=== PATIENT | female | born 1950 | race Caucasian/White ===

== ENCOUNTER 2018-10-21 11:30 | Emergency (ER) | payer MEDICARE, BC, SELFPAY ==
[2018-10-21 11:31] VITALS: BP 126/72; PULSE 67; RESP 17; TEMP 36.4; O2SAT 97; BMI 26.4
--- NOTE | 2018-10-21 11:45 | RAD_ITS ---
STUDY: X-RAY - RIGHT KNEE REASON FOR EXAM: Female, 68 years old. Fall, pain in the posterior knee. TECHNIQUE: 4 view(s) of the knee. COMPARISON: None. FINDINGS: No fracture. Mild tricompartment DJD. No apparent effusion. Periarticular soft tissues appear normal. RAD/Knee 4 or More Views IMPRESSION: No radiographic evidence of acute injury. Mild tricompartmental DJD. No effusion. Electronically Signed: Vasyl Dyer MD at 15:40 EST Tel , Service support ,
--- NOTE | 2018-10-21 11:51 | ED.VISSUMM ---
- ER Visit Summary Date of Service: 10/21/18 Chief Complaint: Right knee injury History of Present Illness: The patient is a 68 F presents to the emergency department right knee injury. The patient was in her normal state of health. She states that there were squirrels on her bird feeder. She went outside to le[place] them away with a broom. She states that she planted with her right leg and felt something pop in the back of her knee. She has been able to bear weight. She did not fall. She denies other injury. She states that when she tries to extend the leg fully, she does get some pain. Physical Examination: Examination is relatively unremarkable. The patient's extension is preserved. There is no gross laxity with anterior posterior drawer testing. She does have some mild pain with palpation in the posterior knee. Her pulses are normal. There is no large effusion. Test Results: [] Emergency Department Course and Treatment: Plain films were obtained of the knee. There is no evidence of fracture or dislocation. Her pulses are normal. I do feel that the patient likely has a meniscus injury. She is given an Kamron wrap. She will given a short course of analgesics for pain control. She is given outpatient orthopedic referral. The patient will be discharged home. Treatment Plan: [] Disposition: Discharge Impression: 1. Right knee sprain This note was generated with [employer] dictation software. It may contain incorrect words, spelling, and punctuation that were not noted in review of the chart prior to signing ED Disposition - Plan for ED Patient: Disposition: Home or Assisted Living Chief Complaint: Lower Extremity Injury Instructions: ED Sprain Knee Prescriptions: Hydrocodone Bitart/Apap 5-325 [[place] 5MG-325MG] 1 tab PO Q6H PRN PRN 3 Days #10 tab PRN Reason: Pain Referrals: Agustin Thomas DO [STAFF PHYSICIAN] -
== END 2018-10-21 13:16 | disposition home or self-care (01) ==
LOC: ED 12:18
PROVIDERS: Emergency Provider Emergency Medicine; Family Provider Family Medicine; PCP Family Medicine
DX: S83.91XA Sprain of unspecified site of right knee, initial encounter (principal); X58.XXXA Exposure to other specified factors, initial encounter; Y93.9 Activity, unspecified; Y92.9 Unspecified place or not applicable
CPT/HCPCS: 73564; 99282

== ENCOUNTER → 2018-11-02 14:02 | Outpatient (CLI) | payer MEDICARE, OTHER, SELFPAY ==
[2018-10-21 11:31] VITALS: BMI 26.4
--- NOTE | 2018-11-02 14:14 | VDLE_ITS ---
Reason For Study: PAIN RIGHT LEFT GSV is normal. CFV is compressible, spontaneous, phasic, CFV is compressible, spontaneous, phasic, competent, and demonstrates normal competent and demonstrates normal augmentation. augmentation. PTV is compressible. Rt distal FV is dilated and NONCOMPRESSIBLE. Remainder of FV is compressible. Rt Pop V is dilated and NONCOMPRESSIBLE. Rt T/P Trunk is dilated and NONCOMPRESSIBLE. Rt PeroV is dilated and NONCOMPRESSIBLE. Rt Gastroc V is dilated and NONCOMPRESSIBLE. Rt Soleus V is dilated and NONCOMPRESSIBLE. Procedure Exam performed in department. David Licona at [facility] was called with results- pt referred to Primary MD for care. Interpretation Summary Acute deep vein thrombosis is noted in the right distal femoral vein. Acute deep vein thrombosis is noted in the right popliteal vein. Acute deep vein thrombosis is noted in the right tibio-peroneal trunk. Acute deep vein thrombosis is noted in the right peroneal vein. Acute deep vein thrombosis is noted in the right gastrocnemius vein. Acute deep vein thrombosis is noted in the right soleus vein. The remainder of the right lower extremity deep venous system is patent and compressible. The right great saphenous vein is patent and compressible. Ordering Physician: David Licona Referring Physician: SYLWIA GARCIA Performed By: Zoë Mercedes RVT
== END ==
PROVIDERS: Family Provider Family Medicine; PCP Family Medicine; Referring Provider Physician Assistant; Visit Provider Physician Assistant
DX: M79.661 Pain in right lower leg (principal); I82.431 Acute embolism and thrombosis of right popliteal vein; I82.441 Acute embolism and thrombosis of right tibial vein; I82.890 Acute embolism and thrombosis of other specified veins; S83.241A Other tear of medial meniscus, current injury, right knee, initial encounter; X58.XXXA Exposure to other specified factors, initial encounter; Y93.9 Activity, unspecified; Y92.9 Unspecified place or not applicable; Y99.9 Unspecified external cause status
CPT/HCPCS: 93971

== ENCOUNTER → 2018-12-14 09:18 | Outpatient (CLI) | payer MEDICARE, OTHER, SELFPAY ==
[2018-12-14 10:21] LABS: Erythrocyte Sedimentation Rate 8 mm/hr (0-30)
[2018-12-14 10:24] LABS: Absolute Lymphocyte Count 2.13 X10^3/ul (0.83-4.51); Absolute Neutrophil Count 2.9 X10^3/uL (2.0-7.7); Basophil# 0.03 X10^3/uL; Basophil% 0.6 % (0-1); Eosinophils% 1.8 % (0-5); Hematocrit 42.4 % (37-47); Hemoglobin 13.6 g/dl (12.0-15.0); Lymphocyte # 2.13 X10^3/ul (4.0); Lymphocyte % 39.1 % (19-41); Mean Corp Hgb Conc 32.1 g/gl (32-36); Mean Corpuscular Hgb 29.9 pg (27.0-32.0); Mean Corpuscular Volume 93.2 fL (81-99); Mean Platelet Vol. 11.4 fl (6.2-12.0); Monocyte# 0.32 X10^3/uL; Monocyte% 5.9 % (0-10); Neutrophil # 2.86 X10^3/uL (2.7-7.7); Neutrophil % 52.4 % (47-70); POSITIVE COUNT NO; POSITIVE DIFFERENTIAL NO; POSITIVE MORPHOLOGY NO; Platelet Count 197 K/mm3 (150-450); RBC Distribution Width CV 13.5 % (11.6-14.6); RBC Distribution Width SD 45.7 fl (35.1-43.9); Red Blood Count 4.55 M/mm3 (4.2-5.4); White Blood Count 5.5 K/mm3 (4.4-11.0)
[2018-12-14 10:32] LABS: Anion Gap 5 (5-15); BUN 19 mg/dL (7-18); BUN/Creat Ratio 26.8 RATIO (10-20); CPK Total, Creatine Kinase 71 U/L (26-192); Chloride 107 mmol/L (98-107); Cholesterol 274 mg/dL (200); Creatinine, Serum 0.71 mg/dL (0.55-1.02); EST Glomerular Filtration Rate 87 mL/min (>60); Est Glom Filt Rate - Afr Amer 105 mL/min (>60); Glucose 100 mg/dL (74-106); High Density Lipoprotein 55 mg/dL; Magnesium 1.9 mg/dL (1.6-2.6); Potassium 3.5 mmol/L (3.5-5.1); Sodium Level 140 mmol/L (136-145); Triglycerides 118 mg/dL; Very Low Density Lipoprotein 24 mg/dL (5-40)
[2018-12-14 10:37] LABS: Vitamin D,25 Hydroxy 31.6 ng/mL (29.95-100.01)
== END ==
PROVIDERS: Family Provider Family Medicine; PCP Family Medicine; Referring Provider Family Medicine; Visit Provider Family Medicine
DX: I10 Essential (primary) hypertension (principal); M79.604 Pain in right leg; E78.00 Pure hypercholesterolemia, unspecified
CPT/HCPCS: 36415; 80048; 80061; 82306; 82550; 83735; 85025; 85652

== ENCOUNTER → 2019-02-07 09:50 | Outpatient (CLI) | payer MEDICARE, OTHER, SELFPAY ==
--- NOTE | 2019-02-07 09:53 | VDLE_ITS ---
Reason For Study: F/U RLE DVT RIGHT LEFT GSV is normal. CFV is compressible, spontaneous, phasic, CFV is compressible, spontaneous, phasic, competent, and demonstrates normal competent and demonstrates normal augmentation. augmentation. FV is compressible, spontaneous, phasic, competent and demonstrates normal augmentation. POP V is compressible, spontaneous, phasic, competent and demonstrates normal augmentation. T/P Trunk is compressible. PTV is compressible. Per V is partially compressible with bright intraluminal echoes consistant with chronic clot. Apparent resolution of thrombus in FV, POP V, T/P trunk and Gastroc v. Procedure Exam performed in department. A preliminary report was called and/or faxed to Dr. Oz Og. Interpretation Summary Chronic venous changes are noted in the right peroneal vein, which is partially compressible and demonstrates bright intraluminal echogenicity. The remainder of the right lower extremity deep venous system is patent and compressible. Valvular competence appears intact within the proximal deep venous system on the right . The right greater saphenous vein appears patent and compressible segmentally. There has been significant improvement since a prior study on 11/02/2018, with resolution of the acute deep vein thrombosis previously identified. Ordering Physician: Bob Og Referring Physician: Bob Og Performed By: Zoë Mercedes RVT
== END ==
PROVIDERS: Family Provider Family Medicine; PCP Family Medicine; Referring Provider Family Medicine; Visit Provider Family Medicine
DX: I82.411 Acute embolism and thrombosis of right femoral vein (principal)
CPT/HCPCS: 93971

== ENCOUNTER → 2019-12-06 09:23 | Outpatient (CLI) | payer MEDICARE, OTHER, SELFPAY ==
[2019-12-06 09:33] LABS: Bacteria 0 SEEN /hpf (None Seen); Mucous, Urine 0 SEEN /hpf (<or=2+); Red Blood Cells-Urine 0 SEEN /hpf (0-5)
[2019-12-06 12:41] LABS: Absolute Lymphocyte Count 2.13 X10^3/uL (0.83-4.51); Absolute Neutrophil Count 2.7 X10^3/uL (2.0-7.7); Basophil# 0.03 X10^3/uL; Basophil% 0.5 % (0-1); Eosinophil# 0.11 X10^3/uL; Hematocrit 42.8 % (37-47); Hemoglobin 13.6 g/dL (12.0-15.0); Lymphocyte # 2.13 X10^3/ul (4.0); Lymphocyte % 38.7 % (19-41); Mean Corp Hgb Conc 31.8 g/dL (32-36); Mean Corpuscular Hgb 29.9 pg (27.0-32.0); Mean Corpuscular Volume 94.1 fL (81-99); Mean Platelet Vol. 11.3 fl (6.2-12.0); Monocyte% 9.1 % (0-10); NRBC Flagged by Analyzer 0 % (0-5); Neutrophil # 2.72 X10^3/uL (2.7-7.7); Neutrophil % 49.5 % (47-70); Platelet Count 204 K/mm3 (150-450); RBC Distribution Width SD 44.7 fl (35.1-43.9); Red Blood Count 4.55 M/mm3 (4.2-5.4); White Blood Count 5.5 K/mm3 (4.4-11.0)
[2019-12-06 12:48] LABS: Color, Urine Yellow (Yellow); Glucose, Dipstick Normal (Normal); Ketone-Dipstick Negative (Negative); Leukocyte Esterase-Dipstick 100 /ul (Negative); Nitrite-Dipstick Negative (Negative); Occult Blood-Urine 25 /ul (Negative); Protein-Dipstick 15 mg/dl (Negative); Urine Bilirubin Dipstick Negative (Negative); Urine Clarity Clear (Clear); Urine Urobilinogen Normal (Normal)
[2019-12-06 13:03] LABS: Squamous Epithelial Cells - UA 0-5 SEEN /hpf (5-10); White Blood Cells 5-10 SEEN /hpf (0-5)
[2019-12-06 13:04] LABS: AST(SGOT) 18 U/L (15-37); Alanine Aminotransfer ALT/SGPT 32 U/L (13-56); Albumin, Serum 3.8 g/dL (3.2-5.0); Alkaline Phosphatase 77 U/L (45-117); Anion Gap 5 (5-15); BUN 21 mg/dL (7-18); BUN/Creat Ratio 28.4 RATIO (10-20); Calcium,Total 9.5 mg/dL (8.5-10.1); Chloride 110 mmol/L (98-107); Cholesterol 268 mg/dL (200); Creatinine, Serum 0.74 mg/dL (0.55-1.02); EST Glomerular Filtration Rate 83 mL/min (>60); Est Glom Filt Rate - Afr Amer 100 mL/min (>60); Globulin 3.8 g/dL (2.2-4.2); Glucose 96 mg/dL (74-106); High Density Lipoprotein 58 mg/dL; Potassium 3.4 mmol/L (3.5-5.1); Protein, Total 7.6 g/dL (6.4-8.2); Sodium Level 144 mmol/L (136-145); Thyroid Stim Hormone (TSH) 9.22 uIU/mL (0.358-3.74); Triglycerides 149 mg/dL; Very Low Density Lipoprotein 30 mg/dL (5-40)
[2019-12-09 14:33] LABS: T4 Free Direct 0.74 ng/dL (0.76-1.46)
== END ==
PROVIDERS: PCP Family Medicine; Referring Provider Family Medicine; Visit Provider Family Medicine
DX: I10 Essential (primary) hypertension (principal); E78.00 Pure hypercholesterolemia, unspecified
CPT/HCPCS: 36415; 80053; 80061; 81001; 84439; 84443; 85025

== ENCOUNTER → 2019-12-11 09:08 | Outpatient (CLI) | payer MEDICARE, OTHER, SELFPAY ==
[2019-12-17 16:48] LABS: Anti-Thyroglobulin AB 1.2 IU/mL (0.0-0.9); Thyroglobulin RIA 35 ng/mL (.); Thyroid Peroxidase AB 52 IU/mL (0-34)
== END ==
PROVIDERS: PCP Family Medicine; Referring Provider Family Medicine; Visit Provider Family Medicine
DX: R79.89 Other specified abnormal findings of blood chemistry (principal)
CPT/HCPCS: 36415; 84432; 86376; 86800

== ENCOUNTER → 2019-12-23 10:23 | Outpatient (CLI) | payer MEDICARE, OTHER, SELFPAY ==
--- NOTE | 2019-12-23 10:27 | US_ITS ---
STUDY: THYROID ULTRASOUND REASON FOR EXAM: Female, 69 years old. NODULE TECHNIQUE: Ultrasound evaluation of the thyroid was performed with real-time and static damon-scale imaging. COMPARISON: None. FINDINGS: RIGHT LOBE: The right lobe of the thyroid gland measures 3.9 x 1.8 x 1.6 cm. There is a heterogeneous echotexture. 13 mm hypoechoic solid nodule anteriorly in the right lobe and follow-up ultrasound is recommended in one year document stability. LEFT LOBE: The left lobe of the thyroid gland measures 3.9 x 2.1 x 2.0 cm. There is a heterogeneous echotexture. There are no demonstrated solid, cystic or complex lesions. ISTHMUS: The isthmus measures 8 mm thick. . The regional lymph nodes are normal. US/Thyroid IMPRESSION: Thyroiditis with a 13 mm dominant solid nodule anteriorly in the right lobe for which follow-up ultrasound is recommended in one year. Electronically Signed: Vasyl Jauregui MD at 8:41 EST Tel , Service support ,
== END ==
PROVIDERS: PCP Family Medicine; Referring Provider Family Medicine; Visit Provider Family Medicine
DX: E04.1 Nontoxic single thyroid nodule (principal)
CPT/HCPCS: 76536

== ENCOUNTER → 2020-01-07 11:40 | Outpatient (CLI) | payer MEDICARE, OTHER, SELFPAY ==
--- NOTE | 2020-01-07 08:35 | ASPS_PTH ---
PATIENT: RENATE NEWTON LOC: SCOUT U#:[id number] AGE/SX: 75/F ROOM: RE01/07/[address]: Dr. Modesto Rey MD : 1950 BED: DIS: SPEC #: [id number] RECD: 01/07/20 11:30 STATUS: RANI LINO #: [id number] STACY: 01/07/20 08:[address]: Modesto Rey DEPT: CYTOLOGY RECD BY: Marcell Vásquez ENTERED: 01/07/20 11:47 SP TYPE: ASPIRATION OTHR DR: Dr. Bob Billings MD Tissues: Thyroid gland, NOS Procedures: Special Stain Group II Cytology Other HEADER OPERATION: Ultrasound-guided fine needle aspiration, right thyroid PRE-OP DIAGNOSIS: Uninodular goiter E04.9 TISSUE SUBMITTED: Fine needle aspiration right thyroid slides x12 DIAGNOSIS CYTOLOGY Right thyroid nodule, fine needle aspiration (smears): Rare atypical follicular cells of undetermined clinical significance. Consistent with chronic thyroiditis. AM:cheng 01/08/20 CYTOLOGY STUDY Slides are reviewed. CYTOLOGY GROSS Received are 12 smears labeled with the patient's name and designated per the requisition as right thyroid. Submitted for staining. / cheng 01/07/20 TC:? CPT: 58242
[2020-01-07 08:41] VITALS: BMI 26.4
== END ==
PROVIDERS: PCP Family Medicine; Referring Provider Surgery; Visit Provider Surgery
DX: E04.1 Nontoxic single thyroid nodule (principal)
CPT/HCPCS: 88161; 88313

== ENCOUNTER → 2020-03-10 11:42 | Outpatient (CLI) | payer MEDICARE, OTHER, SELFPAY ==
[2020-01-14 09:03] VITALS: BMI 26.4
[2020-03-10 15:03] LABS: Absolute Lymphocyte Count 2.48 X10^3/uL (0.83-4.51); Absolute Neutrophil Count 3.8 X10^3/uL (2.0-7.7); Basophil# 0.04 X10^3/uL; Basophil% 0.6 % (0-1); Eosinophil# 0.08 X10^3/uL; Eosinophils% 1.1 % (0-5); Hematocrit 43.2 % (37-47); Hemoglobin 13.9 g/dL (12.0-15.0); Lymphocyte # 2.48 X10^3/ul (4.0); Lymphocyte % 35.6 % (19-41); Mean Corp Hgb Conc 32.2 g/dL (32-36); Mean Corpuscular Hgb 30.5 pg (27.0-32.0); Mean Corpuscular Volume 94.9 fL (81-99); Mean Platelet Vol. 11.6 fl (6.2-12.0); Monocyte# 0.58 X10^3/uL; Monocyte% 8.3 % (0-10); NRBC Flagged by Analyzer 0 % (0-5); Neutrophil # 3.77 X10^3/uL (2.7-7.7); Neutrophil % 54.3 % (47-70); Platelet Count 205 K/mm3 (150-450); RBC Distribution Width CV 12.9 % (11.6-14.6); RBC Distribution Width SD 45.2 fl (35.1-43.9); Red Blood Count 4.55 M/mm3 (4.2-5.4)
[2020-03-10 15:12] LABS: ALB/GLOB Ratio 1.1 RATIO (0.9-2.4); AST(SGOT) 16 U/L (15-37); Alanine Aminotransfer ALT/SGPT 26 U/L (13-56); Alkaline Phosphatase 76 U/L (45-117); Anion Gap 7 (5-15); BUN 17 mg/dL (7-18); BUN/Creat Ratio 23.1 RATIO (10-20); Calcium,Total 9.8 mg/dL (8.5-10.1); Chloride 105 mmol/L (98-107); Cholesterol 290 mg/dL (200); Creatinine, Serum 0.74 mg/dL (0.55-1.02); EST Glomerular Filtration Rate 83 mL/min (>60); Est Glom Filt Rate - Afr Amer 100 mL/min (>60); Globulin 3.8 g/dL (2.2-4.2); Glucose 102 mg/dL (74-106); High Density Lipoprotein 56 mg/dL; Potassium 3.5 mmol/L (3.5-5.1); Protein, Total 7.8 g/dL (6.4-8.2); Sodium Level 140 mmol/L (136-145); T4 Free Direct 0.99 ng/dL (0.76-1.46); Thyroid Stim Hormone (TSH) 3.36 uIU/mL (0.358-3.74); Triglycerides 174 mg/dL; Very Low Density Lipoprotein 35 mg/dL (5-40)
== END ==
PROVIDERS: PCP Family Medicine; Referring Provider Family Medicine; Visit Provider Family Medicine
DX: I10 Essential (primary) hypertension (principal); E78.00 Pure hypercholesterolemia, unspecified; E06.3 Autoimmune thyroiditis
CPT/HCPCS: 36415; 80053; 80061; 84439; 84443; 85025

== ENCOUNTER 2020-04-05 10:08 | Emergency (ER) | payer MEDICARE, OTHER, SELFPAY ==
[2020-01-14 09:03] VITALS: BMI 26.4
[2020-04-05 10:10] VITALS: BP 137/77; PULSE 95; RESP 16; TEMP 35.9; BMI 27.3
--- NOTE | 2020-04-05 10:46 | ED.VIS.GEN ---
History of Present Illness Chief Complaint: Lower Extremity Injury Informant: Patient Onset: Weeks Current Severity: Mild Maximum Severity: Mild Narrative: Left knee pain for some time. The patient's had left knee pain ongoing for some time, and exacerbated recently and she was seen by her orthopedic physicians who did x-rays examined her told her she had some issues with cartilage recommended physical therapy said that at some point time she may require injections she would not require knee replacement they recommended she follow-up with her family physician for ongoing management, she has been unable to see her family physicians, she came to the emergency department as she has nothing to take for pain She has had no fever no cough no chest pain no exposures she does recall walking some she has no hip pain no tib-fib ankle or foot pain asked where she hurts she points directly to the knee Past Medical History - Allergies and Home Meds Allergies/Adverse Reactions: Allergies No Known Allergies Allergy (Verified 01/14/20 09:03) Primary Care Physician: Bob Billings MD [Primary Care Provider] - Past Medical History: - - Includes left knee arthritic condition Smoking Status: Never smoker Review of Systems General: Denies: Chills, Fever, Sweats Eyes: Denies: Visual changes - bilaterally, Diplopia ENT: Denies: Rhinorrhea, Sore throat Cardiovascular: Denies: Chest pain, Palpitations Respiratory: Denies: Dyspnea, Cough, Dyspnea on exertion Gastrointestinal: Denies: Abdominal pain, Nausea, Vomiting, Diarrhea, Melena, Hematochezia Genitourinary: Denies: Dysuria, Hematuria, Frequency Musculoskeletal: Reports: Extremity Pain. Denies: Back pain Skin: Denies: Rash, Wounds Neurological: Denies: Headache, Weakness, Numbness Physical Exam Vital Signs/Narrative: Vital Signs Temp Pulse Resp BP 04/05/20 10:10 96.6 F L 95 16 137/77 H General: Well nourished, Well developed, No Acute Distress Head: Normocephalic, Atraumatic Eyes: Perrl, EOMI ENT: Moist mucous membranes, No rhinorrhea Neck: Supple, Nontender Cardiovascular: Regular rate, Regular rhythm, No murmurs Respiratory: No distress, CTA bilaterally, Chest nontender Abdomen: Soft, Nontender, Nondistended, Normal bowel sounds Back: Nontender, Normal Inspection Extremities: No edema, - - The patient has vague nonspecific discomfort to the knee she is able to flex and extend, patella is in good position the hip is nontender tib-fib ankle and foot are unremarkable there is no signs of warmth or infection inflammation or acute traumatic issues Skin: Normal color, No rash Neurological: Alert, Oriented x3, Cranial nerves II-XII grossly intact, Normal Strength, Normal Sensation Psychological: Normal affect, Normal Mood Diagnostic/Tx/Re-eval - Medical Decision Making Patient's had this condition ongoing she was just seen by her orthopedic physicians had x-rays done her issue was she was not given anything for pain management as apparently was expected that her primary care physicians would continue pain management but she is unable to see them, at this time she is treated with Toradol Naprosyn crutches and she will follow-up with her outpatient providers for further management of all the above Home stable Final impression acute recurrent left knee pain history of arthritic condition affecting left knee ED Disposition - Plan for ED Patient: Diagnosis: Left knee pain Instructions: ED Knee Pain UKO Prescriptions: Naproxen [Naprosyn] 500 mg PO BID PRN #20 tab Prescription Printed Referrals: Bob Billings MD [Primary Care Provider] -
[2020-04-05] MEDS: Ketorolac 60 MG/2 ML Vial IM (11:17)
[2020-04-05 11:44] VITALS: RESP 15
== END 2020-04-05 11:44 | disposition home or self-care (01) ==
LOC: ED 11:05
PROVIDERS: Emergency Provider Emergency Medicine; PCP Family Medicine
DX: M25.562 Pain in left knee (principal); Z79.82 Long term (current) use of aspirin; Z79.899 Other long term (current) drug therapy
CPT/HCPCS: 96372; 99282

== ENCOUNTER → 2020-06-10 08:16 | Outpatient (CLI) | payer MEDICARE, OTHER, SELFPAY ==
[2020-06-10 10:59] LABS: AST(SGOT) 21 U/L (15-37); Alanine Aminotransfer ALT/SGPT 33 U/L (13-56); Albumin, Serum 3.6 g/dL (3.2-5.0); Alkaline Phosphatase 65 U/L (45-117); Anion Gap 2 (5-15); BUN 16 mg/dL (7-18); BUN/Creat Ratio 25.9 RATIO (10-20); Calcium,Total 9.3 mg/dL (8.5-10.1); Chloride 108 mmol/L (98-107); Cholesterol 172 mg/dL (200); Creatinine, Serum 0.62 mg/dL (0.55-1.02); EST Glomerular Filtration Rate 102 mL/min (>60); Est Glom Filt Rate - Afr Amer 123 mL/min (>60); Globulin 3.7 g/dL (2.2-4.2); Glucose 100 mg/dL (74-106); High Density Lipoprotein 53 mg/dL; Potassium 3.6 mmol/L (3.5-5.1); Protein, Total 7.3 g/dL (6.4-8.2); Sodium Level 142 mmol/L (136-145); Triglycerides 118 mg/dL; Very Low Density Lipoprotein 24 mg/dL (5-40)
== END ==
PROVIDERS: PCP Family Medicine; Referring Provider Family Medicine; Visit Provider Family Medicine
DX: E78.00 Pure hypercholesterolemia, unspecified (principal)
CPT/HCPCS: 36415; 80053; 80061

== ENCOUNTER → 2020-08-13 | Outpatient (CLI) | payer MEDICARE, OTHER, SELFPAY | END | disposition home or self-care (01) | PROVIDERS: PCP Family Medicine; Referring Provider Family Medicine; Visit Provider Family Medicine | DX: U07.1 COVID-19 (principal) | CPT/HCPCS: 87635; U0003 ==

== ENCOUNTER 2020-08-19 09:47 | Inpatient (IN) | payer MEDICARE, OTHER, SELFPAY ==
[2020-08-19] VITALS (14 sets, daily range): BP systolic 92–141; BP diastolic 63–79; PULSE 63–85; RESP 18–30; TEMP 36.3–38.2; O2SAT 85–95; BMI 25.9; BMI 26.0
--- NOTE | 2020-08-19 10:00 | ED.DCSUM_ITS ---
History of Present Illness Chief Complaint: Shortness of Breath Informant: Patient Onset: Days Context: Sudden Onset Timing: Continuous Quality: Dyspnea, dyspnea exertion, myalgias, fever Location: Generalized predominantly respiratory Current Severity: Mild Maximum Severity: Severe Worsened by: Activity Relieved by: None thank Associated Symptoms: Upper respiratory symptoms Narrative: Patient is a 70-year-old woman who presents because of increased shortness of breath. Illness started on Monday. She had a Covid test on which was positive. She states her nephew who visit her was symptomatic prior to her becoming symptomatic. She denies history of VTE. She denies rash. Eye discoloration of her digits. She is on no immunosuppressive meds. She denies history of lung disease. States she does not feel well. Prior similar symptoms: Yes Recent Illness/Hospitalization: No - Past Medical History (1) COVID-19 virus detected Status: Acute (2) Santiago's thyroiditis Status: Acute (3) History of bowel resection Status: Acute (4) Hyperlipidemia Status: Acute (5) HTN (hypertension) Status: Chronic Past Medical History - Allergies and Home Meds Allergies/Adverse Reactions: Allergies No Known Allergies Allergy (Verified 08/19/20 09:53) Primary Care Physician: Bob Billings MD [Primary Care Provider] - Prior records reviewed: Yes Surgical History: noncontributory Lives: Alone Smoking Status: Never smoker Alcohol: None Drugs: None Review of Systems General: Reports: Chills, Fever, Malaise, Subjective, Sweats. Denies: Weight loss Eyes: Denies: Visual changes - bilaterally, Blurred Vision - bilaterally ENT: Reports: Bilateral ear pain, Rhinorrhea, Sore throat Cardiovascular: Reports: Palpitations, Heart racing. Denies: Chest pain Respiratory: Reports: Dyspnea, Cough, Dyspnea on exertion. Denies: Sputum, Orthopnea, Paroxysmal nocturnal dyspnea Gastrointestinal: Denies: Abdominal pain, Nausea, Vomiting, Diarrhea, Melena, Hematochezia Genitourinary: Denies: Dysuria, Hematuria, Frequency Musculoskeletal: Reports: Myalgias, Arthralgias. Denies: Neck pain, Back pain Skin: Denies: Rash, Wounds Neurological: Reports: Headache, Weakness. Denies: Parasthesia, Numbness Endocrine: Denies: Polyuria, Polydipsia Hematologic: Denies: Easy bruising, Easy bleeding Physical Exam Vital Signs/Narrative: Vital Signs Temp Pulse Resp BP Pulse Ox 08/19/20 09:51 100.7 F H 80 19 H 141/79 H 92 08/19/20 09:47 100.7 F H 85 19 H 141/79 H 85 Inital Vital Signs reviewed: Yes General: Well nourished, Well developed, Acute Distress - Patient appears ill but not toxic., - Head: Normocephalic, Atraumatic Eyes: Perrl, EOMI. Negative for: Pale conjunctiva, Scleral icterus ENT: Moist mucous membranes, No rhinorrhea Neck: Supple, Nontender, No lymphadenopathy, No JVD Cardiovascular: Regular rate, Regular rhythm, No murmurs, Normal S1, Normal S2 Respiratory: No distress, Chest nontender, Rales - Rales right lower lobe greater than left. There is egophony on the left. Abdomen: Soft, Nontender, Nondistended, Normal bowel sounds, No masses Back: Nontender, Normal Inspection. Negative for: CVA tenderness Extremities: Nontender, No edema. Negative for: Tenderness Skin: Normal color, No rash, No Trauma. Negative for: Cyanosis, Diaphoresis, Jaundice Neurological: Alert, Oriented x3, Cranial nerves II-XII grossly intact, Normal Strength, Normal Sensation Psychological: Normal affect, Normal Mood Diagnostic/Tx/Re-eval Chest X-Ray - ED: 1 View, Read by ED Physician, Heart, Bony Structures, Right Infiltrate, Left Infiltrate, - - Multilobar bilateral interstitial infiltrates consistent with coronavirus pneumonia x-ray was interpreted by me at 1027. Impressions Chest X-Ray 08/19/20 10:20 IMPRESSION: Bilateral patchy infiltrates worse in the right lung in keeping with bilateral patchy pneumonias. Electronically Signed: Eliecer Cespedes, at 10:40 EDT , Service support , 08/19/20 10:20 Chest 1 View (Portable) [RAD] Stat Laboratory Results 08/19/20 08/19/20 08/19/20 10:01 10:01 10:01 WBC 4.9 RBC 4.76 Hgb 14.3 Hct 43.6 MCV 91.6 MCH 30.0 MCHC 32.8 RDW Std Deviation 42.5 RDW Coeff of Dar 12.5 Plt Count 113 L MPV 10.7 Immature Gran % (Auto) 0.400 Neut % (Auto) 75.4 H Lymph % (Auto) 18.4 L Buchanan % (Auto) 5.8 Eos % (Auto) 0.0 Baso % (Auto) 0.0 Absolute Neuts (auto) 3.7 Absolute Lymphs (auto) 0.89 Nucleated RBC % 0 Sodium 136 Potassium 3.1 L Chloride 100 Carbon Dioxide 29.0 Anion Gap 7 BUN 21 H Creatinine 0.86 Estim Creat Clear Calc 61.40 Est GFR (MDRD) Af Amer 84 Est GFR (MDRD) Non-Af 70 BUN/Creatinine Ratio 24.5 H Glucose 126 H Lactic Acid 1.6 Calcium 9.4 Total Bilirubin 0.70 AST 102 H ALT 85 H Alkaline Phosphatase 72 Total Protein 7.9 Albumin 3.3 Globulin 4.6 H Albumin/Globulin Ratio 0.7 L - Medical Decision Making Covid isolation. She was treated with 10 mg of Decadron since she is hypoxic. Clinically she has bilateral lower lobe pneumonia suspect due to Covid. Chest x-ray was obtained as well as appropriate blood work. She was placed on oxygen since her pulse ox was 85% on room air. She was informed she will require admission to the hospital. Patient's lactate is normal. There is no evidence of endorgan injury. Patient does have bilateral patchy infiltrates and meets criteria for sepsis but not severe sepsis or septic shock. Since Covid test is positive we will treat for Covid pneumonia. Antibiotics were not started. ED Disposition - Plan for ED Patient: Disposition: Acute Care Hospital [facility] Diagnosis: Pneumonia due to severe acute respiratory syndrome coronavirus, Acute respiratory failure with hypoxia Referrals: Bob Billings MD [Primary Care Provider] -
[2020-08-19] MEDS: Acetaminophen 325 MG Tablet 650 MG PO (10:09)
[2020-08-19] MEDS: dexAMETHasone 10 MG/ML Vial IV (10:09)
--- NOTE | 2020-08-19 10:20 | RAD_ITS ---
STUDY: X-RAY CHEST REASON FOR EXAM: Female, 70 years old. POSITIVE COVID, WEAKNESS, SOB TECHNIQUE: Single AP portable view of the chest. COMPARISON: Comparison is made with prior examination of 07/21/2014. FINDINGS: EKG electrodes are seen. There now is evidence of a patchy infiltrates in both lungs. This is in keeping with patchy bilateral pneumonias. There is no demonstrated pleural abnormality. There is borderline cardiomegaly. Normal mediastinum and omari. Normal visualized pulmonary arteries. There is atherosclerotic tortuosity of the aortic arch and descending thoracic aorta. There are diffuse degenerative changes of the visualized thoracic spine. Normal visualized ribs, clavicles, and shoulders. There is no demonstrated abnormality of the visualized soft tissue structures of the upper abdomen. RAD/Chest 1 View (Portable) IMPRESSION: Bilateral patchy infiltrates worse in the right lung in keeping with bilateral patchy pneumonias. Electronically Signed: Eliecer Cespedes, at 10:40 EDT , Service support ,
[2020-08-19 10:27] LABS: Absolute Lymphocyte Count 0.89 X10^3/uL (0.83-4.51); Absolute Neutrophil Count 3.7 X10^3/uL (2.0-7.7); Hematocrit 43.6 % (37-47); Hemoglobin 14.3 g/dL (12.0-15.0); Lymphocyte # 0.89 X10^3/ul (4.0); Lymphocyte % 18.4 % (19-41); Mean Corp Hgb Conc 32.8 g/dL (32-36); Mean Corpuscular Volume 91.6 fL (81-99); Mean Platelet Vol. 10.7 fl (6.2-12.0); Monocyte# 0.28 X10^3/uL; Monocyte% 5.8 % (0-10); NRBC Flagged by Analyzer 0 % (0-5); Neutrophil # 3.66 X10^3/uL (2.7-7.7); Neutrophil % 75.4 % (47-70); Platelet Count 113 K/mm3 (150-450); RBC Distribution Width CV 12.5 % (11.6-14.6); RBC Distribution Width SD 42.5 fl (35.1-43.9); Red Blood Count 4.76 M/mm3 (4.2-5.4); White Blood Count 4.9 K/mm3 (4.4-11.0)
[2020-08-19 10:42] LABS: ALB/GLOB Ratio 0.7 RATIO (0.9-2.4); AST(SGOT) 102 U/L (15-37); Alanine Aminotransfer ALT/SGPT 85 U/L (13-56); Albumin, Serum 3.3 g/dL (3.2-5.0); Alkaline Phosphatase 72 U/L (45-117); Anion Gap 7 (5-15); BUN 21 mg/dL (7-18); BUN/Creat Ratio 24.5 RATIO (10-20); Calcium,Total 9.4 mg/dL (8.5-10.1); Chloride 100 mmol/L (98-107); Creatinine, Serum 0.86 mg/dL (0.55-1.02); EST Glomerular Filtration Rate 70 mL/min (>60); Est Glom Filt Rate - Afr Amer 84 mL/min (>60); Globulin 4.6 g/dL (2.2-4.2); Glucose 126 mg/dL (74-106); Potassium 3.1 mmol/L (3.5-5.1); Protein, Total 7.9 g/dL (6.4-8.2); Sodium Level 136 mmol/L (136-145)
[2020-08-19 10:47] LABS: Lactic Acid 1.6 mmol/L (0.4-1.9)
--- NOTE | 2020-08-19 12:35 | HP.PCM_ITS ---
Problem List (1) COVID-19 virus detected Status: Acute (2) Pneumonia due to severe acute respiratory syndrome coronavirus Status: Acute (3) Acute respiratory failure with hypoxia Status: Inactive (4) History of colonoscopy Status: Chronic (5) History of bowel resection Status: Chronic (6) Hyperlipidemia Status: Chronic (7) Santiago's thyroiditis Status: Chronic (8) HTN (hypertension) Status: Chronic History of Present Illness Date of Admission: 08/19/20 Chief Complaint: shortness of breath The patient is a 70 year old F presents with shortness of breath. Approximately 2 ago, patient was around her nephew looking at furniture and then he subsequently came down with COVID-19. She, a week ago, started having symptoms of just fatigue and malaise. Patient was checked for COVID-19 over the weekend and just got the results this week and was positive. Patient presented to the emergency room she was 85% on room air and placed on oxygen. She received 10 mg of IV dexamethasone. [] Past Medical History Past Medical History (Chronic Problems): Chronic Problems (Last Reviewed 01/14/20 @ 09:[address] Modesto Rey MD) History of colonoscopy (Chronic ~2014) History of bowel resection (Chronic ~1970) Hyperlipidemia (Chronic) Santiago's thyroiditis (Chronic) HTN (hypertension) (Chronic) Medical History: Medical History (Last Reviewed 08/19/20 @ 12:[address] Benigno Melgar DO) Hyperlipidemia (Acute) E78.5 Santiago's thyroiditis (Acute) E06.3 HTN (hypertension) (Chronic) I10 Allergies No Known Allergies Allergy (Verified 08/19/20 09:53) Home Medications: Ambulatory Orders Medication Instructions Recorded Lisinopril/Hydrochlorothiazide 1 ea PO QHS 10/21/18 [Lisinopril-Hctz 20-25 mg Tab] aspirin 81 mg tablet,delayed 81 mg PO DAILY 01/01/20 release levothyroxine 50 mcg tablet 50 mcg PO DAILY 01/01/20 Rosuvastatin Calcium [Crestor] 10 mg PO DAILY 04/05/20 Benzonatate [Tessalon Perle] 100 mg PO Q4H PRN PRN 08/19/20 Surgical History: Surgical History (Last Reviewed 08/19/20 @ 12:[address] Benigno Melgar DO) History of colonoscopy (Acute) Onset Date: ~2014 Z98.890 History of bowel resection (Acute) Onset Date: ~1970 Z90.49 Surgical History: noncontributory Lives: Alone Smoking Status: Never smoker Tobacco Use: Non-smoker Alcohol: None Drugs: None - *Family History Maternal Family History: Family History (Last Reviewed 08/19/20 @ 12:[address] Benigno Melgar DO) Father Heart disease Hypertension Mother Seizures Hypertension Sister Thyroid disorder Review of Systems Constitutional: Reports: Chills, Fever. Denies: Anorexia Eyes: Denies: Blurred vision, Double vision HEENT: Denies: Head Aches, Sinus Congestion, Sinus Drainage Cardiovascular: Reports: Chest Pain. Denies: Edema Respiratory: Reports: Cough, Shortness of Breath. Denies: Sputum production Gastrointestinal: Denies: Abdominal Pain, Nausea, Vomiting Genitourinary: Denies: Dysuria Musculoskeletal: Denies: Joint Pain, Joint Tenderness Skin: Denies: Rash, Wounds Hematologic/ Lymphatic: Denies: Easy Bruising, Easy Bleeding, Hx of blood clot Comment: All review of systems were negative except as mentioned above in the history of present illness and the other review of systems. VTE Information - Inpt Only VTE Present on Admission: No VTE Mechan Device Prophylaxis: None VTE Pharm Prophylaxis ordered?: Yes Patient Problems: Active and Suspected Problems (Last Reviewed 01/14/20 @ 09:[address] Modesto Rey MD) COVID-19 virus detected (Acute) Pneumonia due to severe acute respiratory syndrome coronavirus (Acute) - Physical Exam Vitals/I&O's: Vital Signs Temp Pulse Resp BP Pulse Ox 37.4 C H 75 22 H 92/64 94 08/19/20 12:00 08/19/20 12:00 08/19/20 12:00 08/19/20 12:00 08/19/20 12:00 Oxygen Flow Rate (L/min) 2 Oxygen Delivery Method Nasal Cannula Weight: 77.5 kg Body Mass Index (BMI) 25.9 General: Alert, Cooperative, No apparent distress HEENT: Atraumatic, Normocephalic Oral: Moist Mucosa, No Gingival or Mucosal Lesions/ Ulcerations Neck: No Nodes, Thyroid Normal Size and Texture Lungs: Normal air movement, - - faint crackles bilaterally Cardiovascular: Regular rate, Regular Rhythm, Normal S1, Normal S2 Abdomen: Bowel Sounds Present, Soft, Non Tender, Non-Distended, No Hepato- splenomegaly Extremities: No edema, No Calf Tenderness Skin: No rashes, No breakdown Psych/Mental Status: Appropriate, Flat Affect Laboratory Results 08/19/20 10:01: WBC 4.9, RBC 4.76, Hgb 14.3, Hct 43.6, MCV 91.6, MCH 30.0, MCHC 32.8, RDW Std Deviation 42.5, RDW Coeff of Dar 12.5, Plt Count 113 L, MPV 10.7, Immature Gran % (Auto) 0.400, Neut % (Auto) 75.4 H, Lymph % (Auto) 18.4 L, [place] % (Auto) 5.8, Eos % (Auto) 0.0, Baso % (Auto) 0.0, Absolute Neuts (auto) 3.7, Absolute Lymphs (auto) 0.89, Nucleated RBC % 0 08/19/20 10:01: Sodium 136, Potassium 3.1 L, Chloride 100, Carbon Dioxide 29.0, Anion Gap 7, BUN 21 H, Creatinine 0.86, Estim Creat Clear Calc 61.40, Est GFR (MDRD) Af Amer 84, Est GFR (MDRD) Non-Af 70, BUN/Creatinine Ratio 24.5 H, Glucose 126 H, Calcium 9.4, Total Bilirubin 0.70, AST 102 H, ALT 85 H, Alkaline Phosphatase 72, Total Protein 7.9, Albumin 3.3, Globulin 4.6 H, Albumin/Globulin Ratio 0.7 L 08/19/20 10:01: Lactic Acid 1.6 X-ray reviewed and shows diffuse infiltrate. Assessment/Plan All Active Problems (Last Reviewed 01/14/20 @ 09:[address] Modesto Rey MD) COVID-19 virus detected (Acute) Pneumonia due to severe acute respiratory syndrome coronavirus (Acute) 1. Acute COVID-19 pneumonia: * Patient started on dexamethasone in emergency room with 10 mg. We will continue with 6mg starting tomorrow. * Consult infectious disease for evaluation for remdesivir and convalescent plasma. 2. Acute hypoxic respiratory insufficiency * Secondary to above * Wean oxygen as tolerated * Consider amatory pulse ox prior to discharge. 3. VTE prophylaxis with low molecular weight heparin. Inpatient E&M: 29317 Init Hosp L2
--- NOTE | 2020-08-19 16:24 | NURSING ---
SON TO BRING GLASSES FOR PATIENT WHILE HERE.
--- NOTE | 2020-08-19 16:37 | CON.PCM_ITS ---
Problem List (1) COVID-19 virus detected Status: Acute Reason for Consult: covid Consulted by: Dr. Melgar History of Present Illness: The patient is a 70 year old F, lives alone, recently had nephew come to help move some furniture and he got sick a few days later. A week ago, she started to have progressivecough, dyspnea, fatigue, not feeling well. No fever, no change in taste or smell, no aches. Came to ED, sat was 85%, given dex, covid (+). Full ROS performed and neg except as noted above. - Medical History Past Medical History (Chronic Problems): Chronic Problems (Last Reviewed 08/19/20 @ 12:[address] Benigno Melgar, DO) History of colonoscopy (Chronic ~2014) History of bowel resection (Chronic ~1970) Hyperlipidemia (Chronic) Santiago's thyroiditis (Chronic) HTN (hypertension) (Chronic) Allergies/Adverse Reactions: Allergies No Known Allergies Allergy (Verified 08/19/20 09:53) Home Medications: Ambulatory Orders Medication Instructions Recorded Lisinopril/Hydrochlorothiazide 1 tab PO DAILY 10/21/18 [Lisinopril-Hctz 20-25 mg Tab] aspirin 81 mg tablet,delayed 81 mg PO DAILY 01/01/20 release levothyroxine 50 mcg tablet 50 mcg PO DAILY 01/01/20 Rosuvastatin Calcium [Crestor] 10 mg PO QHS 04/05/20 Benzonatate [Tessalon Perle] 100 mg PO Q8H PRN PRN 08/19/20 Calcium Carbonate/Vitamin D3 1 tab PO DAILY 08/19/20 [Calcium 500-Vit D3 200 Tablet] - Social History Tobacco Use: non-smoker Vital Signs Temp Pulse Resp BP Pulse Ox 98.9 F 63 21 H 105/74 94 08/19/20 15:00 08/19/20 15:00 08/19/20 15:00 08/19/20 15:00 08/19/20 15:00 Oxygen Flow Rate (L/min) 2 Oxygen Delivery Method Nasal Cannula Weight: 77.5 kg Body Mass Index (BMI) 25.9 Laboratory Tests Past 24 Hrs 08/19/20 08/19/20 08/19/20 10:01 10:01 10: WBC 4.9 RBC 4.76 Hgb 14.3 Hct 43.6 MCV 91.6 MCH 30.0 MCHC 32.8 RDW Std Deviation 42.5 RDW Coeff of Dar 12.5 Plt Count 113 L MPV 10.7 Immature Gran % (Auto) 0.400 Neut % (Auto) 75.4 H Lymph % (Auto) 18.4 L [place] % (Auto) 5.8 Eos % (Auto) 0.0 Baso % (Auto) 0.0 Absolute Neuts (auto) 3.7 Absolute Lymphs (auto) 0.89 Nucleated RBC % 0 Sodium 136 Potassium 3.1 L Chloride 100 Carbon Dioxide 29.0 Anion Gap 7 BUN 21 H Creatinine 0.86 Estim Creat Clear Calc 61.40 Est GFR (MDRD) Af Amer 84 Est GFR (MDRD) Non-Af 70 BUN/Creatinine Ratio 24.5 H Glucose 126 H Lactic Acid 1.6 Calcium 9.4 Total Bilirubin 0.70 AST 102 H ALT 85 H Alkaline Phosphatase 72 Total Protein 7.9 Albumin 3.3 Globulin 4.6 H Albumin/Globulin Ratio 0.7 L - Other Studies Radiology: [] reviewed Other Studies: [] Route of nutrition/ use of supplements: [] Nutritional Intake: [] IV Site: [] Salcedo Catheter: [] - Physical Exam General: Alert, Oriented x3, Cooperative, No apparent distress HEENT: Atraumatic, PERRLA, EOMI Neck: Supple, No Nodes Lungs: Diminished Cardiovascular: Regular rate, Regular Rhythm Abdomen: Soft, Non Tender, Non-Distended Extremities: No edema Skin: No rashes IV Site: Peripheral, without redness Musculoskeletal: No Tenderness to Palpation of Joints or Extremities Neurological: Cranial nerves II-XII grossly intact - Assessment/Plan Antibiotics: [] Assessment/Plan: [] Active and Suspected Problems (Last Reviewed 08/19/20 @ 12:[address] Benigno Melgar, DO) COVID-19 virus detected (Acute) Pneumonia due to severe acute respiratory syndrome coronavirus (Acute) Acute respiratory failure with hypoxia (Acute) covid with hypoxia - day 7 of symptoms. Started on dex, will start remdesivir. D-dimer pending. LFT with mild transaminitis, will monitor while on remdesivir. Will follow, thank you
[2020-08-19 17:46] LABS: Fibrinogen 631 mg/dl (203-444); Prothrombin Time (Protime)PT. 12.8 SECONDS (11.7-14.9)
[2020-08-19 17:51] LABS: Magnesium 2.3 mg/dL (1.6-2.6)
[2020-08-19 18:00] LABS: LDH 366 U/L (84-246)
--- NOTE | 2020-08-19 18:00 | CT_ITS ---
STUDY: CTA CHEST REASON FOR EXAM: Female, 70 years old. 12 positive. Shortness of breath. History of hypertension and hyperlipidemia and Santiago''s thyroiditis. RADIATION DOSAGE (If Supplied By Facility): CTDIvol = ( 10.59 ) mGy, DLP = ( 317.30 ) mGycm TECHNIQUE: The examination was performed with the intravenous administration of IV 100mL [id number]. Post-processing of the angiographic images was performed, with multiplanar reformation and 3D reconstruction. Individualized dose optimization techniques were used for this CT. COMPARISON: Chest, 08/19/2020. FINDINGS: Normal enhancement of the main pulmonary artery and right and left pulmonary arteries. Normal enhancement of the bilateral peripheral pulmonary arteries. There is no demonstrated pulmonary embolism. There is diffuse atherosclerotic changes of the thoracic aorta without aneurysm. There is no demonstrated aortic dissection. The heart is borderline enlarged. Normal pericardium. There are calcifications of the coronary arteries. Normal mediastinum. Normal hilar regions. Normal visualized trachea and bronchi. The lungs are well expanded. There is patchy ground glass infiltrates most marked in the upper lobes. There is areas of mild consolidation posteriorly at the lung bases which may be partially atelectatic. Normal pleura. Normal chest wall structures. There are degenerative changes of thoracic spine. Normal visualized upper abdomen. CT/CTA Chest W/WO Contrast IMPRESSION: 1. No evidence of pulmonary embolus. 2. Atherosclerotic thoracic aorta without aneurysm or dissection. 3. Borderline cardiomegaly with coronary artery calcifications. 4. There are diffuse primarily upper lobe groundglass infiltrates with mild consolidation versus atelectasis at the lung bases. Electronically Signed: Jimbo Castanon DO at 19:04 EDT Tel [phone], Service support ,
[2020-08-19] MEDS: Benzonatate 100 MG Capsule PO (20:36)
[2020-08-19] MEDS: Enoxaparin 30 MG/0.3 ML Syringe SC (23:17)
[2020-08-20] VITALS (20 sets, daily range): BP systolic 112–149; BP diastolic 61–88; PULSE 63–82; RESP 20–26; TEMP 36.2–37.4; O2SAT 88–95
[2020-08-20] MEDS: guaiFENesin 10 ML UDC (200MG/10ML) PO (04:41)
[2020-08-20 06:09] LABS: Hematocrit 40.6 % (37-47); Hemoglobin 13.2 g/dL (12.0-15.0); Mean Corp Hgb Conc 32.5 g/dL (32-36); Mean Corpuscular Hgb 30.1 pg (27.0-32.0); Mean Corpuscular Volume 92.7 fL (81-99); Mean Platelet Vol. 11.5 fl (6.2-12.0); Platelet Count 116 K/mm3 (150-450); RBC Distribution Width CV 12.5 % (11.6-14.6); RBC Distribution Width SD 42.9 fl (35.1-43.9); Red Blood Count 4.38 M/mm3 (4.2-5.4); White Blood Count 6.8 K/mm3 (4.4-11.0)
[2020-08-20 06:47] LABS: ALB/GLOB Ratio 0.8 RATIO (0.9-2.4); AST(SGOT) 106 U/L (15-37); Alanine Aminotransfer ALT/SGPT 95 U/L (13-56); Albumin, Serum 2.9 g/dL (3.2-5.0); Alkaline Phosphatase 63 U/L (45-117); Anion Gap 8 (5-15); BUN 23 mg/dL (7-18); BUN/Creat Ratio 34.6 RATIO (10-20); Calcium,Total 8.7 mg/dL (8.5-10.1); Chloride 103 mmol/L (98-107); Creatinine, Serum 0.66 mg/dL (0.55-1.02); EST Glomerular Filtration Rate 93 mL/min (>60); Est Glom Filt Rate - Afr Amer 113 mL/min (>60); Estimated Creatinine Clearance 52.81 ml/min; Globulin 3.7 g/dL (2.2-4.2); Glucose 115 mg/dL (74-106); Potassium 3.6 mmol/L (3.5-5.1); Protein, Total 6.6 g/dL (6.4-8.2); Sodium Level 139 mmol/L (136-145)
[2020-08-20] MEDS: Aspirin E.C. 81 MG Tablet PO (08:58)
[2020-08-20] MEDS: Enoxaparin 30 MG/0.3 ML Syringe SC ×2 (08:58→21:17)
[2020-08-20] MEDS: Levothyroxine 50 MCG Tablet PO (08:58)
[2020-08-20] MEDS: Atorvastatin Calcium 20 MG Tablet PO (08:58)
[2020-08-20] MEDS: dexAMETHasone 10 MG/ML Vial 6 MG IV (08:58)
[2020-08-20] MEDS: 0.9% Saline Lock 10 ML Syringe IV ×3 (08:59→21:19)
--- NOTE | 2020-08-20 09:54 | NURSING ---
Attempted to call patient's son, Shay with update. There was no answer. Will try again later.
[2020-08-20 11:14] LABS: BNP,B-Type NATRIURETIC PEPTIDE 54.7 pg/mL (0-100)
--- NOTE | 2020-08-20 11:26 | PN.ID_ITS ---
Patient Problems: Active and Suspected Problems (Last Reviewed 08/19/20 @ 12:[address] Benigno Melgar, DO) COVID-19 virus detected (Acute) Pneumonia due to severe acute respiratory syndrome coronavirus (Acute) Acute respiratory failure with hypoxia (Acute) Subjective: Feeling slightly better, no fever, still cough and dyspnea. No n/v/d. - Physical Exam Vitals/I&O's: Vital Signs Temp Pulse Resp BP Pulse Ox 99.4 F H 82 20 H 133/70 H 88 08/20/20 11:00 08/20/20 11:00 08/20/20 11:00 08/20/20 11:00 08/20/20 11:00 Oxygen Flow Rate (L/min) 13 Oxygen Delivery Method Nasal Cannula Weight: 77.5 kg Body Mass Index (BMI) 25.9 Intake and Output for Last 24 Hours 08/18/20 08/19/20 08/20/20 23:59 23:59 23:59 Intake Total 250 / 250 1000.75 / 1000.75 Balance 250 / 250 1000.75 / 1000.75 General: Alert, Cooperative, No apparent distress Lungs: Diminished Cardiovascular: Regular rate, Regular Rhythm Abdomen: Soft, Non Tender, Non-Distended Skin: No rashes Laboratory Results 08/19/20 10:01: PT 12.8, INR 1.0, Fibrinogen 631 H, D-Dimer Quant (PE/DVT) 0.80 H* 08/19/20 10:01: Lactate Dehydrogenase 366 H 08/19/20 10:01: Magnesium 2.3 08/20/20 05:02: WBC 6.8, RBC 4.38, Hgb 13.2, Hct 40.6, MCV 92.7, MCH 30.1, MCHC 32.5, RDW Std Deviation 42.9, RDW Coeff of Dar 12.5, Plt Count 116 L, MPV 11.5 08/20/20 05:02: Sodium 139, Potassium 3.6, Chloride 103, Carbon Dioxide 28.0, Anion Gap 8, BUN 23 H, Creatinine 0.66, Estim Creat Clear Calc 52.81, Est GFR (MDRD) Af Amer 113, Est GFR (MDRD) Non-Af 93, BUN/Creatinine Ratio 34.6 H, Glucose 115 H, Calcium 8.7, Total Bilirubin 0.50, AST 106 H, ALT 95 H, Alkaline Phosphatase 63, Total Protein 6.6, Albumin 2.9 L, Globulin 3.7, Albumin/Globulin Ratio 0.8 L 08/20/20 05:02: Troponin I < 0.015 08/20/20 05:02: B-Natriuretic Peptide 54.7 Current Medications Acetaminophen (Acetaminophen 325 Mg Tablet) 650 mg PO Q6H PRN PRN PRN Reason: Pain Score 1-10/Temp > 100.7 F Aspirin (Aspirin E.C. 81 Mg Tablet) 81 mg PO DAILY [facility] Last Admin: 08/20/20 08:58 Dose: 81 mg Documented by: Atorvastatin Calcium (Atorvastatin Calcium 20 Mg Tablet) 20 mg PO DAILY [facility] Last Admin: 08/20/20 08:58 Dose: 20 mg Documented by: Benzonatate (Benzonatate 100 Mg Capsule) 100 mg PO Q4H PRN PRN PRN Reason: COUGH Last Admin: 08/19/20 20:36 Dose: 100 mg Documented by: Dexamethasone Sodium Phosphate (Dexamethasone 10 Mg/Ml Vial) 6 mg IV DAILY [facility] Last Admin: 08/20/20 08:58 Dose: 6 mg Documented by: Enoxaparin Sodium (Enoxaparin 30 Mg/0.3 Ml Syringe) 30 mg SC BID [facility] Last Admin: 08/20/20 08:58 Dose: 30 mg Documented by: Guaifenesin (Guaifenesin 10 Ml Udc (200mg/10ml)) 10 ml PO Q4H PRN PRN PRN Reason: COUGH Last Admin: 08/20/20 04:41 Dose: 10 ml Documented by: Remdesivir 100 mg/ Sodium (Chloride) 250 mls @ 125 mls/hr IV DAILY [facility]; Protocol Stop: 08/23/20 11:59 Last Admin: 08/20/20 10:52 Dose: 125 mls/hr Documented by: Sodium Chloride () 250 mls @ 15 mls/hr IV .[id number] PRN PRN Reason: Saline Flush Last Infusion: 08/20/20 10:56 Dose: 0 mls/hr Documented by: Ibuprofen (Ibuprofen 400 Mg Tablet) 400 mg PO Q4H PRN PRN PRN Reason: Pain Score 1-10/Temp > 100.7 F Levothyroxine Sodium (Levothyroxine 50 Mcg Tablet) 50 mcg PO DAILY [facility] Last Admin: 08/20/20 08:58 Dose: 50 mcg Documented by: Sodium Chloride (0.9% Saline Lock 10 Ml Syringe) 10 - 40 ml IV UD PRN PRN Reason: SALINE FLUSH Last Admin: 08/20/20 10:53 Dose: 10 ml Documented by: Medical Necessity - Tobacco Use Smoking Status: Never smoker Tobacco Use: Non-smoker Route of nutrition/ use of supplements: [] Nutritional Intake: [] IV Site: [] Salcedo Catheter: [] - Assessment/Plan Antibiotics: [] Assessment/Plan: [] Active and Suspected Problems (Last Reviewed 08/19/20 @ 12:[address] Benigno Melgar, DO) COVID-19 virus detected (Acute) Pneumonia due to severe acute respiratory syndrome coronavirus (Acute) Acute respiratory failure with hypoxia (Acute) covid with hypoxia - presented on day 7 of symptoms. Cont dex and remdesivir. On 10L. May need pulm eval. Reviewed EUA and risks/benefits of convalescent plasma, we agree to start. Checking trop and BNP. Will follow
--- NOTE | 2020-08-20 12:27 | CASEMGMT ---
RN CM Assessment Note Introduced role of CM to patient via phone to room. Demographics, PCP verified. The patient states she is independent, no care needs at home. She does not wear home oxygen prior to admission. Discussed possible home O2 needs and procedure re: testing prior to dc, portable tank and set up at home if needed. List of providers reviewed and patient does not have a preference. Plan is to return home on dc. -Pt has masks, supplies -Family (son) can bring food, medications, etc if needed. Presentation: shortness of breath Diagnosis: Covid-19 PCP: Dr. Billings Insurance: [facility] [place] Preferred Pharmacy: [facility] Prescription Benefit: yes LNOK: son Tranportation: son can provide transportation on discharge DME: none. If Home oxygen is needed, will use [facility] Patient DC Goals: Home DC Plan: anticipate home on dc. Recommend oxygen testing at rest and with ambulation prior to discharge CM available for discharge planning coordination. Contact CM for any concerns/needs that may arise. Cameron WRENN RN ACM
--- NOTE | 2020-08-20 15:40 | PCM.PN.HOSP ---
Patient Problems: Active and Suspected Problems (Last Reviewed 08/19/20 @ 12:[address] Benigno Melgar, DO) COVID-19 virus detected (Acute) Pneumonia due to severe acute respiratory syndrome coronavirus (Acute) Acute respiratory failure with hypoxia (Acute) Reason for Visit: COVID Subjective: Breathing well, but still on high flow oxygen. Vitals/I&O's: Vital Signs Temp Pulse Resp BP Pulse Ox 37.0 C 78 20 H 125/65 H 91 08/20/20 14:56 08/20/20 14:56 08/20/20 14:56 08/20/20 14:56 08/20/20 14:56 Oxygen Flow Rate (L/min) 12 Oxygen Delivery Method Nasal Cannula Weight: 77.5 kg Body Mass Index (BMI) 25.9 Intake and Output for Last 24 Hours 08/18/20 08/19/20 08/20/20 23:59 23:59 23:59 Intake Total 250 / 250 1570.75 / 1570.75 Balance 250 / 250 1570.75 / 1570.75 General: Alert, No apparent distress HEENT: Atraumatic, Normocephalic Oral: Moist Mucosa, No Gingival or Mucosal Lesions/ Ulcerations Neck: No Nodes, Thyroid Normal Size and Texture Lungs: Clear to auscultation, Normal air movement, No rhonchi, No wheeze Cardiovascular: Normal S1, Normal S2, - - crackles Abdomen: Bowel Sounds Present, Soft, Non Tender, Non-Distended Extremities: No edema, No Calf Tenderness Psych/Mental Status: Normal Affect, Appropriate Laboratory Results 08/19/20 10:01: PT 12.8, INR 1.0, Fibrinogen 631 H, D-Dimer Quant (PE/DVT) 0.80 H* 08/19/20 10:01: Lactate Dehydrogenase 366 H 08/19/20 10:01: Magnesium 2.3 08/20/20 05:02: WBC 6.8, RBC 4.38, Hgb 13.2, Hct 40.6, MCV 92.7, MCH 30.1, MCHC 32.5, RDW Std Deviation 42.9, RDW Coeff of Dar 12.5, Plt Count 116 L, MPV 11.5 08/20/20 05:02: Sodium 139, Potassium 3.6, Chloride 103, Carbon Dioxide 28.0, Anion Gap 8, BUN 23 H, Creatinine 0.66, Estim Creat Clear Calc 52.81, Est GFR (MDRD) Af Amer 113, Est GFR (MDRD) Non-Af 93, BUN/Creatinine Ratio 34.6 H, Glucose 115 H, Calcium 8.7, Total Bilirubin 0.50, AST 106 H, ALT 95 H, Alkaline Phosphatase 63, Total Protein 6.6, Albumin 2.9 L, Globulin 3.7, Albumin/Globulin Ratio 0.8 L 08/20/20 05:02: Troponin I < 0.015 08/20/20 05:02: B-Natriuretic Peptide 54.7 08/20/20 11:00: Blood Type A POSITIVE Current Medications Acetaminophen (Acetaminophen 325 Mg Tablet) 650 mg PO Q6H PRN PRN PRN Reason: Pain Score 1-10/Temp > 100.7 F Aspirin (Aspirin E.C. 81 Mg Tablet) 81 mg PO DAILY [facility] Last Admin: 08/20/20 08:58 Dose: 81 mg Documented by: Atorvastatin Calcium (Atorvastatin Calcium 20 Mg Tablet) 20 mg PO DAILY [facility] Last Admin: 08/20/20 08:58 Dose: 20 mg Documented by: Benzonatate (Benzonatate 100 Mg Capsule) 100 mg PO Q4H PRN PRN PRN Reason: COUGH Last Admin: 08/19/20 20:36 Dose: 100 mg Documented by: Dexamethasone Sodium Phosphate (Dexamethasone 10 Mg/Ml Vial) 6 mg IV DAILY [facility] Last Admin: 08/20/20 08:58 Dose: 6 mg Documented by: Enoxaparin Sodium (Enoxaparin 30 Mg/0.3 Ml Syringe) 30 mg SC BID [facility] Last Admin: 08/20/20 08:58 Dose: 30 mg Documented by: Guaifenesin (Guaifenesin 10 Ml Udc (200mg/10ml)) 10 ml PO Q4H PRN PRN PRN Reason: COUGH Last Admin: 08/20/20 04:41 Dose: 10 ml Documented by: Remdesivir 100 mg/ Sodium (Chloride) 250 mls @ 125 mls/hr IV DAILY [facility]; Protocol Stop: 08/23/20 11:59 Last Infusion: 08/20/20 12:52 Dose: Infused Documented by: Sodium Chloride () 250 mls @ 15 mls/hr IV .[id number] PRN PRN Reason: Saline Flush Last Infusion: 08/20/20 12:52 Dose: 15 mls/hr Documented by: Ibuprofen (Ibuprofen 400 Mg Tablet) 400 mg PO Q4H PRN PRN PRN Reason: Pain Score 1-10/Temp > 100.7 F Levothyroxine Sodium (Levothyroxine 50 Mcg Tablet) 50 mcg PO DAILY [facility] Last Admin: 08/20/20 08:58 Dose: 50 mcg Documented by: Sodium Chloride (0.9% Saline Lock 10 Ml Syringe) 10 - 40 ml IV UD PRN PRN Reason: SALINE FLUSH Last Admin: 08/20/20 10:53 Dose: 10 ml Documented by: STROKE Vital Signs/Narrative: Vital Signs Temp Pulse Resp BP Pulse Ox 08/20/20 14:56 37.0 C 78 20 H 125/65 H 91 08/20/20 13:40 36.8 C 80 22 H 124/62 H 90 08/20/20 11:56 90 Medical Necessity - Tobacco Use Smoking Status: Never smoker Tobacco Use: Non-smoker Assessment/Plan All Active Problems (Last Reviewed 08/19/20 @ 12:[address] Benigno Melgar, DO) COVID-19 virus detected (Acute) Pneumonia due to severe acute respiratory syndrome coronavirus (Acute) Acute respiratory failure with hypoxia (Acute) 1. Acute COVID-19 pneumonia: Patient started on dexamethasone in emergency room with 10 mg. We will continue with 6mg starting tomorrow. Consult infectious disease for evaluation for remdesivir and convalescent plasma. 2. Acute hypoxic respiratory insufficiency Secondary to above Wean oxygen as tolerated Consider amatory pulse ox prior to discharge. 3. VTE prophylaxis with low molecular weight heparin. Inpatient E&M: 72247 Subs Hosp L2
[2020-08-21] VITALS (15 sets, daily range): BP systolic 113–152; BP diastolic 60–81; PULSE 54–82; RESP 18–29; TEMP 36.5–37.4; O2SAT 85–96
[2020-08-21 06:03] LABS: Hematocrit 40.1 % (37-47); Hemoglobin 12.9 g/dL (12.0-15.0); Mean Corp Hgb Conc 32.2 g/dL (32-36); Mean Corpuscular Hgb 29.3 pg (27.0-32.0); Mean Corpuscular Volume 91.1 fL (81-99); Mean Platelet Vol. 11.3 fl (6.2-12.0); Platelet Count 143 K/mm3 (150-450); RBC Distribution Width CV 12.5 % (11.6-14.6); RBC Distribution Width SD 42.5 fl (35.1-43.9); White Blood Count 6.7 K/mm3 (4.4-11.0)
[2020-08-21 06:34] LABS: ALB/GLOB Ratio 0.8 RATIO (0.9-2.4); AST(SGOT) 144 U/L (15-37); Alanine Aminotransfer ALT/SGPT 153 U/L (13-56); Albumin, Serum 2.9 g/dL (3.2-5.0); Alkaline Phosphatase 68 U/L (45-117); Anion Gap 8 (5-15); BUN 14 mg/dL (7-18); Calcium,Total 8.6 mg/dL (8.5-10.1); Chloride 103 mmol/L (98-107); EST Glomerular Filtration Rate 130 mL/min (>60); Est Glom Filt Rate - Afr Amer 157 mL/min (>60); Estimated Creatinine Clearance 52.81 ml/min; Globulin 3.7 g/dL (2.2-4.2); Glucose 117 mg/dL (74-106); Potassium 3.3 mmol/L (3.5-5.1); Protein, Total 6.6 g/dL (6.4-8.2); Sodium Level 138 mmol/L (136-145)
[2020-08-21] MEDS: 0.9% Saline Lock 10 ML Syringe IV ×2 (08:49→11:39)
[2020-08-21] MEDS: Atorvastatin Calcium 20 MG Tablet PO (08:49)
[2020-08-21] MEDS: Aspirin E.C. 81 MG Tablet PO (08:49)
[2020-08-21] MEDS: Enoxaparin 30 MG/0.3 ML Syringe SC ×2 (08:49→20:05)
[2020-08-21] MEDS: dexAMETHasone 10 MG/ML Vial 6 MG IV (08:49)
[2020-08-21] MEDS: Levothyroxine 50 MCG Tablet PO (08:49)
--- NOTE | 2020-08-21 10:10 | CPS ---
Water bag changed on [employer]vo at this time.
--- NOTE | 2020-08-21 10:13 | CPS ---
Waterbag changed at this time on the [employer].
--- NOTE | 2020-08-21 15:33 | PN_ITS ---
Patient Problems: Active and Suspected Problems (Last Reviewed 08/19/20 @ 12:[address] Benigno Melgar, DO) COVID-19 virus detected (Acute) Pneumonia due to severe acute respiratory syndrome coronavirus (Acute) Acute respiratory failure with hypoxia (Acute) Reason for Visit: COVID Subjective: Feeling better. Though now on [employer]vo Vitals/I&O's: Vital Signs Temp Pulse Resp BP Pulse Ox 36.5 C L 72 20 H 129/76 H 91 08/21/20 11:42 08/21/20 13:45 08/21/20 11:42 08/21/20 11:42 08/21/20 13:45 Oxygen Flow Rate (L/min) 50 Oxygen Delivery Method Airvo Weight: 77.5 kg Body Mass Index (BMI) 25.9 Intake and Output for Last 24 Hours 08/19/20 08/20/20 08/21/20 23:59 23:59 23:59 Intake Total 250 / 250 2222.75 / 2222.75 650 / 650 Balance 250 / 250 2222.75 / 2222.75 650 / 650 General: Alert, No apparent distress HEENT: Atraumatic, PERRLA, EOMI, Normocephalic Oral: Moist Mucosa, No Gingival or Mucosal Lesions/ Ulcerations Neck: No Nodes, Thyroid Normal Size and Texture Lungs: Clear to auscultation, Normal air movement, No rhonchi, No wheeze Cardiovascular: Regular rate, Regular Rhythm, Normal S1, Normal S2 Abdomen: Bowel Sounds Present, Soft, Non Tender, Non-Distended Psych/Mental Status: Normal Affect, Appropriate Microbiology Past 72 Hours 08/19/20 10:10 Blood Culture (Wb) - Left Hand Blood Culture - Preliminary No growth in 48 hours. 08/19/20 10:01 Blood Culture (Wb) - Anticubital Left Blood Culture - Preliminary No growth in 48 hours. Laboratory Results 08/21/20 04:54: WBC 6.7, RBC 4.40, Hgb 12.9, Hct 40.1, MCV 91.1, MCH 29.3, MCHC 32.2, RDW Std Deviation 42.5, RDW Coeff of Dar 12.5, Plt Count 143 L, MPV 11.3 08/21/20 04:54: Sodium 138, Potassium 3.3 L, Chloride 103, Carbon Dioxide 27.0, Anion Gap 8, BUN 14, Creatinine 0.50 L, Estim Creat Clear Calc 52.81, Est GFR (MDRD) Af Amer 157, Est GFR (MDRD) Non-Af 130, BUN/Creatinine Ratio 28.0 H, Glucose 117 H, Calcium 8.6, Total Bilirubin 0.60, AST 144 H, ALT 153 H, Alkaline Phosphatase 68, Total Protein 6.6, Albumin 2.9 L, Globulin 3.7, Albumin/Globulin Ratio 0.8 L Current Medications Acetaminophen (Acetaminophen 325 Mg Tablet) 650 mg PO Q6H PRN PRN PRN Reason: Pain Score 1-10/Temp > 100.7 F Aspirin (Aspirin E.C. 81 Mg Tablet) 81 mg PO DAILY [facility] Last Admin: 08/21/20 08:49 Dose: 81 mg Documented by: Atorvastatin Calcium (Atorvastatin Calcium 20 Mg Tablet) 20 mg PO DAILY [facility] Last Admin: 08/21/20 08:49 Dose: 20 mg Documented by: Benzonatate (Benzonatate 100 Mg Capsule) 100 mg PO Q4H PRN PRN PRN Reason: COUGH Last Admin: 08/19/20 20:36 Dose: 100 mg Documented by: Dexamethasone Sodium Phosphate (Dexamethasone 10 Mg/Ml Vial) 6 mg IV DAILY [facility] Last Admin: 08/21/20 08:49 Dose: 6 mg Documented by: Enoxaparin Sodium (Enoxaparin 30 Mg/0.3 Ml Syringe) 30 mg SC BID [facility] Last Admin: 08/21/20 08:49 Dose: 30 mg Documented by: Guaifenesin (Guaifenesin 10 Ml Udc (200mg/10ml)) 10 ml PO Q4H PRN PRN PRN Reason: COUGH Last Admin: 08/20/20 04:41 Dose: 10 ml Documented by: Remdesivir 100 mg/ Sodium (Chloride) 250 mls @ 125 mls/hr IV DAILY [facility]; Protocol Stop: 08/23/20 11:59 Last Infusion: 08/21/20 13:38 Dose: Infused Documented by: Sodium Chloride () 250 mls @ 15 mls/hr IV .[id number] PRN PRN Reason: Saline Flush Last Infusion: 08/21/20 14:05 Dose: Infused Documented by: Ibuprofen (Ibuprofen 400 Mg Tablet) 400 mg PO Q4H PRN PRN PRN Reason: Pain Score 1-10/Temp > 100.7 F Levothyroxine Sodium (Levothyroxine 50 Mcg Tablet) 50 mcg PO DAILY [facility] Last Admin: 08/21/20 08:49 Dose: 50 mcg Documented by: Sodium Chloride (0.9% Saline Lock 10 Ml Syringe) 10 - 40 ml IV UD PRN PRN Reason: SALINE FLUSH Last Admin: 08/21/20 11:39 Dose: 10 ml Documented by: STROKE Vital Signs/Narrative: Vital Signs Temp Pulse Resp BP Pulse Ox 08/21/20 13:45 72 91 08/21/20 11:57 77 96 08/21/20 11:42 36.5 C L 76 20 H 129/76 H 93 Medical Necessity - Tobacco Use Smoking Status: Never smoker Tobacco Use: Non-smoker Assessment/Plan All Active Problems (Last Reviewed 08/19/20 @ 12:[address] Benigno Melgar, DO) COVID-19 virus detected (Acute) Pneumonia due to severe acute respiratory syndrome coronavirus (Acute) Acute respiratory failure with hypoxia (Acute) 1. Acute COVID-19 pneumonia: * Patient started on dexamethasone in emergency room with 10 mg. We will continue with 6mg starting tomorrow. * Consult infectious disease for evaluation for remdesivir and convalescent plasma. 2. Acute hypoxic respiratory insufficiency * Secondary to above * Wean oxygen as tolerated * Consider ambulatory pulse ox prior to discharge. 3. VTE prophylaxis with low molecular weight heparin. Inpatient E&M: 76184 Subs Hosp L2
--- NOTE | 2020-08-21 15:35 | PCM.PN.ID ---
Patient Problems: Active and Suspected Problems (Last Reviewed 08/19/20 @ 12:[address] Benigno Melgar, DO) COVID-19 virus detected (Acute) Pneumonia due to severe acute respiratory syndrome coronavirus (Acute) Acute respiratory failure with hypoxia (Acute) Subjective: Feeling better today, still high O2 reqs. No fever. - Physical Exam Vitals/I&O's: Vital Signs Temp Pulse Resp BP Pulse Ox 97.7 F L 72 20 H 129/76 H 91 08/21/20 11:42 08/21/20 13:45 08/21/20 11:42 08/21/20 11:42 08/21/20 13:45 Oxygen Flow Rate (L/min) 50 Oxygen Delivery Method Airvo Weight: 77.5 kg Body Mass Index (BMI) 25.9 Intake and Output for Last 24 Hours 08/19/20 08/20/20 08/21/20 23:59 23:59 23:59 Intake Total 250 / 250 2222.75 / 2222.75 650 / 650 Balance 250 / 250 2222.75 / 2222.75 650 / 650 General: Alert, Cooperative, No apparent distress Lungs: Diminished Cardiovascular: Regular rate, Regular Rhythm Abdomen: Soft, Non Tender, Non-Distended Skin: No rashes Microbiology Past 72 Hours 08/19/20 10:10 Blood Culture (Wb) - Left Hand Blood Culture - Preliminary No growth in 48 hours. 08/19/20 10:01 Blood Culture (Wb) - Anticubital Left Blood Culture - Preliminary No growth in 48 hours. Laboratory Results 08/21/20 04:54: WBC 6.7, RBC 4.40, Hgb 12.9, Hct 40.1, MCV 91.1, MCH 29.3, MCHC 32.2, RDW Std Deviation 42.5, RDW Coeff of Dar 12.5, Plt Count 143 L, MPV 11.3 08/21/20 04:54: Sodium 138, Potassium 3.3 L, Chloride 103, Carbon Dioxide 27.0, Anion Gap 8, BUN 14, Creatinine 0.50 L, Estim Creat Clear Calc 52.81, Est GFR (MDRD) Af Amer 157, Est GFR (MDRD) Non-Af 130, BUN/Creatinine Ratio 28.0 H, Glucose 117 H, Calcium 8.6, Total Bilirubin 0.60, AST 144 H, ALT 153 H, Alkaline Phosphatase 68, Total Protein 6.6, Albumin 2.9 L, Globulin 3.7, Albumin/Globulin Ratio 0.8 L Current Medications Acetaminophen (Acetaminophen 325 Mg Tablet) 650 mg PO Q6H PRN PRN PRN Reason: Pain Score 1-10/Temp > 100.7 F Aspirin (Aspirin E.C. 81 Mg Tablet) 81 mg PO DAILY [facility] Last Admin: 08/21/20 08:49 Dose: 81 mg Documented by: Atorvastatin Calcium (Atorvastatin Calcium 20 Mg Tablet) 20 mg PO DAILY [facility] Last Admin: 08/21/20 08:49 Dose: 20 mg Documented by: Benzonatate (Benzonatate 100 Mg Capsule) 100 mg PO Q4H PRN PRN PRN Reason: COUGH Last Admin: 08/19/20 20:36 Dose: 100 mg Documented by: Dexamethasone Sodium Phosphate (Dexamethasone 10 Mg/Ml Vial) 6 mg IV DAILY [facility] Last Admin: 08/21/20 08:49 Dose: 6 mg Documented by: Enoxaparin Sodium (Enoxaparin 30 Mg/0.3 Ml Syringe) 30 mg SC BID [facility] Last Admin: 08/21/20 08:49 Dose: 30 mg Documented by: Guaifenesin (Guaifenesin 10 Ml Udc (200mg/10ml)) 10 ml PO Q4H PRN PRN PRN Reason: COUGH Last Admin: 08/20/20 04:41 Dose: 10 ml Documented by: Remdesivir 100 mg/ Sodium (Chloride) 250 mls @ 125 mls/hr IV DAILY [facility]; Protocol Stop: 08/23/20 11:59 Last Infusion: 08/21/20 13:38 Dose: Infused Documented by: Sodium Chloride () 250 mls @ 15 mls/hr IV .[id number] PRN PRN Reason: Saline Flush Last Infusion: 08/21/20 14:05 Dose: Infused Documented by: Ibuprofen (Ibuprofen 400 Mg Tablet) 400 mg PO Q4H PRN PRN PRN Reason: Pain Score 1-10/Temp > 100.7 F Levothyroxine Sodium (Levothyroxine 50 Mcg Tablet) 50 mcg PO DAILY [facility] Last Admin: 08/21/20 08:49 Dose: 50 mcg Documented by: Sodium Chloride (0.9% Saline Lock 10 Ml Syringe) 10 - 40 ml IV UD PRN PRN Reason: SALINE FLUSH Last Admin: 08/21/20 11:39 Dose: 10 ml Documented by: Medical Necessity - Tobacco Use Smoking Status: Never smoker Tobacco Use: Non-smoker Route of nutrition/ use of supplements: [] Nutritional Intake: [] IV Site: [] Salcedo Catheter: [] - Assessment/Plan Antibiotics: [] Assessment/Plan: [] Active and Suspected Problems (Last Reviewed 08/19/20 @ 12:[address] Benigno Melgar, DO) COVID-19 virus detected (Acute) Pneumonia due to severe acute respiratory syndrome coronavirus (Acute) Acute respiratory failure with hypoxia (Acute) covid with hypoxia - presented on day 7 of symptoms. Cont dex and remdesivir, getting plasma today 08/21. O2 worse today, on 80% airvo. Consider pulm eval. Will follow
[2020-08-21] MEDS: guaiFENesin 10 ML UDC (200MG/10ML) PO (20:01)
[2020-08-21] MEDS: Acetaminophen 325 MG Tablet 650 MG PO (20:03)
--- NOTE | 2020-08-21 20:13 | NURSING ---
pt had a slight bloody nose, water added to the airvo, instructed on using the IS often.
[2020-08-22] VITALS (24 sets, daily range): BP systolic 112–193; BP diastolic 63–107; PULSE 58–99; RESP 12–36; TEMP 36.2–37.1; O2SAT 74–98
[2020-08-22] MEDS: guaiFENesin 10 ML UDC (200MG/10ML) PO ×2 (01:08→05:56)
--- NOTE | 2020-08-22 06:11 | CPS ---
Patient placed on max AirVo settings 60L 93-95% with NRB overtop. Unable to maintain 88% on previous AirVo settings. Will monitor patient.
[2020-08-22 07:33] LABS: Hematocrit 39.7 % (37-47); Hemoglobin 12.9 g/dL (12.0-15.0); Mean Corp Hgb Conc 32.5 g/dL (32-36); Mean Corpuscular Hgb 29.6 pg (27.0-32.0); Mean Corpuscular Volume 91.1 fL (81-99); Mean Platelet Vol. 10.8 fl (6.2-12.0); Platelet Count 163 K/mm3 (150-450); RBC Distribution Width CV 12.6 % (11.6-14.6); RBC Distribution Width SD 42.2 fl (35.1-43.9); Red Blood Count 4.36 M/mm3 (4.2-5.4)
[2020-08-22 07:50] LABS: ALB/GLOB Ratio 0.7 RATIO (0.9-2.4); AST(SGOT) 137 U/L (15-37); Alanine Aminotransfer ALT/SGPT 161 U/L (13-56); Albumin, Serum 2.7 g/dL (3.2-5.0); Alkaline Phosphatase 74 U/L (45-117); Anion Gap 5 (5-15); BUN 19 mg/dL (7-18); BUN/Creat Ratio 32.1 RATIO (10-20); Calcium,Total 9.1 mg/dL (8.5-10.1); Chloride 107 mmol/L (98-107); Creatinine, Serum 0.59 mg/dL (0.55-1.02); EST Glomerular Filtration Rate 107 mL/min (>60); Est Glom Filt Rate - Afr Amer 129 mL/min (>60); Estimated Creatinine Clearance 52.81 ml/min; Globulin 4.1 g/dL (2.2-4.2); Glucose 112 mg/dL (74-106); Potassium 3.1 mmol/L (3.5-5.1); Protein, Total 6.8 g/dL (6.4-8.2); Sodium Level 138 mmol/L (136-145)
[2020-08-22] MEDS: dexAMETHasone 10 MG/ML Vial 6 MG IV (08:47)
[2020-08-22] MEDS: Atorvastatin Calcium 20 MG Tablet PO (08:48)
[2020-08-22] MEDS: Enoxaparin 30 MG/0.3 ML Syringe SC ×2 (08:48→21:22)
[2020-08-22] MEDS: Aspirin E.C. 81 MG Tablet PO (08:48)
[2020-08-22] MEDS: 0.9% Saline Lock 10 ML Syringe IV ×2 (08:49→11:00)
[2020-08-22] MEDS: Levothyroxine 50 MCG Tablet PO (08:49)
--- NOTE | 2020-08-22 13:49 | PN_ITS ---
Patient Problems: Active and Suspected Problems (Last Reviewed 08/19/20 @ 12:[address] Benigno Melgar, DO) COVID-19 virus detected (Acute) Pneumonia due to severe acute respiratory syndrome coronavirus (Acute) Acute respiratory failure with hypoxia (Acute) Reason for Visit: COVID Subjective: Increased oxygen. Was on Airvo and Venti mask and sats were in the mid 80s. Vitals/I&O's: Vital Signs Temp Pulse Resp BP Pulse Ox 36.6 C 86 27 H 178/104 H 96 08/22/20 12:59 08/22/20 12:59 08/22/20 12:59 08/22/20 12:59 08/22/20 12:59 Oxygen Flow Rate (L/min) 60 Oxygen Delivery Method Bi-pap Weight: 77.5 kg Body Mass Index (BMI) 25.9 Intake and Output for Last 24 Hours 08/20/20 08/21/20 08/22/20 23:59 23:59 23:59 Intake Total 2222.75 / 2222.75 1100 / 1300 440 / 440 Output Total 300 / 300 Balance 2222.75 / 2222.75 1100 / 1000 140 / 140 General: Alert, No apparent distress, - - listless. HEENT: Atraumatic, Normocephalic Oral: Moist Mucosa, No Gingival or Mucosal Lesions/ Ulcerations Neck: No Nodes, Thyroid Normal Size and Texture Lungs: Normal air movement, - - coarse breath sounds Cardiovascular: Regular rate, No murmurs Abdomen: Bowel Sounds Present, Soft, Non Tender, Non-Distended Extremities: No edema, Capillary Refill Less than 3 Seconds Skin: No rashes, No breakdown Psych/Mental Status: Normal Affect, Appropriate Microbiology Past 72 Hours 08/19/20 10:10 Blood Culture (Wb) - Left Hand Blood Culture - Preliminary No growth in 48 hours. 08/19/20 10:01 Blood Culture (Wb) - Anticubital Left Blood Culture - Preliminary No growth in 48 hours. Laboratory Results 08/22/20 06:43: WBC 7.0, RBC 4.36, Hgb 12.9, Hct 39.7, MCV 91.1, MCH 29.6, MCHC 32.5, RDW Std Deviation 42.2, RDW Coeff of Dar 12.6, Plt Count 163, MPV 10.8 08/22/20 06:43: Sodium 138, Potassium 3.1 L, Chloride 107, Carbon Dioxide 26.0, Anion Gap 5, BUN 19 H, Creatinine 0.59, Estim Creat Clear Calc 52.81, Est GFR (MDRD) Af Amer 129, Est GFR (MDRD) Non-Af 107, BUN/Creatinine Ratio 32.1 H, Glucose 112 H, Calcium 9.1, Total Bilirubin 0.60, AST 137 H, ALT 161 H, Alkaline Phosphatase 74, Total Protein 6.8, Albumin 2.7 L, Globulin 4.1, Albumin/Globulin Ratio 0.7 L Current Medications Acetaminophen (Acetaminophen 325 Mg Tablet) 650 mg PO Q6H PRN PRN PRN Reason: Pain Score 1-10/Temp > 100.7 F Last Admin: 08/21/20 20:03 Dose: 650 mg Documented by: Aspirin (Aspirin E.C. 81 Mg Tablet) 81 mg PO DAILY [facility] Last Admin: 08/22/20 08:48 Dose: 81 mg Documented by: Atorvastatin Calcium (Atorvastatin Calcium 20 Mg Tablet) 20 mg PO DAILY [facility] Last Admin: 08/22/20 08:48 Dose: 20 mg Documented by: Benzonatate (Benzonatate 100 Mg Capsule) 100 mg PO Q4H PRN PRN PRN Reason: COUGH Last Admin: 08/19/20 20:36 Dose: 100 mg Documented by: Dexamethasone Sodium Phosphate (Dexamethasone 10 Mg/Ml Vial) 6 mg IV DAILY [facility] Last Admin: 08/22/20 08:47 Dose: 6 mg Documented by: Enoxaparin Sodium (Enoxaparin 30 Mg/0.3 Ml Syringe) 30 mg SC BID [facility] Last Admin: 08/22/20 08:48 Dose: 30 mg Documented by: Guaifenesin (Guaifenesin 10 Ml Udc (200mg/10ml)) 10 ml PO Q4H PRN PRN PRN Reason: COUGH Last Admin: 08/22/20 05:56 Dose: 10 ml Documented by: Remdesivir 100 mg/ Sodium (Chloride) 250 mls @ 125 mls/hr IV DAILY [facility]; Protocol Stop: 08/23/20 11:59 Last Admin: 08/22/20 10:59 Dose: 125 mls/hr Documented by: Sodium Chloride () 250 mls @ 15 mls/hr IV .[id number] PRN PRN Reason: Saline Flush Last Infusion: 08/21/20 14:05 Dose: Infused Documented by: Potassium Chloride () 10 meq in 100 mls @ 100 mls/hr IV BOLUS Q1H [facility] Stop: 08/22/20 17:59 Ibuprofen (Ibuprofen 400 Mg Tablet) 400 mg PO Q4H PRN PRN PRN Reason: Pain Score 1-10/Temp > 100.7 F Levothyroxine Sodium (Levothyroxine 50 Mcg Tablet) 50 mcg PO DAILY [facility] Last Admin: 08/22/20 08:49 Dose: 50 mcg Documented by: Potassium Chloride (Potassium Chloride 20 Meq Tablet) 40 meq PO X1 ONE Stop: 08/22/20 14:01 Sodium Chloride (0.9% Saline Lock 10 Ml Syringe) 10 - 40 ml IV UD PRN PRN Reason: SALINE FLUSH Last Admin: 08/22/20 11:00 Dose: 10 ml Documented by: STROKE Vital Signs/Narrative: Vital Signs Temp Pulse Resp BP Pulse Ox 08/22/20 12:59 36.6 C 86 27 H 178/104 H 96 08/22/20 11:00 36.6 C 78 27 H 157/97 H 95 08/22/20 10:51 73 36 H 98 Medical Necessity - Tobacco Use Smoking Status: Never smoker Tobacco Use: Non-smoker Assessment/Plan All Active Problems (Last Reviewed 08/19/20 @ 12:[address] Benigno Melgar, DO) COVID-19 virus detected (Acute) Pneumonia due to severe acute respiratory syndrome coronavirus (Acute) Acute respiratory failure with hypoxia (Acute) 1. Acute COVID-19 pneumonia: * dexamethasone 6mg for 10 days * Remdesivir * received convalescent plasma on 08/21 2. Acute hypoxic respiratory failure * Secondary to above * changed to BiPAP and now sats are in the mid 90s * pulm consult. * physiotherapy as able. 3. Hypokalemia * replace 4. VTE prophylaxis with low molecular weight heparin 30 BID Inpatient E&M: 50408 Subs Hosp L2
[2020-08-22] MEDS: Potassium Chloride 10mEq/100mL 10 MEQ/100 ML IV.SOLN. 100 MEQ IV BOLUS ×4 (14:51→19:15)
--- NOTE | 2020-08-22 15:05 | CON.PCM_ITS ---
Problem List (1) COVID-19 virus detected Status: Acute (2) Pneumonia due to severe acute respiratory syndrome coronavirus Status: Acute (3) Acute respiratory failure with hypoxia Status: Inactive (4) History of bowel resection Status: Chronic (5) Hyperlipidemia Status: Chronic (6) Santiago's thyroiditis Status: Chronic (7) HTN (hypertension) Status: Chronic Reason for Consult Date of Consultation: 08/22/20 Reason for Consultation: Hypoxic respiratory failure History of Present Illness: The patient is a 70 year old F, with past medical history listed below, who presented [facility] on 08/19/2020 secondary to progressive shortness of breath with myalgias and fever. Patient states that the illness started approximately 10 days ago and patient was tested for Covid and found to be positive. Patient reported that her nephew was symptomatic prior to her presentation. Patient denied any history of previous blood clots or lower extremity edema. Patient denies any history of lung disease at baseline. On presentation to the ER, patient was noted to be hypertensive at 141/79 and hypoxic. Patient was febrile at 100.7 ?F. Chest x-ray was performed showing bilateral interstitial infiltrates. Laboratory work-up showed no leukocytosis with a white blood cell count of 4.9, hypokalemia at 3.1, but normal renal function. Liver function tests were within normal limits. Patient was placed on Decadron and supplemental oxygen and admitted to the cohort floor. After being seen by infectious disease, patient was started on dexamethasone and remdesivir. Patient did receive convalescent serum on 08/20/2020. However, patient became progressively hypoxic despite high flow nasal cannula oxygen. Patient had to be placed on BiPAP earlier today, so a pulmonary consult was obtained. The patient and nursing reported a significant improvement in respiratory status following initiation of BiPAP. Patient states that she is never required supplemental oxygen, inhalers or BiPAP previously. Patient denies any previous obstructive sleep apnea. 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 Patient does not own any birds and denies any exposures related to hobbies. Review of systems otherwise negative from a constitutional, HEENT, respiratory, cardiovascular, GI, genitourinary, musculoskeletal, skin, neurologic, psychiatric and hematologic system unless stated above. Past Medical History Past Medical History (Chronic Problems): Chronic Problems (Last Reviewed 08/19/20 @ 12:[address] Benigno Melgar DO) History of colonoscopy (Chronic ~2014) History of bowel resection (Chronic ~1970) Hyperlipidemia (Chronic) Santiago's thyroiditis (Chronic) HTN (hypertension) (Chronic) Medical History: Medical History (Last Reviewed 08/19/20 @ 12:[address] Benigno Melgar DO) Hyperlipidemia (Chronic) E78.5 Santiago's thyroiditis (Chronic) E06.3 HTN (hypertension) (Chronic) I10 Allergies No Known Allergies Allergy (Verified 08/19/20 09:53) Home Medications: Ambulatory Orders Medication Instructions Recorded Lisinopril/Hydrochlorothiazide 1 tab PO DAILY 10/21/18 [Lisinopril-Hctz 20-25 mg Tab] aspirin 81 mg tablet,delayed 81 mg PO DAILY 01/01/20 release levothyroxine 50 mcg tablet 50 mcg PO DAILY 01/01/20 Rosuvastatin Calcium [Crestor] 10 mg PO QHS 04/05/20 Benzonatate [Tessalon Perle] 100 mg PO Q8H PRN PRN 08/19/20 Calcium Carbonate/Vitamin D3 1 tab PO DAILY 08/19/20 [Calcium 500-Vit D3 200 Tablet] Surgical History: Surgical History (Last Reviewed 08/19/20 @ 12:[address] Benigno Melgar DO) History of colonoscopy (Chronic) Onset Date: ~2014 Z98.890 History of bowel resection (Chronic) Onset Date: ~1970 Z90.49 Surgical History: noncontributory Lives: Alone Smoking Status: Never smoker Tobacco Use: Non-smoker Alcohol: None Drugs: None - *Family History Maternal Family History: Family History (Last Reviewed 08/19/20 @ 12:[address] Benigno Melgar DO) Father Heart disease Hypertension Mother Seizures Hypertension Sister Thyroid disorder Review of Systems Comment: See HPI Patient Problems: Active and Suspected Problems (Last Reviewed 08/19/20 @ 12:[address] Benigno Melgar DO) COVID-19 virus detected (Acute) Pneumonia due to severe acute respiratory syndrome coronavirus (Acute) Acute respiratory failure with hypoxia (Acute) Objective: All imaging was personally reviewed. CTA completed earlier in the hospitalization showed no PE, but diffuse groundglass opacities with a cephalad predominance. Patient did have some coronary artery calcifications. Patient has not had any echocardiogram or pulmonary function test completed at [facility]. - Physical Exam Vitals/I&O's: Vital Signs Temp Pulse Resp BP Pulse Ox 37.1 C 84 27 H 162/86 H 84 08/22/20 14:43 08/22/20 14:43 08/22/20 14:43 08/22/20 14:43 08/22/20 14:57 Oxygen Flow Rate (L/min) 60 Oxygen Delivery Method Room Air Weight: 77.5 kg Body Mass Index (BMI) 25.9 Intake and Output for Last 24 Hours 08/20/20 08/21/20 08/22/20 23:59 23:59 23:59 Intake Total 2222.75 / 2222.75 1100 / 1300 690 / 690 Output Total 300 / 300 Balance 2222.75 / 2222.75 1100 / 1000 390 / 390 General: Alert, Oriented x3, Cooperative, No apparent distress - While on BiPAP therapy, - - Moderate conversational dyspnea HEENT: Atraumatic, PERRLA, EOMI, Normocephalic, - - No scleral icterus or injection noted Oral: Moist Mucosa, No Gingival or Mucosal Lesions/ Ulcerations Neck: Supple, No JVD, No Nodes, Trachea Midline Lungs: No wheeze, Diminished, Rales - Right greater than left, - - Symmetric expansion Cardiovascular: Normal S1, Normal S2, No murmurs, No rub noted, No Gallop, Tachycardic Abdomen: Bowel Sounds Present, Soft, Non Tender, Non-Distended Extremities: No clubbing, No cyanosis, No edema, Capillary Refill Less than 3 Seconds Skin: No rashes, No breakdown Musculoskeletal: No Tenderness to Palpation of Joints or Extremities Lymphatic: No Cervical, Supraclavicular, or Inguinal Adenopathy Neurological: Cranial nerves II-XII grossly intact, Neuro grossly intact, Motor Exam 5/5 strength throughout Psych/Mental Status: Alert and oriented to time, place, person, mood and affect Microbiology Past 72 Hours 08/19/20 10:10 Blood Culture (Wb) - Left Hand Blood Culture - Preliminary No growth in 48 hours. 08/19/20 10:01 Blood Culture (Wb) - Anticubital Left Blood Culture - Preliminary No growth in 48 hours. Laboratory Results 08/22/20 06:43: WBC 7.0, RBC 4.36, Hgb 12.9, Hct 39.7, MCV 91.1, MCH 29.6, MCHC 32.5, RDW Std Deviation 42.2, RDW Coeff of Dar 12.6, Plt Count 163, MPV 10.8 08/22/20 06:43: Sodium 138, Potassium 3.1 L, Chloride 107, Carbon Dioxide 26.0, Anion Gap 5, BUN 19 H, Creatinine 0.59, Estim Creat Clear Calc 52.81, Est GFR (MDRD) Af Amer 129, Est GFR (MDRD) Non-Af 107, BUN/Creatinine Ratio 32.1 H, Glucose 112 H, Calcium 9.1, Total Bilirubin 0.60, AST 137 H, ALT 161 H, Alkaline Phosphatase 74, Total Protein 6.8, Albumin 2.7 L, Globulin 4.1, Albumin/Globulin Ratio 0.7 L Current Medications Acetaminophen (Acetaminophen 325 Mg Tablet) 650 mg PO Q6H PRN PRN PRN Reason: Pain Score 1-10/Temp > 100.7 F Last Admin: 08/21/20 20:03 Dose: 650 mg Documented by: Aspirin (Aspirin E.C. 81 Mg Tablet) 81 mg PO DAILY [facility] Last Admin: 08/22/20 08:48 Dose: 81 mg Documented by: Atorvastatin Calcium (Atorvastatin Calcium 20 Mg Tablet) 20 mg PO DAILY [facility] Last Admin: 08/22/20 08:48 Dose: 20 mg Documented by: Benzonatate (Benzonatate 100 Mg Capsule) 100 mg PO Q4H PRN PRN PRN Reason: COUGH Last Admin: 08/19/20 20:36 Dose: 100 mg Documented by: Dexamethasone Sodium Phosphate (Dexamethasone 10 Mg/Ml Vial) 6 mg IV DAILY [facility] Last Admin: 08/22/20 08:47 Dose: 6 mg Documented by: Enoxaparin Sodium (Enoxaparin 30 Mg/0.3 Ml Syringe) 30 mg SC BID [facility] Last Admin: 08/22/20 08:48 Dose: 30 mg Documented by: Guaifenesin (Guaifenesin 10 Ml Udc (200mg/10ml)) 10 ml PO Q4H PRN PRN PRN Reason: COUGH Last Admin: 08/22/20 05:56 Dose: 10 ml Documented by: Remdesivir 100 mg/ Sodium (Chloride) 250 mls @ 125 mls/hr IV DAILY [facility]; Protocol Stop: 08/23/20 11:59 Last Infusion: 08/22/20 13:00 Dose: Infused Documented by: Sodium Chloride () 250 mls @ 15 mls/hr IV .[id number] PRN PRN Reason: Saline Flush Last Admin: 08/22/20 14:51 Dose: 15 mls/hr Documented by: Potassium Chloride () 10 meq in 100 mls @ 100 mls/hr IV BOLUS Q1H JESS[facility] Stop: 08/22/20 17:59 Last Admin: 08/22/20 14:51 Dose: 100 mls/hr Documented by: Ibuprofen (Ibuprofen 400 Mg Tablet) 400 mg PO Q4H PRN PRN PRN Reason: Pain Score 1-10/Temp > 100.7 F Levothyroxine Sodium (Levothyroxine 50 Mcg Tablet) 50 mcg PO DAILY [facility] Last Admin: 08/22/20 08:49 Dose: 50 mcg Documented by: Sodium Chloride (0.9% Saline Lock 10 Ml Syringe) 10 - 40 ml IV UD PRN PRN Reason: SALINE FLUSH Last Admin: 08/22/20 11:00 Dose: 10 ml Documented by: Assessment/Plan All Active Problems (Last Reviewed 08/19/20 @ 12:[address] Benigno Melgar, DO) COVID-19 virus detected (Acute) Pneumonia due to severe acute respiratory syndrome coronavirus (Acute) Acute respiratory failure with hypoxia (Acute) RECOMMENDATIONS: 1. Okay to transition to Airvo while awake 2. BiPAP with sleep 3. Initiate aggressive pulmonary recruitment with incentive spirometer 4. Reinitiate baseline hypertensive medications 5. Wean oxygen as tolerated IMPRESSIONS: 1. Acute hypoxic respiratory failure secondary to COVID-19 Given rapid response to BiPAP therapy, decline in oxygenation likely has an element of atelectasis. Okay to reinitiate Airvo during the day, but patient would benefit from BiPAP at night. Aggressive incentive spirometer. Continue with dexamethasone. Patient currently is on DVT prophylaxis with Lovenox, but does not have significant tachycardia to suggest an acute pulmonary emboli. CTA on presentation was not remarkable for an occlusive lesion. Patient may benefit from outpatient pulmonary function for quantification clarification of lung function. Okay to continue with Remdesivir and dexamethasone from my perspective. Patient does not have findings to suggest volume overload at this time. We will hold off on any diuretics. 2. Advanced age/hypertension/hypothyroidism/hyperlipidemia Complicates care, management, recovery and prognosis. Reinitiate baseline hypertensive medications. Blood pressure may be exacerbated by steroid therapy. Continue to monitor. Inpatient E&M: 12787 Init Hosp L3
--- NOTE | 2020-08-22 15:52 | NURSING ---
Spoke with RAHEEM Hernandez from Hospice. Updated her on patient condition
[2020-08-22] MEDS: hydroCHLOROthiazide 25 MG Tablet PO (21:51)
[2020-08-22] MEDS: Lisinopril 20 MG Tablet PO (21:52)
[2020-08-23] VITALS (46 sets, daily range): BP systolic 51–186; BP diastolic 36–127; PULSE 57–142; RESP 12–44; TEMP 36.1–36.8; O2SAT 89–99; BMI 26.6
--- NOTE | 2020-08-23 01:05 | RAD_ITS ---
STUDY: X-RAY CHEST REASON FOR EXAM: Female, 70 years old. SHORTNESS OF BREATH TECHNIQUE: Single AP portable view of the chest. COMPARISON: Chest x-ray and CTA chest 08/19/2020 FINDINGS: There are bilateral pulmonary infiltrates. Taking into account slightly better lung expansion on current exam, there is no definite interval change. There is no demonstrated pleural abnormality. There is borderline cardiomegaly. Normal mediastinum and omari... Normal visualized aortic arch and descending thoracic aorta. There are no visualized acute osseous abnormalities. There is no demonstrated abnormality of the visualized soft tissue structures of the upper abdomen. RAD/Chest 1 View (Portable) IMPRESSION: Bilateral pulmonary infiltrates, with no significant change from previous study. Borderline heart size. Electronically Signed: Juan Avalos MD at 1:43 EDT , Service support ,
[2020-08-23] MEDS: 0.9% Saline Lock 10 ML Syringe IV ×4 (01:10→21:29)
[2020-08-23] MEDS: LORazepam 2 MG/ML Syringe 1 MG IV ×3 (01:23→04:11)
--- NOTE | 2020-08-23 01:56 | EKG12_ITS ---
Test Reason : AFIB Blood Pressure : / mmHG Vent. Rate : 125 BPM Atrial Rate : 125 BPM P-R Int : 132 ms QRS Dur : 078 ms QT Int : 352 ms P-R-T Axes : 065 -33 064 degrees QTc Int : 508 ms Sinus tachycardia with frequent Premature ventricular complexes and Fusion complexes Left axis deviation Inferior infarct , age undetermined , cannot be excluded Abnormal ECG Confirmed by VIJAYA BUI, SHARON ([id number]), slot editor MARCELL MAYNARD ([id number]) on 08/31/2020 2:39:52 PM Referred By: DR PERSAUD Confirmed By:SHARON LILLY MD
--- NOTE | 2020-08-23 01:59 | PCM.PN.BLA ---
Progress Note Notified by patient's nurse that patient is very anxious and restless while on bipap. Atican 1mg IV x1 ordered. Patient was then examined at the bedside with nurse and respiratory therapy. Respiratory increases EPAP and IPAP. CXR and EKG ordered. STROKE Vital Signs/Narrative: Vital Signs Temp Pulse Resp BP Pulse Ox 08/23/20 01:07 EST 104 H 30 H 186/127 H 93 08/23/20 00:00 98.2 F 74 20 H 101/75 94 08/22/20 23:00 72 22 H 112/63 92 08/22/20 22:00 81 26 H 162/90 H 90
--- NOTE | 2020-08-23 02:37 | CPS ---
pt was calmer and respirations were slower but nursing had to go in and reposition pulse ox probe and tape it on her, she kept pulling it off.
--- NOTE | 2020-08-23 04:37 | NURSING ---
Verbal report given to FLAT LOCK OPERATOR at this time
--- NOTE | 2020-08-23 04:43 | NURSING ---
Addendum entered by Hunter Varela 08/23/20 05:25: updated ICU that this RN was not able to contact son. They stated they will update son. Original Note: Attempted to call pt mikhail Day to update him. Pt did not answer and mailbox was full. Will attempt to update son when possible.
--- NOTE | 2020-08-23 05:18 | CPS ---
AVAPS settings for abg were 425 TV 29MAX 20 MIN 11 EPAP 65% 0446
[2020-08-23] MEDS: Morphine 2 MG/ML Syringe 1 MG IV (05:24)
[2020-08-23 05:25] LABS: Hematocrit 44.6 % (37-47); Hemoglobin 14.6 g/dL (12.0-15.0); Mean Corp Hgb Conc 32.7 g/dL (32-36); Mean Corpuscular Volume 91.8 fL (81-99); Mean Platelet Vol. 10.3 fl (6.2-12.0); Platelet Count 274 K/mm3 (150-450); RBC Distribution Width CV 12.5 % (11.6-14.6); RBC Distribution Width SD 42.5 fl (35.1-43.9); Red Blood Count 4.86 M/mm3 (4.2-5.4); White Blood Count 20.5 K/mm3 (4.4-11.0)
[2020-08-23] MEDS: 0.9% Normal Saline 1,000 ML 999 ML IV (05:52)
[2020-08-23 05:53] LABS: ALB/GLOB Ratio 0.6 RATIO (0.9-2.4); AST(SGOT) 68 U/L (15-37); Alanine Aminotransfer ALT/SGPT 132 U/L (13-56); Albumin, Serum 3.1 g/dL (3.2-5.0); Alkaline Phosphatase 86 U/L (45-117); Anion Gap 10 (5-15); BUN 14 mg/dL (7-18); BUN/Creat Ratio 23.6 RATIO (10-20); Calcium,Total 9.5 mg/dL (8.5-10.1); Chloride 99 mmol/L (98-107); Creatinine, Serum 0.59 mg/dL (0.55-1.02); EST Glomerular Filtration Rate 107 mL/min (>60); Est Glom Filt Rate - Afr Amer 129 mL/min (>60); Estimated Creatinine Clearance 52.81 ml/min; Globulin 4.9 g/dL (2.2-4.2); Glucose 135 mg/dL (74-106); Magnesium 2.1 mg/dL (1.6-2.6); Potassium 3.8 mmol/L (3.5-5.1); Sodium Level 137 mmol/L (136-145)
[2020-08-23 05:54] LABS: Phosphorus 3.5 mg/dL (2.5-4.9)
[2020-08-23 06:17] LABS: Allen Test POS; Blood Gas Specimen Type ART; SITE L RADIAL
[2020-08-23 06:18] LABS: FI02 65; O2 Delivery Device Bi Pap; Vt 425
[2020-08-23 06:19] LABS: Base Excess 4 mmol/L (-2 to +2); Bicarbonate 29.7 mmol/L (22-26); PO2 92 mmHG (75-100); RR 12; Time Given 430; pH 7.33 (7.35-7.45)
[2020-08-23 06:20] LABS: SO2 96 % (95-99)
[2020-08-23 06:24] LABS: Total Carbon Dioxide 31 mmol/L
--- NOTE | 2020-08-23 08:20 | PCM.PN.INT ---
Subjective: Patient transported to the intensive care unit overnight secondary to worsening respiratory status. Patient reportedly became agitated and was pulling at her BiPAP mask. Patient was given Ativan with worsening and developed SVT to 142 bpm. The patient was then given morphine and developed hypotension requiring a fluid bolus. Since my evaluation, patient was started on Precedex therapy with improvement in BiPAP synchrony and oxygenation. Blood pressure has improved following a fluid bolus. Patient is lethargic and is not following commands. General: Confused, Disoriented, Lethargic, - - Fair BiPAP for synchrony on Precedex HEENT: Atraumatic, PERRLA, EOMI, Normocephalic, - - No scleral icterus or injection noted Oral: Moist Mucosa, No Gingival or Mucosal Lesions/ Ulcerations Neck: Supple, No JVD, No Nodes, Trachea Midline Lungs: No wheeze, No rales, Diminished, Rhonchi - Bilateral, - - Symmetric expansion. No dullness to percussion Cardiovascular: Normal S1, Normal S2, No murmurs, No rub noted, No Gallop, Tachycardic Abdomen: Bowel Sounds Present, Soft, Non Tender, Non-Distended Extremities: No clubbing, No cyanosis, No edema, Capillary Refill Less than 3 Seconds Skin: No rashes, No breakdown Musculoskeletal: No Tenderness to Palpation of Joints or Extremities Lymphatic: No Cervical, Supraclavicular, or Inguinal Adenopathy Neurological: Cranial nerves II-XII grossly intact, Neuro grossly intact - Spontaneous movement of all extremities. Sensation appears to be intact. Not very directable at this time Psych/Mental Status: Impulsive, Restless Vital Signs Temp Pulse Resp BP Pulse Ox 36.3 C L 128 H 33 H 127/74 H 97 08/23/20 08:00 08/23/20 08:00 08/23/20 08:00 08/23/20 08:00 08/23/20 08:00 Oxygen Flow Rate (L/min) 60 Oxygen Delivery Method Bi-pap Weight: 79.4 kg Body Mass Index (BMI) 25.9 Intake and Output for Last 24 Hours 08/21/20 08/22/20 08/23/20 23:59 23:59 22:59 Intake Total 1100 / 1300 1410.75 / 1410.75 1000 / 1000 Output Total 800 / 800 0 / 0 Balance 1100 / 1000 610.75 / 610.75 1000 / 1000 Labs (Last 48 Hours) 08/22/20 08/22/20 08/23/20 06:43 06:43 04:30 WBC 7.0 RBC 4.36 Hgb 12.9 Hct 39.7 MCV 91.1 MCH 29.6 MCHC 32.5 RDW Std Deviation 42.2 RDW Coeff of Dar 12.6 Plt Count 163 MPV 10.8 Specimen Type ART Sample Site L RADIAL pH 7.33 L Bicarbonate Actual 29.7 H Total CO2 31 Base Excess 4 H O2 Saturation 96 O2 % 65 ABG pCO2 57.0 H ABG pO2 92 Nikolay Test POS VBG pH VBG pO2 VBG HCO3 VBG Total CO2 VBG O2 Sat (Calc) VBG Base Excess POC Mix VBG pCO2 Pt Tmp Respiration Rate 12 O2 Delivery Device Bi Pap Tidal Volume 425 Blood Gas Notified Time 430 Sodium 138 Potassium 3.1 L Chloride 107 Carbon Dioxide 26.0 Anion Gap 5 BUN 19 H Creatinine 0.59 Estim Creat Clear Calc 52.81 Est GFR (MDRD) Af Amer 129 Est GFR (MDRD) Non-Af 107 BUN/Creatinine Ratio 32.1 H Glucose 112 H Calcium 9.1 Phosphorus Magnesium Total Bilirubin 0.60 AST 137 H ALT 161 H Alkaline Phosphatase 74 Total Protein 6.8 Albumin 2.7 L Globulin 4.1 Albumin/Globulin Ratio 0.7 L 08/23/20 08/23/20 08/23/20 05:10 05:10 05:10 WBC 20.5 H RBC 4.86 Hgb 14.6 Hct 44.6 MCV 91.8 MCH 30.0 MCHC 32.7 RDW Std Deviation 42.5 RDW Coeff of Dar 12.5 Plt Count 274 MPV 10.3 Specimen Type Sample Site pH Bicarbonate Actual Total CO2 Base Excess O2 Saturation O2 % ABG pCO2 ABG pO2 Nikolay Test VBG pH VBG pO2 VBG HCO3 VBG Total CO2 VBG O2 Sat (Calc) VBG Base Excess POC Mix VBG pCO2 Pt Tmp Respiration Rate O2 Delivery Device Tidal Volume Blood Gas Notified Time Sodium 137 Potassium 3.8 Chloride 99 Carbon Dioxide 28.0 Anion Gap 10 BUN 14 Creatinine 0.59 Estim Creat Clear Calc 52.81 Est GFR (MDRD) Af Amer 129 Est GFR (MDRD) Non-Af 107 BUN/Creatinine Ratio 23.6 H Glucose 135 H Calcium 9.5 Phosphorus 3.5 Magnesium 2.1 Total Bilirubin 0.60 AST 68 H ALT 132 H Alkaline Phosphatase 86 Total Protein 8.0 Albumin 3.1 L Globulin 4.9 H Albumin/Globulin Ratio 0.6 L 08/23/20 05:39 WBC RBC Hgb Hct MCV MCH MCHC RDW Std Deviation RDW Coeff of Dar Plt Count MPV Specimen Type KARLI Sample Site L Radial pH Bicarbonate Actual Total CO2 Base Excess O2 Saturation O2 % ABG pCO2 ABG pO2 Nikolay Test VBG pH 7.33 VBG pO2 92 H VBG HCO3 30 H VBG Total CO2 31 VBG O2 Sat (Calc) 96 H VBG Base Excess 4 H POC Mix VBG pCO2 Pt Tmp 57.0 H Respiration Rate O2 Delivery Device BiPAP Tidal Volume Blood Gas Notified Time Sodium Potassium Chloride Carbon Dioxide Anion Gap BUN Creatinine Estim Creat Clear Calc Est GFR (MDRD) Af Amer Est GFR (MDRD) Non-Af BUN/Creatinine Ratio Glucose Calcium Phosphorus Magnesium Total Bilirubin AST ALT Alkaline Phosphatase Total Protein Albumin Globulin Albumin/Globulin Ratio Microbiology 08/19/20 10:10 Blood Culture (Wb) - Left Hand Blood Culture - Preliminary No growth in 48 hours. 08/19/20 10:01 Blood Culture (Wb) - Anticubital Left Blood Culture - Preliminary No growth in 48 hours. Clinical Impression(s) from Imaging Studies Chest X-Ray 08/23/20 01:05 EST IMPRESSION: Bilateral pulmonary infiltrates, with no significant change from previous study. Borderline heart size. Electronically Signed: Juan Avalos MD at 1:43 EDT , Service support , Medical Necessity - Tobacco Use Smoking Status: Never smoker Tobacco Use: Non-smoker Assessment/Plan All Active Problems (Last Reviewed 08/19/20 @ 12:[address] Benigno Melgar, DO) COVID-19 virus detected (Acute) Pneumonia due to severe acute respiratory syndrome coronavirus (Acute) Acute respiratory failure with hypoxia (Acute) RECOMMENDATIONS: 1. Continue BiPAP for now 2. Initiate Precedex therapy 3. Continue with remdesivir, Decadron. Continue Lovenox for now, but may need to be increased 4. Hold blood pressure medications given hypotension 5. Wean oxygen as tolerated 6. Possible intubation later today pending response to Precedex IMPRESSIONS: 1. Acute hypoxic respiratory failure secondary to COVID-19 Patient with significant decompensation overnight. Some concern for an element of delirium adding to inability to allow BiPAP to work. Patient will be placed on Precedex therapy. Patient should be continued on COVID-19 protocol. May need to increase Lovenox therapy, but will hold on complete therapeutic dosing until it is clear the patient does not require intubation. Did verify with the patient yesterday and the son today on phone that she is to be intubated if necessary. Patient does not have any baseline obstructive lung disease that she is reporting initially, so it is unclear how much bronchodilators will help at this point. 2. Advanced age/hypertension/hypothyroidism/hyperlipidemia Complicates care, management, recovery and prognosis. Blood pressure may be exacerbated by steroid therapy. Continue to monitor. Hypotension likely secondary to medications. Continue to hold baseline antihypertensives. Will treat as needed if necessary. TIME: 40 minutes critical care time spent addressing patient's acute hypoxic respiratory failure, hypotension, delirium, review of all data and collaboration with care team (7 AM to 8:30 AM) [phone]: [phone] Critical care first hour
[2020-08-23] MEDS: dexAMETHasone 10 MG/ML Vial 6 MG IV (09:25)
[2020-08-23] MEDS: Enoxaparin 30 MG/0.3 ML Syringe SC ×2 (09:26→21:30)
--- NOTE | 2020-08-23 10:30 | NT.THERAPY_ITS ---
Nutrition Therapy Report - History Nutrition Services has been consulted to:: Manage enteral nutrition Current diet / nutrition support order:: regular - Anthropometric Measurements Height:: 5 ft 8 in Weight:: 79.4 kg Body Mass Index (BMI):: 26.6 - Relevant Labs Relevant Labs:: WBC 20.5 K/mm3 (4.4-11.0) H 08/23/20 05:10 Plt Count 143 K/mm3 (150-450) L 08/21/20 04:54 Neut % (Auto) 75.4 % (47-70) H 08/19/20 10:01 Lymph % (Auto) 18.4 % (19-41) L 08/19/20 10:01 Fibrinogen 631 mg/dl (203-444) H 08/19/20 10:01 D-Dimer Quant (PE/DVT) 0.80 FEU/ug/m (0.27-0.49) H* 08/19/20 10:01 Potassium 3.1 mmol/L (3.5-5.1) L 08/22/20 06:43 BUN 19 mg/dL (7-18) H 08/22/20 06:43 Creatinine 0.50 mg/dL (0.55-1.02) L 08/21/20 04:54 BUN/Creatinine Ratio 23.6 RATIO (10-20) H 08/23/20 05:10 Glucose 135 mg/dL (74-106) H 08/23/20 05:10 AST 68 U/L (15-37) H 08/23/20 05:10 ALT 132 U/L (13-56) H 08/23/20 05:10 Lactate Dehydrogenase 366 U/L (84-246) H 08/19/20 10:01 Albumin 3.1 g/dL (3.2-5.0) L 08/23/20 05:10 Globulin 4.9 g/dL (2.2-4.2) H 08/23/20 05:10 Albumin/Globulin Ratio 0.6 RATIO (0.9-2.4) L 08/23/20 05:10 - Assessment Food / Nutrition-Related History:: Pt transfered to ICU. Discussed in rounds. Currently on bipap w/ high likelihood that pt will be intubated w/in next 24 hours. Wt increase of 1.9kg since admission. Suspect r/t fluid vs excessive/adequate PO intake. - Nutrition Diagnosis Problem / Etiology / Signs & Symptoms (PES):: Pt w/ inadequate oral intake r/t resp. failure as evidenced by estimated PO intake meeting less than 50% of pt's estmated PO needs for ~3 days. Evidence of Malnutrition Exists:: No - Nutrition Intervention Nutrition Prescription:: Re-estimated nutritional needs: [id number] calores, 95- 110 g protein/day. - Food / Nutrient Delivery Interventions Summary of nutrition intervention:: Will change diet to NPO given respiratory status. Will provide recommendations for enteral nutrition support if intubated. Nutrition support ordered as / adjusted to:: NPO; If pt is intubated, recommend enteral nutrition support via gastric tube- Vital AF 1.2 at goal rate of 60mL/hour w/ 100mL H2O flush every 4 hours to provide 1728 calories, 108 g protein, and 1767mL total fluid/day. Tube feeds to be administered via gravity bag. Total formula per 24 hours: 1440mL. Recommend 120mL for first 4 hours (approx 10 drips/minute, 3 drips per 15 seconds); 180mL for next 4 hours (approx 15 drips/minute, 4 drips per 15 seconds); Goal rate is 240mL per 4 hours (approx 20 drips/minute, 5 drops per 15 seconds). - MNT Monitoring Further MNT monitoring and evaluation required?: Yes MNT Follow-up in:: 1-2 days
--- NOTE | 2020-08-23 12:37 | PN_ITS ---
Patient Problems: Active and Suspected Problems (Last Reviewed 08/19/20 @ 12:[address] Benigno Melgar, DO) COVID-19 virus detected (Acute) Pneumonia due to severe acute respiratory syndrome coronavirus (Acute) Acute respiratory failure with hypoxia (Acute) Reason for Visit: COVID-19 Subjective: Agitated, tachycardic, tachypneic. Improved with dexmedetomidine gtt, then dropped his BP. Per RN was somnolent prior to dexmedetomidine. Vitals/I&O's: Vital Signs Temp Pulse Resp BP Pulse Ox 36.3 C L 70 26 H 83/66 L 95 08/23/20 12:00 08/23/20 12:00 08/23/20 12:00 08/23/20 12:00 08/23/20 12:00 Oxygen Flow Rate (L/min) 60 Oxygen Delivery Method Bi-pap Weight: 79.4 kg Body Mass Index (BMI) 26.6 Intake and Output for Last 24 Hours 08/21/20 08/22/20 08/23/20 23:59 23:59 22:59 Intake Total 1100 / 1300 1410.75 / 1410.75 1517.43 / 1517.43 Output Total 800 / 800 0 / 0 Balance 1100 / 1000 610.75 / 610.75 1517.43 / 1517.43 General: Alert, No apparent distress, - - somnolent. on BiPAP. HEENT: Atraumatic, Normocephalic Oral: Moist Mucosa, No Gingival or Mucosal Lesions/ Ulcerations Neck: No Nodes, Thyroid Normal Size and Texture Lungs: Normal air movement, - - coarse breath sounds Cardiovascular: Regular rate, Regular Rhythm, Normal S1, Normal S2 Abdomen: Bowel Sounds Present, Soft, Non Tender, Non-Distended Extremities: No edema, No Calf Tenderness Psych/Mental Status: Normal Affect, Appropriate Microbiology Past 72 Hours 08/19/20 10:10 Blood Culture (Wb) - Left Hand Blood Culture - Preliminary No growth in 48 hours. 08/19/20 10:01 Blood Culture (Wb) - Anticubital Left Blood Culture - Preliminary No growth in 48 hours. Laboratory Results 08/23/20 04:30: Specimen Type ART, Sample Site L RADIAL, pH 7.33 L, Bicarbonate Actual 29.7 H, Total CO2 31, Base Excess 4 H, O2 Saturation 96, O2 % 65, ABG pCO2 57.0 H, ABG pO2 92, Nikolay Test POS, Respiration Rate 12, O2 Delivery Device Bi Pap, Tidal Volume 425, Blood Gas Notified Time 430 08/23/20 05:10: WBC 20.5 H, RBC 4.86, Hgb 14.6, Hct 44.6, MCV 91.8, MCH 30.0, MCHC 32.7, RDW Std Deviation 42.5, RDW Coeff of Dar 12.5, Plt Count 274, MPV 10.3 08/23/20 05:10: Sodium 137, Potassium 3.8, Chloride 99, Carbon Dioxide 28.0, Anion Gap 10, BUN 14, Creatinine 0.59, Estim Creat Clear Calc 52.81, Est GFR (MDRD) Af Amer 129, Est GFR (MDRD) Non-Af 107, BUN/Creatinine Ratio 23.6 H, Glucose 135 H, Calcium 9.5, Magnesium 2.1, Total Bilirubin 0.60, AST 68 H, ALT 132 H, Alkaline Phosphatase 86, Total Protein 8.0, Albumin 3.1 L, Globulin 4.9 H , Albumin/Globulin Ratio 0.6 L 08/23/20 05:10: Phosphorus 3.5 08/23/20 05:39: Specimen Type KARLI, Sample Site L Radial, VBG pH 7.33, VBG pO2 92 H, VBG HCO3 30 H, VBG Total CO2 31, VBG O2 Sat (Calc) 96 H, VBG Base Excess 4 H, POC Mix VBG pCO2 Pt Tmp 57.0 H, O2 Delivery Device BiPAP Current Medications Acetaminophen (Acetaminophen 325 Mg Tablet) 650 mg PO Q6H PRN PRN PRN Reason: Pain Score 1-10/Temp > 100.7 F Last Admin: 08/21/20 20:03 Dose: 650 mg Documented by: Aspirin (Aspirin E.C. 81 Mg Tablet) 81 mg PO DAILY COUNTS INCLUDE 234 BEDS AT THE [facility] Last Admin: 08/23/20 08:40 Dose: Not Given Documented by: Atorvastatin Calcium (Atorvastatin Calcium 20 Mg Tablet) 20 mg PO DAILY COUNTS INCLUDE 234 BEDS AT THE [facility] Last Admin: 08/23/20 08:40 Dose: Not Given Documented by: Benzonatate (Benzonatate 100 Mg Capsule) 100 mg PO Q4H PRN PRN PRN Reason: COUGH Last Admin: 08/19/20 20:36 Dose: 100 mg Documented by: Dexamethasone Sodium Phosphate (Dexamethasone 10 Mg/Ml Vial) 6 mg IV DAILY COUNTS INCLUDE 234 BEDS AT THE [facility] Last Admin: 08/23/20 09:25 Dose: 6 mg Documented by: Enoxaparin Sodium (Enoxaparin 30 Mg/0.3 Ml Syringe) 30 mg SC BID COUNTS INCLUDE 234 BEDS AT THE [facility] Last Admin: 08/23/20 09:26 Dose: 30 mg Documented by: Fentanyl Citrate (Fentanyl 100 Mcg/2 Ml Ampul) 25 mcg IV Q2H PRN PRN PRN Reason: Pain Score 4-10 Guaifenesin (Guaifenesin 10 Ml Udc (200mg/10ml)) 10 ml PO Q4H PRN PRN PRN Reason: COUGH Last Admin: 08/22/20 05:56 Dose: 10 ml Documented by: Hydrochlorothiazide (Hydrochlorothiazide 25 Mg Tablet) 25 mg PO DAILY COUNTS INCLUDE 234 BEDS AT THE [facility] Last Admin: 08/23/20 08:40 Dose: Not Given Documented by: Sodium Chloride () 250 mls @ 15 mls/hr IV .[id number] PRN PRN Reason: Saline Flush Last Infusion: 08/22/20 21:34 Dose: 0 mls/hr Documented by: Dexmedetomidine HCl 400 mcg/ (Sodium Chloride) 100 mls @ 9.925 mls/hr CONT INF .Q10H5M COUNTS INCLUDE 234 BEDS AT THE [facility]; Protocol Last Titration: 08/23/20 11:00 Dose: 0 mcg/kg/hr, 0 mls/hr Documented by: Ibuprofen (Ibuprofen 400 Mg Tablet) 400 mg PO Q4H PRN PRN PRN Reason: Pain Score 1-10/Temp > 100.7 F Levothyroxine Sodium (Levothyroxine 50 Mcg Tablet) 50 mcg PO DAILY COUNTS INCLUDE 234 BEDS AT THE [facility] Last Admin: 08/23/20 08:40 Dose: Not Given Documented by: Lisinopril (Lisinopril 20 Mg Tablet) 20 mg PO DAILY COUNTS INCLUDE 234 BEDS AT THE [facility] Last Admin: 08/23/20 08:40 Dose: Not Given Documented by: Sodium Chloride (0.9% Saline Lock 10 Ml Syringe) 10 - 40 ml IV UD PRN PRN Reason: SALINE FLUSH Last Admin: 08/23/20 01:23 EST Dose: 10 ml Documented by: STROKE Vital Signs/Narrative: Vital Signs Temp Pulse Resp BP BP Pulse Ox 08/23/20 12:00 36.3 C L 70 26 H 83/66 L 95 08/23/20 11:00 73 36 H 103/71 95 08/23/20 10:59 74 43 H 96 08/23/20 10:00 92 36 H 100/62 99 08/23/20 09:00 101 H 41 H 83/59 L 94 Medical Necessity - Tobacco Use Smoking Status: Never smoker Tobacco Use: Non-smoker Assessment/Plan All Active Problems (Last Reviewed 08/19/20 @ 12:[address] Benigno Melgar, DO) COVID-19 virus detected (Acute) Pneumonia due to severe acute respiratory syndrome coronavirus (Acute) Acute respiratory failure with hypoxia (Acute) 1. Acute COVID-19 pneumonia: * dexamethasone 6mg for 10 days * Remdesivir * received convalescent plasma on 08/21 2. Acute hypoxic respiratory failure * Worse * Secondary to above * changed to BiPAP and now sats are in the mid 90s * pulm consult. * physiotherapy as able. 3. Hypokalemia * replace 4. VTE prophylaxis with low molecular weight heparin 30 BID Inpatient E&M: 50486 Subs Hosp L2
[2020-08-24] VITALS (33 sets, daily range): BP systolic 84–123; BP diastolic 7–83; PULSE 48–82; RESP 12–37; TEMP 36–36.8; O2SAT 90–96
[2020-08-24 04:35] LABS: Hematocrit 38.9 % (37-47); Hemoglobin 12.8 g/dL (12.0-15.0); Mean Corp Hgb Conc 32.9 g/dL (32-36); Mean Corpuscular Hgb 29.8 pg (27.0-32.0); Mean Corpuscular Volume 90.5 fL (81-99); Mean Platelet Vol. 10.4 fl (6.2-12.0); Platelet Count 186 K/mm3 (150-450); RBC Distribution Width CV 12.7 % (11.6-14.6); RBC Distribution Width SD 41.7 fl (35.1-43.9); White Blood Count 10.4 K/mm3 (4.4-11.0)
[2020-08-24 05:37] LABS: ALB/GLOB Ratio 0.6 RATIO (0.9-2.4); AST(SGOT) 36 U/L (15-37); Alanine Aminotransfer ALT/SGPT 78 U/L (13-56); Albumin, Serum 2.5 g/dL (3.2-5.0); Alkaline Phosphatase 75 U/L (45-117); Anion Gap 8 (5-15); BUN 33 mg/dL (7-18); Calcium,Total 9.3 mg/dL (8.5-10.1); Chloride 107 mmol/L (98-107); Creatinine, Serum 0.67 mg/dL (0.55-1.02); EST Glomerular Filtration Rate 92 mL/min (>60); Est Glom Filt Rate - Afr Amer 111 mL/min (>60); Estimated Creatinine Clearance 52.81 ml/min; Glucose 111 mg/dL (74-106); Potassium 3.4 mmol/L (3.5-5.1); Protein, Total 6.5 g/dL (6.4-8.2); Sodium Level 141 mmol/L (136-145)
--- NOTE | 2020-08-24 05:51 | PN_ITS ---
Subjective: The patient was seen and examined at the bedside this morning. Events from the last 24 hours have been reviewed. The patient is currently afebrile, hemodynamically stable and maintaining appropriate oxygen saturations on BiPAP with an FiO2 requirement of 50%. Potassium is low this morning at 3.4. The patient is currently documented to be overall net +4.5 L for the hospital admission. The patient remains on Precedex to encourage BiPAP compliance. The patient has already received convalescent plasma and completed a treatment course of remdesivir. She remains on Decadron daily. The patient readily desaturates when removed from BiPAP. Objective: The patient's most recent lab work, culture data and imaging studies have all been personally reviewed. Coronavirus PCR was positive on August 13. Blood cultures have shown no growth to date. General: Alert, Cooperative, - - Ill and fatigued in appearance. Currently tolerating BiPAP. HEENT: Atraumatic, Normocephalic Oral: No Gingival or Mucosal Lesions/ Ulcerations Neck: Supple, No Nodes, Trachea Midline Lungs: No wheeze, No rales, Diminished, Rhonchi, Tachypneic Cardiovascular: Regular rate, Regular Rhythm Abdomen: Bowel Sounds Present, Soft, Non Tender Extremities: No clubbing, No cyanosis, No edema Skin: No breakdown Musculoskeletal: No Tenderness to Palpation of Joints or Extremities Lymphatic: No Cervical, Supraclavicular, or Inguinal Adenopathy Neurological: Neuro grossly intact Psych/Mental Status: Normal Affect Vital Signs Temp Pulse Resp BP Pulse Ox 96.8 F L 69 36 H 85/56 L 90 08/24/20 00:00 08/24/20 03:00 08/24/20 03:00 08/24/20 02:00 08/24/20 03:00 Oxygen Flow Rate (L/min) 60 Oxygen Delivery Method Bi-pap Weight: 169 lb 15.622 oz Body Mass Index (BMI) 26.6 Intake and Output for Last 24 Hours 08/23/20 08/23/20 08/24/20 00:59 23:59 23:59 Intake Total 22.73 / 22.73 Output Total 0 / 0 Balance 22.73 / 22.73 Labs (Last 48 Hours) 08/22/20 08/22/20 08/23/20 06:43 06:43 04:30 WBC 7.0 RBC 4.36 Hgb 12.9 Hct 39.7 MCV 91.1 MCH 29.6 MCHC 32.5 RDW Std Deviation 42.2 RDW Coeff of Dar 12.6 Plt Count 163 MPV 10.8 Specimen Type ART Sample Site L RADIAL pH 7.33 L Bicarbonate Actual 29.7 H Total CO2 31 Base Excess 4 H O2 Saturation 96 O2 % 65 ABG pCO2 57.0 H ABG pO2 92 Nikolay Test POS VBG pH VBG pH (Temp Correct) VBG pCO2 (Temp Corrct VBG pO2 VBG HCO3 VBG Total CO2 VBG O2 Sat (Calc) VBG Base Excess POC Mix VBG pCO2 Pt Tmp Respiration Rate 12 O2 Delivery Device Bi Pap Liter Flow Minute Volume Inspiratory Time Expiratory Time Tidal Volume 425 POC PEEP POC Pressure Suppt Pressure Control EPAP IPAP Blood Gas Comments Blood Gas Notified Whom Blood Gas Notified Time 430 Sodium 138 Potassium 3.1 L Chloride 107 Carbon Dioxide 26.0 Anion Gap 5 BUN 19 H Creatinine 0.59 Estim Creat Clear Calc 52.81 Est GFR (MDRD) Af Amer 129 Est GFR (MDRD) Non-Af 107 BUN/Creatinine Ratio 32.1 H Glucose 112 H Calcium 9.1 Phosphorus Magnesium Total Bilirubin 0.60 AST 137 H ALT 161 H Alkaline Phosphatase 74 Total Protein 6.8 Albumin 2.7 L Globulin 4.1 Albumin/Globulin Ratio 0.7 L 08/23/20 08/23/20 08/23/20 05:10 05:10 05:10 WBC 20.5 H RBC 4.86 Hgb 14.6 Hct 44.6 MCV 91.8 MCH 30.0 MCHC 32.7 RDW Std Deviation 42.5 RDW Coeff of Dar 12.5 Plt Count 274 MPV 10.3 Specimen Type Sample Site pH Bicarbonate Actual Total CO2 Base Excess O2 Saturation O2 % ABG pCO2 ABG pO2 Nikolay Test VBG pH VBG pH (Temp Correct) VBG pCO2 (Temp Corrct VBG pO2 VBG HCO3 VBG Total CO2 VBG O2 Sat (Calc) VBG Base Excess POC Mix VBG pCO2 Pt Tmp Respiration Rate O2 Delivery Device Liter Flow Minute Volume Inspiratory Time Expiratory Time Tidal Volume POC PEEP POC Pressure Suppt Pressure Control EPAP IPAP Blood Gas Comments Blood Gas Notified Whom Blood Gas Notified Time Sodium 137 Potassium 3.8 Chloride 99 Carbon Dioxide 28.0 Anion Gap 10 BUN 14 Creatinine 0.59 Estim Creat Clear Calc 52.81 Est GFR (MDRD) Af Amer 129 Est GFR (MDRD) Non-Af 107 BUN/Creatinine Ratio 23.6 H Glucose 135 H Calcium 9.5 Phosphorus 3.5 Magnesium 2.1 Total Bilirubin 0.60 AST 68 H ALT 132 H Alkaline Phosphatase 86 Total Protein 8.0 Albumin 3.1 L Globulin 4.9 H Albumin/Globulin Ratio 0.6 L 08/23/20 08/24/20 08/24/20 05:39 04:25 04:25 WBC 10.4 RBC 4.30 Hgb 12.8 Hct 38.9 MCV 90.5 MCH 29.8 MCHC 32.9 RDW Std Deviation 41.7 RDW Coeff of Dar 12.7 Plt Count 186 MPV 10.4 Specimen Type Cancelled Sample Site Cancelled pH Bicarbonate Actual Total CO2 Base Excess O2 Saturation O2 % Cancelled ABG pCO2 ABG pO2 Nikolay Test VBG pH Cancelled VBG pH (Temp Correct) Cancelled VBG pCO2 (Temp Corrct Cancelled VBG pO2 Cancelled VBG HCO3 Cancelled VBG Total CO2 Cancelled VBG O2 Sat (Calc) Cancelled VBG Base Excess Cancelled POC Mix VBG pCO2 Pt Tmp Cancelled Respiration Rate Cancelled O2 Delivery Device Cancelled Liter Flow Cancelled Minute Volume Cancelled Inspiratory Time Cancelled Expiratory Time Cancelled Tidal Volume Cancelled POC PEEP Cancelled POC Pressure Suppt Cancelled Pressure Control Cancelled EPAP Cancelled IPAP Cancelled Blood Gas Comments Cancelled Blood Gas Notified Whom Cancelled Blood Gas Notified Time Cancelled Sodium 141 Potassium 3.4 L Chloride 107 Carbon Dioxide 26.0 Anion Gap 8 BUN 33 H Creatinine 0.67 Estim Creat Clear Calc 52.81 Est GFR (MDRD) Af Amer 111 Est GFR (MDRD) Non-Af 92 BUN/Creatinine Ratio 49.0 H Glucose 111 H Calcium 9.3 Phosphorus Magnesium Total Bilirubin 0.60 AST 36 ALT 78 H Alkaline Phosphatase 75 Total Protein 6.5 Albumin 2.5 L Globulin 4.0 Albumin/Globulin Ratio 0.6 L Clinical Impression(s) from Imaging Studies Chest X-Ray 08/19/20 10:20 IMPRESSION: Bilateral patchy infiltrates worse in the right lung in keeping with bilateral patchy pneumonias. Electronically Signed: Eliecer Cespedes, at 10:40 EDT , Service support , Chest CTA 08/19/20 18:00 IMPRESSION: 1. No evidence of pulmonary embolus. 2. Atherosclerotic thoracic aorta without aneurysm or dissection. 3. Borderline cardiomegaly with coronary artery calcifications. 4. There are diffuse primarily upper lobe groundglass infiltrates with mild consolidation versus atelectasis at the lung bases. Electronically Signed: Jimbo Castanon DO at 19:04 EDT Tel [phone], Service support , Chest X-Ray 08/23/20 01:05 EST IMPRESSION: Bilateral pulmonary infiltrates, with no significant change from previous study. Borderline heart size. Electronically Signed: Juan Avalos MD at 1:43 EDT , Service support , Medical Necessity - Tobacco Use Smoking Status: Never smoker Tobacco Use: Non-smoker Assessment/Plan All Active Problems (Last Reviewed 08/19/20 @ 12:[address] Benigno Melgar, DO) COVID-19 virus detected (Acute) Pneumonia due to severe acute respiratory syndrome coronavirus (Acute) Acute respiratory failure with hypoxia (Acute) RECOMMENDATIONS: 1. Stop lisinopril and hydrochlorothiazide given tenuous hemodynamics. 2. Continue BiPAP therapy and wean to Airvo heated high flow as tolerated. 3. Wean FiO2 to maintain oxygen saturations at or above 90%. 4. Continue Decadron daily. 5. Potassium repletion. IMPRESSIONS: 1. Acute hypoxemic respiratory failure secondary to COVID-19 pneumonia Plan to continue current supportive measures including noninvasive positive pressure ventilatory support. Continue to wean FiO2 to maintain oxygen saturations at or above 90%. The patient will be continued on Precedex therapy for now. The patient has already received convalescent plasma and will remain on remdesivir and Decadron x 10 days. If hemodynamics improve, gentle diuresis will be entertained. 2. Hypokalemia Electrolyte repletion as ordered. Recheck levels in the morning. 3. Advanced age/hypertension/hypothyroidism/hyperlipidemia Complicates care, management, recovery and prognosis. Home antihypertensive medications will be placed on hold due to tenuous hemodynamics. TIME: 35 minutes of critical care time, independent of procedures, was spent addressing the patient's acute hypoxemic respiratory failure secondary to COVID- 19 pneumonia, hypokalemia, review of all data and collaboration with the care team. ([id number]) [id number] Critical care first hour
--- NOTE | 2020-08-24 07:32 | PN_ITS ---
Patient Problems: Active and Suspected Problems (Last Reviewed 08/19/20 @ 12:[address] Benigno Melgar, DO) COVID-19 virus detected (Acute) Pneumonia due to severe acute respiratory syndrome coronavirus (Acute) Acute respiratory failure with hypoxia (Acute) Reason for Visit: Acute hypoxic respiratory failure Subjective: Patient is a 70-year-old female admitted with progressive shortness of breath diagnosed with COVID-19 with superimposed pneumonia Objective: GENERAL: on BiPAP HEENT: Atraumatic; EYES; Anicteric, Normal Conjunctiva NECK; supple, normal thyroid, RESPIRATORY: Diminished to auscultation CARDIOVASCULAR: Regular S1 S2, GI: soft, normoactive bowel sounds, : No Renal angle tenderness; EXTREMITIES: No edema, no clubbing, MUSCULOSKELETAL: no muscle waisting NEURO: Awake; no lateralizing signs. SKIN: No Rash PSYCH; Flat affect Vitals/I&O's: Vital Signs Temp Pulse Resp BP Pulse Ox 97.0 F L 64 31 H 95/61 94 08/24/20 04:00 08/24/20 07:31 08/24/20 07:31 08/24/20 07:00 08/24/20 07:31 Oxygen Flow Rate (L/min) 60 Oxygen Delivery Method Bi-pap Weight: 77.1 kg Body Mass Index (BMI) 26.6 Intake and Output for Last 24 Hours 08/23/20 08/23/20 08/24/20 00:59 23:59 23:59 Intake Total 32.40 / 32.40 Output Total 175 / 175 Balance -142.60 / -142.60 Microbiology Past 72 Hours 08/19/20 10:10 Blood Culture (Wb) - Left Hand Blood Culture - Preliminary No growth in 48 hours. 08/19/20 10:01 Blood Culture (Wb) - Anticubital Left Blood Culture - Preliminary No growth in 48 hours. Laboratory Results 08/23/20 05:39: Specimen Type Cancelled, Sample Site Cancelled, O2 % Cancelled, VBG pH Cancelled, VBG pH (Temp Correct) Cancelled, VBG pCO2 (Temp Corrct Ca ncelled, VBG pO2 Cancelled, VBG HCO3 Cancelled, VBG Total CO2 Cancelled, VBG O2 Sat (Calc) Cancelled, VBG Base Excess Cancelled, POC Mix VBG pCO2 Pt Tmp Cancelled, Respiration Rate Cancelled, O2 Delivery Device Cancelled, Liter Flow Cancelled, Minute Volume Cancelled, Inspiratory Time Cancelled, Expiratory Time Cancelled, Tidal Volume Cancelled, POC PEEP Cancelled, POC Pressure Suppt Cancelled, Pressure Control Cancelled, EPAP Cancelled, IPAP Cancelled, Blood Gas Comments Cancelled, Blood Gas Notified Whom Cancelled, Blood Gas Notified Time Cancelled 08/24/20 04:25: WBC 10.4, RBC 4.30, Hgb 12.8, Hct 38.9, MCV 90.5, MCH 29.8, MCHC 32.9, RDW Std Deviation 41.7, RDW Coeff of Dra 12.7, Plt Count 186, MPV 10.4 08/24/20 04:25: Sodium 141, Potassium 3.4 L, Chloride 107, Carbon Dioxide 26.0, Anion Gap 8, BUN 33 H, Creatinine 0.67, Estim Creat Clear Calc 52.81, Est GFR (MDRD) Af Amer 111, Est GFR (MDRD) Non-Af 92, BUN/Creatinine Ratio 49.0 H, Glucose 111 H, Calcium 9.3, Total Bilirubin 0.60, AST 36, ALT 78 H, Alkaline Phosphatase 75, Total Protein 6.5, Albumin 2.5 L, Globulin 4.0, Albumin/Globulin Ratio 0.6 L Current Medications Acetaminophen (Acetaminophen 325 Mg Tablet) 650 mg PO Q6H PRN PRN PRN Reason: Pain Score 1-10/Temp > 100.7 F Last Admin: 08/21/20 20:03 Dose: 650 mg Documented by: Aspirin (Aspirin E.C. 81 Mg Tablet) 81 mg PO DAILY [facility] Last Admin: 08/23/20 08:40 Dose: Not Given Documented by: Atorvastatin Calcium (Atorvastatin Calcium 20 Mg Tablet) 20 mg PO DAILY [facility] Last Admin: 08/23/20 08:40 Dose: Not Given Documented by: Benzonatate (Benzonatate 100 Mg Capsule) 100 mg PO Q4H PRN PRN PRN Reason: COUGH Last Admin: 08/19/20 20:36 Dose: 100 mg Documented by: Dexamethasone Sodium Phosphate (Dexamethasone 10 Mg/Ml Vial) 6 mg IV DAILY [facility] Last Admin: 08/23/20 09:25 Dose: 6 mg Documented by: Enoxaparin Sodium (Enoxaparin 30 Mg/0.3 Ml Syringe) 30 mg SC BID [facility] Last Admin: 08/23/20 21:30 Dose: 30 mg Documented by: Fentanyl Citrate (Fentanyl 100 Mcg/2 Ml Ampul) 25 mcg IV Q2H PRN PRN PRN Reason: Pain Score 4-10 Guaifenesin (Guaifenesin 10 Ml Udc (200mg/10ml)) 10 ml PO Q4H PRN PRN PRN Reason: COUGH Last Admin: 08/22/20 05:56 Dose: 10 ml Documented by: Sodium Chloride () 250 mls @ 15 mls/hr IV .[id number] PRN PRN Reason: Saline Flush Last Infusion: 08/22/20 21:34 Dose: 0 mls/hr Documented by: Dexmedetomidine HCl 400 mcg/ (Sodium Chloride) 100 mls @ 9.925 mls/hr CONT INF .Q10H5M [facility]; Protocol Last Titration: 08/24/20 07:06 Dose: 0.2 mcg/kg/hr, 4 mls/hr Documented by: Potassium Chloride 40 meq/ (Sodium Chloride) 520 mls @ 130 mls/hr IV .Q4H [facility] Stop: 08/24/20 11:29 Ibuprofen (Ibuprofen 400 Mg Tablet) 400 mg PO Q4H PRN PRN PRN Reason: Pain Score 1-10/Temp > 100.7 F Levothyroxine Sodium (Levothyroxine 50 Mcg Tablet) 50 mcg PO DAILY [facility] Last Admin: 08/23/20 08:40 Dose: Not Given Documented by: Sodium Chloride (0.9% Saline Lock 10 Ml Syringe) 10 - 40 ml IV UD PRN PRN Reason: SALINE FLUSH Last Admin: 08/23/20 21:29 Dose: 40 ml Documented by: STROKE Vital Signs/Narrative: Vital Signs Temp Pulse Resp BP Pulse Ox 08/24/20 07:31 64 31 H 94 08/24/20 07:00 74 34 H 95/61 94 08/24/20 06:00 61 32 H 88/58 L 96 08/24/20 05:00 73 36 H 98/60 91 08/24/20 04:00 97.0 F L 77 34 H 90/56 L 93 Medical Necessity - Tobacco Use Smoking Status: Never smoker Tobacco Use: Non-smoker Assessment/Plan All Active Problems (Last Reviewed 10/28/20 @ 12:[address] Benigno Melgar, DO) COVID-19 virus detected (Acute) Pneumonia due to severe acute respiratory syndrome coronavirus (Acute) Acute respiratory failure with hypoxia (Acute) Patient is a 70-year-old female admitted with progressive shortness of breath diagnosed with COVID-19 with superimposed pneumonia 1. Acute hypoxic respiratory failure ?Secondary to COVID-19 pneumonia; managed convalescent plasma as well as remdesivir. Currently on Decadron and on noninvasive ventilation BiPAP patient apparently desaturated with any attempts to wean patient off BiPAP 2. Hypokalemia ?Corrected per protocol 3. Hypertension - Blood pressure controlled, home medications continued with dose adjustment as needed 4. Dyslipidemia -Patient is on statin therapy, continued at home dose 5. Hypothyroidism - Patient is on levothyroxine home dose continued 6. DVT prophylaxis - On enoxaparin Advance planning; did discuss with the patient and family regarding advanced directives as well as CODE STATUS. Did explain the various scenarios involved ( FULL CODE, DNR CCA, DNR CCA with no intubation, and DNR CC and what each meant) patient elected to remain full code with CPR and intubation if warranted. Order was placed. Time spent on discussion 18 minutes. Inpatient E&M: 01052 Subs Hosp L3 Procedures: 17367 Advncd Care Plan 30 Min
[2020-08-24] MEDS: Enoxaparin 30 MG/0.3 ML Syringe SC ×2 (08:07→21:54)
[2020-08-24] MEDS: Levothyroxine 50 MCG Tablet PO (08:08)
[2020-08-24] MEDS: Aspirin E.C. 81 MG Tablet PO (08:08)
[2020-08-24] MEDS: dexAMETHasone 10 MG/ML Vial 6 MG IV (08:09)
[2020-08-24] MEDS: Atorvastatin Calcium 20 MG Tablet PO (08:09)
--- NOTE | 2020-08-24 10:13 | CASEMGMT ---
RN CM Note: participated in ICU interdisciplinary rounds. Pt remains on Bipap 50%, failed mobility for today due to oxygen requirements. DC planning on hold. The patient was independent prior to admisison and hoped to return home. Anticipate will need home oxygen through [facility]. DC PLAN: TBD. Cameron RAO RN ACM
[2020-08-24] MEDS: Senna/Docusate Sodium 1 Tablet 2 TABLET PO ×2 (11:31→21:53)
--- NOTE | 2020-08-24 19:12 | PCM.PN.ID ---
Patient Problems: Active and Suspected Problems (Last Reviewed 08/19/20 @ 12:[address] Benigno Melgar, DO) COVID-19 virus detected (Acute) Pneumonia due to severe acute respiratory syndrome coronavirus (Acute) Acute respiratory failure with hypoxia (Acute) Subjective: Feeling a little better, no fever - Physical Exam Vitals/I&O's: Vital Signs Temp Pulse Resp BP Pulse Ox 98.2 F 54 L 33 H 98/62 92 08/24/20 16:00 08/24/20 18:50 08/24/20 18:50 08/24/20 18:00 08/24/20 18:50 Oxygen Flow Rate (L/min) 60 Oxygen Delivery Method Bi-pap Weight: 77.1 kg Body Mass Index (BMI) 26.6 Intake and Output for Last 24 Hours 08/23/20 08/23/20 08/24/20 00:59 23:59 23:59 Intake Total 48.00 / 48.00 Output Total 175 / 175 Balance -127.00 / -127.00 General: Alert, Cooperative, No apparent distress Lungs: Diminished Cardiovascular: Regular rate, Regular Rhythm Abdomen: Soft, Non Tender, Non-Distended Skin: No rashes Microbiology Past 72 Hours 08/19/20 10:10 Blood Culture (Wb) - Left Hand Blood Culture - Final No growth in 5 days. 08/19/20 10:01 Blood Culture (Wb) - Anticubital Left Blood Culture - Final No growth in 5 days. Laboratory Results 08/24/20 04:25: WBC 10.4, RBC 4.30, Hgb 12.8, Hct 38.9, MCV 90.5, MCH 29.8, MCHC 32.9, RDW Std Deviation 41.7, RDW Coeff of Dar 12.7, Plt Count 186, MPV 10.4 08/24/20 04:25: Sodium 141, Potassium 3.4 L, Chloride 107, Carbon Dioxide 26.0, Anion Gap 8, BUN 33 H, Creatinine 0.67, Estim Creat Clear Calc 52.81, Est GFR (MDRD) Af Amer 111, Est GFR (MDRD) Non-Af 92, BUN/Creatinine Ratio 49.0 H, Glucose 111 H, Calcium 9.3, Total Bilirubin 0.60, AST 36, ALT 78 H, Alkaline Phosphatase 75, Total Protein 6.5, Albumin 2.5 L, Globulin 4.0, Albumin/Globulin Ratio 0.6 L Current Medications Acetaminophen (Acetaminophen 325 Mg Tablet) 650 mg PO Q6H PRN PRN PRN Reason: Pain Score 1-10/Temp > 100.7 F Last Admin: 08/21/20 20:03 Dose: 650 mg Documented by: Aspirin (Aspirin E.C. 81 Mg Tablet) 81 mg PO DAILY [facility] Last Admin: 08/24/20 08:08 Dose: 81 mg Documented by: Atorvastatin Calcium (Atorvastatin Calcium 20 Mg Tablet) 20 mg PO DAILY [facility] Last Admin: 08/24/20 08:09 Dose: 20 mg Documented by: Benzonatate (Benzonatate 100 Mg Capsule) 100 mg PO Q4H PRN PRN PRN Reason: COUGH Last Admin: 08/19/20 20:36 Dose: 100 mg Documented by: Dexamethasone Sodium Phosphate (Dexamethasone 10 Mg/Ml Vial) 6 mg IV DAILY [facility] Stop: 08/28/20 10:01 Last Admin: 08/24/20 08:09 Dose: 6 mg Documented by: Enoxaparin Sodium (Enoxaparin 30 Mg/0.3 Ml Syringe) 30 mg SC BID [facility] Last Admin: 08/24/20 08:07 Dose: 30 mg Documented by: Fentanyl Citrate (Fentanyl 100 Mcg/2 Ml Ampul) 25 mcg IV Q2H PRN PRN PRN Reason: Pain Score 4-10 Guaifenesin (Guaifenesin 10 Ml Udc (200mg/10ml)) 10 ml PO Q4H PRN PRN PRN Reason: COUGH Last Admin: 08/22/20 05:56 Dose: 10 ml Documented by: Sodium Chloride () 250 mls @ 15 mls/hr IV .[id number] PRN PRN Reason: Saline Flush Last Infusion: 08/22/20 21:34 Dose: 0 mls/hr Documented by: Dexmedetomidine HCl 400 mcg/ (Sodium Chloride) 100 mls @ 9.925 mls/hr CONT INF .Q10H5M [facility]; Protocol Last Titration: 08/24/20 11:00 Dose: 0.2 mcg/kg/hr, 4 mls/hr Documented by: Ibuprofen (Ibuprofen 400 Mg Tablet) 400 mg PO Q4H PRN PRN PRN Reason: Pain Score 1-10/Temp > 100.7 F Levothyroxine Sodium (Levothyroxine 50 Mcg Tablet) 50 mcg PO DAILY [facility] Last Admin: 08/24/20 08:08 Dose: 50 mcg Documented by: Senna/Docusate Sodium (Senna/Docusate Sodium 1 Tablet) 2 tablet PO BID [facility] Last Admin: 08/24/20 11:31 Dose: 2 tablet Documented by: Sodium Chloride (0.9% Saline Lock 10 Ml Syringe) 10 - 40 ml IV UD PRN PRN Reason: SALINE FLUSH Last Admin: 08/23/20 21:29 Dose: 40 ml Documented by: Medical Necessity - Tobacco Use Smoking Status: Never smoker Tobacco Use: Non-smoker Route of nutrition/ use of supplements: [] Nutritional Intake: [] IV Site: [] Salcedo Catheter: [] - Assessment/Plan Antibiotics: [] Assessment/Plan: [] Active and Suspected Problems (Last Reviewed 08/19/20 @ 12:[address] Benigno Melgar, DO) COVID-19 virus detected (Acute) Pneumonia due to severe acute respiratory syndrome coronavirus (Acute) Acute respiratory failure with hypoxia (Acute) covid with hypoxia - presented on day 7 of symptoms. Cont dex and already completed remdesivir, received plasma 08/21. Now in ICU, on bipap, O2 much improved at 45% this afternoon. Sx much improved. Will follow
--- NOTE | 2020-08-24 19:50 | NURSING ---
AVAPS mask removed in order to perform mouth care and apply moisturizer to lips. Pt able to swish water, clean teeth w/sponge;pt tolerates only short interval off of oxygen supply before dropping saturation. Pt able to lift buttocks off of mattress to use bedpan, voids w/out difficulty; rosa care provided.
[2020-08-24] MEDS: Acetaminophen 325 MG Tablet 650 MG PO (21:53)
--- NOTE | 2020-08-24 22:06 | NURSING ---
Pt given a break from AVAPS mask for mouthcare, denied need for bedpan at this time. Pt also given HS meds w/out difficulty. Hygiene performed, pt allowed to wash own face and states feels heavenly. Call light within reach.
[2020-08-25] VITALS (33 sets, daily range): BP systolic 89–154; BP diastolic 57–98; PULSE 50–95; RESP 12–38; TEMP 36.6–36.8; O2SAT 89–98
[2020-08-25] MEDS: TITRATION PARAMETER CHANGE 1 EACH IV (01:00)
[2020-08-25 03:34] LABS: Hematocrit 40.9 % (37-47); Hemoglobin 13.2 g/dL (12.0-15.0); Mean Corp Hgb Conc 32.3 g/dL (32-36); Mean Corpuscular Hgb 29.8 pg (27.0-32.0); Mean Corpuscular Volume 92.3 fL (81-99); Mean Platelet Vol. 10.4 fl (6.2-12.0); Platelet Count 181 K/mm3 (150-450); RBC Distribution Width CV 12.9 % (11.6-14.6); Red Blood Count 4.43 M/mm3 (4.2-5.4)
[2020-08-25 03:46] LABS: Anion Gap 5 (5-15); BUN 35 mg/dL (7-18); BUN/Creat Ratio 60.4 RATIO (10-20); Calcium,Total 9.1 mg/dL (8.5-10.1); Chloride 110 mmol/L (98-107); Creatinine, Serum 0.58 mg/dL (0.55-1.02); EST Glomerular Filtration Rate 109 mL/min (>60); Est Glom Filt Rate - Afr Amer 132 mL/min (>60); Estimated Creatinine Clearance 52.81 ml/min; Glucose 114 mg/dL (74-106); Magnesium 2.1 mg/dL (1.6-2.6); Potassium 3.8 mmol/L (3.5-5.1); Sodium Level 143 mmol/L (136-145)
[2020-08-25] MEDS: 0.9% Saline Lock 10 ML Syringe IV (05:07)
--- NOTE | 2020-08-25 05:15 | NURSING ---
Pt assisted to bedpan, able to have sm liquid BM; pt questions if she's still getting the medicine to help her fight the virus? Pt informed that the anti-inflammatory steroid is still being given daily thru her IV, but the anti-viral medicine is completed. Pt questioned if she's feeling anxious or losing her breath and she denies. RR noted to be in mid 40s now and p.ox hanging at 85-86%. FiO2 increased to 45% on AVAPS and Precedex increased as well. Pt asked for music to be on thru the TV but she was informed that everyday at 0500 the channel does a farm report and then returns to music afterward.
--- NOTE | 2020-08-25 06:00 | PN_ITS ---
Subjective: The patient was seen and examined at the bedside this morning. Events from the last 24 hours have been reviewed. The patient is currently afebrile, hemodynamically stable and maintaining appropriate oxygen saturations on BiPAP with an FiO2 requirement of 45%. The patient has already received convalescent plasma and completed a treatment course of remdesivir. She remains on Decadron daily. The patient is currently documented to be overall net +3.8 L for the hospital admission. Objective: The patient's most recent lab work, culture data and imaging studies have all been personally reviewed. Coronavirus PCR was positive on August 13. Blood cultures have shown no growth to date. General: Alert, Cooperative, No apparent distress, - - Remains on BiPAP. HEENT: Atraumatic, PERRLA, Normocephalic Oral: Moist Mucosa Neck: Supple, No Nodes, Trachea Midline Lungs: Diminished, Tachypneic Cardiovascular: Regular rate, Regular Rhythm, No murmurs Abdomen: Bowel Sounds Present, Soft, Non Tender Extremities: No clubbing, No cyanosis, No edema Skin: No breakdown Musculoskeletal: No Tenderness to Palpation of Joints or Extremities Lymphatic: No Cervical, Supraclavicular, or Inguinal Adenopathy Neurological: Cranial nerves II-XII grossly intact, Neuro grossly intact Psych/Mental Status: Normal Affect, Appropriate Vital Signs Temp Pulse Resp BP Pulse Ox 97.8 F 85 38 H 141/96 H 90 08/25/20 04:00 08/25/20 05:00 08/25/20 05:00 08/25/20 04:59 08/25/20 05:00 Oxygen Flow Rate (L/min) 60 Oxygen Delivery Method Bi-pap Weight: 169 lb 8.568 oz Body Mass Index (BMI) 26.6 Intake and Output for Last 24 Hours 08/23/20 08/24/20 08/25/20 23:59 23:59 23:59 Intake Total 669.40 / 670.00 64.60 / 64.60 Output Total 1275 / 1275 150 / 150 Balance -605.60 / -605.00 -85.40 / -85.40 Labs (Last 48 Hours) 08/23/20 08/23/20 08/24/20 04:30 05:39 04:25 WBC 10.4 RBC 4.30 Hgb 12.8 Hct 38.9 MCV 90.5 MCH 29.8 MCHC 32.9 RDW Std Deviation 41.7 RDW Coeff of Dar 12.7 Plt Count 186 MPV 10.4 Specimen Type ART Cancelled Sample Site L RADIAL Cancelled pH 7.33 L Bicarbonate Actual 29.7 H Total CO2 31 Base Excess 4 H O2 Saturation 96 O2 % 65 Cancelled ABG pCO2 57.0 H ABG pO2 92 Nikolay Test POS VBG pH Cancelled VBG pH (Temp Correct) Cancelled VBG pCO2 (Temp Corrct Cancelled VBG pO2 Cancelled VBG HCO3 Cancelled VBG Total CO2 Cancelled VBG O2 Sat (Calc) Cancelled VBG Base Excess Cancelled POC Mix VBG pCO2 Pt Tmp Cancelled Respiration Rate 12 Cancelled O2 Delivery Device Bi Pap Cancelled Liter Flow Cancelled Minute Volume Cancelled Inspiratory Time Cancelled Expiratory Time Cancelled Tidal Volume 425 Cancelled POC PEEP Cancelled POC Pressure Suppt Cancelled Pressure Control Cancelled EPAP Cancelled IPAP Cancelled Blood Gas Comments Cancelled Blood Gas Notified Whom Cancelled Blood Gas Notified Time 430 Cancelled Sodium Potassium Chloride Carbon Dioxide Anion Gap BUN Creatinine Estim Creat Clear Calc Est GFR (MDRD) Af Amer Est GFR (MDRD) Non-Af BUN/Creatinine Ratio Glucose Calcium Magnesium Total Bilirubin AST ALT Alkaline Phosphatase Total Protein Albumin Globulin Albumin/Globulin Ratio 08/24/20 08/25/20 08/25/20 04:25 03:27 03:27 WBC 11.0 RBC 4.43 Hgb 13.2 Hct 40.9 MCV 92.3 MCH 29.8 MCHC 32.3 RDW Std Deviation 44.0 H RDW Coeff of Dar 12.9 Plt Count 181 MPV 10.4 Specimen Type Sample Site pH Bicarbonate Actual Total CO2 Base Excess O2 Saturation O2 % ABG pCO2 ABG pO2 Nikolay Test VBG pH VBG pH (Temp Correct) VBG pCO2 (Temp Corrct VBG pO2 VBG HCO3 VBG Total CO2 VBG O2 Sat (Calc) VBG Base Excess POC Mix VBG pCO2 Pt Tmp Respiration Rate O2 Delivery Device Liter Flow Minute Volume Inspiratory Time Expiratory Time Tidal Volume POC PEEP POC Pressure Suppt Pressure Control EPAP IPAP Blood Gas Comments Blood Gas Notified Whom Blood Gas Notified Time Sodium 141 143 Potassium 3.4 L 3.8 Chloride 107 110 H Carbon Dioxide 26.0 28.0 Anion Gap 8 5 BUN 33 H 35 H Creatinine 0.67 0.58 Estim Creat Clear Calc 52.81 52.81 Est GFR (MDRD) Af Amer 111 132 Est GFR (MDRD) Non-Af 92 109 BUN/Creatinine Ratio 49.0 H 60.4 H Glucose 111 H 114 H Calcium 9.3 9.1 Magnesium 2.1 Total Bilirubin 0.60 AST 36 ALT 78 H Alkaline Phosphatase 75 Total Protein 6.5 Albumin 2.5 L Globulin 4.0 Albumin/Globulin Ratio 0.6 L Microbiology 08/19/20 10:10 Blood Culture (Wb) - Left Hand Blood Culture - Final No growth in 5 days. 08/19/20 10:01 Blood Culture (Wb) - Anticubital Left Blood Culture - Final No growth in 5 days. Clinical Impression(s) from Imaging Studies Chest X-Ray 08/19/20 10:20 IMPRESSION: Bilateral patchy infiltrates worse in the right lung in keeping with bilateral patchy pneumonias. Electronically Signed: Eliecer Cespedes at 10:40 EDT , Service support , Chest CTA 08/19/20 18:00 IMPRESSION: 1. No evidence of pulmonary embolus. 2. Atherosclerotic thoracic aorta without aneurysm or dissection. 3. Borderline cardiomegaly with coronary artery calcifications. 4. There are diffuse primarily upper lobe groundglass infiltrates with mild consolidation versus atelectasis at the lung bases. Electronically Signed: Jimbo Castanon DO at 19:04 EDT Tel [phone], Service support , Chest X-Ray 08/23/20 01:05 EST IMPRESSION: Bilateral pulmonary infiltrates, with no significant change from previous study. Borderline heart size. Electronically Signed: Juan Avalos MD at 1:43 EDT , Service support , Medical Necessity - Tobacco Use Smoking Status: Never smoker Tobacco Use: Non-smoker Assessment/Plan All Active Problems (Last Reviewed 08/19/20 @ 12:[address] Benigno Jopperi, DO) COVID-19 virus detected (Acute) Pneumonia due to severe acute respiratory syndrome coronavirus (Acute) Acute respiratory failure with hypoxia (Acute) RECOMMENDATIONS: 1. Attempt gentle diuresis today with IV Lasix as tolerated by hemodynamics and renal function. 2. Continue BiPAP therapy and wean to Airvo heated high flow as tolerated. 3. Wean FiO2 to maintain oxygen saturations at or above 90%. 4. Continue Decadron daily. IMPRESSIONS: 1. Acute hypoxemic respiratory failure secondary to COVID-19 pneumonia Plan to continue current supportive measures including noninvasive positive pressure ventilatory support. Continue to wean FiO2 to maintain oxygen saturations at or above 90%. The patient will be continued on Precedex therapy for now. The patient has already received convalescent plasma and will remain on remdesivir and Decadron x 10 days. We will attempt gentle diuresis today with IV Lasix. 2. Advanced age/hypertension/hypothyroidism/hyperlipidemia Complicates care, management, recovery and prognosis. Continue to hold home antihypertensives for now. TIME: 34 minutes of critical care time, independent of procedures, was spent addressing the patient's acute hypoxemic respiratory failure secondary to COVID- 19 pneumonia, hypokalemia, review of all data and collaboration with the care team. ([id number]) [id number] Critical care first hour
--- NOTE | 2020-08-25 07:13 | PN_ITS ---
Patient Problems: Active and Suspected Problems (Last Reviewed 08/19/20 @ 12:[address] Benigno Melgar, DO) COVID-19 virus detected (Acute) Pneumonia due to severe acute respiratory syndrome coronavirus (Acute) Acute respiratory failure with hypoxia (Acute) Reason for Visit: Acute COVID-19 pneumonia Subjective: Patient seen still remains in ICU on BiPAP with plans to wean patient off to high flow oxygen. Objective: GENERAL: on BiPAP HEENT: Atraumatic; EYES; Anicteric, Normal Conjunctiva NECK; supple, normal thyroid, RESPIRATORY: Diminished to auscultation CARDIOVASCULAR: Regular S1 S2, GI: soft, normoactive bowel sounds, : No Renal angle tenderness; EXTREMITIES: No edema, no clubbing, MUSCULOSKELETAL: no muscle waisting NEURO: Awake; no lateralizing signs. SKIN: No Rash PSYCH; Flat affect Vitals/I&O's: Vital Signs Temp Pulse Resp BP Pulse Ox 97.8 F 83 30 H 116/77 94 08/25/20 04:00 08/25/20 07:00 08/25/20 07:00 08/25/20 07:00 08/25/20 07:00 Oxygen Flow Rate (L/min) 60 Oxygen Delivery Method Bi-pap Weight: 76.9 kg Body Mass Index (BMI) 26.6 Intake and Output for Last 24 Hours 08/23/20 08/24/20 08/25/20 23:59 23:59 23:59 Intake Total 669.40 / 670.00 70.30 / 70.30 Output Total 1275 / 1275 150 / 150 Balance -605.60 / -605.00 -79.70 / -79.70 Microbiology Past 72 Hours 08/19/20 10:10 Blood Culture (Wb) - Left Hand Blood Culture - Final No growth in 5 days. 08/19/20 10:01 Blood Culture (Wb) - Anticubital Left Blood Culture - Final No growth in 5 days. Laboratory Results 08/25/20 03:27: WBC 11.0, RBC 4.43, Hgb 13.2, Hct 40.9, MCV 92.3, MCH 29.8, MCHC 32.3, RDW Std Deviation 44.0 H, RDW Coeff of Dar 12.9, Plt Count 181, MPV 10.4 08/25/20 03:27: Sodium 143, Potassium 3.8, Chloride 110 H, Carbon Dioxide 28.0, Anion Gap 5, BUN 35 H, Creatinine 0.58, Estim Creat Clear Calc 52.81, Est GFR (MDRD) Af Amer 132, Est GFR (MDRD) Non-Af 109, BUN/Creatinine Ratio 60.4 H, Glucose 114 H, Calcium 9.1, Magnesium 2.1 Current Medications Acetaminophen (Acetaminophen 325 Mg Tablet) 650 mg PO Q6H PRN PRN PRN Reason: Pain Score 1-10/Temp > 100.7 F Last Admin: 08/24/20 21:53 Dose: 650 mg Documented by: Aspirin (Aspirin E.C. 81 Mg Tablet) 81 mg PO DAILY [facility] Last Admin: 08/24/20 08:08 Dose: 81 mg Documented by: Atorvastatin Calcium (Atorvastatin Calcium 20 Mg Tablet) 20 mg PO DAILY [facility] Last Admin: 08/24/20 08:09 Dose: 20 mg Documented by: Benzonatate (Benzonatate 100 Mg Capsule) 100 mg PO Q4H PRN PRN PRN Reason: COUGH Last Admin: 08/19/20 20:36 Dose: 100 mg Documented by: Dexamethasone Sodium Phosphate (Dexamethasone 10 Mg/Ml Vial) 6 mg IV DAILY [facility] Stop: 08/28/20 10:01 Last Admin: 08/24/20 08:09 Dose: 6 mg Documented by: Enoxaparin Sodium (Enoxaparin 30 Mg/0.3 Ml Syringe) 30 mg SC BID [facility] Last Admin: 08/24/20 21:54 Dose: 30 mg Documented by: Fentanyl Citrate (Fentanyl 100 Mcg/2 Ml Ampul) 25 mcg IV Q2H PRN PRN PRN Reason: Pain Score 4-10 Guaifenesin (Guaifenesin 10 Ml Udc (200mg/10ml)) 10 ml PO Q4H PRN PRN PRN Reason: COUGH Last Admin: 08/22/20 05:56 Dose: 10 ml Documented by: Sodium Chloride () 250 mls @ 15 mls/hr IV .[id number] PRN PRN Reason: Saline Flush Last Infusion: 08/22/20 21:34 Dose: 0 mls/hr Documented by: Dexmedetomidine HCl 400 mcg/ (Sodium Chloride) 100 mls @ 9.613 mls/hr CONT INF .[id number] [facility]; Protocol Last Titration: 08/25/20 07:00 Dose: 0.2 mcg/kg/hr, 3.8 mls/hr Documented by: Ibuprofen (Ibuprofen 400 Mg Tablet) 400 mg PO Q4H PRN PRN PRN Reason: Pain Score 1-10/Temp > 100.7 F Levothyroxine Sodium (Levothyroxine 50 Mcg Tablet) 50 mcg PO DAILY [facility] Last Admin: 08/24/20 08:08 Dose: 50 mcg Documented by: Senna/Docusate Sodium (Senna/Docusate Sodium 1 Tablet) 2 tablet PO BID [facility] Last Admin: 08/24/20 21:53 Dose: 2 tablet Documented by: Sodium Chloride (0.9% Saline Lock 10 Ml Syringe) 10 - 40 ml IV UD PRN PRN Reason: SALINE FLUSH Last Admin: 08/25/20 05:07 Dose: 20 ml Documented by: STROKE Vital Signs/Narrative: Vital Signs Temp Pulse Resp BP Pulse Ox 08/25/20 07:00 83 30 H 116/77 94 08/25/20 06:00 73 31 H 125/76 H 93 08/25/20 05:00 85 38 H 90 08/25/20 04:59 95 30 H 141/96 H 90 08/25/20 04:00 97.8 F 70 27 H 149/85 H 93 08/25/20 03:43 71 Medical Necessity - Tobacco Use Smoking Status: Never smoker Tobacco Use: Non-smoker Assessment/Plan All Active Problems (Last Reviewed 08/19/20 @ 12:[address] Benigno Melgar, DO) COVID-19 virus detected (Acute) Pneumonia due to severe acute respiratory syndrome coronavirus (Acute) Acute respiratory failure with hypoxia (Acute) Patient is a 70-year-old female admitted with progressive shortness of breath diagnosed with COVID-19 with superimposed pneumonia 1. Acute hypoxic respiratory failure ?Secondary to COVID-19 pneumonia; managed convalescent plasma as well as remdesivir. Currently on Decadron and on noninvasive ventilation BiPAP patient apparently desaturated with any attempts to wean patient off BiPAP -08/25/2020; Patient seen still remains in ICU on BiPAP with plans to wean patient off to high flow oxygen. Case discussed with Dr. Fagan dryerman/woman and plan is for patient to be monitored in the ICU for an additional day. Also did encourage the use of incentive spirometry. 2. Hypokalemia ?Corrected per protocol 3. Hypertension - Blood pressure controlled, home medications continued with dose adjustment as needed 4. Dyslipidemia -Patient is on statin therapy, continued at home dose 5. Hypothyroidism - Patient is on levothyroxine home dose continued 6. DVT prophylaxis - On enoxaparin Inpatient E&M: [id number] [place] [id number]
[2020-08-25] MEDS: Aspirin E.C. 81 MG Tablet PO (08:18)
[2020-08-25] MEDS: Atorvastatin Calcium 20 MG Tablet PO (08:18)
[2020-08-25] MEDS: Levothyroxine 50 MCG Tablet PO (08:19)
[2020-08-25] MEDS: dexAMETHasone 10 MG/ML Vial 6 MG IV (08:19)
[2020-08-25] MEDS: Enoxaparin 30 MG/0.3 ML Syringe SC ×2 (08:19→22:01)
[2020-08-25] MEDS: Furosemide 40 MG/4 ML Vial IV (08:19)
[2020-08-26] VITALS (30 sets, daily range): BP systolic 109–154; BP diastolic 64–97; PULSE 53–89; RESP 16–28; TEMP 36.5–36.8; O2SAT 84–99
--- NOTE | 2020-08-26 00:45 | CPS ---
changed water bottle for humidity
[2020-08-26] MEDS: 0.9% Saline Lock 10 ML Syringe IV (04:33)
[2020-08-26 04:45] LABS: Hematocrit 39.9 % (37-47); Mean Corp Hgb Conc 32.6 g/dL (32-36); Mean Corpuscular Hgb 30.3 pg (27.0-32.0); Mean Platelet Vol. 10.9 fl (6.2-12.0); Platelet Count 158 K/mm3 (150-450); RBC Distribution Width CV 13.2 % (11.6-14.6); RBC Distribution Width SD 45.4 fl (35.1-43.9); Red Blood Count 4.29 M/mm3 (4.2-5.4); White Blood Count 11.8 K/mm3 (4.4-11.0)
[2020-08-26 04:59] LABS: Anion Gap 8 (5-15); BUN 40 mg/dL (7-18); BUN/Creat Ratio 71.4 RATIO (10-20); Chloride 110 mmol/L (98-107); Creatinine, Serum 0.56 mg/dL (0.55-1.02); EST Glomerular Filtration Rate 114 mL/min (>60); Est Glom Filt Rate - Afr Amer 138 mL/min (>60); Estimated Creatinine Clearance 52.81 ml/min; Glucose 101 mg/dL (74-106); Potassium 3.5 mmol/L (3.5-5.1); Sodium Level 144 mmol/L (136-145)
--- NOTE | 2020-08-26 06:10 | PN_ITS ---
Subjective: The patient was seen and examined at the bedside this morning. Events from the last 24 hours have been reviewed. The patient is currently afebrile, hemodynamically stable and maintaining appropriate oxygen saturations on Airvo heated high flow with an FiO2 requirement of 81%. The patient is currently documented to be overall net +3.1 L for the hospital admission. The patient has already received convalescent plasma and completed a treatment course of remdesivir. She remains on Decadron daily. The patient did receive a one-time dose of IV Lasix yesterday. Creatinine remains stable. Objective: The patient's most recent lab work, culture data and imaging studies have all been personally reviewed. Coronavirus PCR was positive on August 13. Blood cultures have shown no growth to date. General: Alert, Cooperative, No apparent distress, - - Appears comfortable on Airvo HEENT: Atraumatic, Normocephalic Oral: No Gingival or Mucosal Lesions/ Ulcerations Neck: Supple, No Nodes, Trachea Midline Lungs: Diminished Cardiovascular: Regular rate, Regular Rhythm Abdomen: Bowel Sounds Present, Soft, Non Tender Extremities: No clubbing, No cyanosis, No edema Skin: No breakdown Musculoskeletal: No Tenderness to Palpation of Joints or Extremities Lymphatic: No Cervical, Supraclavicular, or Inguinal Adenopathy Neurological: Neuro grossly intact Psych/Mental Status: Normal Affect, Appropriate Vital Signs Temp Pulse Resp BP Pulse Ox 97.7 F L 68 23 H 133/84 H 95 08/26/20 04:00 08/26/20 06:00 08/26/20 06:00 08/26/20 06:00 08/26/20 06:00 Oxygen Flow Rate (L/min) 50 Oxygen Delivery Method Airvo Weight: 167 lb 1.766 oz Body Mass Index (BMI) 26.6 Intake and Output for Last 24 Hours 08/24/20 08/25/20 08/26/20 23:59 23:59 23:59 Intake Total 669.40 / 670.00 661.10 / 664.90 269.97 / 269.97 Output Total 1275 / 1275 1625 / 1625 Balance -605.60 / -605.00 -963.90 / -960.10 269.97 / 269.97 Labs (Last 48 Hours) 08/25/20 08/25/20 08/26/20 03:27 03:27 04:30 WBC 11.0 11.8 H RBC 4.43 4.29 Hgb 13.2 13.0 Hct 40.9 39.9 MCV 92.3 93.0 MCH 29.8 30.3 MCHC 32.3 32.6 RDW Std Deviation 44.0 H 45.4 H RDW Coeff of Dar 12.9 13.2 Plt Count 181 158 MPV 10.4 10.9 Sodium 143 Potassium 3.8 Chloride 110 H Carbon Dioxide 28.0 Anion Gap 5 BUN 35 H Creatinine 0.58 Estim Creat Clear Calc 52.81 Est GFR (MDRD) Af Amer 132 Est GFR (MDRD) Non-Af 109 BUN/Creatinine Ratio 60.4 H Glucose 114 H Calcium 9.1 Magnesium 2.1 08/26/20 04:30 WBC RBC Hgb Hct MCV MCH MCHC RDW Std Deviation RDW Coeff of Dar Plt Count MPV Sodium 144 Potassium 3.5 Chloride 110 H Carbon Dioxide 26.0 Anion Gap 8 BUN 40 H Creatinine 0.56 Estim Creat Clear Calc 52.81 Est GFR (MDRD) Af Amer 138 Est GFR (MDRD) Non-Af 114 BUN/Creatinine Ratio 71.4 H Glucose 101 Calcium 9.0 Magnesium Microbiology 08/19/20 10:10 Blood Culture (Wb) - Left Hand Blood Culture - Final No growth in 5 days. 08/19/20 10:01 Blood Culture (Wb) - Anticubital Left Blood Culture - Final No growth in 5 days. Clinical Impression(s) from Imaging Studies Chest X-Ray 08/19/20 10:20 IMPRESSION: Bilateral patchy infiltrates worse in the right lung in keeping with bilateral patchy pneumonias. Electronically Signed: Eliecer Cespedes, at 10:40 EDT , Service support , Chest CTA 08/19/20 18:00 IMPRESSION: 1. No evidence of pulmonary embolus. 2. Atherosclerotic thoracic aorta without aneurysm or dissection. 3. Borderline cardiomegaly with coronary artery calcifications. 4. There are diffuse primarily upper lobe groundglass infiltrates with mild consolidation versus atelectasis at the lung bases. Electronically Signed: Jimbo Castanon DO at 19:04 EDT Tel [phone], Service support , Chest X-Ray 08/23/20 01:05 EST IMPRESSION: Bilateral pulmonary infiltrates, with no significant change from previous study. Borderline heart size. Electronically Signed: Juan Avalos MD at 1:43 EDT , Service support , Medical Necessity - Tobacco Use Smoking Status: Never smoker Tobacco Use: Non-smoker Assessment/Plan All Active Problems (Last Reviewed 08/19/20 @ 12:[address] Benigno Melgar, DO) COVID-19 virus detected (Acute) Pneumonia due to severe acute respiratory syndrome coronavirus (Acute) Acute respiratory failure with hypoxia (Acute) RECOMMENDATIONS: 1. Discontinue Precedex today. 2. Continue Airvo heated high flow and wean FiO2 to maintain oxygen saturations at or above 90%. 3. Continue Decadron daily. 4. Continue intermittent dosing of IV Lasix as needed. 5. Encourage incentive spirometer use and mobilize patient as tolerated. IMPRESSIONS: 1. Acute hypoxemic respiratory failure secondary to COVID-19 pneumonia Plan to continue current supportive measures including heated high flow supplemental oxygen with plans to wean FiO2 to maintain saturations at or above 90%. Given that the patient is no longer requiring BiPAP therapy, Precedex will be discontinued. The patient has already received convalescent plasma and completed a course of remdesivir. The patient will remain on Decadron to complete 10 days of treatment. IV Lasix will once again be administered today. 2. Advanced age/hypertension/hypothyroidism/hyperlipidemia Complicates care, management, recovery and prognosis. Continue to hold home antihypertensives for now. This note was generated with [employer] software. It may contain incorrect words, spelling, and punctuation that were not noted in checking the note before signing. Inpatient E&M: [id number] Subs Hosp L3
--- NOTE | 2020-08-26 07:10 | PN_ITS ---
Patient Problems: Active and Suspected Problems (Last Reviewed 08/19/20 @ 12:[address] Benigno Melgar, DO) COVID-19 virus detected (Acute) Pneumonia due to severe acute respiratory syndrome coronavirus (Acute) Acute respiratory failure with hypoxia (Acute) Reason for Visit: COVID-19 pneumonia. Subjective: Patient seen appears to be experiencing some clinical improvement. He is currently being weaned off BiPAP and placed on Airvo. Plan is for patient to be transferred from the ICU to the [facility] unit Objective: GENERAL: on Airvo HEENT: Atraumatic; EYES; Anicteric, Normal Conjunctiva NECK; supple, normal thyroid, RESPIRATORY: Diminished to auscultation CARDIOVASCULAR: Regular S1 S2, GI: soft, normoactive bowel sounds, : No Renal angle tenderness; EXTREMITIES: No edema, no clubbing, MUSCULOSKELETAL: no muscle waisting NEURO: Awake; no lateralizing signs. SKIN: No Rash PSYCH; Flat affect Vitals/I&O's: Vital Signs Temp Pulse Resp BP Pulse Ox 97.7 F L 68 23 H 133/84 H 95 08/26/20 04:00 08/26/20 06:00 08/26/20 06:00 08/26/20 06:00 08/26/20 06:00 Oxygen Flow Rate (L/min) 50 Oxygen Delivery Method Airvo Weight: 75.8 kg Body Mass Index (BMI) 26.6 Intake and Output for Last 24 Hours 08/24/20 08/25/20 08/26/20 23:59 23:59 23:59 Intake Total 669.40 / 670.00 661.10 / 664.90 269.97 / 269.97 Output Total 1275 / 1275 1625 / 1625 Balance -605.60 / -605.00 -963.90 / -960.10 269.97 / 269.97 Microbiology Past 72 Hours 08/19/20 10:10 Blood Culture (Wb) - Left Hand Blood Culture - Final No growth in 5 days. 08/19/20 10:01 Blood Culture (Wb) - Anticubital Left Blood Culture - Final No growth in 5 days. Laboratory Results 08/26/20 04:30: WBC 11.8 H, RBC 4.29, Hgb 13.0, Hct 39.9, MCV 93.0, MCH 30.3, MCHC 32.6, RDW Std Deviation 45.4 H, RDW Coeff of Dar 13.2, Plt Count 158, MPV 10.9 08/26/20 04:30: Sodium 144, Potassium 3.5, Chloride 110 H, Carbon Dioxide 26.0, Anion Gap 8, BUN 40 H, Creatinine 0.56, Estim Creat Clear Calc 52.81, Est GFR (MDRD) Af Amer 138, Est GFR (MDRD) Non-Af 114, BUN/Creatinine Ratio 71.4 H, Glucose 101, Calcium 9.0 Current Medications Acetaminophen (Acetaminophen 325 Mg Tablet) 650 mg PO Q6H PRN PRN PRN Reason: Pain Score 1-10/Temp > 100.7 F Last Admin: 08/24/20 21:53 Dose: 650 mg Documented by: Aspirin (Aspirin E.C. 81 Mg Tablet) 81 mg PO DAILY [facility] Last Admin: 08/25/20 08:18 Dose: 81 mg Documented by: Atorvastatin Calcium (Atorvastatin Calcium 20 Mg Tablet) 20 mg PO DAILY [facility] Last Admin: 08/25/20 08:18 Dose: 20 mg Documented by: Benzonatate (Benzonatate 100 Mg Capsule) 100 mg PO Q4H PRN PRN PRN Reason: COUGH Last Admin: 08/19/20 20:36 Dose: 100 mg Documented by: Dexamethasone Sodium Phosphate (Dexamethasone 10 Mg/Ml Vial) 6 mg IV DAILY [facility] Stop: 08/28/20 10:01 Last Admin: 08/25/20 08:19 Dose: 6 mg Documented by: Enoxaparin Sodium (Enoxaparin 30 Mg/0.3 Ml Syringe) 30 mg SC BID [facility] Last Admin: 08/25/20 22:01 Dose: 30 mg Documented by: Fentanyl Citrate (Fentanyl 100 Mcg/2 Ml Ampul) 25 mcg IV Q2H PRN PRN PRN Reason: Pain Score 4-10 Guaifenesin (Guaifenesin 10 Ml Udc (200mg/10ml)) 10 ml PO Q4H PRN PRN PRN Reason: COUGH Last Admin: 08/22/20 05:56 Dose: 10 ml Documented by: Sodium Chloride () 250 mls @ 15 mls/hr IV .[id number] PRN PRN Reason: Saline Flush Last Infusion: 08/22/20 21:34 Dose: 0 mls/hr Documented by: Dexmedetomidine HCl 400 mcg/ (Sodium Chloride) 100 mls @ 9.613 mls/hr CONT INF .[id number] [facility]; Protocol Last Titration: 08/26/20 06:00 Dose: 0.1 mcg/kg/hr, 1.9 mls/hr Documented by: Ibuprofen (Ibuprofen 400 Mg Tablet) 400 mg PO Q4H PRN PRN PRN Reason: Pain Score 1-10/Temp > 100.7 F Levothyroxine Sodium (Levothyroxine 50 Mcg Tablet) 50 mcg PO DAILY [facility] Last Admin: 08/25/20 08:19 Dose: 50 mcg Documented by: Nutritional Formula (Lactose Free) (Ensure Clear 120 Ml Liquid) 240 ml PO TIDCM [facility] Last Admin: 08/25/20 20:05 Dose: Not Given Documented by: Senna/Docusate Sodium (Senna/Docusate Sodium 1 Tablet) 2 tablet PO BID [facility] Last Admin: 08/25/20 22:02 Dose: Not Given Documented by: Sodium Chloride (0.9% Saline Lock 10 Ml Syringe) 10 - 40 ml IV UD PRN PRN Reason: SALINE FLUSH Last Admin: 08/26/20 04:33 Dose: 30 ml Documented by: STROKE Vital Signs/Narrative: Vital Signs Temp Pulse Resp BP Pulse Ox 08/26/20 06:00 68 23 H 133/84 H 95 08/26/20 05:00 63 22 H 133/71 H 93 08/26/20 04:00 97.7 F L 69 17 116/68 93 08/26/20 03:33 65 Medical Necessity - Tobacco Use Smoking Status: Never smoker Tobacco Use: Non-smoker Assessment/Plan All Active Problems (Last Reviewed 08/19/20 @ 12:[address] Benigno Melgar, DO) COVID-19 virus detected (Acute) Pneumonia due to severe acute respiratory syndrome coronavirus (Acute) Acute respiratory failure with hypoxia (Acute) Patient is a 70-year-old female admitted with progressive shortness of breath diagnosed with COVID-19 with superimposed pneumonia 1. Acute hypoxic respiratory failure ?Secondary to COVID-19 pneumonia; managed convalescent plasma as well as remdesivir. Currently on Decadron and on noninvasive ventilation BiPAP patient apparently desaturated with any attempts to wean patient off BiPAP -08/25/2020; Patient seen still remains in ICU on BiPAP with plans to wean patient off to high flow oxygen. Case discussed with Dr. Fagan siding mechanic and plan is for patient to be monitored in the ICU for an additional day. Also did encourage the use of incentive spirometry. 08/26/2020; patient seen appears to be experiencing some clinical improvement. He is currently being weaned off BiPAP and placed on Airvo. Plan is for patient to be transferred from the ICU to the [facility] unit 2. Hypokalemia ?Corrected per protocol 3. Hypertension - Blood pressure controlled, home medications continued with dose adjustment as needed 4. Dyslipidemia -Patient is on statin therapy, continued at home dose 5. Hypothyroidism - Patient is on levothyroxine home dose continued 6. DVT prophylaxis - On enoxaparin Inpatient E&M: [id number] [facility] Hosp L2
[2020-08-26] MEDS: Ensure Clear 120 ML Liquid 240 ML PO (09:12)
[2020-08-26] MEDS: Enoxaparin 30 MG/0.3 ML Syringe SC ×2 (09:13→19:59)
[2020-08-26] MEDS: dexAMETHasone 10 MG/ML Vial 6 MG IV (09:16)
[2020-08-26] MEDS: Atorvastatin Calcium 20 MG Tablet PO (09:18)
[2020-08-26] MEDS: Levothyroxine 50 MCG Tablet PO (09:18)
[2020-08-26] MEDS: Aspirin E.C. 81 MG Tablet PO (09:18)
--- NOTE | 2020-08-26 13:00 | CHAPLAIN ---
Type of Pastoral Visit ___ Initial Visit ___ Follow-up Visit ___ On-call Visit ___ General Patient Visit ___ Spiritual Assessment ___ Family Conference ___ Bereavement ___ Rapid Response ___ Code Blue _x__ Other (describe below) Pastoral Care Referral From _x__ Patient ___ Family ___ Nurse ___ Physician ___ Job Interviewer ___ Film Librarian ___ Other (describe below) Sacrament/Intervention ___ Active listening ___ Anointing ___ Church ___ Bereavement ___ Communion ___ Nighat exploration ___ ___ Life review ___ Prayer ___ Reconciliation ___ Sacrament of Sick ___ Supportive presence ___ Wedding ___ Other (describe below) Pastoral Comments attempts made yesterday and today to make contact with patient by phone; no answer by phone and thus unable to talk with patient
[2020-08-26] MEDS: Furosemide 40 MG/4 ML Vial IV (16:47)
--- NOTE | 2020-08-26 16:51 | PCM.PN.ID ---
Patient Problems: Active and Suspected Problems (Last Reviewed 08/19/20 @ 12:[address] Benigno Melgar, DO) COVID-19 virus detected (Acute) Pneumonia due to severe acute respiratory syndrome coronavirus (Acute) Acute respiratory failure with hypoxia (Acute) Subjective: Feeling better, still dyspnea, no fever, no n/v/d - Physical Exam Vitals/I&O's: Vital Signs Temp Pulse Resp BP Pulse Ox 98.3 F 66 20 H 122/73 H 97 08/26/20 12:00 08/26/20 16:10 08/26/20 16:10 08/26/20 12:00 08/26/20 16:10 Oxygen Flow Rate (L/min) 50 Oxygen Delivery Method Airvo Weight: 75.8 kg Body Mass Index (BMI) 26.6 Intake and Output for Last 24 Hours 08/24/20 08/25/20 08/26/20 23:59 23:59 23:59 Intake Total 669.40 / 670.00 661.10 / 664.90 563.30 / 563.30 Output Total 1275 / 1275 1625 / 1625 Balance -605.60 / -605.00 -963.90 / -960.10 563.30 / 563.30 General: Alert, Cooperative, No apparent distress Lungs: Diminished Cardiovascular: Regular rate, Regular Rhythm Abdomen: Soft, Non Tender, Non-Distended Skin: No rashes Microbiology Past 72 Hours 08/19/20 10:10 Blood Culture (Wb) - Left Hand Blood Culture - Final No growth in 5 days. 08/19/20 10:01 Blood Culture (Wb) - Anticubital Left Blood Culture - Final No growth in 5 days. Laboratory Results 08/26/20 04:30: WBC 11.8 H, RBC 4.29, Hgb 13.0, Hct 39.9, MCV 93.0, MCH 30.3, MCHC 32.6, RDW Std Deviation 45.4 H, RDW Coeff of Dar 13.2, Plt Count 158, MPV 10.9 08/26/20 04:30: Sodium 144, Potassium 3.5, Chloride 110 H, Carbon Dioxide 26.0, Anion Gap 8, BUN 40 H, Creatinine 0.56, Estim Creat Clear Calc 52.81, Est GFR (MDRD) Af Amer 138, Est GFR (MDRD) Non-Af 114, BUN/Creatinine Ratio 71.4 H, Glucose 101, Calcium 9.0 Current Medications Acetaminophen (Acetaminophen 325 Mg Tablet) 650 mg PO Q6H PRN PRN PRN Reason: Pain Score 1-10/Temp > 100.7 F Last Admin: 08/24/20 21:53 Dose: 650 mg Documented by: Aspirin (Aspirin E.C. 81 Mg Tablet) 81 mg PO DAILY [facility] Last Admin: 08/26/20 09:18 Dose: 81 mg Documented by: Atorvastatin Calcium (Atorvastatin Calcium 20 Mg Tablet) 20 mg PO DAILY [facility] Last Admin: 08/26/20 09:18 Dose: 20 mg Documented by: Benzonatate (Benzonatate 100 Mg Capsule) 100 mg PO Q4H PRN PRN PRN Reason: COUGH Last Admin: 08/19/20 20:36 Dose: 100 mg Documented by: Dexamethasone Sodium Phosphate (Dexamethasone 10 Mg/Ml Vial) 6 mg IV DAILY [facility] Stop: 08/28/20 10:01 Last Admin: 08/26/20 09:16 Dose: 6 mg Documented by: Enoxaparin Sodium (Enoxaparin 30 Mg/0.3 Ml Syringe) 30 mg SC BID [facility] Last Admin: 08/26/20 09:13 Dose: 30 mg Documented by: Guaifenesin (Guaifenesin 10 Ml Udc (200mg/10ml)) 10 ml PO Q4H PRN PRN PRN Reason: COUGH Last Admin: 08/22/20 05:56 Dose: 10 ml Documented by: Sodium Chloride () 250 mls @ 15 mls/hr IV .[id number] PRN PRN Reason: Saline Flush Last Infusion: 08/22/20 21:34 Dose: 0 mls/hr Documented by: Ibuprofen (Ibuprofen 400 Mg Tablet) 400 mg PO Q4H PRN PRN PRN Reason: Pain Score 1-10/Temp > 100.7 F Levothyroxine Sodium (Levothyroxine 50 Mcg Tablet) 50 mcg PO DAILY [facility] Last Admin: 08/26/20 09:18 Dose: 50 mcg Documented by: Senna/Docusate Sodium (Senna/Docusate Sodium 1 Tablet) 2 tablet PO BID [facility] Last Admin: 08/26/20 09:19 Dose: Not Given Documented by: Sodium Chloride (0.9% Saline Lock 10 Ml Syringe) 10 - 40 ml IV UD PRN PRN Reason: SALINE FLUSH Last Admin: 08/26/20 04:33 Dose: 30 ml Documented by: Medical Necessity - Tobacco Use Smoking Status: Never smoker Tobacco Use: Non-smoker Route of nutrition/ use of supplements: [] Nutritional Intake: [] IV Site: [] Salcedo Catheter: [] - Assessment/Plan Antibiotics: [] Assessment/Plan: [] Active and Suspected Problems (Last Reviewed 08/19/20 @ 12:[address] Benigno Melgar, DO) COVID-19 virus detected (Acute) Pneumonia due to severe acute respiratory syndrome coronavirus (Acute) Acute respiratory failure with hypoxia (Acute) covid with hypoxia - presented on day 7 of symptoms. Cont dex and already completed remdesivir, received plasma 08/21. Now in ICU, on 80% airvo this afternoon. Sx much improved. Will follow
[2020-08-27] VITALS (18 sets, daily range): BP systolic 118–152; BP diastolic 71–99; PULSE 69–95; RESP 19–32; TEMP 36.1–36.8; O2SAT 88–94
--- NOTE | 2020-08-27 02:34 | NURSING ---
Pt had a 12 beat run of vtach. Pt awake denies any complaints at this time. blood drawn
[2020-08-27 02:56] LABS: Hemoglobin 13.1 g/dL (12.0-15.0); Mean Corpuscular Volume 93.8 fL (81-99); Mean Platelet Vol. 11.3 fl (6.2-12.0); Platelet Count 171 K/mm3 (150-450); RBC Distribution Width CV 13.2 % (11.6-14.6); RBC Distribution Width SD 45.3 fl (35.1-43.9); Red Blood Count 4.37 M/mm3 (4.2-5.4); White Blood Count 10.6 K/mm3 (4.4-11.0)
[2020-08-27 03:37] LABS: Anion Gap 6 (5-15); BUN 29 mg/dL (7-18); BUN/Creat Ratio 52.9 RATIO (10-20); Calcium,Total 9.1 mg/dL (8.5-10.1); Chloride 107 mmol/L (98-107); Creatinine, Serum 0.55 mg/dL (0.55-1.02); EST Glomerular Filtration Rate 117 mL/min (>60); Est Glom Filt Rate - Afr Amer 141 mL/min (>60); Estimated Creatinine Clearance 52.81 ml/min; Glucose 101 mg/dL (74-106); Potassium 3.2 mmol/L (3.5-5.1); Sodium Level 142 mmol/L (136-145)
--- NOTE | 2020-08-27 06:03 | PN_ITS ---
Patient Problems: Active and Suspected Problems (Last Reviewed 08/19/20 @ 12:[address] Benigno Melgar, DO) COVID-19 virus detected (Acute) Pneumonia due to severe acute respiratory syndrome coronavirus (Acute) Acute respiratory failure with hypoxia (Acute) Subjective: The patient was seen and examined at the bedside this morning. Events from the last 24 hours have been reviewed. The patient is currently afebrile, hemodynamically stable and maintaining appropriate oxygen saturations on Airvo heated high flow oxygen with an FiO2 requirement of 63%. Potassium is low this morning at 3.2. Creatinine is stable. The patient is currently documented to be overall net +1.8 L for the hospital admission. The patient has already rec eived convalescent plasma and completed a treatment course of remdesivir. She remains on Decadron daily. No overnight issues were identified by the nursing staff. The patient continues to receive intermittent Lasix dosing as well. Objective: The patient's most recent lab work, culture data and imaging studies have all been personally reviewed. Coronavirus PCR was positive on August 13. Blood cultures have shown no growth to date. - Physical Exam Vitals/I&O's: Vital Signs Temp Pulse Resp BP Pulse Ox 97.9 F 73 19 H 137/81 H 92 08/27/20 03:00 08/27/20 03:07 08/27/20 03:00 08/27/20 03:00 08/27/20 03:00 Oxygen Flow Rate (L/min) 50 Oxygen Delivery Method Airvo Weight: 164 lb 3.91 oz Body Mass Index (BMI) 26.6 Intake and Output for Last 24 Hours 08/25/20 08/26/20 08/27/20 23:59 23:59 23:59 Intake Total 661.10 / 664.90 883.30 / 883.30 120 / 120 Output Total 1625 / 1625 1200 / 1200 900 / 900 Balance -963.90 / -960.10 -316.70 / -316.70 -780 / -780 General: Alert, Cooperative, No apparent distress HEENT: Atraumatic, PERRLA, Normocephalic Oral: Moist Mucosa, No Gingival or Mucosal Lesions/ Ulcerations Neck: Supple, No Nodes, Trachea Midline Lungs: No rhonchi, No wheeze, No rales, Diminished, - - No conversational dyspnea. Speaking in complete sentences. Cardiovascular: Regular rate, Regular Rhythm Abdomen: Bowel Sounds Present, Soft, Non Tender Extremities: No clubbing, No cyanosis, No edema Skin: No breakdown Musculoskeletal: No Tenderness to Palpation of Joints or Extremities, No Muscle Wasting Lymphatic: No Cervical, Supraclavicular, or Inguinal Adenopathy Neurological: Cranial nerves II-XII grossly intact, Neuro grossly intact Psych/Mental Status: Normal Affect, Appropriate Labs (Last 48 Hours) 08/26/20 08/26/20 08/27/20 04:30 04:30 02:40 WBC 11.8 H 10.6 RBC 4.29 4.37 Hgb 13.0 13.1 Hct 39.9 41.0 MCV 93.0 93.8 MCH 30.3 30.0 MCHC 32.6 32.0 RDW Std Deviation 45.4 H 45.3 H RDW Coeff of Dar 13.2 13.2 Plt Count 158 171 MPV 10.9 11.3 Sodium 144 Potassium 3.5 Chloride 110 H Carbon Dioxide 26.0 Anion Gap 8 BUN 40 H Creatinine 0.56 Estim Creat Clear Calc 52.81 Est GFR (MDRD) Af Amer 138 Est GFR (MDRD) Non-Af 114 BUN/Creatinine Ratio 71.4 H Glucose 101 Calcium 9.0 08/27/20 02:40 WBC RBC Hgb Hct MCV MCH MCHC RDW Std Deviation RDW Coeff of Dar Plt Count MPV Sodium 142 Potassium 3.2 L Chloride 107 Carbon Dioxide 29.0 Anion Gap 6 BUN 29 H Creatinine 0.55 Estim Creat Clear Calc 52.81 Est GFR (MDRD) Af Amer 141 Est GFR (MDRD) Non-Af 117 BUN/Creatinine Ratio 52.9 H Glucose 101 Calcium 9.1 Clinical Impression(s) from Imaging Studies Chest X-Ray 08/19/20 10:20 IMPRESSION: Bilateral patchy infiltrates worse in the right lung in keeping with bilateral patchy pneumonias. Electronically Signed: Eliecer Cespedes, at 10:40 EDT , Service support , Chest CTA 08/19/20 18:00 IMPRESSION: 1. No evidence of pulmonary embolus. 2. Atherosclerotic thoracic aorta without aneurysm or dissection. 3. Borderline cardiomegaly with coronary artery calcifications. 4. There are diffuse primarily upper lobe groundglass infiltrates with mild consolidation versus atelectasis at the lung bases. Electronically Signed: Jimbo Castanon DO at 19:04 EDT Tel [phone], Service support , Chest X-Ray 08/23/20 01:05 EST IMPRESSION: Bilateral pulmonary infiltrates, with no significant change from previous study. Borderline heart size. Electronically Signed: Juan Avalos MD at 1:43 EDT , Service support , Current Medications Acetaminophen (Acetaminophen 325 Mg Tablet) 650 mg PO Q6H PRN PRN PRN Reason: Pain Score 1-10/Temp > 100.7 F Last Admin: 08/24/20 21:53 Dose: 650 mg Documented by: Aspirin (Aspirin E.C. 81 Mg Tablet) 81 mg PO DAILY [facility] Last Admin: 08/26/20 09:18 Dose: 81 mg Documented by: Atorvastatin Calcium (Atorvastatin Calcium 20 Mg Tablet) 20 mg PO DAILY [facility] Last Admin: 08/26/20 09:18 Dose: 20 mg Documented by: Benzonatate (Benzonatate 100 Mg Capsule) 100 mg PO Q4H PRN PRN PRN Reason: COUGH Last Admin: 08/19/20 20:36 Dose: 100 mg Documented by: Dexamethasone Sodium Phosphate (Dexamethasone 10 Mg/Ml Vial) 6 mg IV DAILY [facility] Stop: 08/28/20 10:01 Last Admin: 08/26/20 09:16 Dose: 6 mg Documented by: Enoxaparin Sodium (Enoxaparin 30 Mg/0.3 Ml Syringe) 30 mg SC BID [facility] Last Admin: 08/26/20 19:59 Dose: 30 mg Documented by: Guaifenesin (Guaifenesin 10 Ml Udc (200mg/10ml)) 10 ml PO Q4H PRN PRN PRN Reason: COUGH Last Admin: 08/22/20 05:56 Dose: 10 ml Documented by: Sodium Chloride () 250 mls @ 15 mls/hr IV .[id number] PRN PRN Reason: Saline Flush Last Infusion: 08/22/20 21:34 Dose: 0 mls/hr Documented by: Ibuprofen (Ibuprofen 400 Mg Tablet) 400 mg PO Q4H PRN PRN PRN Reason: Pain Score 1-10/Temp > 100.7 F Levothyroxine Sodium (Levothyroxine 50 Mcg Tablet) 50 mcg PO DAILY [facility] Last Admin: 08/26/20 09:18 Dose: 50 mcg Documented by: Senna/Docusate Sodium (Senna/Docusate Sodium 1 Tablet) 2 tablet PO BID [facility] Last Admin: 08/26/20 20:01 Dose: Not Given Documented by: Sodium Chloride (0.9% Saline Lock 10 Ml Syringe) 10 - 40 ml IV UD PRN PRN Reason: SALINE FLUSH Last Admin: 08/26/20 04:33 Dose: 30 ml Documented by: Medical Necessity - Tobacco Use Smoking Status: Never smoker Tobacco Use: Non-smoker Assessment/Plan All Active Problems (Last Reviewed 08/19/20 @ 12:[address] Benigno Melgar, DO) COVID-19 virus detected (Acute) Pneumonia due to severe acute respiratory syndrome coronavirus (Acute) Acute respiratory failure with hypoxia (Acute) RECOMMENDATIONS: 1. Continue Airvo heated high flow and wean FiO2 to maintain oxygen saturations at or above 90%. 2. Continue Decadron daily. 3. Continue intermittent dosing of IV Lasix as tolerated by hemodynamics and renal function. 4. Encourage incentive spirometer use and mobilize patient as tolerated. 5. Potassium repletion as ordered. IMPRESSIONS: 1. Acute hypoxemic respiratory failure secondary to COVID-19 pneumonia Plan to continue current supportive measures including heated high flow supplemental oxygen with plans to wean FiO2 to maintain saturations at or above 90%. Given that the patient is no longer requiring BiPAP therapy, Precedex will be discontinued. The patient has already received convalescent plasma and completed a course of remdesivir. The patient will remain on Decadron to complete 10 days of treatment. IV Lasix will once again be administered today. 2. Hypokalemia Electrolyte repletion as ordered. Recheck levels in the morning. 3. Advanced age/hypertension/hypothyroidism/hyperlipidemia Complicates care, management, recovery and prognosis. Continue to hold home antihypertensives for now. This note was generated with [employer] software. It may contain incorrect words, spelling, and punctuation that were not noted in checking the note before signing. Inpatient E&M: 56170 Subs Hosp L3
--- NOTE | 2020-08-27 07:09 | PCM.PN.HOSP ---
Patient Problems: Active and Suspected Problems (Last Reviewed 08/19/20 @ 12:[address] Benigno Melgar, DO) COVID-19 virus detected (Acute) Pneumonia due to severe acute respiratory syndrome coronavirus (Acute) Acute respiratory failure with hypoxia (Acute) Reason for Visit: Acute COVID-19 pneumonia. Subjective: Patient seen. Still remains on high flow oxygen via Airvo plan is to increase activity as tolerated Objective: GENERAL: on Airvo HEENT: Atraumatic; EYES; Anicteric, Normal Conjunctiva NECK; supple, normal thyroid, RESPIRATORY: Diminished to auscultation CARDIOVASCULAR: Regular S1 S2, GI: soft, normoactive bowel sounds, : No Renal angle tenderness; EXTREMITIES: No edema, no clubbing, MUSCULOSKELETAL: no muscle waisting NEURO: Awake; no lateralizing signs. SKIN: No Rash PSYCH; Flat affect Vitals/I&O's: Vital Signs Temp Pulse Resp BP Pulse Ox 97.9 F 73 19 H 137/81 H 92 08/27/20 03:00 08/27/20 03:07 08/27/20 03:00 08/27/20 03:00 08/27/20 03:00 Oxygen Flow Rate (L/min) 50 Oxygen Delivery Method Airvo Weight: 74.5 kg Body Mass Index (BMI) 26.6 Intake and Output for Last 24 Hours 08/25/20 08/26/20 08/27/20 23:59 23:59 23:59 Intake Total 661.10 / 664.90 883.30 / 883.30 120 / 120 Output Total 1625 / 1625 1200 / 1200 900 / 900 Balance -963.90 / -960.10 -316.70 / -316.70 -780 / -780 Microbiology Past 72 Hours 08/19/20 10:10 Blood Culture (Wb) - Left Hand Blood Culture - Final No growth in 5 days. 08/19/20 10:01 Blood Culture (Wb) - Anticubital Left Blood Culture - Final No growth in 5 days. Laboratory Results 08/27/20 02:40: WBC 10.6, RBC 4.37, Hgb 13.1, Hct 41.0, MCV 93.8, MCH 30.0, MCHC 32.0, RDW Std Deviation 45.3 H, RDW Coeff of Dar 13.2, Plt Count 171, MPV 11.3 08/27/20 02:40: Sodium 142, Potassium 3.2 L, Chloride 107, Carbon Dioxide 29.0, Anion Gap 6, BUN 29 H, Creatinine 0.55, Estim Creat Clear Calc 52.81, Est GFR (MDRD) Af Amer 141, Est GFR (MDRD) Non-Af 117, BUN/Creatinine Ratio 52.9 H, Glucose 101, Calcium 9.1 Current Medications Acetaminophen (Acetaminophen 325 Mg Tablet) 650 mg PO Q6H PRN PRN PRN Reason: Pain Score 1-10/Temp > 100.7 F Last Admin: 08/24/20 21:53 Dose: 650 mg Documented by: Aspirin (Aspirin E.C. 81 Mg Tablet) 81 mg PO DAILY [facility] Last Admin: 08/26/20 09:18 Dose: 81 mg Documented by: Atorvastatin Calcium (Atorvastatin Calcium 20 Mg Tablet) 20 mg PO DAILY [facility] Last Admin: 08/26/20 09:18 Dose: 20 mg Documented by: Benzonatate (Benzonatate 100 Mg Capsule) 100 mg PO Q4H PRN PRN PRN Reason: COUGH Last Admin: 08/19/20 20:36 Dose: 100 mg Documented by: Dexamethasone Sodium Phosphate (Dexamethasone 10 Mg/Ml Vial) 6 mg IV DAILY [facility] Stop: 08/28/20 10:01 Last Admin: 08/26/20 09:16 Dose: 6 mg Documented by: Enoxaparin Sodium (Enoxaparin 30 Mg/0.3 Ml Syringe) 30 mg SC BID [facility] Last Admin: 08/26/20 19:59 Dose: 30 mg Documented by: Guaifenesin (Guaifenesin 10 Ml Udc (200mg/10ml)) 10 ml PO Q4H PRN PRN PRN Reason: COUGH Last Admin: 08/22/20 05:56 Dose: 10 ml Documented by: Sodium Chloride () 250 mls @ 15 mls/hr IV .[id number] PRN PRN Reason: Saline Flush Last Infusion: 08/22/20 21:34 Dose: 0 mls/hr Documented by: Potassium Chloride () 10 meq in 100 mls @ 100 mls/hr IV BOLUS Q1H [facility] Stop: 08/27/20 11:29 Ibuprofen (Ibuprofen 400 Mg Tablet) 400 mg PO Q4H PRN PRN PRN Reason: Pain Score 1-10/Temp > 100.7 F Levothyroxine Sodium (Levothyroxine 50 Mcg Tablet) 50 mcg PO DAILY [facility] Last Admin: 08/26/20 09:18 Dose: 50 mcg Documented by: Potassium Chloride (Potassium Chloride 20 Meq Tablet) [facility] Senna/Docusate Sodium (Senna/Docusate Sodium 1 Tablet) 2 tablet PO BID [facility] Last Admin: 08/26/20 20:01 Dose: Not Given Documented by: Sodium Chloride (0.9% Saline Lock 10 Ml Syringe) 10 - 40 ml IV UD PRN PRN Reason: SALINE FLUSH Last Admin: 08/26/20 04:33 Dose: 30 ml Documented by: Medical Necessity - Tobacco Use Smoking Status: Never smoker Tobacco Use: Non-smoker Assessment/Plan All Active Problems (Last Reviewed 08/19/20 @ 12:[address] Benigno Melgar, DO) COVID-19 virus detected (Acute) Pneumonia due to severe acute respiratory syndrome coronavirus (Acute) Acute respiratory failure with hypoxia (Acute) Patient is a 70-year-old female admitted with progressive shortness of breath diagnosed with COVID-19 with superimposed pneumonia 1. Acute hypoxic respiratory failure ?Secondary to COVID-19 pneumonia; managed convalescent plasma as well as remdesivir. Currently on Decadron and on noninvasive ventilation BiPAP patient apparently desaturated with any attempts to wean patient off BiPAP -08/25/2020; Patient seen still remains in ICU on BiPAP with plans to wean patient off to high flow oxygen. Case discussed with Dr. Fagan canoe builder and plan is for patient to be monitored in the ICU for an additional day. Also did encourage the use of incentive spirometry. 08/26/2020; patient seen appears to be experiencing some clinical improvement. currently being weaned off BiPAP and placed on Airvo. Plan is for patient to be transferred from the ICU to the [facility] [place] unit -2520. Patient seen remains in the ICU. Still requiring high flow oxygen. Remains on Airvo. With plans to increase activity as tolerated 2. Hypokalemia ?Corrected per protocol 3. Hypertension - Blood pressure controlled, home medications continued with dose adjustment as needed 4. Dyslipidemia -Patient is on statin therapy, continued at home dose 5. Hypothyroidism - Patient is on levothyroxine home dose continued 6. DVT prophylaxis - On enoxaparin 7. Physical deconditioning - Requested for PT OT eval and geriatric social worker to assist with discharge planning Inpatient E&M: [id number] Subs Hosp L2
[2020-08-27] MEDS: Enoxaparin 30 MG/0.3 ML Syringe SC ×2 (10:47→22:25)
[2020-08-27] MEDS: Levothyroxine 50 MCG Tablet PO (10:47)
[2020-08-27] MEDS: Aspirin E.C. 81 MG Tablet PO (10:47)
[2020-08-27] MEDS: Atorvastatin Calcium 20 MG Tablet PO (10:47)
[2020-08-27] MEDS: Furosemide 40 MG/4 ML Vial IV (10:48)
[2020-08-27] MEDS: Potassium Chloride 10mEq/100mL 10 MEQ/100 ML IV.SOLN. 100 MEQ IV BOLUS ×4 (10:57→14:40)
--- NOTE | 2020-08-27 11:42 | PCM.PN.ID ---
Patient Problems: Active and Suspected Problems (Last Reviewed 08/19/20 @ 12:[address] Benigno Melgar, DO) COVID-19 virus detected (Acute) Pneumonia due to severe acute respiratory syndrome coronavirus (Acute) Acute respiratory failure with hypoxia (Acute) Subjective: Feeling better, O2 improved, no fever - Physical Exam Vitals/I&O's: Vital Signs Temp Pulse Resp BP Pulse Ox 97.4 F L 90 21 H 136/81 H 93 08/27/20 11:01 08/27/20 11:15 08/27/20 11:01 08/27/20 11:01 08/27/20 11:01 Oxygen Flow Rate (L/min) 50 Oxygen Delivery Method Airvo Weight: 74.5 kg Body Mass Index (BMI) 26.6 Intake and Output for Last 24 Hours 08/25/20 08/26/20 08/27/20 23:59 23:59 23:59 Intake Total 661.10 / 664.90 883.30 / 883.30 120 / 120 Output Total 1625 / 1625 1200 / 1200 900 / 900 Balance -963.90 / -960.10 -316.70 / -316.70 -780 / -780 General: Alert, Cooperative, No apparent distress Lungs: Diminished Cardiovascular: Regular rate, Regular Rhythm Abdomen: Soft, Non Tender, Non-Distended Skin: No rashes Microbiology Past 72 Hours 08/19/20 10:10 Blood Culture (Wb) - Left Hand Blood Culture - Final No growth in 5 days. 08/19/20 10:01 Blood Culture (Wb) - Anticubital Left Blood Culture - Final No growth in 5 days. Laboratory Results 08/27/20 02:40: WBC 10.6, RBC 4.37, Hgb 13.1, Hct 41.0, MCV 93.8, MCH 30.0, MCHC 32.0, RDW Std Deviation 45.3 H, RDW Coeff of Dar 13.2, Plt Count 171, MPV 11.3 08/27/20 02:40: Sodium 142, Potassium 3.2 L, Chloride 107, Carbon Dioxide 29.0, Anion Gap 6, BUN 29 H, Creatinine 0.55, Estim Creat Clear Calc 52.81, Est GFR (MDRD) Af Amer 141, Est GFR (MDRD) Non-Af 117, BUN/Creatinine Ratio 52.9 H, Glucose 101, Calcium 9.1 Current Medications Acetaminophen (Acetaminophen 325 Mg Tablet) 650 mg PO Q6H PRN PRN PRN Reason: Pain Score 1-10/Temp > 100.7 F Last Admin: 08/24/20 21:53 Dose: 650 mg Documented by: Aspirin (Aspirin E.C. 81 Mg Tablet) 81 mg PO DAILY [facility] Last Admin: 08/27/20 10:47 Dose: 81 mg Documented by: Atorvastatin Calcium (Atorvastatin Calcium 20 Mg Tablet) 20 mg PO DAILY [facility] Last Admin: 08/27/20 10:47 Dose: 20 mg Documented by: Benzonatate (Benzonatate 100 Mg Capsule) 100 mg PO Q4H PRN PRN PRN Reason: COUGH Last Admin: 08/19/20 20:36 Dose: 100 mg Documented by: Dexamethasone Sodium Phosphate (Dexamethasone 10 Mg/Ml Vial) 6 mg IV DAILY [facility] Stop: 08/28/20 10:01 Last Admin: 08/26/20 09:16 Dose: 6 mg Documented by: Enoxaparin Sodium (Enoxaparin 30 Mg/0.3 Ml Syringe) 30 mg SC BID [facility] Last Admin: 08/27/20 10:47 Dose: 30 mg Documented by: Guaifenesin (Guaifenesin 10 Ml Udc (200mg/10ml)) 10 ml PO Q4H PRN PRN PRN Reason: COUGH Last Admin: 08/22/20 05:56 Dose: 10 ml Documented by: Sodium Chloride () 250 mls @ 15 mls/hr IV .[id number] PRN PRN Reason: Saline Flush Last Infusion: 08/22/20 21:34 Dose: 0 mls/hr Documented by: Ibuprofen (Ibuprofen 400 Mg Tablet) 400 mg PO Q4H PRN PRN PRN Reason: Pain Score 1-10/Temp > 100.7 F Levothyroxine Sodium (Levothyroxine 50 Mcg Tablet) 50 mcg PO DAILY [facility] Last Admin: 08/27/20 10:47 Dose: 50 mcg Documented by: Potassium Chloride (Potassium Chloride 20 Meq Tablet) 20 meq PO BIDCM [facility] Last Admin: 08/27/20 10:47 Dose: 20 meq Documented by: Senna/Docusate Sodium (Senna/Docusate Sodium 1 Tablet) 2 tablet PO BID [facility] Last Admin: 08/27/20 10:48 Dose: Not Given Documented by: Sodium Chloride (0.9% Saline Lock 10 Ml Syringe) 10 - 40 ml IV UD PRN PRN Reason: SALINE FLUSH Last Admin: 08/26/20 04:33 Dose: 30 ml Documented by: Medical Necessity - Tobacco Use Smoking Status: Never smoker Tobacco Use: Non-smoker Route of nutrition/ use of supplements: [] Nutritional Intake: [] IV Site: [] Salcedo Catheter: [] - Assessment/Plan Antibiotics: [] Assessment/Plan: [] Active and Suspected Problems (Last Reviewed 08/19/20 @ 12:[address] Benigno Melgar, DO) COVID-19 virus detected (Acute) Pneumonia due to severe acute respiratory syndrome coronavirus (Acute) Acute respiratory failure with hypoxia (Acute) covid with hypoxia - presented on day 7 of symptoms. Cont dex and already completed remdesivir, received plasma 08/21. Now in ICU, on 63% airvo this AM, much improved from yesterday. Sx much improved. Will follow
[2020-08-27] MEDS: dexAMETHasone 10 MG/ML Vial 6 MG IV (11:57)
--- NOTE | 2020-08-27 14:27 | CHAPLAIN ---
Type of Pastoral Visit ___ Initial Visit ___ Follow-up Visit ___ On-call Visit ___ General Patient Visit ___ Spiritual Assessment ___ Family Conference ___ Bereavement ___ Rapid Response ___ Code Blue _x__ Other (describe below) Pastoral Care Referral From _x__ Patient ___ Family ___ Nurse ___ Physician ___ Tire Builder Heavy Service ___ Infrastructure Manager ___ Other (describe below) Sacrament/Intervention ___ Active listening ___ Anointing ___ Confucianist ___ Bereavement ___ Communion ___ Nighat exploration ___ ___ Life review ___ Prayer ___ Reconciliation ___ Sacrament of Sick ___ Supportive presence ___ Wedding _x__ Other (describe below) Pastoral Comments attempt again made to make contact with patient by phone; no answer; prayer given in absentia
--- NOTE | 2020-08-27 17:50 | NURSING ---
report given to Emily MACIEL on MS2 - pt states she will notify family of tx to room 211
[2020-08-27] MEDS: 0.9% Saline Lock 10 ML Syringe IV (22:26)
[2020-08-28] VITALS (11 sets, daily range): BP systolic 123–161; BP diastolic 62–88; PULSE 62–92; RESP 18–26; TEMP 36.6–36.9; O2SAT 91–95
[2020-08-28] MEDS: 0.9% Saline Lock 10 ML Syringe IV ×3 (04:55→16:52)
--- NOTE | 2020-08-28 07:36 | PCM.PN.HOSP ---
Patient Problems: Active and Suspected Problems (Last Reviewed 08/19/20 @ 12:[address] Benigno Melgar, DO) COVID-19 virus detected (Acute) Pneumonia due to severe acute respiratory syndrome coronavirus (Acute) Acute respiratory failure with hypoxia (Acute) Reason for Visit: Acute COVID-19 pneumonia Subjective: Patient was transferred from the ICU to message to the Covid cohort unit. Diagnostic data this morning is significant for potassium of 3.1 correction initiated. Patient overall clinical condition continues to improve Objective: GENERAL: on Airvo HEENT: Atraumatic; EYES; Anicteric, Normal Conjunctiva NECK; supple, normal thyroid, RESPIRATORY: Diminished to auscultation CARDIOVASCULAR: Regular S1 S2, GI: soft, normoactive bowel sounds, : No Renal angle tenderness; EXTREMITIES: No edema, no clubbing, MUSCULOSKELETAL: no muscle waisting NEURO: Awake; no lateralizing signs. SKIN: No Rash PSYCH; Flat affect Vitals/I&O's: Vital Signs Temp Pulse Resp BP Pulse Ox 98.1 F 70 20 H 161/88 H 92 08/28/20 04:38 08/28/20 04:38 08/28/20 04:38 08/28/20 04:38 08/28/20 04:38 Oxygen Flow Rate (L/min) 45 Oxygen Delivery Method Airvo Weight: 74.4 kg Body Mass Index (BMI) 26.6 Intake and Output for Last 24 Hours 08/26/20 08/27/20 08/28/20 23:59 23:59 23:59 Intake Total 883.30 / 883.30 1300 / 1400 450 / 450 Output Total 1200 / 1200 1600 / 1600 Balance -316.70 / -316.70 -300 / -200 450 / 450 Current Medications Acetaminophen (Acetaminophen 325 Mg Tablet) 650 mg PO Q6H PRN PRN PRN Reason: Pain Score 1-10/Temp > 100.7 F Last Admin: 08/24/20 21:53 Dose: 650 mg Documented by: Aspirin (Aspirin E.C. 81 Mg Tablet) 81 mg PO DAILY [facility] Last Admin: 08/27/20 10:47 Dose: 81 mg Documented by: Atorvastatin Calcium (Atorvastatin Calcium 20 Mg Tablet) 20 mg PO DAILY [facility] Last Admin: 08/27/20 10:47 Dose: 20 mg Documented by: Benzonatate (Benzonatate 100 Mg Capsule) 100 mg PO Q4H PRN PRN PRN Reason: COUGH Last Admin: 08/19/20 20:36 Dose: 100 mg Documented by: Dexamethasone Sodium Phosphate (Dexamethasone 10 Mg/Ml Vial) 6 mg IV DAILY [facility] Stop: 08/28/20 10:01 Last Admin: 08/27/20 11:57 Dose: 6 mg Documented by: Enoxaparin Sodium (Enoxaparin 30 Mg/0.3 Ml Syringe) 30 mg SC BID [facility] Last Admin: 08/27/20 22:25 Dose: 30 mg Documented by: Guaifenesin (Guaifenesin 10 Ml Udc (200mg/10ml)) 10 ml PO Q4H PRN PRN PRN Reason: COUGH Last Admin: 08/22/20 05:56 Dose: 10 ml Documented by: Sodium Chloride () 250 mls @ 15 mls/hr IV .[id number] PRN PRN Reason: Saline Flush Last Infusion: 08/22/20 21:34 Dose: 0 mls/hr Documented by: Ibuprofen (Ibuprofen 400 Mg Tablet) 400 mg PO Q4H PRN PRN PRN Reason: Pain Score 1-10/Temp > 100.7 F Levothyroxine Sodium (Levothyroxine 50 Mcg Tablet) 50 mcg PO DAILY [facility] Last Admin: 08/27/20 10:47 Dose: 50 mcg Documented by: Potassium Chloride (Potassium Chloride 20 Meq Tablet) [facility] Senna/Docusate Sodium (Senna/Docusate Sodium 1 Tablet) 2 tablet PO BID [facility] Last Admin: 08/27/20 22:25 Dose: Not Given Documented by: Sodium Chloride (0.9% Saline Lock 10 Ml Syringe) 10 - 40 ml IV UD PRN PRN Reason: SALINE FLUSH Last Admin: 08/28/20 04:55 Dose: 10 ml Documented by: STROKE Vital Signs/Narrative: Vital Signs Temp Pulse Resp BP Pulse Ox 08/28/20 04:38 98.1 F 70 20 H 161/88 H 92 08/28/20 04:36 20 H 08/28/20 04:23 70 26 H 91 Medical Necessity - Tobacco Use Smoking Status: Never smoker Tobacco Use: Non-smoker Assessment/Plan All Active Problems (Last Reviewed 08/19/20 @ 12:[address] Benigno Jopperi, DO) COVID-19 virus detected (Acute) Pneumonia due to severe acute respiratory syndrome coronavirus (Acute) Acute respiratory failure with hypoxia (Acute) Patient is a 70-year-old female admitted with progressive shortness of breath diagnosed with COVID-19 with superimposed pneumonia 1. Acute hypoxic respiratory failure ?Secondary to COVID-19 pneumonia; managed convalescent plasma as well as remdesivir. Currently on Decadron and on noninvasive ventilation BiPAP patient apparently desaturated with any attempts to wean patient off BiPAP -08/25/2020; Patient seen still remains in ICU on BiPAP with plans to wean patient off to high flow oxygen. Case discussed with Dr. Fagan counselor at law and plan is for patient to be monitored in the ICU for an additional day. Also did encourage the use of incentive spirometry. 08/26/2020; patient seen appears to be experiencing some clinical improvement. currently being weaned off BiPAP and placed on Airvo. Plan is for patient to be transferred from the ICU to the [facility] Covid unit - 08/27/2020. Patient seen remains in the ICU. Still requiring high flow oxygen. Remains on Airvo. With plans to increase activity as tolerated -08/28/2020 Patient was transferred from the ICU to message to the Covid cohort unit. Diagnostic data this morning is significant for potassium of 3.1 correction initiated 2. Hypokalemia ?Corrected per protocol 3. Hypertension - Blood pressure controlled, home medications continued with dose adjustment as needed 4. Dyslipidemia -Patient is on statin therapy, continued at home dose 5. Hypothyroidism - Patient is on levothyroxine home dose continued 6. DVT prophylaxis - On enoxaparin 7. Physical deconditioning - Requested for PT OT eval and social media marketing analyst to assist with discharge planning Inpatient E&M: [id number] Subs Hosp L2
--- NOTE | 2020-08-28 08:42 | PN_ITS ---
Patient Problems: Active and Suspected Problems (Last Reviewed 08/19/20 @ 12:[address] Benigno Melgar, DO) COVID-19 virus detected (Acute) Pneumonia due to severe acute respiratory syndrome coronavirus (Acute) Acute respiratory failure with hypoxia (Acute) Subjective: The patient was seen and examined at the bedside this morning. Events from the last 24 hours have been reviewed. The patient is currently afebrile, hemodynamically stable and maintaining appropriate oxygen saturations on Airvo he did high flow with an FiO2 requirement of 71% and flow rate of 45 L/min. Objective: The patient's most recent lab work, culture data and imaging studies have all been personally reviewed. Coronavirus PCR was positive on August 13. Blood cultures have shown no growth to date. - Physical Exam Vitals/I&O's: Vital Signs Temp Pulse Resp BP Pulse Ox 98.1 F 70 20 H 161/88 H 92 08/28/20 04:38 08/28/20 04:38 08/28/20 04:38 08/28/20 04:38 08/28/20 04:38 Oxygen Flow Rate (L/min) 45 Oxygen Delivery Method Airvo Weight: 164 lb 0.383 oz Body Mass Index (BMI) 26.6 Intake and Output for Last 24 Hours 08/26/20 08/27/20 08/28/20 23:59 23:59 23:59 Intake Total 883.30 / 883.30 1300 / 1400 450 / 450 Output Total 1200 / 1200 1600 / 1600 Balance -316.70 / -316.70 -300 / -200 450 / 450 General: Alert, Cooperative, No apparent distress HEENT: Atraumatic, PERRLA, Normocephalic Oral: Moist Mucosa, No Gingival or Mucosal Lesions/ Ulcerations Neck: Supple, No Nodes, Trachea Midline Lungs: No rhonchi, No wheeze, No rales, Diminished Cardiovascular: Regular rate, Regular Rhythm Abdomen: Bowel Sounds Present, Soft, Non Tender Extremities: No clubbing, No cyanosis, No edema Skin: No breakdown Musculoskeletal: No Tenderness to Palpation of Joints or Extremities Lymphatic: No Cervical, Supraclavicular, or Inguinal Adenopathy Neurological: Cranial nerves II-XII grossly intact, Neuro grossly intact Psych/Mental Status: Normal Affect, Appropriate Labs (Last 48 Hours) 08/27/20 08/27/20 02:40 02:40 WBC 10.6 RBC 4.37 Hgb 13.1 Hct 41.0 MCV 93.8 MCH 30.0 MCHC 32.0 RDW Std Deviation 45.3 H RDW Coeff of Dar 13.2 Plt Count 171 MPV 11.3 Sodium 142 Potassium 3.2 L Chloride 107 Carbon Dioxide 29.0 Anion Gap 6 BUN 29 H Creatinine 0.55 Estim Creat Clear Calc 52.81 Est GFR (MDRD) Af Amer 141 Est GFR (MDRD) Non-Af 117 BUN/Creatinine Ratio 52.9 H Glucose 101 Calcium 9.1 Clinical Impression(s) from Imaging Studies Chest X-Ray 08/19/20 10:20 IMPRESSION: Bilateral patchy infiltrates worse in the right lung in keeping with bilateral patchy pneumonias. Electronically Signed: Eliecer Cespedes at 10:40 EDT , Service support , Chest CTA 08/19/20 18:00 IMPRESSION: 1. No evidence of pulmonary embolus. 2. Atherosclerotic thoracic aorta without aneurysm or dissection. 3. Borderline cardiomegaly with coronary artery calcifications. 4. There are diffuse primarily upper lobe groundglass infiltrates with mild consolidation versus atelectasis at the lung bases. Electronically Signed: Jimbo Castanon DO at 19:04 EDT Tel [phone], Service support , Chest X-Ray 08/23/20 01:05 EST IMPRESSION: Bilateral pulmonary infiltrates, with no significant change from previous study. Borderline heart size. Electronically Signed: Juan Avalos MD at 1:43 EDT , Service support , Current Medications Acetaminophen (Acetaminophen 325 Mg Tablet) 650 mg PO Q6H PRN PRN PRN Reason: Pain Score 1-10/Temp > 100.7 F Last Admin: 08/24/20 21:53 Dose: 650 mg Documented by: Aspirin (Aspirin E.C. 81 Mg Tablet) 81 mg PO DAILY [facility] Last Admin: 08/27/20 10:47 Dose: 81 mg Documented by: Atorvastatin Calcium (Atorvastatin Calcium 20 Mg Tablet) 20 mg PO DAILY [facility] Last Admin: 08/27/20 10:47 Dose: 20 mg Documented by: Benzonatate (Benzonatate 100 Mg Capsule) 100 mg PO Q4H PRN PRN PRN Reason: COUGH Last Admin: 08/19/20 20:36 Dose: 100 mg Documented by: Dexamethasone Sodium Phosphate (Dexamethasone 10 Mg/Ml Vial) 6 mg IV DAILY [facility] Stop: 08/28/20 10:01 Last Admin: 08/27/20 11:57 Dose: 6 mg Documented by: Enoxaparin Sodium (Enoxaparin 30 Mg/0.3 Ml Syringe) 30 mg SC BID [facility] Last Admin: 08/27/20 22:25 Dose: 30 mg Documented by: Guaifenesin (Guaifenesin 10 Ml Udc (200mg/10ml)) 10 ml PO Q4H PRN PRN PRN Reason: COUGH Last Admin: 08/22/20 05:56 Dose: 10 ml Documented by: Sodium Chloride () 250 mls @ 15 mls/hr IV .[id number] PRN PRN Reason: Saline Flush Last Infusion: 08/22/20 21:34 Dose: 0 mls/hr Documented by: Ibuprofen (Ibuprofen 400 Mg Tablet) 400 mg PO Q4H PRN PRN PRN Reason: Pain Score 1-10/Temp > 100.7 F Levothyroxine Sodium (Levothyroxine 50 Mcg Tablet) 50 mcg PO DAILY [facility] Last Admin: 08/27/20 10:47 Dose: 50 mcg Documented by: Potassium Chloride (Potassium Chloride 20 Meq Tablet) [facility] Senna/Docusate Sodium (Senna/Docusate Sodium 1 Tablet) 2 tablet PO BID [facility] Last Admin: 08/27/20 22:25 Dose: Not Given Documented by: Sodium Chloride (0.9% Saline Lock 10 Ml Syringe) 10 - 40 ml IV UD PRN PRN Reason: SALINE FLUSH Last Admin: 08/28/20 04:55 Dose: 10 ml Documented by: Medical Necessity - Tobacco Use Smoking Status: Never smoker Tobacco Use: Non-smoker Assessment/Plan All Active Problems (Last Reviewed 08/19/20 @ 12:[address] Benigno Melgar DO) COVID-19 virus detected (Acute) Pneumonia due to severe acute respiratory syndrome coronavirus (Acute) Acute respiratory failure with hypoxia (Acute) RECOMMENDATIONS: 1. Continue Airvo heated high flow and wean FiO2 to maintain oxygen saturations at or above 90%. 2. Continue Decadron daily. 3. Continue intermittent dosing of IV Lasix as tolerated by hemodynamics and renal function. 4. Encourage incentive spirometer use and mobilize patient as tolerated. IMPRESSIONS: 1. Acute hypoxemic respiratory failure secondary to COVID-19 pneumonia Plan to continue current supportive measures including heated high flow supplemental oxygen with plans to wean FiO2 to maintain saturations at or above 90%. The patient has already received convalescent plasma and completed a course of remdesivir. The patient will remain on Decadron to complete 10 days of treatment. Continue attempts at gentle diuresis as tolerated by hemodynamics and renal function. 2. Advanced age/hypertension/hypothyroidism/hyperlipidemia Complicates care, management, recovery and prognosis. Continue to hold home antihypertensives for now. This note was generated with [employer] dictation software. It may contain incorrect words, spelling, and punctuation that were not noted in checking the note before signing. Inpatient E&M: [id number] Subs Hosp L2
[2020-08-28] MEDS: dexAMETHasone 10 MG/ML Vial 6 MG IV (09:01)
[2020-08-28] MEDS: Enoxaparin 30 MG/0.3 ML Syringe SC ×2 (09:01→21:05)
[2020-08-28] MEDS: Levothyroxine 50 MCG Tablet PO (09:02)
[2020-08-28] MEDS: Atorvastatin Calcium 20 MG Tablet PO (09:02)
[2020-08-28] MEDS: Aspirin E.C. 81 MG Tablet PO (09:02)
[2020-08-28 10:31] LABS: Anion Gap 5 (5-15); BUN 27 mg/dL (7-18); BUN/Creat Ratio 38.4 RATIO (10-20); Calcium,Total 9.5 mg/dL (8.5-10.1); Chloride 110 mmol/L (98-107); EST Glomerular Filtration Rate 87 mL/min (>60); Est Glom Filt Rate - Afr Amer 106 mL/min (>60); Estimated Creatinine Clearance 52.81 ml/min; Glucose 159 mg/dL (74-106); Potassium 3.7 mmol/L (3.5-5.1); Sodium Level 140 mmol/L (136-145)
--- NOTE | 2020-08-28 15:54 | PN.ID_ITS ---
Patient Problems: Active and Suspected Problems (Last Reviewed 08/19/20 @ 12:[address] Benigno Melgar, DO) COVID-19 virus detected (Acute) Pneumonia due to severe acute respiratory syndrome coronavirus (Acute) Acute respiratory failure with hypoxia (Acute) Subjective: Feeling better, out of icu, O2 improved. - Physical Exam Vitals/I&O's: Vital Signs Temp Pulse Resp BP Pulse Ox 97.8 F 92 20 H 135/72 H 95 08/28/20 15:26 08/28/20 15:26 08/28/20 15:26 08/28/20 15:26 08/28/20 15:26 Oxygen Flow Rate (L/min) 45 Oxygen Delivery Method Airvo Weight: 74.4 kg Body Mass Index (BMI) 26.6 Intake and Output for Last 24 Hours 08/26/20 08/27/20 08/28/20 23:59 23:59 23:59 Intake Total 883.30 / 883.30 1300 / 1400 810 / 810 Output Total 1200 / 1200 1600 / 1600 Balance -316.70 / -316.70 -300 / -200 810 / 810 General: Alert, Cooperative, No apparent distress Lungs: Clear to auscultation, Diminished Cardiovascular: Regular rate, Regular Rhythm Abdomen: Soft, Non Tender, Non-Distended Skin: No rashes Laboratory Results 08/28/20 09:30: Sodium 140, Potassium 3.7, Chloride 110 H, Carbon Dioxide 25.0, Anion Gap 5, BUN 27 H, Creatinine 0.70, Estim Creat Clear Calc 52.81, Est GFR (MDRD) Af Amer 106, Est GFR (MDRD) Non-Af 87, BUN/Creatinine Ratio 38.4 H, Glucose 159 H, Calcium 9.5 Current Medications Acetaminophen (Acetaminophen 325 Mg Tablet) 650 mg PO Q6H PRN PRN PRN Reason: Pain Score 1-10/Temp > 100.7 F Last Admin: 08/24/20 21:53 Dose: 650 mg Documented by: Aspirin (Aspirin E.C. 81 Mg Tablet) 81 mg PO DAILY [facility] Last Admin: 08/28/20 09:02 Dose: 81 mg Documented by: Atorvastatin Calcium (Atorvastatin Calcium 20 Mg Tablet) 20 mg PO DAILY [facility] Last Admin: 08/28/20 09:02 Dose: 20 mg Documented by: Benzonatate (Benzonatate 100 Mg Capsule) 100 mg PO Q4H PRN PRN PRN Reason: COUGH Last Admin: 08/19/20 20:36 Dose: 100 mg Documented by: Enoxaparin Sodium (Enoxaparin 30 Mg/0.3 Ml Syringe) 30 mg SC BID [facility] Last Admin: 08/28/20 09:01 Dose: 30 mg Documented by: Guaifenesin (Guaifenesin 10 Ml Udc (200mg/10ml)) 10 ml PO Q4H PRN PRN PRN Reason: COUGH Last Admin: 08/22/20 05:56 Dose: 10 ml Documented by: Sodium Chloride () 250 mls @ 15 mls/hr IV .[id number] PRN PRN Reason: Saline Flush Last Infusion: 08/22/20 21:34 Dose: 0 mls/hr Documented by: Ibuprofen (Ibuprofen 400 Mg Tablet) 400 mg PO Q4H PRN PRN PRN Reason: Pain Score 1-10/Temp > 100.7 F Levothyroxine Sodium (Levothyroxine 50 Mcg Tablet) 50 mcg PO DAILY [facility] Last Admin: 08/28/20 09:02 Dose: 50 mcg Documented by: Potassium Chloride (Potassium Chloride 20 Meq Tablet) 40 meq PO BIDCM [facility] Last Admin: 08/28/20 09:01 Dose: 40 meq Documented by: Senna/Docusate Sodium (Senna/Docusate Sodium 1 Tablet) 2 tablet PO BID [facility] Last Admin: 08/28/20 10:00 Dose: Not Given Documented by: Sodium Chloride (0.9% Saline Lock 10 Ml Syringe) 10 - 40 ml IV UD PRN PRN Reason: SALINE FLUSH Last Admin: 08/28/20 09:02 Dose: 10 ml Documented by: Medical Necessity - Tobacco Use Smoking Status: Never smoker Tobacco Use: Non-smoker Route of nutrition/ use of supplements: [] Nutritional Intake: [] IV Site: [] Salcedo Catheter: [] - Assessment/Plan Antibiotics: [] Assessment/Plan: [] Active and Suspected Problems (Last Reviewed 08/19/20 @ 12:[address] Benigno Melgar, DO) COVID-19 virus detected (Acute) Pneumonia due to severe acute respiratory syndrome coronavirus (Acute) Acute respiratory failure with hypoxia (Acute) covid with hypoxia - presented on day 7 of symptoms. Cont dex and already completed remdesivir, received plasma 08/21. Now out of ICU. Still high O2 reqs. Sx much improved. Will follow
[2020-08-29] VITALS (11 sets, daily range): BP systolic 112–154; BP diastolic 58–98; PULSE 61–89; RESP 19–24; TEMP 36.5–36.8; O2SAT 90–97
--- NOTE | 2020-08-29 07:05 | CPS ---
Patient observed on airvo
--- NOTE | 2020-08-29 07:29 | PCM.PN.HOSP ---
Patient Problems: Active and Suspected Problems (Last Reviewed 08/19/20 @ 12:[address] Benigno Melgar, DO) COVID-19 virus detected (Acute) Pneumonia due to severe acute respiratory syndrome coronavirus (Acute) Acute respiratory failure with hypoxia (Acute) Reason for Visit: Acute hypoxic respiratory failure COVID-19 pneumonia Subjective: Patient seen still requiring high flow oxygen. Clinical condition remains guarded Objective: GENERAL: on Airvo HEENT: Atraumatic; EYES; Anicteric, Normal Conjunctiva NECK; supple, normal thyroid, RESPIRATORY: Diminished to auscultation CARDIOVASCULAR: Regular S1 S2, GI: soft, normoactive bowel sounds, : No Renal angle tenderness; EXTREMITIES: No edema, no clubbing, MUSCULOSKELETAL: no muscle waisting NEURO: Awake; no lateralizing signs. SKIN: No Rash PSYCH; Flat affect Vitals/I&O's: Vital Signs Temp Pulse Resp BP Pulse Ox 97.7 F L 77 20 H 154/88 H 96 08/29/20 02:45 08/29/20 05:20 08/29/20 05:20 08/29/20 02:45 08/29/20 05:20 Oxygen Flow Rate (L/min) 45 Oxygen Delivery Method Airvo Weight: 72.4 kg Body Mass Index (BMI) 26.6 Intake and Output for Last 24 Hours 08/27/20 08/28/20 08/29/20 23:59 23:59 23:59 Intake Total 1300 / 1400 1290 / 1290 Output Total 1600 / 1600 Balance -300 / -200 1290 / 1290 Laboratory Results 08/28/20 09:30: Sodium 140, Potassium 3.7, Chloride 110 H, Carbon Dioxide 25.0, Anion Gap 5, BUN 27 H, Creatinine 0.70, Estim Creat Clear Calc 52.81, Est GFR (MDRD) Af Amer 106, Est GFR (MDRD) Non-Af 87, BUN/Creatinine Ratio 38.4 H, Glucose 159 H, Calcium 9.5 Current Medications Acetaminophen (Acetaminophen 325 Mg Tablet) 650 mg PO Q6H PRN PRN PRN Reason: Pain Score 1-10/Temp > 100.7 F Last Admin: 08/24/20 21:53 Dose: 650 mg Documented by: Aspirin (Aspirin E.C. 81 Mg Tablet) 81 mg PO DAILY [facility] Last Admin: 08/28/20 09:02 Dose: 81 mg Documented by: Atorvastatin Calcium (Atorvastatin Calcium 20 Mg Tablet) 20 mg PO DAILY [facility] Last Admin: 08/28/20 09:02 Dose: 20 mg Documented by: Benzonatate (Benzonatate 100 Mg Capsule) 100 mg PO Q4H PRN PRN PRN Reason: COUGH Last Admin: 08/19/20 20:36 Dose: 100 mg Documented by: Enoxaparin Sodium (Enoxaparin 30 Mg/0.3 Ml Syringe) 30 mg SC BID [facility] Last Admin: 08/28/20 21:05 Dose: 30 mg Documented by: Guaifenesin (Guaifenesin 10 Ml Udc (200mg/10ml)) 10 ml PO Q4H PRN PRN PRN Reason: COUGH Last Admin: 08/22/20 05:56 Dose: 10 ml Documented by: Sodium Chloride () 250 mls @ 15 mls/hr IV .[id number] PRN PRN Reason: Saline Flush Last Infusion: 08/28/20 17:51 Dose: Infused Documented by: Ibuprofen (Ibuprofen 400 Mg Tablet) 400 mg PO Q4H PRN PRN PRN Reason: Pain Score 1-10/Temp > 100.7 F Levothyroxine Sodium (Levothyroxine 50 Mcg Tablet) 50 mcg PO DAILY [facility] Last Admin: 08/28/20 09:02 Dose: 50 mcg Documented by: Potassium Chloride (Potassium Chloride 20 Meq Tablet) 40 meq PO BIDCM [facility] Last Admin: 08/28/20 16:55 Dose: 40 meq Documented by: Senna/Docusate Sodium (Senna/Docusate Sodium 1 Tablet) 2 tablet PO BID [facility] Last Admin: 08/28/20 21:04 Dose: Not Given Documented by: Sodium Chloride (0.9% Saline Lock 10 Ml Syringe) 10 - 40 ml IV UD PRN PRN Reason: SALINE FLUSH Last Admin: 08/28/20 16:52 Dose: 30 ml Documented by: STROKE Vital Signs/Narrative: Vital Signs Pulse Resp Pulse Ox 08/29/20 05:20 77 20 H 96 Medical Necessity - Tobacco Use Smoking Status: Never smoker Tobacco Use: Non-smoker Assessment/Plan All Active Problems (Last Reviewed 08/19/20 @ 12:[address] Benigno Melgar, DO) COVID-19 virus detected (Acute) Pneumonia due to severe acute respiratory syndrome coronavirus (Acute) Acute respiratory failure with hypoxia (Acute) Patient is a 70-year-old female admitted with progressive shortness of breath diagnosed with COVID-19 with superimposed pneumonia 1. Acute hypoxic respiratory failure ?Secondary to COVID-19 pneumonia; managed convalescent plasma as well as remdesivir. Currently on Decadron and on noninvasive ventilation BiPAP patient apparently desaturated with any attempts to wean patient off BiPAP -08/25/2020; Patient seen still remains in ICU on BiPAP with plans to wean patient off to high flow oxygen. Case discussed with Dr. Fagan bakery worker conveyor line and plan is for patient to be monitored in the ICU for an additional day. Also did encourage the use of incentive spirometry. 08/26/2020; patient seen appears to be experiencing some clinical improvement. currently being weaned off BiPAP and placed on Airvo. Plan is for patient to be transferred from the ICU to the [facility] Covid unit -08/27/2020. Patient seen remains in the ICU. Still requiring high flow oxygen. Remains on Airvo. With plans to increase activity as tolerated -08/28/2020 Patient was transferred [place] the ICU [place] [facility] to [place] Covid cohort unit. Diagnostic data this morning is significant for potassium of 3.1 correction initiated -08/29/2020; Patient seen still requiring high flow oxygen. Clinical condition remains guarded 2. Hypokalemia ?Corrected per protocol 3. Hypertension - Blood pressure controlled, home medications continued with dose adjustment as needed 4. Dyslipidemia -Patient is on statin therapy, continued at home dose 5. Hypothyroidism - Patient is on levothyroxine home dose continued 6. DVT prophylaxis - On enoxaparin 7. Physical deconditioning - Requested for PT OT eval and director of social services to assist with discharge planning Inpatient E&M: [id number] Subs Hosp L2
[2020-08-29] MEDS: Enoxaparin 30 MG/0.3 ML Syringe SC ×2 (09:32→20:00)
[2020-08-29] MEDS: Senna/Docusate Sodium 1 Tablet 2 TABLET PO (09:33)
[2020-08-29] MEDS: Atorvastatin Calcium 20 MG Tablet PO (09:33)
[2020-08-29] MEDS: Aspirin E.C. 81 MG Tablet PO (09:34)
[2020-08-29] MEDS: Levothyroxine 50 MCG Tablet PO (11:29)
--- NOTE | 2020-08-29 15:51 | NURSING ---
Pt states she was able to do well with therapy today. Spo2 96% on the monitor. this nurse called CPS to see if they can transition pt off of the Airvo and put on High [place].
[2020-08-30] VITALS (7 sets, daily range): BP systolic 132–147; BP diastolic 73–81; PULSE 68–86; RESP 18–20; TEMP 36.7–37.1; O2SAT 93–96
--- NOTE | 2020-08-30 06:56 | PCM.PN.PUL ---
Patient Problems: Active and Suspected Problems (Last Reviewed 08/19/20 @ 12:[address] Benigno Melgar, DO) COVID-19 virus detected (Acute) Pneumonia due to severe acute respiratory syndrome coronavirus (Acute) Acute respiratory failure with hypoxia (Acute) Subjective: The patient was seen and examined at the bedside this morning. Events from the last 24 hours have been reviewed. The patient is currently afebrile, hemodynamically stable and maintaining appropriate oxygen saturations on 8 L/min via nasal cannula. The patient continues to improve from an oxygenation standpoint. Objective: The patient's most recent lab work, culture data and imaging studies have all been personally reviewed. Coronavirus PCR was positive on August 13. Blood cultures have shown no growth to date. - Physical Exam Vitals/I&O's: Vital Signs Temp Pulse Resp BP Pulse Ox 98.0 F 68 18 141/77 H 94 08/30/20 02:05 08/30/20 02:05 08/30/20 02:05 08/30/20 02:05 08/30/20 02:05 Oxygen Flow Rate (L/min) 8 Oxygen Delivery Method Room Air Weight: 159 lb 9.835 oz Body Mass Index (BMI) 26.6 Intake and Output for Last 24 Hours 08/28/20 08/29/20 08/30/20 23:59 23:59 23:59 Intake Total 1290 / 1290 360 / 360 Output Total 575 / 575 Balance 1290 / 1290 -215 / -215 General: Alert, Cooperative, No apparent distress HEENT: Atraumatic, PERRLA, Normocephalic Oral: Moist Mucosa, No Gingival or Mucosal Lesions/ Ulcerations Neck: Supple, No Nodes, Trachea Midline Lungs: No rhonchi, No wheeze, No rales, Diminished Cardiovascular: Regular rate, Regular Rhythm, Normal S1, Normal S2, No murmurs Abdomen: Bowel Sounds Present, Soft, Non Tender Extremities: No clubbing, No cyanosis, No edema Skin: - - No significant change from previous. Musculoskeletal: No Tenderness to Palpation of Joints or Extremities, No Muscle Wasting Lymphatic: No Cervical, Supraclavicular, or Inguinal Adenopathy Neurological: Cranial nerves II-XII grossly intact, Neuro grossly intact Psych/Mental Status: Alert and oriented to time, place, person, mood and affect Labs (Last 48 Hours) 08/28/20 08/30/20 08/30/20 09:30 06:33 06:33 WBC Pending RBC Pending Hgb Pending Hct Pending MCV Pending MCH Pending MCHC Pending RDW Std Deviation Pending RDW Coeff of Dar Pending Plt Count Pending Sodium 140 Pending Potassium 3.7 Pending Chloride 110 H Pending Carbon Dioxide 25.0 Pending Anion Gap 5 Pending BUN 27 H Pending Creatinine 0.70 Pending Estim Creat Clear Calc 52.81 Est GFR (MDRD) Af Amer 106 Pending Est GFR (MDRD) Non-Af 87 Pending BUN/Creatinine Ratio 38.4 H Pending Glucose 159 H Pending Calcium 9.5 Pending Magnesium Pending Clinical Impression(s) from Imaging Studies Chest X-Ray 08/19/20 10:20 IMPRESSION: Bilateral patchy infiltrates worse in the right lung in keeping with bilateral patchy pneumonias. Electronically Signed: Eliecer Cespedes at 10:40 EDT , Service support , Chest CTA 08/19/20 18:00 IMPRESSION: 1. No evidence of pulmonary embolus. 2. Atherosclerotic thoracic aorta without aneurysm or dissection. 3. Borderline cardiomegaly with coronary artery calcifications. 4. There are diffuse primarily upper lobe groundglass infiltrates with mild consolidation versus atelectasis at the lung bases. Electronically Signed: Jimbo Castanon DO at 19:04 EDT Tel [phone], Service support , Chest X-Ray 08/23/20 01:05 EST IMPRESSION: Bilateral pulmonary infiltrates, with no significant change from previous study. Borderline heart size. Electronically Signed: Juan Avalos MD at 1:43 EDT , Service support , Current Medications Acetaminophen (Acetaminophen 325 Mg Tablet) 650 mg PO Q6H PRN PRN PRN Reason: Pain Score 1-10/Temp > 100.7 F Last Admin: 08/24/20 21:53 Dose: 650 mg Documented by: Aspirin (Aspirin E.C. 81 Mg Tablet) 81 mg PO DAILY [facility] Last Admin: 08/29/20 09:34 Dose: 81 mg Documented by: Atorvastatin Calcium (Atorvastatin Calcium 20 Mg Tablet) 20 mg PO DAILY [facility] Last Admin: 08/29/20 09:33 Dose: 20 mg Documented by: Benzonatate (Benzonatate 100 Mg Capsule) 100 mg PO Q4H PRN PRN PRN Reason: COUGH Last Admin: 08/19/20 20:36 Dose: 100 mg Documented by: Enoxaparin Sodium (Enoxaparin 30 Mg/0.3 Ml Syringe) 30 mg SC BID [facility] Last Admin: 08/29/20 20:00 Dose: 30 mg Documented by: Guaifenesin (Guaifenesin 10 Ml Udc (200mg/10ml)) 10 ml PO Q4H PRN PRN PRN Reason: COUGH Last Admin: 08/22/20 05:56 Dose: 10 ml Documented by: Sodium Chloride () 250 mls @ 15 mls/hr IV .[id number] PRN PRN Reason: Saline Flush Last Infusion: 08/28/20 17:51 Dose: Infused Documented by: Ibuprofen (Ibuprofen 400 Mg Tablet) 400 mg PO Q4H PRN PRN PRN Reason: Pain Score 1-10/Temp > 100.7 F Levothyroxine Sodium (Levothyroxine 50 Mcg Tablet) 50 mcg PO DAILY [facility] Last Admin: 08/29/20 11:29 Dose: 50 mcg Documented by: Potassium Chloride (Potassium Chloride 20 Meq Tablet) 40 meq PO BIDCM [facility] Last Admin: 08/29/20 17:48 Dose: 40 meq Documented by: Senna/Docusate Sodium (Senna/Docusate Sodium 1 Tablet) 2 tablet PO BID [facility] Last Admin: 08/29/20 20:00 Dose: Not Given Documented by: Sodium Chloride (0.9% Saline Lock 10 Ml Syringe) 10 - 40 ml IV UD PRN PRN Reason: SALINE FLUSH Last Admin: 08/28/20 16:52 Dose: 30 ml Documented by: Medical Necessity - Tobacco Use Smoking Status: Never smoker Tobacco Use: Non-smoker Assessment/Plan All Active Problems (Last Reviewed 08/19/20 @ 12:[address] Benigno Melgar DO) COVID-19 virus detected (Acute) Pneumonia due to severe acute respiratory syndrome coronavirus (Acute) Acute respiratory failure with hypoxia (Acute) RECOMMENDATIONS: 1. Continue to wean supplemental oxygen to maintain saturations at or above 90%. 2. Continue intermittent dosing of IV Lasix as tolerated by hemodynamics and renal function. 3. Encourage incentive spirometer use and mobilize patient as tolerated. IMPRESSIONS: 1. Acute hypoxemic respiratory failure secondary to COVID-19 pneumonia Plan to continue current supportive measures including heated high flow supplemental oxygen with plans to wean FiO2 to maintain saturations at or above 90%. The patient has already received convalescent plasma and completed a course of remdesivir and decadron. Continue attempts at gentle diuresis as tolerated by hemodynamics and renal function. 2. Advanced age/hypertension/hypothyroidism/hyperlipidemia Complicates care, management, recovery and prognosis. Continue home medications as indicated. This note was generated with [employer] dictation software. It may contain incorrect words, spelling, and punctuation that were not noted in checking the note before signing. Inpatient E&M: [id number] Subs Hosp L2
[2020-08-30 06:59] LABS: Hematocrit 40.5 % (37-47); Hemoglobin 12.8 g/dL (12.0-15.0); Mean Corp Hgb Conc 31.6 g/dL (32-36); Mean Corpuscular Hgb 29.6 pg (27.0-32.0); Mean Corpuscular Volume 93.5 fL (81-99); Mean Platelet Vol. 11.4 fl (6.2-12.0); Platelet Count 168 K/mm3 (150-450); RBC Distribution Width CV 13.1 % (11.6-14.6); RBC Distribution Width SD 44.8 fl (35.1-43.9); Red Blood Count 4.33 M/mm3 (4.2-5.4); White Blood Count 11.4 K/mm3 (4.4-11.0)
[2020-08-30 07:24] LABS: Anion Gap 5 (5-15); BUN 18 mg/dL (7-18); BUN/Creat Ratio 39.8 RATIO (10-20); Chloride 109 mmol/L (98-107); Creatinine, Serum 0.45 mg/dL (0.55-1.02); EST Glomerular Filtration Rate 146 mL/min (>60); Est Glom Filt Rate - Afr Amer 176 mL/min (>60); Estimated Creatinine Clearance 52.81 ml/min; Glucose 90 mg/dL (74-106); Magnesium 2.2 mg/dL (1.6-2.6); Potassium 4.1 mmol/L (3.5-5.1); Sodium Level 139 mmol/L (136-145)
--- NOTE | 2020-08-30 07:30 | PN_ITS ---
Patient Problems: Active and Suspected Problems (Last Reviewed 08/19/20 @ 12:[address] Benigno Melgar, DO) COVID-19 virus detected (Acute) Pneumonia due to severe acute respiratory syndrome coronavirus (Acute) Acute respiratory failure with hypoxia (Acute) Reason for Visit: Acute COVID-19 infection Subjective: Patient seen continues to improve clinically. Has been weaned down to nasal cannula Objective: GENERAL: Cooperative HEENT: Atraumatic; EYES; Anicteric, Normal Conjunctiva NECK; supple, normal thyroid, RESPIRATORY: Diminished to auscultation CARDIOVASCULAR: Regular S1 S2, GI: soft, normoactive bowel sounds, : No Renal angle tenderness; EXTREMITIES: No edema, no clubbing, MUSCULOSKELETAL: no muscle waisting NEURO: Awake; no lateralizing signs. SKIN: No Rash PSYCH; Flat affect Vitals/I&O's: Vital Signs Temp Pulse Resp BP Pulse Ox 98.0 F 68 18 141/77 H 94 08/30/20 02:05 08/30/20 02:05 08/30/20 02:05 08/30/20 02:05 08/30/20 02:05 Oxygen Flow Rate (L/min) 8 Oxygen Delivery Method Room Air Weight: 71.9 kg Body Mass Index (BMI) 26.6 Intake and Output for Last 24 Hours 08/28/20 08/29/20 08/30/20 23:59 23:59 23:59 Intake Total 1290 / 1290 360 / 360 Output Total 575 / 575 Balance 1290 / 1290 -215 / -215 Laboratory Results 08/30/20 06:33: WBC 11.4 H, RBC 4.33, Hgb 12.8, Hct 40.5, MCV 93.5, MCH 29.6, MCHC 31.6 L, RDW Std Deviation 44.8 H, RDW Coeff of Dar 13.1, Plt Count 168, MPV 11.4 08/30/20 06:33: Sodium 139, Potassium 4.1, Chloride 109 H, Carbon Dioxide 25.0, Anion Gap 5, BUN 18, Creatinine 0.45 L, Estim Creat Clear Calc 52.81, Est GFR (MDRD) Af Amer 176, Est GFR (MDRD) Non-Af 146, BUN/Creatinine Ratio 39.8 H, Glucose 90, Calcium 9.0, Magnesium 2.2 Current Medications Acetaminophen (Acetaminophen 325 Mg Tablet) 650 mg PO Q6H PRN PRN PRN Reason: Pain Score 1-10/Temp > 100.7 F Last Admin: 08/24/20 21:53 Dose: 650 mg Documented by: Aspirin (Aspirin E.C. 81 Mg Tablet) 81 mg PO DAILY [facility] Last Admin: 08/29/20 09:34 Dose: 81 mg Documented by: Atorvastatin Calcium (Atorvastatin Calcium 20 Mg Tablet) 20 mg PO DAILY [facility] Last Admin: 08/29/20 09:33 Dose: 20 mg Documented by: Benzonatate (Benzonatate 100 Mg Capsule) 100 mg PO Q4H PRN PRN PRN Reason: COUGH Last Admin: 08/19/20 20:36 Dose: 100 mg Documented by: Enoxaparin Sodium (Enoxaparin 30 Mg/0.3 Ml Syringe) 30 mg SC BID [facility] Last Admin: 08/29/20 20:00 Dose: 30 mg Documented by: Guaifenesin (Guaifenesin 10 Ml Udc (200mg/10ml)) 10 ml PO Q4H PRN PRN PRN Reason: COUGH Last Admin: 08/22/20 05:56 Dose: 10 ml Documented by: Sodium Chloride () 250 mls @ 15 mls/hr IV .[id number] PRN PRN Reason: Saline Flush Last Infusion: 08/28/20 17:51 Dose: Infused Documented by: Ibuprofen (Ibuprofen 400 Mg Tablet) 400 mg PO Q4H PRN PRN PRN Reason: Pain Score 1-10/Temp > 100.7 F Levothyroxine Sodium (Levothyroxine 50 Mcg Tablet) 50 mcg PO DAILY [facility] Last Admin: 08/29/20 11:29 Dose: 50 mcg Documented by: Potassium Chloride (Potassium Chloride 20 Meq Tablet) 40 meq PO BIDCM [facility] Last Admin: 08/29/20 17:48 Dose: 40 meq Documented by: Senna/Docusate Sodium (Senna/Docusate Sodium 1 Tablet) 2 tablet PO BID [facility] Last Admin: 08/29/20 20:00 Dose: Not Given Documented by: Sodium Chloride (0.9% Saline Lock 10 Ml Syringe) 10 - 40 ml IV UD PRN PRN Reason: SALINE FLUSH Last Admin: 08/28/20 16:52 Dose: 30 ml Documented by: Medical Necessity - Tobacco Use Smoking Status: Never smoker Tobacco Use: Non-smoker Assessment/Plan All Active Problems (Last Reviewed 08/19/20 @ 12:[address] Benigno Melgar, DO) COVID-19 virus detected (Acute) Pneumonia due to severe acute respiratory syndrome coronavirus (Acute) Acute respiratory failure with hypoxia (Acute) Patient is a 70-year-old female admitted with progressive shortness of breath diagnosed with COVID-19 with superimposed pneumonia 1. Acute hypoxic respiratory failure ?Secondary to COVID-19 pneumonia; managed convalescent plasma as well as remdesivir. Currently on Decadron and on noninvasive ventilation BiPAP patient apparently desaturated with any attempts to wean patient off BiPAP -08/25/2020; Patient seen still remains in ICU on BiPAP with plans to wean patient off to high flow oxygen. Case discussed with Dr. Fagan fourdrinier wire weaver and plan is for patient to be monitored in the ICU for an additional day. Also did encourage the use of incentive spirometry. 08/26/2020; patient seen appears to be experiencing some clinical improvement. currently being weaned off BiPAP and placed on Airvo. Plan is for patient to be transferred from the ICU to the [facility] Covid unit -08/27/2020. Patient seen remains in the ICU. Still requiring high flow oxygen. Remains on Airvo. With plans to increase activity as tolerated -08/28/2020 Patient was transferred from the ICU to message to the Covid cohort unit. Diagnostic data this morning is significant for potassium of 3.1 correction initiated -08/29/2020; Patient seen still requiring high flow oxygen. Clinical condition remains guarded -09/09/2020; Patient seen continues to improve clinically. Has been weaned down to nasal cannula. Currently on 8 L of oxygen via nasal cannula 2. Hypokalemia ?Corrected per protocol 3. Hypertension - Blood pressure controlled, home medications continued with dose adjustment as needed 4. Dyslipidemia -Patient is on statin therapy, continued at home dose 5. Hypothyroidism - Patient is on levothyroxine home dose continued 6. DVT prophylaxis - On enoxaparin 7. Physical deconditioning - Requested for PT OT eval and manager social responsibility to assist with discharge planning Inpatient E&M: [id number] [facility] Hosp L2
[2020-08-30] MEDS: Furosemide 40 MG/4 ML Vial IV (07:58)
[2020-08-30] MEDS: Enoxaparin 30 MG/0.3 ML Syringe SC ×2 (08:03→20:42)
[2020-08-30] MEDS: Levothyroxine 50 MCG Tablet PO (08:06)
[2020-08-30] MEDS: Aspirin E.C. 81 MG Tablet PO (08:07)
[2020-08-30] MEDS: Atorvastatin Calcium 20 MG Tablet PO (08:07)
[2020-08-31 02:44] VITALS: BP 132/75; PULSE 80; RESP 18; TEMP 36.7; O2SAT 95
[2020-08-31 06:44] LABS: Hematocrit 41.7 % (37-47); Hemoglobin 13.2 g/dL (12.0-15.0); Mean Corp Hgb Conc 31.7 g/dL (32-36); Mean Corpuscular Hgb 29.8 pg (27.0-32.0); Mean Corpuscular Volume 94.1 fL (81-99); Mean Platelet Vol. 11.3 fl (6.2-12.0); Platelet Count 178 K/mm3 (150-450); RBC Distribution Width SD 44.7 fl (35.1-43.9); Red Blood Count 4.43 M/mm3 (4.2-5.4); White Blood Count 11.7 K/mm3 (4.4-11.0)
[2020-08-31 07:10] LABS: Anion Gap 3 (5-15); BUN 14 mg/dL (7-18); BUN/Creat Ratio 28.5 RATIO (10-20); Calcium,Total 9.4 mg/dL (8.5-10.1); Chloride 108 mmol/L (98-107); Creatinine, Serum 0.49 mg/dL (0.55-1.02); EST Glomerular Filtration Rate 132 mL/min (>60); Est Glom Filt Rate - Afr Amer 160 mL/min (>60); Estimated Creatinine Clearance 52.81 ml/min; Glucose 102 mg/dL (74-106); Potassium 4.2 mmol/L (3.5-5.1); Sodium Level 138 mmol/L (136-145)
--- NOTE | 2020-08-31 07:17 | PCM.PN.HOSP ---
Patient Problems: Active and Suspected Problems (Last Reviewed 08/19/20 @ 12:[address] Benigno Melgar, DO) COVID-19 virus detected (Acute) Pneumonia due to severe acute respiratory syndrome coronavirus (Acute) Acute respiratory failure with hypoxia (Acute) Reason for Visit: Follow-up on hypoxia/acute COVID-19 pneumonia Subjective: Patient was seen and examined. No acute events overnight. She is eager to be discharged. Patient however required 8 to 9 L of oxygen on ambulation. Denies any fever or chills. Objective: Physical exam: Vitals/I&O's: Vital Signs Temp Pulse Resp BP Pulse Ox 98.0 F 80 18 132/75 H 95 08/31/20 02:44 08/31/20 02:44 08/31/20 02:44 08/31/20 02:44 08/31/20 02:44 Oxygen Flow Rate (L/min) 4 Oxygen Delivery Method Nasal Cannula Weight: 71.8 kg Body Mass Index (BMI) 26.6 Intake and Output for Last 24 Hours 08/29/20 08/30/20 08/31/20 23:59 23:59 23:59 Intake Total 360 / 360 640 / 640 Output Total 575 / 575 700 / 700 Balance -215 / -215 -60 / -60 General: Alert, Oriented x3, Cooperative, - - On 4 to 5 L of oxygen HEENT: Atraumatic, PERRLA, EOMI, Normocephalic Neck: Supple Lungs: Diminished Cardiovascular: Regular rate, Regular Rhythm, Normal S1, Normal S2, No murmurs Abdomen: Bowel Sounds Present, Soft, Non Tender, Non-Distended, No Hepato-splenomegaly Extremities: No edema Skin: No rashes, No breakdown Musculoskeletal: No Tenderness to Palpation of Joints or Extremities Lymphatic: No Cervical, Supraclavicular, or Inguinal Adenopathy Neurological: Cranial nerves II-XII grossly intact, Neuro grossly intact Psych/Mental Status: Normal Affect, Appropriate Laboratory Results 08/30/20 06:33: Sodium 139, Potassium 4.1, Chloride 109 H, Carbon Dioxide 25.0, Anion Gap 5, BUN 18, Creatinine 0.45 L, Estim Creat Clear Calc 52.81, Est GFR (MDRD) Af Amer 176, Est GFR (MDRD) Non-Af 146, BUN/Creatinine Ratio 39.8 H, Glucose 90, Calcium 9.0, Magnesium 2.2 08/31/20 06:18: WBC 11.7 H, RBC 4.43, Hgb 13.2, Hct 41.7, MCV 94.1, MCH 29.8, MCHC 31.7 L, RDW Std Deviation 44.7 H, RDW Coeff of Dar 13.0, Plt Count 178, MPV 11.3 08/31/20 06:18: Sodium 138, Potassium 4.2, Chloride 108 H, Carbon Dioxide 27.0, Anion Gap 3 L, BUN 14, Creatinine 0.49 L, Estim Creat Clear Calc 52.81, Est GFR (MDRD) Af Amer 160, Est GFR (MDRD) Non-Af 132, BUN/Creatinine Ratio 28.5 H, Glucose 102, Calcium 9.4 Current Medications Acetaminophen (Acetaminophen 325 Mg Tablet) 650 mg PO Q6H PRN PRN PRN Reason: Pain Score 1-10/Temp > 100.7 F Last Admin: 08/24/20 21:53 Dose: 650 mg Documented by: Aspirin (Aspirin E.C. 81 Mg Tablet) 81 mg PO DAILY [facility] Last Admin: 08/30/20 08:07 Dose: 81 mg Documented by: Atorvastatin Calcium (Atorvastatin Calcium 20 Mg Tablet) 20 mg PO DAILY [facility] Last Admin: 08/30/20 08:07 Dose: 20 mg Documented by: Benzonatate (Benzonatate 100 Mg Capsule) 100 mg PO Q4H PRN PRN PRN Reason: COUGH Last Admin: 08/19/20 20:36 Dose: 100 mg Documented by: Enoxaparin Sodium (Enoxaparin 30 Mg/0.3 Ml Syringe) 30 mg SC BID [facility] Last Admin: 08/30/20 20:42 Dose: 30 mg Documented by: Guaifenesin (Guaifenesin 10 Ml Udc (200mg/10ml)) 10 ml PO Q4H PRN PRN PRN Reason: COUGH Last Admin: 08/22/20 05:56 Dose: 10 ml Documented by: Sodium Chloride () 250 mls @ 15 mls/hr IV .[id number] PRN PRN Reason: Saline Flush Last Infusion: 08/28/20 17:51 Dose: Infused Documented by: Ibuprofen (Ibuprofen 400 Mg Tablet) 400 mg PO Q4H PRN PRN PRN Reason: Pain Score 1-10/Temp > 100.7 F Levothyroxine Sodium (Levothyroxine 50 Mcg Tablet) 50 mcg PO DAILY [facility] Last Admin: 08/30/20 08:06 Dose: 50 mcg Documented by: Potassium Chloride (Potassium Chloride 20 Meq Tablet) 40 meq PO BIDCM [facility] Last Admin: 08/30/20 18:09 Dose: 40 meq Documented by: Senna/Docusate Sodium (Senna/Docusate Sodium 1 Tablet) 2 tablet PO BID [facility] Last Admin: 08/30/20 20:42 Dose: Not Given Documented by: Sodium Chloride (0.9% Saline Lock 10 Ml Syringe) 10 - 40 ml IV UD PRN PRN Reason: SALINE FLUSH Last Admin: 08/28/20 16:52 Dose: 30 ml Documented by: Medical Necessity - Tobacco Use Smoking Status: Never smoker Tobacco Use: Non-smoker Assessment/Plan All Active Problems (Last Reviewed 08/19/20 @ 12:[address] Benigno Melgar, DO) COVID-19 virus detected (Acute) Pneumonia due to severe acute respiratory syndrome coronavirus (Acute) Acute respiratory failure with hypoxia (Acute) 1. Acute hypoxic respiratory failure secondary to COVID-19 pneumonia Remains on high amounts of oxygen Will give Give a trial of Lasix 40 mg IV x1 Continue with breathing treatments,encourage use of incentive spirometer. Wean off oxygen for SPO2 more than 94% 2. Acute COVID-19 pneumonia with hypoxia Status post convalescent plasma, Decadron and remdesivir Continue to manage symptomatically 3. Hypokalemia, resolved 4. Hypertension, controlled, will resume home hydrochlorothiazide/lisinopril Repeat BMP in a.m. 5. Hyperlipidemia, continue home statin regimen 6. Hypothyroidism, continue on synthroid 7. DVT PPx- Lovenox SC BID Inpatient E&M: [id number] [facility] Hosp L3
[2020-08-31 07:58] VITALS: BP 141/83; PULSE 74; RESP 20; TEMP 37.1; O2SAT 92
[2020-08-31] MEDS: Aspirin E.C. 81 MG Tablet PO (10:42)
[2020-08-31] MEDS: Atorvastatin Calcium 20 MG Tablet PO (10:42)
[2020-08-31] MEDS: Enoxaparin 30 MG/0.3 ML Syringe SC ×2 (10:42→20:03)
[2020-08-31] MEDS: Levothyroxine 50 MCG Tablet PO (10:43)
[2020-08-31 12:06] VITALS: O2SAT 91
[2020-08-31 13:11] VITALS: O2SAT 83; O2SAT 88; O2SAT 93
--- NOTE | 2020-08-31 13:38 | CASEMGMT ---
RAHEEM CM Note: home oxygen testing completed and patient is still requiring 9L oxygen on ambulation. No discharge today. Will continue to follow and assist with oxygen set up through [facility] [place] [facility] when stable. Cameron WRENN RN ACM
--- NOTE | 2020-08-31 13:50 | CHAPLAIN ---
Type of Pastoral Visit ___ Initial Visit ___ Follow-up Visit ___ On-call Visit ___ General Patient Visit ___ Spiritual Assessment ___ Family Conference ___ Bereavement ___ Rapid Response ___ Code Blue _x__ Other (describe below) Pastoral Care Referral From ___ Patient ___ Family ___ Nurse ___ Physician ___ District Branch Manager ___ Certified Respiratory Therapist ___ Other (describe below) Sacrament/Intervention ___ Active listening ___ Anointing ___ Congregational ___ Bereavement ___ Communion ___ Nighat exploration ___ ___ Life review ___ Prayer ___ Reconciliation ___ Sacrament of Sick ___ Supportive presence ___ Wedding ___ Other (describe below) Pastoral Comments phone call attempted to this patient; phone message states patient is not available
--- NOTE | 2020-08-31 15:20 | PCM.PN.PUL ---
Patient Problems: Active and Suspected Problems (Last Reviewed 08/19/20 @ 12:[address] Benigno Melgar, DO) COVID-19 virus detected (Acute) Pneumonia due to severe acute respiratory syndrome coronavirus (Acute) Acute respiratory failure with hypoxia (Acute) Subjective: Patient did okay overnight. Patient reports that she is slightly depressed with still being in the hospital. Patient is requiring high nasal cannula oxygen with ambulation, but saturations at rest continue to improve. Patient has not reported any diarrhea over the last 24 hours. - Physical Exam Vitals/I&O's: Vital Signs Temp Pulse Resp BP Pulse Ox 37.1 C 74 20 H 141/83 H 88 08/31/20 07:58 08/31/20 07:58 08/31/20 07:58 08/31/20 07:58 08/31/20 13:11 Oxygen Flow Rate (L/min) [ 9 AMBULATION with Oxygen] Oxygen Flow Rate (L/min) 4 Oxygen Delivery Method Nasal Cannula Weight: 71.8 kg Body Mass Index (BMI) 26.6 Intake and Output for Last 24 Hours 08/29/20 08/30/20 08/31/20 23:59 23:59 23:59 Intake Total 360 / 360 640 / 640 Output Total 575 / 575 700 / 700 Balance -215 / -215 -60 / -60 General: Alert, Oriented x3, Cooperative, No apparent distress, - - Flat affect. Speaking in full sentences. HEENT: Atraumatic, PERRLA, EOMI, Normocephalic, - - No scleral icterus or injection noted Oral: Moist Mucosa, No Gingival or Mucosal Lesions/ Ulcerations Neck: Supple, No JVD, No Nodes, Trachea Midline Lungs: No rhonchi, No wheeze, No rales, Diminished Cardiovascular: Regular rate, Regular Rhythm, Normal S1, Normal S2, No murmurs, No rub noted, No Gallop Abdomen: Bowel Sounds Present, Soft, Non Tender, Non-Distended Extremities: No clubbing, No cyanosis, No edema Skin: No rashes, No breakdown Musculoskeletal: No Tenderness to Palpation of Joints or Extremities Lymphatic: No Cervical, Supraclavicular, or Inguinal Adenopathy Neurological: Cranial nerves II-XII grossly intact, Neuro grossly intact, Motor Exam 5/5 strength throughout Psych/Mental Status: Flat Affect Laboratory Results 08/31/20 06:18: WBC 11.7 H, RBC 4.43, Hgb 13.2, Hct 41.7, MCV 94.1, MCH 29.8, MCHC 31.7 L, RDW Std Deviation 44.7 H, RDW Coeff of Dar 13.0, Plt Count 178, MPV 11.3 08/31/20 06:18: Sodium 138, Potassium 4.2, Chloride 108 H, Carbon Dioxide 27.0, Anion Gap 3 L, BUN 14, Creatinine 0.49 L, Estim Creat Clear Calc 52.81, Est GFR (MDRD) Af Amer 160, Est GFR (MDRD) Non-Af 132, BUN/Creatinine Ratio 28.5 H, Glucose 102, Calcium 9.4 Current Medications Acetaminophen (Acetaminophen 325 Mg Tablet) 650 mg PO Q6H PRN PRN PRN Reason: Pain Score 1-10/Temp > 100.7 F Last Admin: 08/24/20 21:53 Dose: 650 mg Documented by: Aspirin (Aspirin E.C. 81 Mg Tablet) 81 mg PO DAILY [facility] Last Admin: 08/31/20 10:42 Dose: 81 mg Documented by: Atorvastatin Calcium (Atorvastatin Calcium 20 Mg Tablet) 20 mg PO DAILY [facility] Last Admin: 08/31/20 10:42 Dose: 20 mg Documented by: Benzonatate (Benzonatate 100 Mg Capsule) 100 mg PO Q4H PRN PRN PRN Reason: COUGH Last Admin: 08/19/20 20:36 Dose: 100 mg Documented by: Calcium/Vitamin D (Calcium Carb/Vitamin D 1 Tablet Tablet) 1 tablet PO DAILY [facility] Enoxaparin Sodium (Enoxaparin 30 Mg/0.3 Ml Syringe) 30 mg SC BID [facility] Last Admin: 08/31/20 10:42 Dose: 30 mg Documented by: Furosemide (Furosemide 40 Mg/4 Ml Vial) 40 mg IV X1 ONE Stop: 08/31/20 15:31 Guaifenesin (Guaifenesin 10 Ml Udc (200mg/10ml)) 10 ml PO Q4H PRN PRN PRN Reason: COUGH Last Admin: 08/22/20 05:56 Dose: 10 ml Documented by: Hydrochlorothiazide (Hydrochlorothiazide 25 Mg Tablet) 25 mg PO DAILY [facility] Sodium Chloride () 250 mls @ 15 mls/hr IV .[id number] PRN PRN Reason: Saline Flush Last Infusion: 08/28/20 17:51 Dose: Infused Documented by: Ibuprofen (Ibuprofen 400 Mg Tablet) 400 mg PO Q4H PRN PRN PRN Reason: Pain Score 1-10/Temp > 100.7 F Levothyroxine Sodium (Levothyroxine 50 Mcg Tablet) 50 mcg PO DAILY [facility] Last Admin: 08/31/20 10:43 Dose: 50 mcg Documented by: Lisinopril (Lisinopril 20 Mg Tablet) 20 mg PO DAILY [facility] Potassium Chloride (Potassium Chloride 20 Meq Tablet) 40 meq PO BIDCM [facility] Last Admin: 08/31/20 08:13 Dose: 40 meq Documented by: Senna/Docusate Sodium (Senna/Docusate Sodium 1 Tablet) 2 tablet PO BID [facility] Last Admin: 08/31/20 10:43 Dose: Not Given Documented by: Sodium Chloride (0.9% Saline Lock 10 Ml Syringe) 10 - 40 ml IV UD PRN PRN Reason: SALINE FLUSH Last Admin: 08/28/20 16:52 Dose: 30 ml Documented by: Medical Necessity - Tobacco Use Smoking Status: Never smoker Tobacco Use: Non-smoker Assessment/Plan All Active Problems (Last Reviewed 08/19/20 @ 12:[address] Benigno Melgar, DO) COVID-19 virus detected (Acute) Pneumonia due to severe acute respiratory syndrome coronavirus (Acute) Acute respiratory failure with hypoxia (Acute) RECOMMENDATIONS: 1. Continue to wean supplemental oxygen to maintain saturations at or above 90%. 2. Continue intermittent dosing of IV Lasix as tolerated by hemodynamics and renal function. 3. Encourage incentive spirometer use and mobilize patient as tolerated. 4. Consider addition of antidepressant IMPRESSIONS: 1. Acute hypoxemic respiratory failure secondary to COVID-19 pneumonia Plan to continue current supportive measures including heated high flow supplemental oxygen with plans to wean FiO2 to maintain saturations at or above 90%. The patient has already received convalescent plasma and completed a course of remdesivir and decadron. Continue attempts at gentle diuresis as tolerated by hemodynamics and renal function. Recovery may be slightly impaired secondary to developing depression. Anticipate discharge home once patient can tolerate 6 L or less with ambulation. 2. Advanced age/hypertension/hypothyroidism/hyperlipidemia Complicates care, management, recovery and prognosis. Continue home medications as indicated. Inpatient E&M: 76291 Subs Hosp L2
[2020-08-31 15:41] VITALS: BP 139/79; PULSE 84; RESP 18; TEMP 36.9; O2SAT 92
[2020-08-31] MEDS: Furosemide 40 MG/4 ML Vial IV (15:49)
[2020-08-31] MEDS: 0.9% Saline Lock 10 ML Syringe IV ×2 (15:49→20:03)
[2020-08-31 19:51] VITALS: BP 138/81; PULSE 89; RESP 18; TEMP 36.5; O2SAT 93
[2020-08-31] MEDS: Senna/Docusate Sodium 1 Tablet 2 TABLET PO (20:03)
[2020-09-01] VITALS (11 sets, daily range): BP systolic 82–141; BP diastolic 51–92; PULSE 80–98; RESP 18–20; TEMP 36.4–36.9; O2SAT 4–95
[2020-09-01 06:43] LABS: Hematocrit 41.9 % (37-47); Hemoglobin 13.5 g/dL (12.0-15.0); Mean Corp Hgb Conc 32.2 g/dL (32-36); Mean Corpuscular Hgb 30.3 pg (27.0-32.0); Mean Corpuscular Volume 94.2 fL (81-99); Mean Platelet Vol. 11.7 fl (6.2-12.0); Platelet Count 177 K/mm3 (150-450); RBC Distribution Width SD 44.8 fl (35.1-43.9); Red Blood Count 4.45 M/mm3 (4.2-5.4); White Blood Count 10.6 K/mm3 (4.4-11.0)
[2020-09-01 07:07] LABS: Anion Gap 2 (5-15); BUN 18 mg/dL (7-18); BUN/Creat Ratio 35.7 RATIO (10-20); Calcium,Total 9.5 mg/dL (8.5-10.1); Chloride 107 mmol/L (98-107); EST Glomerular Filtration Rate 128 mL/min (>60); Est Glom Filt Rate - Afr Amer 155 mL/min (>60); Estimated Creatinine Clearance 52.81 ml/min; Glucose 104 mg/dL (74-106); Potassium 4.3 mmol/L (3.5-5.1); Sodium Level 138 mmol/L (136-145)
[2020-09-01] MEDS: Enoxaparin 30 MG/0.3 ML Syringe SC ×2 (09:50→21:02)
[2020-09-01] MEDS: Calcium Carb/Vitamin D 1 TABLET Tablet PO (09:50)
[2020-09-01] MEDS: Aspirin E.C. 81 MG Tablet PO (09:51)
[2020-09-01] MEDS: Lisinopril 20 MG Tablet PO (09:51)
[2020-09-01] MEDS: Levothyroxine 50 MCG Tablet PO (09:52)
[2020-09-01] MEDS: hydroCHLOROthiazide 25 MG Tablet PO (09:57)
[2020-09-01] MEDS: Atorvastatin Calcium 20 MG Tablet PO (09:57)
--- NOTE | 2020-09-01 10:07 | NURSING ---
ambulated in room with o2 at 4.5 L NC, o2 dropped to 86, she sat down on bed, increased o2 to 9 l nc.,came up to 90 in few minutes. Will leave at 9 l Nc for now, since she continued to linger at 90%.
--- NOTE | 2020-09-01 10:40 | CASEMGMT ---
RAHEEM CM Note: Dr. Borjas updated that the patient desaturated quickly with activity and required 9L NC for recovery. Cameron WRENN RN ACM
--- NOTE | 2020-09-01 13:15 | PCM.PN.HOSP ---
Patient Problems: Active and Suspected Problems (Last Reviewed 08/19/20 @ 12:[address] Benigno Melgar, DO) COVID-19 virus detected (Acute) Pneumonia due to severe acute respiratory syndrome coronavirus (Acute) Acute respiratory failure with hypoxia (Acute) Reason for Visit: Follow-up on hypoxia/acute COVID-19 pneumonia Subjective: Patient was seen and examined. She feels tired. Remains on 4.5L, desaturates easily to 9L oxygen. Denies fever or chills. Objective: Physical exam: General: Alert, Oriented x3, Cooperative, No apparent distress, on 4L oxygen HEENT: Atraumatic, PERRLA, EOMI, Normocephalic, - - No scleral icterus or injection noted Oral: Moist Mucosa, No Gingival or Mucosal Lesions/ Ulcerations Neck: Supple, No JVD, No Nodes, Trachea Midline Lungs: No rhonchi, No wheeze, No rales, Diminished Cardiovascular: Regular rate, Regular Rhythm, Normal S1, Normal S2, No murmurs, No rub noted, No Gallop Abdomen: Bowel Sounds Present, Soft, Non Tender, Non-Distended Extremities: No clubbing, No cyanosis, No edema Skin: No rashes, No breakdown Musculoskeletal: No Tenderness to Palpation of Joints or Extremities Lymphatic: No Cervical, Supraclavicular, or Inguinal Adenopathy Neurological: Cranial nerves II-XII grossly intact, Neuro grossly intact, Motor Exam 5/5 strength throughout Psych/Mental Status: Flat Affect Vitals/I&O's: Vital Signs Temp Pulse Resp BP Pulse Ox 98.1 F 80 18 64/42 L 92 09/01/20 07:36 09/01/20 07:38 09/01/20 07:36 09/01/20 11:08 09/01/20 10:53 Oxygen Flow Rate (L/min) [ 91 AMBULATION with Oxygen] Oxygen Flow Rate (L/min) 9 Oxygen Delivery Method Nasal Cannula Weight: 71 kg Body Mass Index (BMI) 26.6 Intake and Output for Last 24 Hours 08/30/20 08/31/20 09/01/20 23:59 23:59 23:59 Intake Total 640 / 640 Output Total 700 / 700 450 / 450 Balance -60 / -60 -450 / -450 Laboratory Results 09/01/20 05:34: WBC 10.6, RBC 4.45, Hgb 13.5, Hct 41.9, MCV 94.2, MCH 30.3, MCHC 32.2, RDW Std Deviation 44.8 H, RDW Coeff of Dar 13.0, Plt Count 177, MPV 11.7 09/01/20 05:34: Sodium 138, Potassium 4.3, Chloride 107, Carbon Dioxide 29.0, Anion Gap 2 L, BUN 18, Creatinine 0.50 L, Estim Creat Clear Calc 52.81, Est GFR (MDRD) Af Amer 155, Est GFR (MDRD) Non-Af 128, BUN/Creatinine Ratio 35.7 H, Glucose 104, Calcium 9.5 Current Medications Acetaminophen (Acetaminophen 325 Mg Tablet) 650 mg PO Q6H PRN PRN PRN Reason: Pain Score 1-10/Temp > 100.7 F Last Admin: 08/24/20 21:53 Dose: 650 mg Documented by: Aspirin (Aspirin E.C. 81 Mg Tablet) 81 mg PO DAILY [facility] Last Admin: 09/01/20 09:51 Dose: 81 mg Documented by: Atorvastatin Calcium (Atorvastatin Calcium 20 Mg Tablet) 20 mg PO DAILY [facility] Last Admin: 09/01/20 09:57 Dose: 20 mg Documented by: Benzonatate (Benzonatate 100 Mg Capsule) 100 mg PO Q4H PRN PRN PRN Reason: COUGH Last Admin: 08/19/20 20:36 Dose: 100 mg Documented by: Calcium/Vitamin D (Calcium Carb/Vitamin D 1 Tablet Tablet) 1 tablet PO DAILY [facility] Last Admin: 09/01/20 09:50 Dose: 1 tablet Documented by: Enoxaparin Sodium (Enoxaparin 30 Mg/0.3 Ml Syringe) 30 mg SC BID [facility] Last Admin: 09/01/20 09:50 Dose: 30 mg Documented by: Guaifenesin (Guaifenesin 10 Ml Udc (200mg/10ml)) 10 ml PO Q4H PRN PRN PRN Reason: COUGH Last Admin: 08/22/20 05:56 Dose: 10 ml Documented by: Hydrochlorothiazide (Hydrochlorothiazide 25 Mg Tablet) 25 mg PO DAILY [facility] Last Admin: 09/01/20 09:57 Dose: 25 mg Documented by: Sodium Chloride () 250 mls @ 15 mls/hr IV .[id number] PRN PRN Reason: Saline Flush Last Infusion: 08/28/20 17:51 Dose: Infused Documented by: Ibuprofen (Ibuprofen 400 Mg Tablet) 400 mg PO Q4H PRN PRN PRN Reason: Pain Score 1-10/Temp > 100.7 F Levothyroxine Sodium (Levothyroxine 50 Mcg Tablet) 50 mcg PO DAILY [facility] Last Admin: 09/01/20 09:52 Dose: 50 mcg Documented by: Lisinopril (Lisinopril 20 Mg Tablet) 20 mg PO DAILY [facility] Last Admin: 09/01/20 09:51 Dose: 20 mg Documented by: Potassium Chloride (Potassium Chloride 20 Meq Tablet) 40 meq PO BID [facility] Last Admin: 09/01/20 09:51 Dose: 40 meq Documented by: Senna/Docusate Sodium (Senna/Docusate Sodium 1 Tablet) 2 tablet PO BID [facility] Last Admin: 09/01/20 09:53 Dose: Not Given Documented by: Sodium Chloride (0.9% Saline Lock 10 Ml Syringe) 10 - 40 ml IV UD PRN PRN Reason: SALINE FLUSH Last Admin: 08/31/20 20:03 Dose: 10 ml Documented by: STROKE Vital Signs/Narrative: Vital Signs BP Pulse Ox Pulse Ox 09/01/20 11:08 64/42 L 09/01/20 11:05 145/122 H 09/01/20 10:53 92 09/01/20 10:02 4 Medical Necessity - Tobacco Use Smoking Status: Never smoker Tobacco Use: Non-smoker Assessment/Plan All Active Problems (Last Reviewed 08/19/20 @ 12:[address] Benigno Melgar, DO) COVID-19 virus detected (Acute) Pneumonia due to severe acute respiratory syndrome coronavirus (Acute) Acute respiratory failure with hypoxia (Acute) 1. Acute hypoxic respiratory failure secondary to COVID-19 pneumonia On 4 L oxygen and desaturates easily to 9 L oxygen on exertion Continue with breathing treatments,encourage use of incentive spirometer. Wean off oxygen for SPO2 more than 94% 2. Acute COVID-19 pneumonia with hypoxia Status post convalescent plasma, Decadron and remdesivir Continue to manage symptomatically 3. Hypokalemia, resolved 4. Hypertension, controlled, will resume home hydrochlorothiazide/lisinopril Repeat BMP in a.m. 5. Hyperlipidemia, continue home statin regimen 6. Hypothyroidism, continue on synthroid 7. DVT PPx- Lovenox SC BID Inpatient E&M: [id number] Subs Hosp L2
--- NOTE | 2020-09-01 15:07 | PN_ITS ---
Patient Problems: Active and Suspected Problems (Last Reviewed 08/19/20 @ 12:[address] Benigno Melgar, DO) COVID-19 virus detected (Acute) Pneumonia due to severe acute respiratory syndrome coronavirus (Acute) Acute respiratory failure with hypoxia (Acute) Subjective: Patient felt well this morning. However, patient had a walking oximetry and desaturated significantly requiring 9 L to maintain saturations. Patient reports the sensation of air hunger following this trial. Otherwise, patient feels subjectively unchanged compared to previous. - Physical Exam Vitals/I&O's: Vital Signs Temp Pulse Resp BP Pulse Ox 36.6 C 98 20 H 82/51 L 90 09/01/20 13:54 09/01/20 13:54 09/01/20 13:54 09/01/20 13:54 09/01/20 13:54 Oxygen Flow Rate (L/min) [ 91 AMBULATION with Oxygen] Oxygen Flow Rate (L/min) 4.5 Oxygen Delivery Method Nasal Cannula Weight: 71 kg Body Mass Index (BMI) 26.6 Intake and Output for Last 24 Hours 08/30/20 08/31/20 09/01/20 23:59 23:59 23:59 Intake Total 640 / 640 Output Total 700 / 700 450 / 450 Balance -60 / -60 -450 / -450 General: Alert, Oriented x3, Cooperative, No apparent distress, - - Mild to moderate conversational dyspnea HEENT: Atraumatic, PERRLA, EOMI, Normocephalic, - - Slight scleral injection without icterus Oral: Moist Mucosa, No Gingival or Mucosal Lesions/ Ulcerations Neck: Supple, No JVD, No Nodes, Trachea Midline Lungs: No rhonchi, No wheeze, Diminished, Wheezes - And exhalation Cardiovascular: Normal S1, Normal S2, No murmurs, No rub noted, No Gallop, Tachycardic Abdomen: Bowel Sounds Present, Soft, Non Tender, Non-Distended Extremities: No clubbing, No cyanosis, No edema Skin: No rashes, No breakdown Musculoskeletal: No Tenderness to Palpation of Joints or Extremities Lymphatic: No Cervical, Supraclavicular, or Inguinal Adenopathy Neurological: Cranial nerves II-XII grossly intact, Neuro grossly intact, Motor Exam 5/5 strength throughout Psych/Mental Status: Anxious, Restless Laboratory Results 09/01/20 05:34: WBC 10.6, RBC 4.45, Hgb 13.5, Hct 41.9, MCV 94.2, MCH 30.3, MCHC 32.2, RDW Std Deviation 44.8 H, RDW Coeff of Dar 13.0, Plt Count 177, MPV 11.7 09/01/20 05:34: Sodium 138, Potassium 4.3, Chloride 107, Carbon Dioxide 29.0, Anion Gap 2 L, BUN 18, Creatinine 0.50 L, Estim Creat Clear Calc 52.81, Est GFR (MDRD) Af Amer 155, Est GFR (MDRD) Non-Af 128, BUN/Creatinine Ratio 35.7 H, Glucose 104, Calcium 9.5 Current Medications Acetaminophen (Acetaminophen 325 Mg Tablet) 650 mg PO Q6H PRN PRN PRN Reason: Pain Score 1-10/Temp > 100.7 F Last Admin: 08/24/20 21:53 Dose: 650 mg Documented by: Aspirin (Aspirin E.C. 81 Mg Tablet) 81 mg PO DAILY [facility] Last Admin: 09/01/20 09:51 Dose: 81 mg Documented by: Atorvastatin Calcium (Atorvastatin Calcium 20 Mg Tablet) 20 mg PO DAILY [facility] Last Admin: 09/01/20 09:57 Dose: 20 mg Documented by: Benzonatate (Benzonatate 100 Mg Capsule) 100 mg PO Q4H PRN PRN PRN Reason: COUGH Last Admin: 08/19/20 20:36 Dose: 100 mg Documented by: Calcium/Vitamin D (Calcium Carb/Vitamin D 1 Tablet Tablet) 1 tablet PO DAILY [facility] Last Admin: 09/01/20 09:50 Dose: 1 tablet Documented by: Enoxaparin Sodium (Enoxaparin 30 Mg/0.3 Ml Syringe) 30 mg SC BID [facility] Last Admin: 09/01/20 09:50 Dose: 30 mg Documented by: Guaifenesin (Guaifenesin 10 Ml Udc (200mg/10ml)) 10 ml PO Q4H PRN PRN PRN Reason: COUGH Last Admin: 08/22/20 05:56 Dose: 10 ml Documented by: Sodium Chloride () 250 mls @ 15 mls/hr IV .[id number] PRN PRN Reason: Saline Flush Last Infusion: 08/28/20 17:51 Dose: Infused Documented by: Ibuprofen (Ibuprofen 400 Mg Tablet) 400 mg PO Q4H PRN PRN PRN Reason: Pain Score 1-10/Temp > 100.7 F Levothyroxine Sodium (Levothyroxine 50 Mcg Tablet) 50 mcg PO DAILY [facility] Last Admin: 09/01/20 09:52 Dose: 50 mcg Documented by: Potassium Chloride (Potassium Chloride 20 Meq Tablet) 40 meq PO BID [facility] Last Admin: 09/01/20 09:51 Dose: 40 meq Documented by: Senna/Docusate Sodium (Senna/Docusate Sodium 1 Tablet) 2 tablet PO BID [facility] Last Admin: 09/01/20 09:53 Dose: Not Given Documented by: Sodium Chloride (0.9% Saline Lock 10 Ml Syringe) 10 - 40 ml IV UD PRN PRN Reason: SALINE FLUSH Last Admin: 08/31/20 20:03 Dose: 10 ml Documented by: Medical Necessity - Tobacco Use Smoking Status: Never smoker Tobacco Use: Non-smoker Assessment/Plan All Active Problems (Last Reviewed 08/19/20 @ 12:[address] Benigno Melgar, DO) COVID-19 virus detected (Acute) Pneumonia due to severe acute respiratory syndrome coronavirus (Acute) Acute respiratory failure with hypoxia (Acute) RECOMMENDATIONS: 1. Continue to wean supplemental oxygen to maintain saturations at or above 90%. 2. Continue intermittent dosing of IV Lasix as tolerated by hemodynamics and renal function. 3. Encourage incentive spirometer use and mobilize patient as tolerated. 4. Consider addition of antidepressant IMPRESSIONS: 1. Acute hypoxemic respiratory failure secondary to COVID-19 pneumonia Plan to continue current supportive measures including heated high flow supplemental oxygen with plans to wean FiO2 to maintain saturations at or above 90%. The patient has already received convalescent plasma and completed a course of remdesivir and decadron. Continue attempts at gentle diuresis as tolerated by hemodynamics and renal function. Recovery may be slightly impaired secondary to developing depression. Anticipate discharge home once patient can tolerate 6 L or less with ambulation. We will give Lasix to see if oxygenation can improve. Patient should have a walking oximetry on a daily basis. Likely not necessary for additional imaging at this time 2. Advanced age/hypertension/hypothyroidism/hyperlipidemia Complicates care, management, recovery and prognosis. Continue home medications as indicated. Inpatient E&M: [id number] [facility] Hosp L2
[2020-09-01] MEDS: Furosemide 40 MG Tablet PO (16:04)
[2020-09-01] MEDS: Senna/Docusate Sodium 1 Tablet 2 TABLET PO (21:01)
[2020-09-02] VITALS (13 sets, daily range): BP systolic 100–124; BP diastolic 56–75; PULSE 71–93; RESP 20–36; TEMP 36.6–36.9; O2SAT 85–97
[2020-09-02 06:10] LABS: Absolute Lymphocyte Count 1.53 X10^3/uL (0.83-4.51); Absolute Neutrophil Count 8.8 X10^3/uL (2.0-7.7); Basophil# 0.03 X10^3/uL; Basophil% 0.3 % (0-1); Eosinophil# 0.14 X10^3/uL; Eosinophils% 1.2 % (0-5); Hematocrit 40.2 % (37-47); Hemoglobin 12.6 g/dL (12.0-15.0); Lymphocyte # 1.53 X10^3/ul (4.0); Lymphocyte % 13.2 % (19-41); Mean Corp Hgb Conc 31.3 g/dL (32-36); Mean Corpuscular Hgb 29.8 pg (27.0-32.0); Mean Platelet Vol. 11.7 fl (6.2-12.0); Monocyte# 0.96 X10^3/uL; Monocyte% 8.3 % (0-10); NRBC Flagged by Analyzer 0 % (0-5); Neutrophil # 8.84 X10^3/uL (2.7-7.7); Neutrophil % 76.6 % (47-70); Platelet Count 177 K/mm3 (150-450); RBC Distribution Width CV 13.2 % (11.6-14.6); RBC Distribution Width SD 46.1 fl (35.1-43.9); Red Blood Count 4.23 M/mm3 (4.2-5.4); White Blood Count 11.6 K/mm3 (4.4-11.0)
[2020-09-02 06:42] LABS: ALB/GLOB Ratio 0.6 RATIO (0.9-2.4); AST(SGOT) 47 U/L (15-37); Alanine Aminotransfer ALT/SGPT 159 U/L (13-56); Albumin, Serum 2.5 g/dL (3.2-5.0); Alkaline Phosphatase 86 U/L (45-117); Anion Gap 6 (5-15); BUN 27 mg/dL (7-18); BUN/Creat Ratio 41.4 RATIO (10-20); Calcium,Total 9.4 mg/dL (8.5-10.1); Chloride 105 mmol/L (98-107); Creatinine, Serum 0.65 mg/dL (0.55-1.02); EST Glomerular Filtration Rate 95 mL/min (>60); Est Glom Filt Rate - Afr Amer 115 mL/min (>60); Estimated Creatinine Clearance 52.81 ml/min; Globulin 4.4 g/dL (2.2-4.2); Glucose 100 mg/dL (74-106); Protein, Total 6.9 g/dL (6.4-8.2); Sodium Level 139 mmol/L (136-145)
--- NOTE | 2020-09-02 07:30 | PCM.PN.HOSP ---
Patient Problems: Active and Suspected Problems (Last Reviewed 08/19/20 @ 12:[address] Benigno Melgar, DO) COVID-19 virus detected (Acute) Pneumonia due to severe acute respiratory syndrome coronavirus (Acute) Acute respiratory failure with hypoxia (Acute) Reason for Visit: Follow-up on hypoxia/acute COVID-19 pneumonia Subjective: Patient was seen and examined. Remains on 4.5L, desaturates easily to 9L oxygen. Denies fever or chills. Discussed possibility of discharge to SNF- discussed also with Social work and case management. Objective: Physical exam: General: Alert, Oriented x3, Cooperative, No apparent distress, on 4L oxygen HEENT: Atraumatic, PERRLA, EOMI, Normocephalic, - - No scleral icterus or injection noted Oral: Moist Mucosa, No Gingival or Mucosal Lesions/ Ulcerations Neck: Supple, No JVD, No Nodes, Trachea Midline Lungs: No rhonchi, No wheeze, No rales, Diminished Cardiovascular: Regular rate, Regular Rhythm, Normal S1, Normal S2, No murmurs, No rub noted, No Gallop Abdomen: Bowel Sounds Present, Soft, Non Tender, Non-Distended Extremities: No clubbing, No cyanosis, No edema Skin: No rashes, No breakdown Musculoskeletal: No Tenderness to Palpation of Joints or Extremities Lymphatic: No Cervical, Supraclavicular, or Inguinal Adenopathy Neurological: Cranial nerves II-XII grossly intact, Neuro grossly intact, Motor Exam 5/5 strength throughout Psych/Mental Status: Flat Affect Vitals/I&O's: Vital Signs Temp Pulse Resp BP Pulse Ox 98 F 71 20 H 108/63 94 09/02/20 03:27 09/02/20 03:27 09/02/20 03:30 09/02/20 03:27 09/02/20 03:30 Oxygen Flow Rate (L/min) [ 91 AMBULATION with Oxygen] Oxygen Flow Rate (L/min) 4 Oxygen Delivery Method Nasal Cannula Weight: 71.5 kg Body Mass Index (BMI) 26.6 Intake and Output for Last 24 Hours 08/31/20 09/01/20 09/02/20 23:59 23:59 23:59 Intake Total 300 / 300 Output Total 450 / 450 700 / 700 Balance -450 / -450 -700 / -500 300 / 300 Laboratory Results 09/02/20 05:06: WBC 11.6 H, RBC 4.23, Hgb 12.6, Hct 40.2, MCV 95.0, MCH 29.8, MCHC 31.3 L, RDW Std Deviation 46.1 H, RDW Coeff of Dar 13.2, Plt Count 177, MPV 11.7, Immature Gran % (Auto) 0.400, Neut % (Auto) 76.6 H, Lymph % (Auto) 13.2 L, Waller % (Auto) 8.3, Eos % (Auto) 1.2, Baso % (Auto) 0.3, Absolute Neuts (auto) 8.8 H, Absolute Lymphs (auto) 1.53, Nucleated RBC % 0 09/02/20 05:06: Sodium 139, Potassium 4.0, Chloride 105, Carbon Dioxide 28.0, Anion Gap 6, BUN 27 H, Creatinine 0.65, Estim Creat Clear Calc 52.81, Est GFR (MDRD) Af Amer 115, Est GFR (MDRD) Non-Af 95, BUN/Creatinine Ratio 41.4 H, Glucose 100, Calcium 9.4, Total Bilirubin 0.50, AST 47 H, ALT 159 H, Alkaline Phosphatase 86, Total Protein 6.9, Albumin 2.5 L, Globulin 4.4 H, Albumin/Globulin Ratio 0.6 L Current Medications Acetaminophen (Acetaminophen 325 Mg Tablet) 650 mg PO Q6H PRN PRN PRN Reason: Pain Score 1-10/Temp > 100.7 F Last Admin: 08/24/20 21:53 Dose: 650 mg Documented by: Aspirin (Aspirin E.C. 81 Mg Tablet) 81 mg PO DAILY [facility] Last Admin: 09/01/20 09:51 Dose: 81 mg Documented by: Atorvastatin Calcium (Atorvastatin Calcium 20 Mg Tablet) 20 mg PO DAILY [facility] Last Admin: 09/01/20 09:57 Dose: 20 mg Documented by: Benzonatate (Benzonatate 100 Mg Capsule) 100 mg PO Q4H PRN PRN PRN Reason: COUGH Last Admin: 08/19/20 20:36 Dose: 100 mg Documented by: Calamine/Phenol (Menthol/Lanolin/Calamine/Znox 113 Gm Tube) 1 applic TOPICAL BID [facility]; Protocol Calcium/Vitamin D (Calcium Carb/Vitamin D 1 Tablet Tablet) 1 tablet PO DAILY [facility] Last Admin: 09/01/20 09:50 Dose: 1 tablet Documented by: Enoxaparin Sodium (Enoxaparin 30 Mg/0.3 Ml Syringe) 30 mg SC BID [facility] Last Admin: 09/01/20 21:02 Dose: 30 mg Documented by: Guaifenesin (Guaifenesin 10 Ml Udc (200mg/10ml)) 10 ml PO Q4H PRN PRN PRN Reason: COUGH Last Admin: 08/22/20 05:56 Dose: 10 ml Documented by: Sodium Chloride () 250 mls @ 15 mls/hr IV .[id number] PRN PRN Reason: Saline Flush Last Infusion: 08/28/20 17:51 Dose: Infused Documented by: Ibuprofen (Ibuprofen 400 Mg Tablet) 400 mg PO Q4H PRN PRN PRN Reason: Pain Score 1-10/Temp > 100.7 F Levothyroxine Sodium (Levothyroxine 50 Mcg Tablet) 50 mcg PO DAILY [facility] Last Admin: 09/01/20 09:52 Dose: 50 mcg Documented by: Potassium Chloride (Potassium Chloride 20 Meq Tablet) 40 meq PO BID [facility] Last Admin: 09/01/20 21:02 Dose: 40 meq Documented by: Senna/Docusate Sodium (Senna/Docusate Sodium 1 Tablet) 2 tablet PO BID [facility] Last Admin: 09/01/20 21:01 Dose: 2 tablet Documented by: Sodium Chloride (0.9% Saline Lock 10 Ml Syringe) 10 - 40 ml IV UD PRN PRN Reason: SALINE FLUSH Last Admin: 08/31/20 20:03 Dose: 10 ml Documented by: Medical Necessity - Tobacco Use Smoking Status: Never smoker Tobacco Use: Non-smoker Assessment/Plan All Active Problems (Last Reviewed 08/19/20 @ 12:[address] Benigno Melgar, DO) COVID-19 virus detected (Acute) Pneumonia due to severe acute respiratory syndrome coronavirus (Acute) Acute respiratory failure with hypoxia (Acute) 1. Acute hypoxic respiratory failure secondary to COVID-19 pneumonia On 4 L oxygen and desaturates easily to 9 - 15L oxygen on exertion Continue with breathing treatments,encourage use of incentive spirometer. Wean off oxygen for SPO2 more than 94% 2. Acute COVID-19 pneumonia with hypoxia Completed convalescent plasma, Decadron and remdesivir Continue to manage symptomatically 3. Hypokalemia, resolved 4. Hypertension, controlled, will resume home hydrochlorothiazide/lisinopril Repeat BMP in a.m. 5. Hyperlipidemia, continue home statin regimen 6. Hypothyroidism, continue on synthroid 7. DVT PPx- Lovenox SC BID Inpatient E&M: 00521 Subs Hosp L2
[2020-09-02] MEDS: Menthol/Lanolin/Calamine/Znox 113 GM Tube 1 APPLIC TOPICAL ×2 (10:29→21:58)
[2020-09-02] MEDS: Senna/Docusate Sodium 1 Tablet 2 TABLET PO (10:30)
[2020-09-02] MEDS: Calcium Carb/Vitamin D 1 TABLET Tablet PO (10:31)
[2020-09-02] MEDS: Aspirin E.C. 81 MG Tablet PO (10:31)
[2020-09-02] MEDS: Atorvastatin Calcium 20 MG Tablet PO (10:31)
[2020-09-02] MEDS: Enoxaparin 30 MG/0.3 ML Syringe SC ×2 (10:32→21:58)
[2020-09-02] MEDS: Levothyroxine 50 MCG Tablet PO (10:32)
--- NOTE | 2020-09-02 11:49 | CASEMGMT ---
Social Work Physician stating that pt may need SNF at time of discharge. AGUSTÍN placed call to pt room and discussed discharge plan with her. Presented discharge options of home with home health and short term SNF placement. Discussed need for 02 and that pt oxygen levels drop at ambulation. SW informed pt of facilities that can accept pts with Covid diagnosis. Pt requesting SW call pt mikhail Tuttle and discuss discharge plans. Call to son Parag and discharge options provided. aPrag is appreciative of information and will discuss discharge options with other family members and let SW know of decision. AGUSTÍN attempted to call pt back with no answer. Plan: Family and pt considering SNF placement CHRISTOPHER Abebe
--- NOTE | 2020-09-02 14:44 | CHAPLAIN ---
Type of Pastoral Visit _x__ Initial Visit ___ Follow-up Visit ___ On-call Visit ___ General Patient Visit ___ Spiritual Assessment ___ Family Conference ___ Bereavement ___ Rapid Response ___ Code Blue ___ Other (describe below) Pastoral Care Referral From _x__ Patient ___ Family ___ Nurse ___ Physician ___ Form Setter Helper ___ [place] ___ Other (describe below) Sacrament/Intervention _x__ Active listening ___ Anointing ___ Caodaism ___ Bereavement ___ Communion ___ Nighat exploration ___ ___ Life review _x__ Prayer ___ Reconciliation ___ Sacrament of Sick ___ Supportive presence ___ Wedding ___ Other (describe below) Pastoral Comments phone call made to room and patient was able to answer and talk this time; pt reports improvement but with possible transfer for rehab; pt says she accepts what has to happen; pt states she has good family support and many prayers from friends, and co-workers; pt welcomed prayer and the phone call
--- NOTE | 2020-09-02 15:42 | PCM.PN.PUL ---
Patient Problems: Active and Suspected Problems (Last Reviewed 08/19/20 @ 12:[address] Benigno Melgar, DO) COVID-19 virus detected (Acute) Pneumonia due to severe acute respiratory syndrome coronavirus (Acute) Acute respiratory failure with hypoxia (Acute) Subjective: Patient did well overnight. No acute issues were reported. Patient was slightly frustrated that she continues to require so much FiO2 to maintain saturations. Patient is not reporting any chest pain, nausea or vomiting. - Physical Exam Vitals/I&O's: Vital Signs Temp Pulse Resp BP Pulse Ox 36.8 C 86 28 H 123/69 H 93 09/02/20 15:15 09/02/20 15:15 09/02/20 15:22 09/02/20 15:15 09/02/20 15:22 Oxygen Flow Rate (L/min) [ 15 AMBULATION with Oxygen] Oxygen Flow Rate (L/min) [ 4 AMBULATING on Room Air] Oxygen Flow Rate (L/min) [At 4 REST on Room Air] Oxygen Flow Rate (L/min) 4 Oxygen Delivery Method Nasal Cannula Weight: 71.5 kg Body Mass Index (BMI) 26.6 Intake and Output for Last 24 Hours 08/31/20 09/01/20 09/02/20 23:59 23:59 23:59 Intake Total 300 / 300 Output Total 450 / 450 700 / 700 Balance -450 / -450 -700 / -500 300 / 300 General: Alert, Oriented x3, Cooperative, - - Some conversational dyspnea after ambulating to the bathroom HEENT: Atraumatic, PERRLA, EOMI, Normocephalic, - - No scleral icterus or injection noted Oral: Moist Mucosa, No Gingival or Mucosal Lesions/ Ulcerations Neck: Supple, No JVD, No Nodes, Trachea Midline Lungs: No rhonchi, No rales, Diminished, Wheezes - And exhalation, - - Symmetric expansion Cardiovascular: Normal S1, Normal S2, No murmurs, No rub noted, No Gallop, Tachycardic Abdomen: Bowel Sounds Present, Soft, Non Tender, Non-Distended Extremities: No clubbing, No cyanosis, No edema Skin: No rashes, No breakdown Musculoskeletal: No Tenderness to Palpation of Joints or Extremities Lymphatic: No Cervical, Supraclavicular, or Inguinal Adenopathy Neurological: Cranial nerves II-XII grossly intact, Neuro grossly intact, Motor Exam 5/5 strength throughout Psych/Mental Status: Alert and oriented to time, place, person, mood and affect Laboratory Results 09/02/20 05:06: WBC 11.6 H, RBC 4.23, Hgb 12.6, Hct 40.2, MCV 95.0, MCH 29.8, MCHC 31.3 L, RDW Std Deviation 46.1 H, RDW Coeff of Dar 13.2, Plt Count 177, MPV 11.7, Immature Gran % (Auto) 0.400, Neut % (Auto) 76.6 H, Lymph % (Auto) 13.2 L, [place] % (Auto) 8.3, Eos % (Auto) 1.2, Baso % (Auto) 0.3, Absolute Neuts (auto) 8.8 H, Absolute Lymphs (auto) 1.53, Nucleated RBC % 0 09/02/20 05:06: Sodium 139, Potassium 4.0, Chloride 105, Carbon Dioxide 28.0, Anion Gap 6, BUN 27 H, Creatinine 0.65, Estim Creat Clear Calc 52.81, Est GFR (MDRD) Af Amer 115, Est GFR (MDRD) Non-Af 95, BUN/Creatinine Ratio 41.4 H, Glucose 100, Calcium 9.4, Total Bilirubin 0.50, AST 47 H, ALT 159 H, Alkaline Phosphatase 86, Total Protein 6.9, Albumin 2.5 L, Globulin 4.4 H, Albumin/Globulin Ratio 0.6 L Current Medications Acetaminophen (Acetaminophen 325 Mg Tablet) 650 mg PO Q6H PRN PRN PRN Reason: Pain Score 1-10/Temp > 100.7 F Last Admin: 08/24/20 21:53 Dose: 650 mg Documented by: Aspirin (Aspirin E.C. 81 Mg Tablet) 81 mg PO DAILY [facility] Last Admin: 09/02/20 10:31 Dose: 81 mg Documented by: Atorvastatin Calcium (Atorvastatin Calcium 20 Mg Tablet) 20 mg PO DAILY [facility] Last Admin: 09/02/20 10:31 Dose: 20 mg Documented by: Benzonatate (Benzonatate 100 Mg Capsule) 100 mg PO Q4H PRN PRN PRN Reason: COUGH Last Admin: 08/19/20 20:36 Dose: 100 mg Documented by: Calamine/Phenol (Menthol/Lanolin/Calamine/Znox 113 Gm Tube) 1 applic TOPICAL BID [facility]; Protocol Last Admin: 09/02/20 10:29 Dose: 1 applic Documented by: Calcium/Vitamin D (Calcium Carb/Vitamin D 1 Tablet Tablet) 1 tablet PO DAILY [facility] Last Admin: 09/02/20 10:31 Dose: 1 tablet Documented by: Enoxaparin Sodium (Enoxaparin 30 Mg/0.3 Ml Syringe) 30 mg SC BID [facility] Last Admin: 09/02/20 10:32 Dose: 30 mg Documented by: Guaifenesin (Guaifenesin 10 Ml Udc (200mg/10ml)) 10 ml PO Q4H PRN PRN PRN Reason: COUGH Last Admin: 08/22/20 05:56 Dose: 10 ml Documented by: Sodium Chloride () 250 mls @ 15 mls/hr IV .[id number] PRN PRN Reason: Saline Flush Last Infusion: 08/28/20 17:51 Dose: Infused Documented by: Ibuprofen (Ibuprofen 400 Mg Tablet) 400 mg PO Q4H PRN PRN PRN Reason: Pain Score 1-10/Temp > 100.7 F Levothyroxine Sodium (Levothyroxine 50 Mcg Tablet) 50 mcg PO DAILY [facility] Last Admin: 09/02/20 10:32 Dose: 50 mcg Documented by: Potassium Chloride (Potassium Chloride 20 Meq Tablet) 40 meq PO BID [facility] Last Admin: 09/02/20 10:31 Dose: 40 meq Documented by: Senna/Docusate Sodium (Senna/Docusate Sodium 1 Tablet) 2 tablet PO BID [facility] Last Admin: 09/02/20 10:30 Dose: 2 tablet Documented by: Sodium Chloride (0.9% Saline Lock 10 Ml Syringe) 10 - 40 ml IV UD PRN PRN Reason: SALINE FLUSH Last Admin: 08/31/20 20:03 Dose: 10 ml Documented by: Medical Necessity - Tobacco Use Smoking Status: Never smoker Tobacco Use: Non-smoker Assessment/Plan All Active Problems (Last Reviewed 08/19/20 @ 12:[address] Benigno Melgar DO) COVID-19 virus detected (Acute) Pneumonia due to severe acute respiratory syndrome coronavirus (Acute) Acute respiratory failure with hypoxia (Acute) RECOMMENDATIONS: 1. Continue to wean supplemental oxygen to maintain saturations at or above 90%. 2. Continue intermittent dosing of IV Lasix as tolerated by hemodynamics and renal function. 3. Encourage incentive spirometer use and mobilize patient as tolerated. 4. Patient may require rehab placement on discharge IMPRESSIONS: 1. Acute hypoxemic respiratory failure secondary to COVID-19 pneumonia Plan to continue current supportive measures including heated high flow supplemental oxygen with plans to wean FiO2 to maintain saturations at or above 90%. The patient has already received convalescent plasma and completed a course of remdesivir and decadron. Continue attempts at gentle diuresis as tolerated by hemodynamics and renal function. Recovery may be slightly impaired secondary to developing depression. Anticipate discharge home once patient can tolerate 6 L or less with ambulation. Continue to attempt challenging with Lasix as patient tolerates. 2. Advanced age/hypertension/hypothyroidism/hyperlipidemia Complicates care, management, recovery and prognosis. Continue home medications as indicated. Inpatient E&M: [id number] [facility] Hosp L2
[2020-09-03] VITALS (13 sets, daily range): BP systolic 123–140; BP diastolic 66–87; PULSE 72–90; RESP 22–28; TEMP 36.6–36.9; O2SAT 82–97
[2020-09-03 05:41] LABS: Absolute Lymphocyte Count 1.49 X10^3/uL (0.83-4.51); Absolute Neutrophil Count 7.2 X10^3/uL (2.0-7.7); Basophil# 0.02 X10^3/uL; Basophil% 0.2 % (0-1); Eosinophil# 0.12 X10^3/uL; Eosinophils% 1.2 % (0-5); Hematocrit 39.9 % (37-47); Hemoglobin 12.5 g/dL (12.0-15.0); Lymphocyte # 1.49 X10^3/ul (4.0); Lymphocyte % 15.3 % (19-41); Mean Corp Hgb Conc 31.3 g/dL (32-36); Mean Corpuscular Volume 95.9 fL (81-99); Mean Platelet Vol. 11.2 fl (6.2-12.0); Monocyte# 0.82 X10^3/uL; Monocyte% 8.4 % (0-10); NRBC Flagged by Analyzer 0 % (0-5); Neutrophil # 7.22 X10^3/uL (2.7-7.7); Neutrophil % 74.3 % (47-70); Platelet Count 192 K/mm3 (150-450); RBC Distribution Width SD 46.1 fl (35.1-43.9); Red Blood Count 4.16 M/mm3 (4.2-5.4); White Blood Count 9.7 K/mm3 (4.4-11.0)
[2020-09-03 06:09] LABS: ALB/GLOB Ratio 0.5 RATIO (0.9-2.4); AST(SGOT) 38 U/L (15-37); Alanine Aminotransfer ALT/SGPT 134 U/L (13-56); Albumin, Serum 2.4 g/dL (3.2-5.0); Alkaline Phosphatase 86 U/L (45-117); Anion Gap 4 (5-15); BUN 20 mg/dL (7-18); BUN/Creat Ratio 38.2 RATIO (10-20); Calcium,Total 9.4 mg/dL (8.5-10.1); Chloride 106 mmol/L (98-107); Creatinine, Serum 0.52 mg/dL (0.55-1.02); EST Glomerular Filtration Rate 123 mL/min (>60); Est Glom Filt Rate - Afr Amer 149 mL/min (>60); Estimated Creatinine Clearance 52.81 ml/min; Globulin 4.6 g/dL (2.2-4.2); Glucose 100 mg/dL (74-106); Potassium 4.5 mmol/L (3.5-5.1); Sodium Level 139 mmol/L (136-145)
--- NOTE | 2020-09-03 07:18 | PN_ITS ---
Patient Problems: Active and Suspected Problems (Last Reviewed 08/19/20 @ 12:[address] Benigno Melgar, DO) COVID-19 virus detected (Acute) Pneumonia due to severe acute respiratory syndrome coronavirus (Acute) Acute respiratory failure with hypoxia (Acute) Reason for Visit: Follow-up on hypoxia/acute COVID-19 pneumonia Subjective: Patient was seen and examined. Patient is on 3 to 4 L of oxygen. She desaturates to 10 L of oxygen on ambulation. Discharge planning ongoing. Objective: Physical exam: General: Alert, Oriented x3, Cooperative, No apparent distress, on 4L oxygen HEENT: Atraumatic, PERRLA, EOMI, Normocephalic, - - No scleral icterus or injection noted Oral: Moist Mucosa, No Gingival or Mucosal Lesions/ Ulcerations Neck: Supple, No JVD, No Nodes, Trachea Midline Lungs: No rhonchi, No wheeze, No rales, Diminished Cardiovascular: Regular rate, Regular Rhythm, Normal S1, Normal S2, No murmurs, No rub noted, No Gallop Abdomen: Bowel Sounds Present, Soft, Non Tender, Non-Distended Extremities: No clubbing, No cyanosis, No edema Skin: No rashes, No breakdown Musculoskeletal: No Tenderness to Palpation of Joints or Extremities Lymphatic: No Cervical, Supraclavicular, or Inguinal Adenopathy Neurological: Cranial nerves II-XII grossly intact, Neuro grossly intact, Motor Exam 5/5 strength throughout Psych/Mental Status: Flat Affect Vitals/I&O's: Vital Signs Temp Pulse Resp BP Pulse Ox 98.3 F 76 24 H 133/77 H 95 09/03/20 06:56 09/03/20 06:56 09/03/20 06:56 09/03/20 06:56 09/03/20 06:56 Oxygen Flow Rate (L/min) [ 15 AMBULATION with Oxygen] Oxygen Flow Rate (L/min) [ 4 AMBULATING on Room Air] Oxygen Flow Rate (L/min) [At 4 REST on Room Air] Oxygen Flow Rate (L/min) 4 Oxygen Delivery Method Nasal Cannula Weight: 71.2 kg Body Mass Index (BMI) 26.6 Intake and Output for Last 24 Hours 09/01/20 09/02/20 09/03/20 23:59 23:59 23:59 Intake Total 300 / 650 550 / 550 Output Total 700 / 700 Balance -700 / -500 300 / 650 550 / 550 Laboratory Results 09/03/20 05:32: WBC 9.7, RBC 4.16 L, Hgb 12.5, Hct 39.9, MCV 95.9, MCH 30.0, MCHC 31.3 L, RDW Std Deviation 46.1 H, RDW Coeff of Dar 13.0, Plt Count 192, MPV 11.2, Immature Gran % (Auto) 0.600, Neut % (Auto) 74.3 H, Lymph % (Auto) 15.3 L, [place] % (Auto) 8.4, Eos % (Auto) 1.2, Baso % (Auto) 0.2, Absolute Neuts (auto) 7.2, Absolute Lymphs (auto) 1.49, Nucleated RBC % 0 09/03/20 05:32: Sodium 139, Potassium 4.5, Chloride 106, Carbon Dioxide 29.0, Anion Gap 4 L, BUN 20 H, Creatinine 0.52 L, Estim Creat Clear Calc 52.81, Est GFR (MDRD) Af Amer 149, Est GFR (MDRD) Non-Af 123, BUN/Creatinine Ratio 38.2 H, Glucose 100, Calcium 9.4, Total Bilirubin 0.60, AST 38 H, ALT 134 H, Alkaline Phosphatase 86, Total Protein 7.0, Albumin 2.4 L, Globulin 4.6 H, Albumin/Globulin Ratio 0.5 L Current Medications Acetaminophen (Acetaminophen 325 Mg Tablet) 650 mg PO Q6H PRN PRN PRN Reason: Pain Score 1-10/Temp > 100.7 F Last Admin: 08/24/20 21:53 Dose: 650 mg Documented by: Aspirin (Aspirin E.C. 81 Mg Tablet) 81 mg PO DAILY [facility] Last Admin: 09/02/20 10:31 Dose: 81 mg Documented by: Atorvastatin Calcium (Atorvastatin Calcium 20 Mg Tablet) 20 mg PO DAILY [facility] Last Admin: 09/02/20 10:31 Dose: 20 mg Documented by: Benzonatate (Benzonatate 100 Mg Capsule) 100 mg PO Q4H PRN PRN PRN Reason: COUGH Last Admin: 08/19/20 20:36 Dose: 100 mg Documented by: Calamine/Phenol (Menthol/Lanolin/Calamine/Znox 113 Gm Tube) 1 applic TOPICAL BID [facility]; Protocol Last Admin: 09/02/20 21:58 Dose: 1 applic Documented by: Calcium/Vitamin D (Calcium Carb/Vitamin D 1 Tablet Tablet) 1 tablet PO DAILY [facility] Last Admin: 09/02/20 10:31 Dose: 1 tablet Documented by: Enoxaparin Sodium (Enoxaparin 30 Mg/0.3 Ml Syringe) 30 mg SC BID [facility] Last Admin: 09/02/20 21:58 Dose: 30 mg Documented by: Furosemide (Furosemide 20 Mg Tablet) 20 mg PO DAILY [facility] Guaifenesin (Guaifenesin 10 Ml Udc (200mg/10ml)) 10 ml PO Q4H PRN PRN PRN Reason: COUGH Last Admin: 08/22/20 05:56 Dose: 10 ml Documented by: Sodium Chloride () 250 mls @ 15 mls/hr IV .[id number] PRN PRN Reason: Saline Flush Last Infusion: 08/28/20 17:51 Dose: Infused Documented by: Ibuprofen (Ibuprofen 400 Mg Tablet) 400 mg PO Q4H PRN PRN PRN Reason: Pain Score 1-10/Temp > 100.7 F Levothyroxine Sodium (Levothyroxine 50 Mcg Tablet) 50 mcg PO DAILY [facility] Last Admin: 09/02/20 10:32 Dose: 50 mcg Documented by: Potassium Chloride (Potassium Chloride 20 Meq Tablet) 40 meq PO BID [facility] Last Admin: 09/02/20 21:57 Dose: 40 meq Documented by: Senna/Docusate Sodium (Senna/Docusate Sodium 1 Tablet) 2 tablet PO BID [facility] Last Admin: 09/02/20 21:57 Dose: Not Given Documented by: Sodium Chloride (0.9% Saline Lock 10 Ml Syringe) 10 - 40 ml IV UD PRN PRN Reason: SALINE FLUSH Last Admin: 08/31/20 20:03 Dose: 10 ml Documented by: STROKE Vital Signs/Narrative: Vital Signs Temp Pulse Resp BP Pulse Ox 09/03/20 06:56 98.3 F 76 24 H 133/77 H 95 Medical Necessity - Tobacco Use Smoking Status: Never smoker Tobacco Use: Non-smoker Assessment/Plan All Active Problems (Last Reviewed 08/19/20 @ 12:[address] Benigno Melgar, DO) COVID-19 virus detected (Acute) Pneumonia due to severe acute respiratory syndrome coronavirus (Acute) Acute respiratory failure with hypoxia (Acute) 1. Acute hypoxic respiratory failure secondary to COVID-19 pneumonia On 4 L oxygen and desaturates easily to 9 - 15L oxygen on exertion Continue with breathing treatments,encourage use of incentive spirometer. Wean off oxygen for SPO2 more than 94% 2. Acute COVID-19 pneumonia with hypoxia Completed convalescent plasma, Decadron and remdesivir Continue to manage symptomatically 3. Hypokalemia, resolved 4. Hypertension, controlled, will resume home hydrochlorothiazide/lisinopril Repeat BMP in a.m. 5. Hyperlipidemia, continue home statin regimen 6. Hypothyroidism, continue on synthroid 7. DVT PPx- Lovenox SC BID Discharge planning on going to either LTAC or group home facility Inpatient E&M: [id number] Subs Hosp L2
[2020-09-03] MEDS: Menthol/Lanolin/Calamine/Znox 113 GM Tube 1 APPLIC TOPICAL ×2 (08:46→20:53)
[2020-09-03] MEDS: Enoxaparin 30 MG/0.3 ML Syringe SC ×2 (08:46→20:53)
[2020-09-03] MEDS: Aspirin E.C. 81 MG Tablet PO (08:47)
[2020-09-03] MEDS: Senna/Docusate Sodium 1 Tablet 2 TABLET PO (08:47)
[2020-09-03] MEDS: Calcium Carb/Vitamin D 1 TABLET Tablet PO (08:47)
[2020-09-03] MEDS: Levothyroxine 50 MCG Tablet PO (08:49)
[2020-09-03] MEDS: Atorvastatin Calcium 20 MG Tablet PO (08:49)
[2020-09-03] MEDS: Furosemide 20 MG Tablet PO (08:49)
--- NOTE | 2020-09-03 10:31 | CASEMGMT ---
Addendum entered by Reynold Augustin 09/03/20 11:48: Call to Barby Brandt @ [facility] to review patient's clinicals for possible LTACH on dc. - Clinicals faxed to [facility] . Original Note: RAHEEM CM Note: oxygen testing for patient was 10L needed for recovery. Dr. Borjas updated to evaluate if she would be ready for dc today as SNF cannot go higher than 10L at their facility. Cameron BSN RN ACM
--- NOTE | 2020-09-03 10:40 | PN_ITS ---
Patient Problems: Active and Suspected Problems (Last Reviewed 08/19/20 @ 12:[address] Benigno Melgar, DO) COVID-19 virus detected (Acute) Pneumonia due to severe acute respiratory syndrome coronavirus (Acute) Acute respiratory failure with hypoxia (Acute) Subjective: Patient did well overnight. Patient voiced some frustration to continue coughing with use of incentive spirometer. Patient estimates that she can make approximately 750 cc prior to coughing no matter how hard I try. Patient's oxygenation continues to improve and she is currently on 3 to 4 L nasal cannula to maintain saturations. - Physical Exam Vitals/I&O's: Vital Signs Temp Pulse Resp BP Pulse Ox 36.7 C 77 24 H 123/66 H 92 09/03/20 09:04 09/03/20 09:04 09/03/20 09:04 09/03/20 09:04 09/03/20 09:25 Oxygen Flow Rate (L/min) [ 10 AMBULATION with Oxygen] Oxygen Flow Rate (L/min) [ 3 AMBULATING on Room Air] Oxygen Flow Rate (L/min) [At 3 REST on Room Air] Oxygen Flow Rate (L/min) 3 Oxygen Delivery Method Nasal Cannula Weight: 71.2 kg Body Mass Index (BMI) 26.6 Intake and Output for Last 24 Hours 09/01/20 09/02/20 09/03/20 23:59 23:59 23:59 Intake Total 300 / 650 550 / 550 Output Total 700 / 700 Balance -700 / -500 300 / 650 550 / 550 General: Alert, Oriented x3, Cooperative, No apparent distress, - - Appears more energetic today HEENT: Atraumatic, PERRLA, EOMI, Normocephalic, - - No scleral icterus or injection noted Oral: Moist Mucosa, No Gingival or Mucosal Lesions/ Ulcerations Neck: Supple, No JVD, No Nodes, Trachea Midline Lungs: No rhonchi, No wheeze, No rales, Diminished Cardiovascular: Regular rate, Regular Rhythm, Normal S1, Normal S2, No murmurs, No rub noted, No Gallop Abdomen: Bowel Sounds Present, Soft, Non Tender, Non-Distended Extremities: No clubbing, No cyanosis, No edema, Capillary Refill Less than 3 Seconds Skin: No rashes, No breakdown Musculoskeletal: No Tenderness to Palpation of Joints or Extremities Lymphatic: No Cervical, Supraclavicular, or Inguinal Adenopathy Neurological: Cranial nerves II-XII grossly intact, Neuro grossly intact, Motor Exam 5/5 strength throughout Psych/Mental Status: Appropriate, Flat Affect Laboratory Results 09/03/20 05:32: WBC 9.7, RBC 4.16 L, Hgb 12.5, Hct 39.9, MCV 95.9, MCH 30.0, MCHC 31.3 L, RDW Std Deviation 46.1 H, RDW Coeff of Dar 13.0, Plt Count 192, MPV 11.2, Immature Gran % (Auto) 0.600, Neut % (Auto) 74.3 H, Lymph % (Auto) 15.3 L, [place] % (Auto) 8.4, Eos % (Auto) 1.2, Baso % (Auto) 0.2, Absolute Neuts (auto) 7.2, Absolute Lymphs (auto) 1.49, Nucleated RBC % 0 09/03/20 05:32: Sodium 139, Potassium 4.5, Chloride 106, Carbon Dioxide 29.0, Anion Gap 4 L, BUN 20 H, Creatinine 0.52 L, Estim Creat Clear Calc 52.81, Est GFR (MDRD) Af Amer 149, Est GFR (MDRD) Non-Af 123, BUN/Creatinine Ratio 38.2 H, Glucose 100, Calcium 9.4, Total Bilirubin 0.60, AST 38 H, ALT 134 H, Alkaline P hosphatase 86, Total Protein 7.0, Albumin 2.4 L, Globulin 4.6 H, Albumin/Globulin Ratio 0.5 L Current Medications Acetaminophen (Acetaminophen 325 Mg Tablet) 650 mg PO Q6H PRN PRN PRN Reason: Pain Score 1-10/Temp > 100.7 F Last Admin: 08/24/20 21:53 Dose: 650 mg Documented by: Aspirin (Aspirin E.C. 81 Mg Tablet) 81 mg PO DAILY [facility] Last Admin: 09/03/20 08:47 Dose: 81 mg Documented by: Atorvastatin Calcium (Atorvastatin Calcium 20 Mg Tablet) 20 mg PO DAILY [facility] Last Admin: 09/03/20 08:49 Dose: 20 mg Documented by: Benzonatate (Benzonatate 100 Mg Capsule) 100 mg PO Q4H PRN PRN PRN Reason: COUGH Last Admin: 10/28/20 20:36 Dose: 100 mg Documented by: Calamine/Phenol (Menthol/Lanolin/Calamine/Znox 113 Gm Tube) 1 applic TOPICAL BID [facility]; Protocol Last Admin: 09/03/20 08:46 Dose: 1 applic Documented by: Calcium/Vitamin D (Calcium Carb/Vitamin D 1 Tablet Tablet) 1 tablet PO DAILY [facility] Last Admin: 09/03/20 08:47 Dose: 1 tablet Documented by: Enoxaparin Sodium (Enoxaparin 30 Mg/0.3 Ml Syringe) 30 mg SC BID [facility] Last Admin: 09/03/20 08:46 Dose: 30 mg Documented by: Furosemide (Furosemide 20 Mg Tablet) 20 mg PO DAILY [facility] Last Admin: 09/03/20 08:49 Dose: 20 mg Documented by: Guaifenesin (Guaifenesin 10 Ml Udc (200mg/10ml)) 10 ml PO Q4H PRN PRN PRN Reason: COUGH Last Admin: 08/22/20 05:56 Dose: 10 ml Documented by: Sodium Chloride () 250 mls @ 15 mls/hr IV .[id number] PRN PRN Reason: Saline Flush Last Infusion: 08/28/20 17:51 Dose: Infused Documented by: Ibuprofen (Ibuprofen 400 Mg Tablet) 400 mg PO Q4H PRN PRN PRN Reason: Pain Score 1-10/Temp > 100.7 F Levothyroxine Sodium (Levothyroxine 50 Mcg Tablet) 50 mcg PO DAILY [facility] Last Admin: 09/03/20 08:49 Dose: 50 mcg Documented by: Potassium Chloride (Potassium Chloride 20 Meq Tablet) 40 meq PO BID [facility] Last Admin: 09/03/20 08:46 Dose: 40 meq Documented by: Senna/Docusate Sodium (Senna/Docusate Sodium 1 Tablet) 2 tablet PO BID [facility] Last Admin: 09/03/20 08:47 Dose: 2 tablet Documented by: Sodium Chloride (0.9% Saline Lock 10 Ml Syringe) 10 - 40 ml IV UD PRN PRN Reason: SALINE FLUSH Last Admin: 08/31/20 20:03 Dose: 10 ml Documented by: Medical Necessity - Tobacco Use Smoking Status: Never smoker Tobacco Use: Non-smoker Assessment/Plan All Active Problems (Last Reviewed 08/19/20 @ 12:[address] Benigno Melgar DO) COVID-19 virus detected (Acute) Pneumonia due to severe acute respiratory syndrome coronavirus (Acute) Acute respiratory failure with hypoxia (Acute) RECOMMENDATIONS: 1. Continue to wean supplemental oxygen to maintain saturations at or above 90%. 2. Continue intermittent dosing of IV Lasix as tolerated by hemodynamics and renal function. 3. Encourage incentive spirometer use and mobilize patient as tolerated. 4. Patient may require rehab placement on discharge 5. Obtain walking oximetry. Possibly transfer to rehab facility if able to tolerate 6 L or less with ambulation IMPRESSIONS: 1. Acute hypoxemic respiratory failure secondary to COVID-19 pneumonia Plan to continue current supportive measures including heated high flow supplemental oxygen with plans to wean FiO2 to maintain saturations at or above 90%. The patient has already received convalescent plasma and completed a course of remdesivir and decadron. Continue attempts at gentle diuresis as tolerated by hemodynamics and renal function. Recovery may be slightly impaired secondary to developing depression. Anticipate discharge to rehab facility once patient can tolerate 6 L or less with ambulation. Continue to attempt challenging with Lasix as patient tolerates. 2. Advanced age/hypertension/hypothyroidism/hyperlipidemia Complicates care, management, recovery and prognosis. Continue home medications as indicated. Inpatient E&M: [id number] Subs Hosp L2
--- NOTE | 2020-09-03 10:42 | CASEMGMT ---
Addendum entered by Alyson Fajardo 09/03/20 12:21: Social Work Return call from [facility] and they are able to accept pt today, tomorrow or Monday. No admissions over the weekend. SW spoke to physician who states pt may be more appropriate for an LTACH. Information provided to ADALBERTO Flaherty who will follow up with possibility of LTACH. SNF on hold until LTACH determination made. CHRISTOPHER Abebe Original Note: Social Work SW placed phone call to pt to discuss discharge plan. Pt stating she does not feel comfortable returning home with oxygen levels as they are and would like short term SNF placement and [facility]. Phone call to [facility] and they do have beds available. Referral information faxed, will await determination. CHRISTOPHER Abebe
--- NOTE | 2020-09-03 13:48 | CASEMGMT ---
Addendum entered by Reynold Augustin 09/03/20 14:25: Call from Barby @ [facility]. The patient does meet LTACH criteria and has been accepted. Bed availability @ [place] or [place] will be known tomorrow am and patient can then be discharged to appropriate facility. -AGUSTÍN Gomez updated. Original Note: RAHEEM HINTON Note: call from Barby @ [facility]. Pt clinicals is being reviewed. Bed availability is being reviewed @ both facilities and is not known yet. Will continue to follow. Cameron WRENN RN ACM
--- NOTE | 2020-09-03 14:19 | CASEMGMT ---
Social Work SW placed call to pt and explained that SNF is able to accept pt but also physician has requested LTACH be looked into [facility]. It is not yet determined if a bed is available at [facility] or [facility]. Expect LTACH to return call tomorrow with determination of facility available. Pt is agreeable with transfer to LTACH. With pt permission, phone call to pt mikhail Tuttle and updated on above. He is agreeable to LTACH placement as well. SW will continue to follow for d/c planning. [facility] notified that pt will not be coming. CHRISTOPHER Abebe
[2020-09-04] VITALS (7 sets, daily range): BP systolic 126–138; BP diastolic 69–70; PULSE 77–92; RESP 22–28; TEMP 36.8; O2SAT 72–95
[2020-09-04 05:34] LABS: Absolute Lymphocyte Count 1.38 X10^3/uL (0.83-4.51); Basophil# 0.03 X10^3/uL; Basophil% 0.3 % (0-1); Eosinophil# 0.14 X10^3/uL; Eosinophils% 1.5 % (0-5); Hematocrit 39.2 % (37-47); Hemoglobin 12.1 g/dL (12.0-15.0); Lymphocyte # 1.38 X10^3/ul (4.0); Lymphocyte % 14.7 % (19-41); Mean Corp Hgb Conc 30.9 g/dL (32-36); Mean Corpuscular Hgb 29.5 pg (27.0-32.0); Mean Corpuscular Volume 95.6 fL (81-99); Mean Platelet Vol. 11.3 fl (6.2-12.0); Monocyte# 0.87 X10^3/uL; Monocyte% 9.2 % (0-10); NRBC Flagged by Analyzer 0 % (0-5); Neutrophil # 6.96 X10^3/uL (2.7-7.7); Platelet Count 181 K/mm3 (150-450); RBC Distribution Width CV 13.1 % (11.6-14.6); RBC Distribution Width SD 46.1 fl (35.1-43.9); White Blood Count 9.4 K/mm3 (4.4-11.0)
[2020-09-04 06:09] LABS: ALB/GLOB Ratio 0.5 RATIO (0.9-2.4); AST(SGOT) 32 U/L (15-37); Alanine Aminotransfer ALT/SGPT 116 U/L (13-56); Albumin, Serum 2.5 g/dL (3.2-5.0); Alkaline Phosphatase 88 U/L (45-117); Anion Gap 3 (5-15); BUN 17 mg/dL (7-18); BUN/Creat Ratio 31.1 RATIO (10-20); Calcium,Total 9.4 mg/dL (8.5-10.1); Chloride 105 mmol/L (98-107); Creatinine, Serum 0.55 mg/dL (0.55-1.02); EST Glomerular Filtration Rate 117 mL/min (>60); Est Glom Filt Rate - Afr Amer 142 mL/min (>60); Estimated Creatinine Clearance 52.81 ml/min; Globulin 4.7 g/dL (2.2-4.2); Glucose 100 mg/dL (74-106); Potassium 3.9 mmol/L (3.5-5.1); Protein, Total 7.2 g/dL (6.4-8.2); Sodium Level 138 mmol/L (136-145)
[2020-09-04] MEDS: Menthol/Lanolin/Calamine/Znox 113 GM Tube 1 APPLIC TOPICAL (09:01)
[2020-09-04] MEDS: Atorvastatin Calcium 20 MG Tablet PO (09:02)
[2020-09-04] MEDS: Levothyroxine 50 MCG Tablet PO (09:02)
[2020-09-04] MEDS: Aspirin E.C. 81 MG Tablet PO (09:02)
[2020-09-04] MEDS: Furosemide 20 MG Tablet PO (09:02)
[2020-09-04] MEDS: Calcium Carb/Vitamin D 1 TABLET Tablet PO (09:02)
[2020-09-04] MEDS: Enoxaparin 30 MG/0.3 ML Syringe SC (09:03)
--- NOTE | 2020-09-04 10:05 | CASEMGMT ---
RN CM Note: Clinical information faxed to [facility] for update. Progress notes not available yet. Awaiting call with bed availability and facility. Cameron WRENN RN ACM
--- NOTE | 2020-09-04 10:22 | PN_ITS ---
Patient Problems: Active and Suspected Problems (Last Reviewed 08/19/20 @ 12:[address] Benigno Melgar, DO) COVID-19 virus detected (Acute) Pneumonia due to severe acute respiratory syndrome coronavirus (Acute) Acute respiratory failure with hypoxia (Acute) Subjective: Patient did well overnight. No acute issues were reported. Nursing reports that a walking oximetry was obtained and patient required 5 L nasal cannula to maintain saturations with ambulation. Patient continues to report that she feels weak and would benefit from rehab. - Physical Exam Vitals/I&O's: Vital Signs Temp Pulse Resp BP Pulse Ox 36.8 C 92 22 H 126/70 H 94 09/04/20 08:45 09/04/20 08:45 09/04/20 08:45 09/04/20 08:45 09/04/20 09:16 Oxygen Flow Rate (L/min) [ 8 AMBULATION with Oxygen] Oxygen Flow Rate (L/min) [ 3 AMBULATING on Room Air] Oxygen Flow Rate (L/min) [At 4 REST on Room Air] Oxygen Flow Rate (L/min) 4 Oxygen Delivery Method Nasal Cannula Weight: 71.3 kg Body Mass Index (BMI) 26.6 Intake and Output for Last 24 Hours 09/02/20 09/03/20 09/04/20 23:59 23:59 23:59 Intake Total 300 / 650 1050 / 1050 200 / 200 Balance 300 / 650 1050 / 1050 200 / 200 General: Alert, Oriented x3, Cooperative, No apparent distress, Well developed, Well nourished, - - No conversational dyspnea. HEENT: Atraumatic, PERRLA, EOMI, Normocephalic, - - No scleral icterus or injection noted Oral: Moist Mucosa, No Gingival or Mucosal Lesions/ Ulcerations Neck: Supple, No JVD, No Nodes, Trachea Midline Lungs: No rhonchi, No wheeze, No rales, Diminished, - - Symmetric expansion. No dullness to percussion. Cardiovascular: Regular rate, Regular Rhythm, Normal S1, Normal S2, No murmurs, No rub noted, No Gallop Abdomen: Bowel Sounds Present, Soft, Non Tender, Non-Distended Extremities: No clubbing, No cyanosis, No edema Skin: No rashes, No breakdown Musculoskeletal: No Tenderness to Palpation of Joints or Extremities Lymphatic: No Cervical, Supraclavicular, or Inguinal Adenopathy Neurological: Cranial nerves II-XII grossly intact, Neuro grossly intact, Motor Exam 5/5 strength throughout Psych/Mental Status: Appropriate, Anxious Laboratory Results 09/04/20 05:16: WBC 9.4, RBC 4.10 L, Hgb 12.1, Hct 39.2, MCV 95.6, MCH 29.5, MCHC 30.9 L, RDW Std Deviation 46.1 H, RDW Coeff of Dar 13.1, Plt Count 181, MPV 11.3, Immature Gran % (Auto) 0.300, Neut % (Auto) 74.0 H, Lymph % (Auto) 14.7 L, [place] % (Auto) 9.2, Eos % (Auto) 1.5, Baso % (Auto) 0.3, Absolute Neuts (auto) 7.0, Absolute Lymphs (auto) 1.38, Nucleated RBC % 0 09/04/20 05:16: Sodium 138, Potassium 3.9, Chloride 105, Carbon Dioxide 30.0, Anion Gap 3 L, BUN 17, Creatinine 0.55, Estim Creat Clear Calc 52.81, Est GFR (MDRD) Af Amer 142, Est GFR (MDRD) Non-Af 117, BUN/Creatinine Ratio 31.1 H, Glucose 100, Calcium 9.4, Total Bilirubin 0.50, AST 32, ALT 116 H, Alkaline Phosphatase 88, Total Protein 7.2, Albumin 2.5 L, Globulin 4.7 H, Albumin/Globulin Ratio 0.5 L Current Medications Acetaminophen (Acetaminophen 325 Mg Tablet) 650 mg PO Q6H PRN PRN PRN Reason: Pain Score 1-10/Temp > 100.7 F Last Admin: 08/24/20 21:53 Dose: 650 mg Documented by: Aspirin (Aspirin E.C. 81 Mg Tablet) 81 mg PO DAILY [facility] Last Admin: 09/04/20 09:02 Dose: 81 mg Documented by: Atorvastatin Calcium (Atorvastatin Calcium 20 Mg Tablet) 20 mg PO DAILY [facility] Last Admin: 09/04/20 09:02 Dose: 20 mg Documented by: Benzonatate (Benzonatate 100 Mg Capsule) 100 mg PO Q4H PRN PRN PRN Reason: COUGH Last Admin: 08/19/20 20:36 Dose: 100 mg Documented by: Calamine/Phenol (Menthol/Lanolin/Calamine/Znox 113 Gm Tube) 1 applic TOPICAL BID [facility]; Protocol Last Admin: 09/04/20 09:01 Dose: 1 applic Documented by: Calcium/Vitamin D (Calcium Carb/Vitamin D 1 Tablet Tablet) 1 tablet PO DAILY [facility] Last Admin: 09/04/20 09:02 Dose: 1 tablet Documented by: Enoxaparin Sodium (Enoxaparin 30 Mg/0.3 Ml Syringe) 30 mg SC BID [facility] Last Admin: 09/04/20 09:03 Dose: 30 mg Documented by: Furosemide (Furosemide 20 Mg Tablet) 20 mg PO DAILY [facility] Last Admin: 09/04/20 09:02 Dose: 20 mg Documented by: Guaifenesin (Guaifenesin 10 Ml Udc (200mg/10ml)) 10 ml PO Q4H PRN PRN PRN Reason: COUGH Last Admin: 08/22/20 05:56 Dose: 10 ml Documented by: Sodium Chloride () 250 mls @ 15 mls/hr IV .[id number] PRN PRN Reason: Saline Flush Last Infusion: 08/28/20 17:51 Dose: Infused Documented by: Ibuprofen (Ibuprofen 400 Mg Tablet) 400 mg PO Q4H PRN PRN PRN Reason: Pain Score 1-10/Temp > 100.7 F Levothyroxine Sodium (Levothyroxine 50 Mcg Tablet) 50 mcg PO DAILY [facility] Last Admin: 09/04/20 09:02 Dose: 50 mcg Documented by: Potassium Chloride (Potassium Chloride 20 Meq Tablet) 40 meq PO BID [facility] Last Admin: 09/04/20 09:02 Dose: 40 meq Documented by: Senna/Docusate Sodium (Senna/Docusate Sodium 1 Tablet) 2 tablet PO BID [facility] Last Admin: 09/04/20 09:03 Dose: Not Given Documented by: Sodium Chloride (0.9% Saline Lock 10 Ml Syringe) 10 - 40 ml IV UD PRN PRN Reason: SALINE FLUSH Last Admin: 08/31/20 20:03 Dose: 10 ml Documented by: Medical Necessity - Tobacco Use Smoking Status: Never smoker Tobacco Use: Non-smoker Assessment/Plan All Active Problems (Last Reviewed 08/19/20 @ 12:[address] Benigno Melgar DO) COVID-19 virus detected (Acute) Pneumonia due to severe acute respiratory syndrome coronavirus (Acute) Acute respiratory failure with hypoxia (Acute) RECOMMENDATIONS: 1. Continue to wean supplemental oxygen to maintain saturations at or above 90%. 2. Continue daily Lasix. Monitor renal function every other day 3. Encourage incentive spirometer use and mobilize patient as tolerated. 4. Patient may require rehab placement on discharge 5. Okay to transfer to an EC for rehab from my perspective 6. Patient advised to have a pulse oximeter while on supplemental oxygen for monitoring saturations IMPRESSIONS: 1. Acute hypoxemic respiratory failure secondary to COVID-19 pneumonia Plan to continue current supportive measures including heated high flow supplemental oxygen with plans to wean FiO2 to maintain saturations at or above 90%. The patient has already received convalescent plasma and completed a course of remdesivir and decadron. Continue attempts at gentle diuresis as tolerated by hemodynamics and renal function. Recovery may be slightly impaired secondary to developing depression. Okay to go to a rehab facility from a pulmonary perspective. Lasix has been scheduled daily. Monitor renal function intermittently. Patient should follow up with our office 4 weeks after discharge from the ECF. 2. Advanced age/hypertension/hypothyroidism/hyperlipidemia Complicates care, management, recovery and prognosis. Continue home medications as indicated. Inpatient E&M: 84941 Subs Hosp L2
--- NOTE | 2020-09-04 12:08 | PCM.TXEXTCAR ---
- Diet 08/25/20 10:53 Diet: Regular - General Type of Dietary Supplement:: Ensure Enlive Is pt able to select menu?: Yes Diet Comments: 240mL w/ meals - Routine Orders/Code Status O2 Liters per Minute: 4 O2 Frequency: Continuous Keep PO Greater than or Equal to (%): 94 Routine Lab Work: CBC - within 3 days, BMP - within 3 days - Therapies Weight Bearing: Weight bearing as tolerated Physical Therapy: Eval and Treat Occupational Therapy: Eval and Treat - Allergies/Procedures Done in Hospital Allergies/Adverse Reactions: Allergies No Known Allergies Allergy (Verified 08/19/20 09:53) Procedures: None - Type of Care/Length of Stay Estimated LOS: Convalescent Care Less Than 30 days Type of Care Needed: Skilled Rehab Potential: Good Prognosis: Good - Additional Orders/Day of Discharge Additional Orders: Patient is on 3.5-4L oxygen at rest. She requires 6-8L oxygen on exertion. Needs to continue using incentive spirometer Day of Discharge: 09/04/20 - Dietary and Speech Recommendations Dietitian Recommendations/Changes: Will change ONS from medpass to w/ meals. - Follow Up Care Primary Care Physician: Bob Billings MD [Primary Care Provider] - Please follow up with your Primary Care Physician in: within 2 weeks of discharge
--- NOTE | 2020-09-04 12:13 | DS.PCM_ITS ---
Discharge Date and Diagnosis - Problem List Patient Problems: Active and Suspected Problems (Last Reviewed 08/19/20 @ 12:[address] Benigno Melgar DO) COVID-19 virus detected (Acute) Pneumonia due to severe acute respiratory syndrome coronavirus (Acute) Acute respiratory failure with hypoxia (Acute) Date of Admission: 08/19/20 Date of Discharge: 09/04/20 - Primary Discharge Diagnosis Acute Problems: Active Problems (Last Reviewed 08/19/20 @ 12:[address] Benigno Melgar DO) Acute hypoxic respiratory failure Acute COVID-19 pneumonia Hypokalemia Transient hypotension - Secondary Discharge Diagnosis Chronic Problems: Chronic Problems (Last Reviewed 08/19/20 @ 12:[address] Benigno Melgar DO) History of colonoscopy (Chronic ~2014) History of bowel resection (Chronic ~1970) Hyperlipidemia (Chronic) Santiago's thyroiditis (Chronic) HTN (hypertension) (Chronic) Hospital Course and Treatment Imaging Results: Clinical Impression(s) from Imaging Studies Chest X-Ray 08/19/20 10:20 IMPRESSION: Bilateral patchy infiltrates worse in the right lung in keeping with bilateral patchy pneumonias. Electronically Signed: Eliecer Cespedes at 10:40 EDT , Service support , Chest CTA 08/19/20 18:00 IMPRESSION: 1. No evidence of pulmonary embolus. 2. Atherosclerotic thoracic aorta without aneurysm or dissection. 3. Borderline cardiomegaly with coronary artery calcifications. 4. There are diffuse primarily upper lobe groundglass infiltrates with mild consolidation versus atelectasis at the lung bases. Electronically Signed: Jimbo Castanon DO at 19:04 EDT Tel [phone], Service support , Chest X-Ray 08/23/20 01:05 EST IMPRESSION: Bilateral pulmonary infiltrates, with no significant change from previous study. Borderline heart size. Electronically Signed: Juan Avalos MD at 1:43 EDT , Service support , ID Pulmonology Operations: None Procedures: None Summary of Care Provided: The patient is a 70 year old F with past medical history of hypertension, hypothyroidism, hyperlipidemia who comes in with complaints of shortness of breath. Patient had contracted COVID-19 infection from a nephew who was recently diagnosed with COVID-19. She was saturating 85% on room air in the ED. She was admitted to the medical floor and started on IV dexamethasone. ID improved more with consulted. She was also started on IV remdesivir. She received plasma on 08/21/20. However required progressively increasing amounts of oxygen. She was tried on arrival with no improvement, she was transferred to the ICU on 08/23/20 a.m. she developed SVTs and transient hypotension. She was subsequently also started on Precedex. She was transferred out of the ICU on 08/28/[address] [facility] Covid unit. She was continued on high flow oxygen. She had electrolyte imbalances that were controlled. Patient had her home medications held on account of hypotension. She continued to improve and was on 4 L of oxygen at rest but but up to 8 L of oxygen on ambulation. She did qualify for ambulatory oxygen She was evaluated for LTACH and was accepted. She was discharged also on aspirin. Patient Problems: Active and Suspected Problems (Last Reviewed 08/19/20 @ 12:[address] Benigno wilson, ) COVID-19 virus detected (Acute) Pneumonia due to severe acute respiratory syndrome coronavirus (Acute) Acute respiratory failure with hypoxia (Acute) Subjective: On the day of discharge, patient was seen and examined. She denied any fever or chills. She remains on 4 L of oxygen saturating at 94%. She however dropped to 72% off oxygen, and regains back to 88% on 8 L of oxygen later on. Objective: Physical exam: General: Alert, Oriented x3, Cooperative, No apparent distress, on 4L oxygen HEENT: Atraumatic, PERRLA, EOMI, Normocephalic, - - No scleral icterus or injection noted Oral: Moist Mucosa, No Gingival or Mucosal Lesions/ Ulcerations Neck: Supple, No JVD, No Nodes, Trachea Midline Lungs: No rhonchi, No wheeze, No rales, Diminished Cardiovascular: Regular rate, Regular Rhythm, Normal S1, Normal S2, No murmurs, No rub noted, No Gallop Abdomen: Bowel Sounds Present, Soft, Non Tender, Non-Distended Extremities: No clubbing, No cyanosis, No edema Skin: No rashes, No breakdown Musculoskeletal: No Tenderness to Palpation of Joints or Extremities Lymphatic: No Cervical, Supraclavicular, or Inguinal Adenopathy Neurological: Cranial nerves II-XII grossly intact, Neuro grossly intact, Motor Exam 5/5 strength throughout Psych/Mental Status: Flat Affect - Physical Exam Vitals/I&O's: Vital Signs Temp Pulse Resp BP Pulse Ox 98.2 F 92 22 H 126/70 H 95 09/04/20 08:45 09/04/20 08:45 09/04/20 10:00 09/04/20 08:45 09/04/20 11:13 Oxygen Flow Rate (L/min) [ 6 AMBULATION with Oxygen] Oxygen Flow Rate (L/min) [ 3.5 AMBULATING on Room Air] Oxygen Flow Rate (L/min) [At 3.5 REST on Room Air] Oxygen Flow Rate (L/min) 3.5 Oxygen Delivery Method Nasal Cannula Weight: 71.3 kg Body Mass Index (BMI) 26.6 Intake and Output for Last 24 Hours 09/02/20 09/03/20 09/04/20 23:59 23:59 23:59 Intake Total 300 / 650 1050 / 1050 200 / 200 Balance 300 / 650 1050 / 1050 200 / 200 Laboratory Results 09/04/20 05:16: WBC 9.4, RBC 4.10 L, Hgb 12.1, Hct 39.2, MCV 95.6, MCH 29.5, MCHC 30.9 L, RDW Std Deviation 46.1 H, RDW Coeff of Dar 13.1, Plt Count 181, MPV 11.3, Immature Gran % (Auto) 0.300, Neut % (Auto) 74.0 H, Lymph % (Auto) 14.7 L, [place] % (Auto) 9.2, Eos % (Auto) 1.5, Baso % (Auto) 0.3, Absolute Neuts (auto) 7.0, Absolute Lymphs (auto) 1.38, Nucleated RBC % 0 09/04/20 05:16: Sodium 138, Potassium 3.9, Chloride 105, Carbon Dioxide 30.0, Anion Gap 3 L, BUN 17, Creatinine 0.55, Estim Creat Clear Calc 52.81, Est GFR (MDRD) Af Amer 142, Est GFR (MDRD) Non-Af 117, BUN/Creatinine Ratio 31.1 H, Glucose 100, Calcium 9.4, Total Bilirubin 0.50, AST 32, ALT 116 H, Alkaline Phosphatase 88, Total Protein 7.2, Albumin 2.5 L, Globulin 4.7 H, Albumin/Globulin Ratio 0.5 L Current Medications Acetaminophen (Acetaminophen 325 Mg Tablet) 650 mg PO Q6H PRN PRN PRN Reason: Pain Score 1-10/Temp > 100.7 F Last Admin: 08/24/20 21:53 Dose: 650 mg Documented by: Aspirin (Aspirin E.C. 81 Mg Tablet) 81 mg PO DAILY [facility] Last Admin: 09/04/20 09:02 Dose: 81 mg Documented by: Atorvastatin Calcium (Atorvastatin Calcium 20 Mg Tablet) 20 mg PO DAILY [facility] Last Admin: 09/04/20 09:02 Dose: 20 mg Documented by: Benzonatate (Benzonatate 100 Mg Capsule) 100 mg PO Q4H PRN PRN PRN Reason: COUGH Last Admin: 08/19/20 20:36 Dose: 100 mg Documented by: Calamine/Phenol (Menthol/Lanolin/Calamine/Znox 113 Gm Tube) 1 applic TOPICAL BID [facility]; Protocol Last Admin: 09/04/20 09:01 Dose: 1 applic Documented by: Calcium/Vitamin D (Calcium Carb/Vitamin D 1 Tablet Tablet) 1 tablet PO DAILY [facility] Last Admin: 09/04/20 09:02 Dose: 1 tablet Documented by: Enoxaparin Sodium (Enoxaparin 30 Mg/0.3 Ml Syringe) 30 mg SC BID [facility] Last Admin: 09/04/20 09:03 Dose: 30 mg Documented by: Furosemide (Furosemide 20 Mg Tablet) 20 mg PO DAILY [facility] Last Admin: 09/04/20 09:02 Dose: 20 mg Documented by: Guaifenesin (Guaifenesin 10 Ml Udc (200mg/10ml)) 10 ml PO Q4H PRN PRN PRN Reason: COUGH Last Admin: 08/22/20 05:56 Dose: 10 ml Documented by: Sodium Chloride () 250 mls @ 15 mls/hr IV .[id number] PRN PRN Reason: Saline Flush Last Infusion: 08/28/20 17:51 Dose: Infused Documented by: Ibuprofen (Ibuprofen 400 Mg Tablet) 400 mg PO Q4H PRN PRN PRN Reason: Pain Score 1-10/Temp > 100.7 F Levothyroxine Sodium (Levothyroxine 50 Mcg Tablet) 50 mcg PO DAILY [facility] Last Admin: 09/04/20 09:02 Dose: 50 mcg Documented by: Potassium Chloride (Potassium Chloride 20 Meq Tablet) 40 meq PO BID [facility] Last Admin: 09/04/20 09:02 Dose: 40 meq Documented by: Senna/Docusate Sodium (Senna/Docusate Sodium 1 Tablet) 2 tablet PO BID [facility] Last Admin: 09/04/20 09:03 Dose: Not Given Documented by: Sodium Chloride (0.9% Saline Lock 10 Ml Syringe) 10 - 40 ml IV UD PRN PRN Reason: SALINE FLUSH Last Admin: 08/31/20 20:03 Dose: 10 ml Documented by: Discharge Diet: No Restrictions Home Medications: Medications to take at Discharge aspirin 81 mg tablet,delayed release 81 mg PO DAILY 01/01/20 levothyroxine 50 mcg tablet 50 mcg PO DAILY 01/01/20 Rosuvastatin Calcium [Crestor] 10 mg PO QHS 04/05/20 Benzonatate [Tessalon Perle] 100 mg PO Q8H PRN PRN 08/19/20 Calcium Carbonate/Vitamin D3 [Calcium 500-Vit D3 200 Tablet] 1 tab PO DAILY 08/19/20 Acetaminophen [Tylenol Tablet] 650 mg PO Q6H PRN PRN tab 09/04/20 Furosemide [Lasix] 20 mg PO DAILY #0 tab 09/04/20 Guaifenesin [Robitussin] 10 ml PO Q4H PRN PRN udc 09/04/20 Ibuprofen [Motrin] 400 mg PO Q4H PRN PRN tab 09/04/20 Potassium Chloride [K-Dur] 40 meq PO BID tab 09/04/20 Primary Care Physician: Bob Billings MD [Primary Care Provider] - Please follow up with your Primary Care Physician in: within 2 weeks of discharge Disposition: Retirement Acute Care Minutes spent on discharge:: 50 Patient Condition:: Stable Medical Necessity - Tobacco Use Smoking Status: Never smoker Tobacco Use: Non-smoker Meaningful Use Info Meaningful Use Diagnoses (Choose all that apply): None applicable Inpatient E&M: 40870 Disch Hosp
--- NOTE | 2020-09-04 12:15 | CASEMGMT ---
RN Note: Patient has been accepted at [facility] in [place]. Ambulance transfer set up through [facility] for 2:30 today. Call to patient and son Parag to update. Dr. Borjas aware and will complete orders and med list. Charge nurse updated, and ambulance form completed. Cameron WRENN RN ACM
--- NOTE | 2020-09-04 13:05 | NURSING ---
report called to [facility]
== END 2020-09-04 14:50 | DRG 177 ==
LOC: ED 11:35 → MS2 13:17 → ICU 08-23 04:41 → MS2 08-27 18:37
PROVIDERS: Hospitalist; Internal Medicine; Internal Medicine Critical Care Medicine; Internal Medicine Infectious Disease; Emergency Provider Emergency Medicine; PCP Family Medicine; Visit Provider Internal Medicine
DX: U07.1 COVID-19 (principal); J12.89 Other viral pneumonia; J96.01 Acute respiratory failure with hypoxia; I47.1 Supraventricular tachycardia; I95.9 Hypotension, unspecified; E87.6 Hypokalemia; I10 Essential (primary) hypertension; E06.3 Autoimmune thyroiditis; E78.5 Hyperlipidemia, unspecified; Z79.82 Long term (current) use of aspirin; Z79.890 Hormone replacement therapy; Z79.899 Other long term (current) drug therapy; Z90.49 Acquired absence of other specified parts of digestive tract
CPT/HCPCS: 36415; 36569; 36600; 71045; 71275; 80048; 80053; 82803; 83605; 83615; 83735; 83880; 84100; 84484; 85025; 85027; 85379; 85384; 85610; 86900; 86901; 87040; 93005; 94003; 94660; 94668; 97110; 97116; 97162; 97166; 97530; 97535; 97802; 99285; J7030; J7040; J7050; Q9967; A4216; J1940

== ENCOUNTER → 2020-09-24 09:15 | Outpatient (CLI) | payer MEDICARE, OTHER, SELFPAY ==
[2020-08-23 10:32] VITALS: BMI 26.6
--- NOTE | 2020-09-24 09:18 | RAD_ITS ---
STUDY: X-RAY CHEST REASON FOR EXAM: Female, 70 years old. Hospitalized for COVID x1 month ago, shortness of breath. TECHNIQUE: PA and lateral views of the chest. COMPARISON: Comparison is made with prior study dated 08/23/2020. FINDINGS: Since prior study, there has been progressive bilateral pulmonary infiltrates. There is no demonstrated pleural abnormality. Normal size heart. Normal mediastinum and omari. Normal visualized pulmonary arteries. There is atherosclerotic calcification of the aortic arch with tortuosity. There are diffuse degenerative changes of the visualized thoracic spine. Stable 1.1 cm bone island in the right humeral neck. There is no demonstrated abnormality of the visualized soft tissue structures of the upper abdomen. RAD/Chest PA and Lateral IMPRESSION: Progressive bilateral pulmonary infiltrates which have increased since prior study. Electronically Signed: Eliecer Cespedes, at 13:52 EST , Service support ,
== END ==
PROVIDERS: PCP Family Medicine; Referring Provider Family Medicine; Visit Provider Family Medicine
DX: U07.1 COVID-19 (principal); J12.89 Other viral pneumonia
CPT/HCPCS: 71046

== ENCOUNTER 2020-09-29 12:37 | Emergency (ER) | payer MEDICARE, OTHER, SELFPAY ==
[2020-08-23 10:32] VITALS: BMI 26.6
[2020-09-29 12:39] VITALS: BP 108/63; PULSE 69; RESP 20; TEMP 36.8; O2SAT 100; BMI 25.9
--- NOTE | 2020-09-29 12:47 | EKG12_ITS ---
Test Reason : SYNCOPE Blood Pressure : / mmHG Vent. Rate : 069 BPM Atrial Rate : 069 BPM P-R Int : 148 ms QRS Dur : 090 ms QT Int : 394 ms P-R-T Axes : 000 -23 -02 degrees QTc Int : 422 ms Normal sinus rhythm Minimal voltage criteria for LVH, may be normal variant ST & T wave abnormality, consider lateral ischemia Abnormal ECG Confirmed by JORGE BUI, JOCE ([id number]), restaurant expeditor ENMANUEL GONZALEZ ([id number]) on 10/12/2020 8:37:31 AM Referred By: OBEY Confirmed By:LES PATEL MD
[2020-09-29 12:59] LABS: Absolute Lymphocyte Count 1.61 X10^3/uL (0.83-4.51); Absolute Neutrophil Count 5.4 X10^3/uL (2.0-7.7); Basophil# 0.02 X10^3/uL; Basophil% 0.2 % (0-1); Eosinophil# 0.05 X10^3/uL; Eosinophils% 0.6 % (0-5); Hematocrit 38.1 % (37-47); Hemoglobin 11.9 g/dL (12.0-15.0); Lymphocyte # 1.61 X10^3/ul (4.0); Mean Corp Hgb Conc 31.2 g/dL (32-36); Mean Corpuscular Hgb 29.7 pg (27.0-32.0); Mean Platelet Vol. 10.9 fl (6.2-12.0); Monocyte# 0.95 X10^3/uL; Monocyte% 11.8 % (0-10); NRBC Flagged by Analyzer 0 % (0-5); Platelet Count 201 K/mm3 (150-450); RBC Distribution Width SD 49.2 fl (35.1-43.9); Red Blood Count 4.01 M/mm3 (4.2-5.4); White Blood Count 8.1 K/mm3 (4.4-11.0)
--- NOTE | 2020-09-29 13:05 | RAD_ITS ---
STUDY: X-RAY CHEST REASON FOR EXAM: Female, 70 years old. Near syncopal episode, discharged recently from ICU after 1 month stay for COVID TECHNIQUE: Single AP portable view of the chest. COMPARISON: Comparison is made with prior study dated 09/24/2020. FINDINGS: EKG electrodes are seen. Residual patchy infiltrates are seen in both lungs preferentially in the lateral distribution. There has been mild degree of improvement as compared to prior study. There is no demonstrated pleural abnormality. Normal size heart. Normal mediastinum and omari. Normal visualized pulmonary arteries. There is atherosclerotic calcification of the aortic arch with tortuosity. There are degenerative changes of the visualized thoracic spine. Normal visualized ribs, clavicles, and shoulders. There is no demonstrated abnormality of the visualized soft tissue structures of the upper abdomen. RAD/Chest 1 View (Portable) IMPRESSION: Persistent bilateral pulmonary infiltrates preferentially in the lateral distribution. These have improved as compared to prior study. Electronically Signed: Eliecer Cespedes, at 13:31 EST , Service support ,
--- NOTE | 2020-09-29 13:10 | ED.VIS.GEN ---
History of Present Illness Chief Complaint: Syncope Narrative: Patient presenting for evaluation secondary to a near syncopal episode. Patient had a recent diagnosis of coronavirus, spent a prolonged period of time in the intensive care unit, was actually admitted for almost a month and was discharged just before . She has been receiving home occupational and physical therapy recently after she was discharged from a rehab stay. Patient was getting home occupational therapy today, had been standing for a period of time and had a near syncopal episode. She denies that there was associated chest pain palpitations, she did state that she felt somewhat short of breath and as if she could not take a deep breath. Patient denies any asymmetric swelling of her legs, she did have a mild increase in her oxygen requirement recently as she was discharged home on 2 L but had to be increased to 3 L. She denies any hemoptysis. She denies any new or recent infectious signs or symptoms such as new cough, nausea vomiting or diarrhea or fevers. Patient does report that she has been vigorously using her incentive spirometer which is caused her to have significant coughing fits over the course of the last couple of days. Past Medical History - Allergies and Home Meds Allergies/Adverse Reactions: Allergies No Known Allergies Allergy (Verified 08/19/20 09:53) Primary Care Physician: Bob Billings MD [Primary Care Provider] - Past Medical History: - - Hypertension, hyperlipidemia Surgical History: noncontributory Smoking Status: Never smoker Review of Systems General: Denies: Chills, Fever, Sweats Eyes: Denies: Visual changes - bilaterally, Diplopia ENT: Denies: Rhinorrhea, Sore throat Cardiovascular: Reports: - - Near syncope Respiratory: Reports: Dyspnea Gastrointestinal: Denies: Abdominal pain, Nausea, Vomiting, Diarrhea, Melena, Hematochezia Genitourinary: Denies: Dysuria, Hematuria, Frequency Musculoskeletal: Denies: Back pain, Extremity Pain Skin: Denies: Rash, Wounds Neurological: Denies: Headache, Weakness, Numbness Physical Exam Vital Signs/Narrative: Vital Signs Temp Pulse Resp BP Pulse Ox 09/29/20 12:39 98.2 F 69 20 H 108/63 100 Inital Vital Signs reviewed: Yes General: Well nourished, Well developed, No Acute Distress Head: Normocephalic, Atraumatic Eyes: Perrl, EOMI ENT: Moist mucous membranes, No rhinorrhea Neck: Supple, Nontender Cardiovascular: Regular rate, Regular rhythm, No murmurs Respiratory: No distress, CTA bilaterally, Chest nontender, - - Patient is not in respiratory distress on her supplemental nasal cannula oxygen Abdomen: Soft, Nontender, Nondistended, Normal bowel sounds Back: Nontender, Normal Inspection Extremities: Nontender, No edema - No asymmetric leg or calf swelling is noted Skin: Normal color, No rash Neurological: Alert, Oriented x3, Cranial nerves II-XII grossly intact, Normal Strength, Normal Sensation Psychological: Normal affect, Normal Mood Diagnostic/Tx/Re-eval Clinical Impression(s) from Imaging Studies Chest X-Ray 09/29/20 13:05 IMPRESSION: Persistent bilateral pulmonary infiltrates preferentially in the lateral distribution. These have improved as compared to prior study. Electronically Signed: Eliecer Cespedes, at 13:31 EST , Service support , Chest CTA 09/29/20 13:23 IMPRESSION: Persistent bilateral pulmonary infiltrates although there has been a mild degree of improvement as compared to prior study. No evidence of a pulmonary emboli. Electronically Signed: Eliecer Cespedes, at 15:03 EST , Service support , Laboratory Data 09/29/20 09/29/20 09/29/20 12:50 12:50 12:50 WBC 8.1 RBC 4.01 L Hgb 11.9 L Hct 38.1 MCV 95.0 MCH 29.7 MCHC 31.2 L RDW Std Deviation 49.2 H RDW Coeff of Dar 14.0 Plt Count 201 MPV 10.9 Immature Gran % (Auto) 0.400 Neut % (Auto) 67.0 Lymph % (Auto) 20.0 Hendricks % (Auto) 11.8 H Eos % (Auto) 0.6 Baso % (Auto) 0.2 Absolute Neuts (auto) 5.4 Absolute Lymphs (auto) 1.61 Nucleated RBC % 0 D-Dimer Quant (PE/DVT) 1.18 H* Sodium 142 Potassium 3.0 L Chloride 104 Carbon Dioxide 33.0 H Anion Gap 5 BUN 9 Creatinine 0.69 Estim Creat Clear Calc 52.81 Est GFR (MDRD) Af Amer 107 Est GFR (MDRD) Non-Af 89 BUN/Creatinine Ratio 13.0 Glucose 111 H Calcium 9.7 Troponin I < 0.015 - Medical Decision Making Patient presented to evaluate for what she described as a possible syncopal episode. EKG demonstrates no signs of ischemic or arrhythmic changes. Due to the patient's recent hospital admission with coronavirus, I did work the patient up for the possibility of pulmonary embolism versus other etiology for her syncope. CBC and chemistry did not show significant abnormalities, troponin was negative. Chest x-ray by my personal review as well as radiology shows signs of resolving Covid pneumonia. Patient's D-dimer unfortunately was positive so I did perform a CT angiogram of the chest. This was negative for PE, continues to show the patient's Covid pneumonia. 1 backed into tell the patient about these negative results, seems to me that maybe she overexerted herself when she was doing occupational therapy, and after having an extended conversation with the patient really seems she also has a significant element of anxiety about her Covid infection and her continued dyspnea. I did give the patient significant reassurance, I do not feel that she requires admission for rule out of cardiac arrhythmia. Patient will continue with physical therapy and Occupational Therapy. Patient was discharged in stable condition. ED Disposition - Plan for ED Patient: Disposition: Home or Assisted Living Diagnosis: COVID-19 virus detected Instructions: Coronavirus Disease 2019 (COVID-19): Caring for Yourself or Others Referrals: Bob Billings MD [Primary Care Provider] - 5-7 Days
[2020-09-29 13:18] LABS: D-Dimer Quantitative (DVT/PE) 1.18 FEU/ug/m (0.27-0.49)
[2020-09-29 13:19] LABS: Anion Gap 5 (5-15); BUN 9 mg/dL (7-18); Calcium,Total 9.7 mg/dL (8.5-10.1); Chloride 104 mmol/L (98-107); Creatinine, Serum 0.69 mg/dL (0.55-1.02); EST Glomerular Filtration Rate 89 mL/min (>60); Est Glom Filt Rate - Afr Amer 107 mL/min (>60); Estimated Creatinine Clearance 52.81 ml/min; Glucose 111 mg/dL (74-106); Sodium Level 142 mmol/L (136-145)
[2020-09-29 13:21] VITALS: O2SAT 100
--- NOTE | 2020-09-29 13:23 | CT_ITS ---
STUDY: CTA CHEST REASON FOR EXAM: Female, 70 years old. NEAR SYNCOPE, RECENT COVID, HTN, TROUBLE BREATHING RADIATION DOSAGE (If Supplied By Facility): CTDIvol = ( 10.94 ) mGy, DLP = ( 329.81 ) mGycm TECHNIQUE: The examination was performed with the intravenous administration of IV 100mL Isovue-370. Post-processing of the angiographic images was performed, with multiplanar reformation and 3D reconstruction. Individualized dose optimization techniques were used for this CT. COMPARISON: Comparison is made with prior study dated 08/19/2020. FINDINGS: Normal enhancement of the main pulmonary artery and right and left pulmonary arteries. Normal enhancement of the bilateral peripheral pulmonary arteries. There is no demonstrated pulmonary embolism. There is atherosclerotic calcification of the aortic arch with tortuosity. There is no demonstrated aortic dissection. There are calcifications of the coronary arteries. Normal mediastinum. Normal hilar regions. Normal visualized trachea and bronchi. The lungs are well expanded. Once again, there is evidence of diffuse bilateral patchy infiltrates with a groundglass appearance involving both lungs. There has been a mild degree of improvement as compared to prior study. Normal pleura. Normal chest wall structures. There are degenerative changes of thoracic spine. Solitary gallstone. Small hiatal hernia. CT/CTA Chest W/WO Contrast IMPRESSION: Persistent bilateral pulmonary infiltrates although there has been a mild degree of improvement as compared to prior study. No evidence of a pulmonary emboli. Electronically Signed: Eliecer Cespedes, at 15:03 EST , Service support ,
[2020-09-29 14:47] VITALS: BP 134/61; PULSE 75; RESP 15; O2SAT 99
--- NOTE | 2020-09-29 15:00 | ED.RN ---
Shay, son, called in to check on status of mother. Rn informed him of waiting for test results.
[2020-09-29 16:07] VITALS: BP 120/69; PULSE 68; RESP 16; O2SAT 97
== END 2020-09-29 16:41 | disposition home or self-care (01) ==
PROVIDERS: Emergency Provider Emergency Medicine; PCP Family Medicine
DX: U07.1 COVID-19 (principal); J12.89 Other viral pneumonia; R55 Syncope and collapse; I10 Essential (primary) hypertension; E78.5 Hyperlipidemia, unspecified; Z79.82 Long term (current) use of aspirin; Z79.899 Other long term (current) drug therapy; Z86.19 Personal history of other infectious and parasitic diseases
CPT/HCPCS: 71045; 71275; 80048; 84484; 85025; 85379; 93005; 99285

== ENCOUNTER → 2020-10-05 08:16 | Outpatient (CLI) | payer MEDICARE, OTHER, SELFPAY ==
[2020-09-29 12:39] VITALS: BMI 25.9
[2020-10-05 09:47] LABS: Potassium 3.3 mmol/L (3.5-5.1)
== END ==
PROVIDERS: PCP Family Medicine; Referring Provider Family Medicine; Visit Provider Family Medicine
DX: E87.6 Hypokalemia (principal)
CPT/HCPCS: 36415; 84132

== ENCOUNTER → 2020-10-07 11:39 | Outpatient (CLI) | payer MEDICARE, OTHER, SELFPAY ==
[2020-09-29 12:39] VITALS: BMI 25.9
--- NOTE | 2020-10-07 11:42 | RAD_ITS ---
STUDY: X-RAY CHEST REASON FOR EXAM: Female, 70 years old. 2019 novel coronavirus-infected pneumonia TECHNIQUE: 2 views COMPARISON: Prior portable chest exam of 09/29/2020 FINDINGS: The lung andrews are remaining expanded with a modest improvement in the bilateral diffuse pulmonary infiltrates. Negative for new consolidation, atelectasis or pleural effusion. Normal size heart. Normal mediastinum and omari. Normal visualized pulmonary arteries. There is atherosclerotic calcification of the aortic arch with tortuosity. There are diffuse degenerative changes of the visualized thoracic spine. Normal visualized ribs, clavicles, and shoulders. There is no demonstrated abnormality of the visualized soft tissue structures of the upper abdomen. RAD/Chest PA and Lateral IMPRESSION: Modest improvement in the bilateral diffuse infiltrates. There are no new areas of consolidation, atelectasis or pleural effusion. Stable cardiac size. Electronically Signed: Jennifer Maynard MD at 19:31 EST , Service support ,
== END ==
PROVIDERS: PCP Family Medicine; Referring Provider Family Medicine; Visit Provider Family Medicine
DX: U07.1 COVID-19 (principal)
CPT/HCPCS: 71046

== ENCOUNTER → 2020-11-16 12:21 | Outpatient (CLI) | payer MEDICARE, OTHER, SELFPAY ==
[2020-11-16 15:13] LABS: Absolute Lymphocyte Count 2.09 X10^3/uL (0.83-4.51); Basophil# 0.03 X10^3/uL; Basophil% 0.4 % (0-1); Eosinophil# 0.11 X10^3/uL; Eosinophils% 1.6 % (0-5); Hematocrit 41.7 % (37-47); Hemoglobin 13.2 g/dL (12.0-15.0); Lymphocyte # 2.09 X10^3/ul (4.0); Lymphocyte % 30.3 % (19-41); Mean Corp Hgb Conc 31.7 g/dL (32-36); Mean Corpuscular Hgb 30.1 pg (27.0-32.0); Mean Platelet Vol. 11.9 fl (6.2-12.0); Monocyte# 0.62 X10^3/uL; NRBC Flagged by Analyzer 0 % (0-5); Neutrophil # 4.02 X10^3/uL (2.7-7.7); Neutrophil % 58.4 % (47-70); Platelet Count 196 K/mm3 (150-450); RBC Distribution Width CV 13.6 % (11.6-14.6); RBC Distribution Width SD 47.8 fl (35.1-43.9); Red Blood Count 4.39 M/mm3 (4.2-5.4); White Blood Count 6.9 K/mm3 (4.4-11.0)
[2020-11-16 15:53] LABS: ALB/GLOB Ratio 1.1 RATIO (0.9-2.4); AST(SGOT) 20 U/L (15-37); Alanine Aminotransfer ALT/SGPT 30 U/L (13-56); Alkaline Phosphatase 71 U/L (45-117); Anion Gap 6 (5-15); BUN 14 mg/dL (7-18); BUN/Creat Ratio 17.8 RATIO (10-20); Calcium,Total 9.8 mg/dL (8.5-10.1); Chloride 105 mmol/L (98-107); Cholesterol 172 mg/dL (200); Creatinine, Serum 0.79 mg/dL (0.55-1.02); EST Glomerular Filtration Rate 77 mL/min (>60); Est Glom Filt Rate - Afr Amer 93 mL/min (>60); Globulin 3.8 g/dL (2.2-4.2); Glucose 89 mg/dL (74-106); High Density Lipoprotein 53 mg/dL; Potassium 3.4 mmol/L (3.5-5.1); Protein, Total 7.8 g/dL (6.4-8.2); Sodium Level 141 mmol/L (136-145); T4 Free Direct 0.95 ng/dL (0.76-1.46); Thyroid Stim Hormone (TSH) 3.12 uIU/mL (0.358-3.74); Triglycerides 149 mg/dL; Very Low Density Lipoprotein 30 mg/dL (5-40)
== END ==
PROVIDERS: PCP Family Medicine; Referring Provider Family Medicine; Visit Provider Family Medicine
DX: I10 Essential (primary) hypertension (principal); E78.5 Hyperlipidemia, unspecified; E06.3 Autoimmune thyroiditis
CPT/HCPCS: 36415; 80053; 80061; 84439; 84443; 85025

== ENCOUNTER → 2020-11-18 10:05 | Outpatient (CLI) | payer MEDICARE, OTHER, SELFPAY ==
[2020-11-18 13:39] LABS: CPK Total, Creatine Kinase 69 U/L (26-192); Ferritin 103 ng/mL (8-252); Magnesium 2.1 mg/dL (1.6-2.6)
== END ==
PROVIDERS: PCP Family Medicine; Referring Provider Family Medicine; Visit Provider Family Medicine
DX: R25.2 Cramp and spasm (principal)
CPT/HCPCS: 36415; 82550; 82728; 83735

== ENCOUNTER → 2020-12-22 11:28 | Outpatient (CLI) | payer MEDICARE, OTHER, SELFPAY ==
--- NOTE | 2020-12-22 11:30 | US_ITS ---
INDICATION: 70-year-old female. Thyroid nodule follow-up.. COMPARISON: 12/23/2019. TECHNIQUE: Ultrasound of the thyroid is performed. FINDINGS: Right Lobe: 3.8 x 1.5 x 1.2 cm. Heterogeneous. Normal Doppler flow. Isthmus: 3 mm. Left lobe: 3.8 x 1.6 x 1.5 cm. Heterogeneous. Normal Doppler flow. Nodules: Thyroid nodules measuring greater than 5mm are present, as described below: #1- Location: Right medial Size: 12 mm. Composition: Solid or almost completely solid (2 pts) Echogenicity: Hyperechoic or isoechoic (1 pt) Shape: Wider than tall (0 pts) Margins: Smooth (0 pts) Echogenic Foci: None or large comet-tail artifacts (0 pts) #2- Location: Right upper Size: 18 mm. Composition: Solid or almost completely solid (2 pts) Echogenicity: Hyperechoic or isoechoic (1 pt) Shape: Wider than tall (0 pts) Margins: Smooth (0 pts) Echogenic Foci: None or large comet-tail artifacts (0 pts) #3- Location: Isthmus Size: 9 mm. Composition: Solid or almost completely solid (2 pts) Echogenicity: Hyperechoic or isoechoic (1 pt) Shape: Wider than tall (0 pts) Margins: Smooth (0 pts) Echogenic Foci: None or large comet-tail artifacts (0 pts) Prominent regional lymph nodes are nonspecific US/Thyroid IMPRESSION: Reidentified diffuse heterogeneous gland parenchyma may indicate thyroiditis. Several thyroid nodules as described above, largest measures up to 18 mm, TR 3. Continued follow-up is recommended. TI-RADS follow up recommendations: TR1: Benign (0pts) No FNA biopsy. TR2: Not suspicious (2 pts) No FNA biopsy. TR3: Mildly suspicious (3 pts) FNA biopsy if nodule at least 2.5cm; follow if at least 1.5cm. TR4: Moderately suspicious (4-6 pts) FNA biopsy if nodule at least 1.5cm; follow if at least 1 cm. TR5: Highly suspicious (at least 7 pts) FNA if nodule at least 1cm; follow if at least 0.5cm. Electronically Signed: Buck Chi MD at 16:33 EST Tel , Service support ,
== END ==
PROVIDERS: PCP Family Medicine; Referring Provider Family Medicine; Visit Provider Family Medicine
DX: E04.1 Nontoxic single thyroid nodule (principal)
CPT/HCPCS: 76536

== ENCOUNTER → 2020-12-31 12:34 | Outpatient (CLI) | payer MEDICARE, OTHER, SELFPAY ==
--- NOTE | 2020-12-31 12:37 | BI_ITS ---
MAMMOGRAPHY - BILATERAL SCREENING REASON FOR EXAM: Female, 70 years old. Routine annual screening examination. PERTINENT HISTORY: NO FAM HX GAINED 10+# NO SX BILAT MOLES MARKED LAST [id number] HERE NOT AVAILABLE TECHNIQUE: Digital bilateral breast bethany (3D mammographic acquisition) in the CC and MLO projections. 2-D mediolateral oblique (MLO) and craniocaudad (CC) views of both breasts were obtained. CAD: Full Field Digital Mammography with Computer Added Detection was performed. COMPARISON: None. FINDINGS: Breast Composition: The breasts are extremely dense, which lowers the sensitivity of mammography. There are no dominant masses or suspicious calcifications. No other significant abnormalities are identified. BI/SCRN MAMM (CAD)W/BETHANY BILAT IMPRESSION: Stable bilateral screening mammogram. Yearly follow-up mammogram recommended. (A) ASSESSMENT CATEGORY: BIRADS Category 2: Benign. A letter regarding these results will be sent to the patient by the facility within 30 days. Approximately 10% of breast cancers are not detected by mammography. A normal mammogram should not delay biopsy of a clinically suspicious abnormality. [id number] Electronically Signed: Ana M Yancey MD at 16:39 EST Tel , Service support ,
--- NOTE | 2020-12-31 12:53 | BD_ITS ---
STUDY: DUAL ENERGY X-RAY ABSORPTIOMETRY / DXA REASON FOR EXAM: Female, 70 years old. Z780 TECHNIQUE: Bone Mineral Density (BMD) measurements of lumbar spine and bilateral hips were obtained. COMPARISON: None. FINDINGS: Lumbar Spine (L1-L4): g/cm2 (0.876) / T-score (-2.4) / Z-score (-0.7) Findings are suggestive of osteopenia with a high fracture risk. Increased kyphosis. Left Femur Total: g/cm2 (0.756) / T-score (-2.0) / Z-score (-0.5) Left Femoral Neck: g/cm2 (0.797) / T-score (-1.7) / Z-score (0.0) Right Femur Total: g/cm2 (0.820) / T-score (-1.5) / Z-score (0.0) Right Femoral Neck: g/cm2 (0.808) / T-score (-1.7) / Z-score (0.1) BD/Dexa Bone Density Study IMPRESSION: The patient is considered osteopenic as outlined below according to World Alan Organization (WHO) criteria with a high fracture risk. Reference Information: The T-score is the number of standard deviations above or below the standard which is normal for young adults at their peak bone mineral density. The World Health Organization (WHO) interprets the T-scores as follows: Above -1 Normal bone density Between -1 and -2.5 Osteopenia Equal to / or below -2.5 Osteoporosis As a practical clinical guideline, osteopenia may be graded as follows: Mild -1 through -1.5 Moderate -1.6 through -2.0 Severe -2.1 through -2.4 The Z-score is the number of standard deviations above or below age-matched controls. A Z-score of less than -1.5 would be considered abnormal. References: 1. NIH Osteoporosis and Related Bone Diseases www osteo.org 2. International Society for Clinical Densitometry www iscd.org 3. National Osteoporosis Foundation www nof.org Electronically Signed: Eliecer Cespedes MD at 8:48 EDT , Service support ,
== END ==
PROVIDERS: PCP Family Medicine; Referring Provider Family Medicine; Visit Provider Family Medicine
DX: Z12.31 Encounter for screening mammogram for malignant neoplasm of breast (principal); M85.80 Other specified disorders of bone density and structure, unspecified site; Z78.0 Asymptomatic menopausal state
CPT/HCPCS: 77063; 77067; 77080

== ENCOUNTER → 2021-01-11 11:19 | Outpatient (CLI) | payer MEDICARE, OTHER, SELFPAY ==
--- NOTE | 2021-01-11 11:25 | RAD_ITS ---
INDICATION: hx of covid JulAug 2020. Pt still has occasional cough and wears O2 at night. EXAMINATION/TECHNIQUE: X-RAY - XR Chest 2 Views COMPARISON: 10/07/2020. FINDINGS: Near resolution of previously described patchy bilateral infiltrates. Tortuous calcified thoracic aorta. The heart is not enlarged. No pleural effusion or pneumothorax. No acute osseous abnormalities. RAD/Chest PA and Lateral IMPRESSION: Near resolution of previously described patchy bilateral infiltrates. No new acute findings. Electronically Signed: Remington Womack MD at 20:40 EDT Tel , Service support ,
[2021-01-11 11:54] LABS: Erythrocyte Sedimentation Rate 9 mm/hr (0-30)
[2021-01-11 12:18] LABS: CRP 4.87 mg/L (0.0-3.0)
== END ==
PROVIDERS: PCP Family Medicine; Referring Provider Internal Medicine Pulmonary Disease; Visit Provider Internal Medicine Pulmonary Disease
DX: U07.1 COVID-19 (principal); R06.00 Dyspnea, unspecified; J12.9 Viral pneumonia, unspecified; I10 Essential (primary) hypertension
CPT/HCPCS: 36415; 71046; 85652; 86140

== ENCOUNTER → 2021-01-14 11:50 | Outpatient (CLI) | payer MEDICARE, OTHER, SELFPAY ==
[2021-01-14 16:16] LABS: Vitamin D,25 Hydroxy 30.5 ng/mL
== END ==
PROVIDERS: PCP Family Medicine; Referring Provider Family Medicine; Visit Provider Family Medicine
DX: M85.80 Other specified disorders of bone density and structure, unspecified site (principal)
CPT/HCPCS: 36415; 82306

== ENCOUNTER 2021-01-19 05:22 | Day surgery (SDC) | payer MEDICARE, OTHER, SELFPAY ==
[2021-01-19] VITALS (17 sets, daily range): BP systolic 81–128; BP diastolic 43–69; PULSE 52–70; RESP 16–18; TEMP 36–36.8; O2SAT 93–100; BMI 26.2
[2021-01-19] MEDS: Lactated Ringers 1,000 ML 100 ML IV ×2 (06:03→07:00)
--- NOTE | 2021-01-19 06:12 | PCM.HP.STD ---
Problem List (1) Screening for intestinal cancer Status: Acute History of Present Illness Date of Admission: 01/19/21 The patient is a 70 year old F presents for screening colonoscopy today. She thinks her previous colonoscopy was possibly as long as 10 years ago. She denies bright red blood per rectum or melena. No abdominal pain. JulyAugust 2020 she did have COVID-19 and was hospitalized. Pulmonary issues were primary complaint. She feels like she is making a strong recovery. She still requires low-dose oxygen at night. She denies personal history of colon cancer or family history of colon cancer. She otherwise states that she enjoys good health. Past Medical History Past Medical History (Chronic Problems): Chronic Problems (Last Reviewed 08/19/20 @ 12:[address] Benigno Melgar DO) History of colonoscopy (Chronic ~2014) History of bowel resection (Chronic ~1970) Hyperlipidemia (Chronic) Santiago's thyroiditis (Chronic) HTN (hypertension) (Chronic) Medical History: Medical History (Last Reviewed 08/19/20 @ 12:[address] Benigno Melgar DO) Hyperlipidemia (Chronic) E78.5 Santiago's thyroiditis (Chronic) E06.3 HTN (hypertension) (Chronic) I10 Allergies No Known Allergies Allergy (Verified 01/19/21 05:45) Home Medications: Ambulatory Orders Medication Instructions Recorded aspirin 81 mg tablet,delayed 81 mg PO DAILY 01/01/20 release levothyroxine 50 mcg tablet 50 mcg PO DAILY 01/01/20 Rosuvastatin Calcium [Crestor] 10 mg PO QHS 04/05/20 Acetaminophen [Tylenol Tablet] 650 mg PO Q6H PRN PRN tab 09/04/20 Ibuprofen [Motrin] 400 mg PO Q4H PRN PRN tab 09/04/20 Lisinopril/Hydrochlorothiazide 1 ea PO DAILY 09/29/20 [Lisinopril-Hctz 10-12.5 mg Tab] Cholecalciferol (Vitamin D3) 25 mcg PO DAILY 01/13/21 [Vitamin D3] Ubidecarenone [Coq-10] 100 mg PO DAILY 01/13/21 Surgical History: Surgical History (Last Reviewed 08/19/20 @ 12:[address] Benigno Melgar DO) History of colonoscopy (Chronic) Onset Date: ~2014 Z98.890 History of bowel resection (Chronic) Onset Date: ~1970 Z90.49 Surgical History: noncontributory Smoking Status: Never smoker Tobacco Use: Non-smoker Review of Systems Constitutional: Denies: Fever, Night Sweats Cardiovascular: Denies: Chest Pain Respiratory: Reports: - - No oxygen during the day Gastrointestinal: Denies: Abdominal Pain, Melena Endocrine: Denies: Change in Body Habitus VTE Information - Inpt Only VTE Present on Admission: No - Physical Exam Vitals/I&O's: Vital Signs Temp Pulse Resp BP 98.3 F 70 16 100/66 01/19/21 05:46 01/19/21 05:46 01/19/21 05:46 01/19/21 05:46 Oxygen Delivery Method Room Air Weight: 167 lb 5.294 oz Body Mass Index (BMI) 26.2 General: Alert, Oriented x3, Cooperative, No apparent distress HEENT: Atraumatic Oral: Moist Mucosa Neck: Supple Lungs: Clear to auscultation, Normal air movement Cardiovascular: Regular rate, Regular Rhythm Abdomen: Soft, Non Tender Extremities: No Calf Tenderness Neurological: - - Normal cognition Psych/Mental Status: Normal Affect Microbiology Past 72 Hours 01/18/21 08:55 Interface Orders SARS-CoV-2 Antigen (Rapid) - Final Current Medications Lactated Ringer's () 1,000 mls @ 100 mls/hr IV .Q10H JESSY Last Admin: 01/19/21 06:03 Dose: 100 mls/hr Documented by: Assessment/Plan All Active Problems (Last Reviewed 08/19/20 @ 12:[address] Benigno Melgar, DO) COVID-19 virus detected (Acute) Pneumonia due to severe acute respiratory syndrome coronavirus (Acute) Acute respiratory failure with hypoxia (Acute) Screening for intestinal cancer (Acute) The patient presents today via open access for screening colonoscopy with possible biopsy or polypectomy as indicated. She is aware of the technique, benefit, risk, alternatives. She has had an opportunity to ask and have questions answered. We will proceed as noted. Tommy Nunez M.D., F.A.C.S.
--- NOTE | 2021-01-19 06:53 | OP.COLON_ITS ---
Patient Name: Pedrito Alvarez Procedure Date: 01/19/2021 6:10 AM Date of : 1950 Age: 70 Procedure: Colonoscopy Indications: Screening for colorectal malignant neoplasm Providers: Tommy Nunez MD Referring MD: Bob Billings Medicines: Midazolam 3.5 mg IV, Meperidine 100 mg IV Patient Profile: Last Colonoscopy: 10 years ago. Complications: No immediate complications. Procedure: Pre-Anesthesia Assessment: - Prior to the procedure, a History and Physical was performed, and patient medications and allergies were reviewed. The patient's tolerance of previous anesthesia was also reviewed. The risks and benefits of the procedure and the sedation options and risks were discussed with the patient. All questions were answered, and informed consent was obtained. Prior Anticoagulants: The patient has taken no previous anticoagulant or antiplatelet agents. ASA Grade Assessment: II - A patient with mild systemic disease. After reviewing the risks and benefits, the patient was deemed in satisfactory condition to undergo the procedure. After I obtained informed consent, the scope was passed under direct vision. Throughout the procedure, the patient's blood pressure, pulse, and oxygen saturations were monitored continuously. The colonoscope was introduced through the anus and advanced to the cecum, identified by appendiceal orifice and ileocecal valve. The colonoscopy was somewhat difficult due to a tortuous colon. Successful completion of the procedure was aided by applying abdominal pressure. The patient tolerated the procedure well. The quality of the bowel preparation was adequate to identify polyps. The ileocecal valve and the appendiceal orifice were photographed. Moderate Sedation: Moderate (conscious) sedation was personally administered by the endoscopist. The following parameters were monitored: oxygen saturation, heart rate, blood pressure, and response to care. Total physician intraservice time was 18 minutes. Scope In: 6:28:41 AM Scope Withdrawal Time 0 hours 8 minutes 33 seconds Scope Out: 6:46:59 AM Total Procedure Duration Time 0 hours 18 minutes 18 seconds Findings: Hemorrhoids were found on perianal exam. Multiple diverticula were found in the sigmoid colon and descending colon. The left colon was moderately tortuous. Advancing the scope required using manual pressure. The exam was otherwise without abnormality. Impression: - Hemorrhoids found on perianal exam. - Diverticulosis in the sigmoid colon and in the descending colon. - Tortuous colon. - The examination was otherwise normal. - No specimens collected. Recommendation: - Discharge patient to home. - Resume previous diet. - Continue present medications. - Repeat colonoscopy in 10 years for screening purposes. Procedure Code(s): --- Professional --- 77680, Colonoscopy, flexible; diagnostic, including collection of specimen(s) by brushing or washing, when performed (separate procedure) 15350, 59, Moderate sedation services provided by the same physician or other qualified health transition of care specialist performing the diagnostic or therapeutic service that the sedation supports, requiring the presence of an independent trained observer to assist in the monitoring of the patient's level of consciousness and physiological status; initial 15 minutes of intraservice time, patient age 5 years or older Diagnosis Code(s): --- Professional --- Z12.11, Encounter for screening for malignant neoplasm of colon K64.9, Unspecified hemorrhoids K57.30, Diverticulosis of large intestine without perforation or abscess without bleeding Q43.8, Other specified congenital malformations of intestine CPT copyright 2017 [employer]. All rights reserved. The codes documented in this report are preliminary and upon chemical equipment sales engineer review may be revised to meet current compliance requirements. Tommy Nunez MD 01/19/2021 6:52:44 AM This report has been signed electronically. Number of Addenda: 0 Note Initiated On: 01/19/2021 6:10 AM
--- NOTE | 2021-01-19 06:53 | OP.CCLET_ITS ---
01/19/2021 Bob Billings [address] [place] [address] Re : Colonoscopy procedure for Pedrito Alvarez Dear Dr. Billings This procedure was performed on Tuesday, January 19, 2021. My impressions and recommendations are as follows: Impressions : - Hemorrhoids found on perianal exam. - Diverticulosis in the sigmoid colon and in the descending colon. - Tortuous colon. - The examination was otherwise normal. - No specimens collected. Recommendations : - Discharge patient to home. - Resume previous diet. - Continue present medications. - Repeat colonoscopy in 10 years for screening purposes. My findings are described in the full procedure note, which is enclosed. If I can be of further assistance, please feel free to contact me at Doctor phone number(s): Work: . Sincerely, Tommy Nunez MD 01/19/2021 6:52:44 AM This report has been signed electronically.
== END 2021-01-19 08:13 | disposition home or self-care (01) ==
LOC: EN 05:22 → AC 05:23
PROVIDERS: PCP Family Medicine; Referring Provider Family Medicine; Visit Provider Surgery
PROC: 0DJD8ZZ Inspection of Lower Intestinal Tract, Via Natural or Artificial Opening Endoscopic (ICD-10-PCS; CPT 45378; principal; 2021-01-19 06:25)
DX: Z12.11 Encounter for screening for malignant neoplasm of colon (principal); K64.9 Unspecified hemorrhoids; Q43.8 Other specified congenital malformations of intestine; K57.30 Diverticulosis of large intestine without perforation or abscess without bleeding; Z20.828 Contact with and (suspected) exposure to other viral communicable diseases; I10 Essential (primary) hypertension; E78.5 Hyperlipidemia, unspecified; E06.3 Autoimmune thyroiditis; E78.00 Pure hypercholesterolemia, unspecified; Z78.0 Asymptomatic menopausal state; Z86.16 Personal history of COVID-19; Z86.718 Personal history of other venous thrombosis and embolism; Z79.899 Other long term (current) drug therapy
CPT/HCPCS: G0121; 87426; 99152; 99153; C9803; J7120

== ENCOUNTER → 2021-03-09 10:25 | Outpatient (CLI) | payer MEDICARE, OTHER, SELFPAY ==
[2021-02-19 11:23] VITALS: BMI 26.2
[2021-03-09 10:28] LABS: Mucous, Urine 0 SEEN /hpf (<or=2+); Red Blood Cells-Urine 0 SEEN /hpf (0-5); Squamous Epithelial Cells - UA 0 SEEN /hpf (5-10)
[2021-03-09 12:30] LABS: Absolute Lymphocyte Count 2.29 X10^3/uL (0.83-4.51); Absolute Neutrophil Count 3.5 X10^3/uL (2.0-7.7); Basophil# 0.05 X10^3/uL; Basophil% 0.8 % (0-1); Eosinophil# 0.09 X10^3/uL; Eosinophils% 1.4 % (0-5); Hematocrit 40.4 % (37-47); Hemoglobin 12.8 g/dL (12.0-15.0); Lymphocyte # 2.29 X10^3/ul (0.83-4.51); Lymphocyte % 35.7 % (19-41); Mean Corp Hgb Conc 31.7 g/dL (32-36); Mean Corpuscular Hgb 29.5 pg (27.0-32.0); Mean Corpuscular Volume 93.1 fL (81-99); Monocyte# 0.47 X10^3/uL; Monocyte% 7.3 % (0-10); NRBC Flagged by Analyzer 0 % (0-5); Neutrophil # 3.49 X10^3/uL (2.7-7.7); Neutrophil % 54.5 % (47-70); Platelet Count 184 K/mm3 (150-450); RBC Distribution Width CV 13.8 % (11.6-14.6); RBC Distribution Width SD 46.8 fl (35.1-43.9); Red Blood Count 4.34 M/mm3 (4.2-5.4); White Blood Count 6.4 K/mm3 (4.4-11.0)
[2021-03-09 12:54] LABS: Color, Urine Yellow (Yellow); Glucose, Dipstick Normal (Normal); Ketone-Dipstick Negative (Negative); Leukocyte Esterase-Dipstick 25 /ul (Negative); Nitrite-Dipstick Negative (Negative); Occult Blood-Urine Negative /ul (Negative); Protein-Dipstick Negative (Negative); Specific Gravity, Urine 1.015 (1.002-1.030); Urine Bilirubin Dipstick Negative (Negative); Urine Clarity Clear (Clear); Urine Urobilinogen Normal (Normal)
[2021-03-09 13:02] LABS: Bacteria 3+ /hpf (None Seen); White Blood Cells 0-5 SEEN /hpf (0-5)
[2021-03-09 13:09] LABS: ALB/GLOB Ratio 0.9 RATIO (0.9-2.4); AST(SGOT) 18 U/L (15-37); Alanine Aminotransfer ALT/SGPT 29 U/L (13-56); Albumin, Serum 3.6 g/dL (3.2-5.0); Alkaline Phosphatase 74 U/L (45-117); Anion Gap 3 (5-15); BUN 15 mg/dL (7-18); BUN/Creat Ratio 20.7 RATIO (10-20); Calcium,Total 9.6 mg/dL (8.5-10.1); Chloride 106 mmol/L (98-107); Cholesterol 181 mg/dL (200); Creatinine, Serum 0.72 mg/dL (0.55-1.02); EST Glomerular Filtration Rate 85 mL/min (>60); Est Glom Filt Rate - Afr Amer 102 mL/min (>60); Globulin 4.1 g/dL (2.2-4.2); Glucose 99 mg/dL (74-106); High Density Lipoprotein 62 mg/dL; Potassium 3.7 mmol/L (3.5-5.1); Protein, Total 7.7 g/dL (6.4-8.2); Sodium Level 141 mmol/L (136-145); T4 Free Direct 0.85 ng/dL (0.76-1.46); Thyroid Stim Hormone (TSH) 3.07 uIU/mL (0.358-3.74); Triglycerides 127 mg/dL; Very Low Density Lipoprotein 25 mg/dL (5-40)
== END ==
PROVIDERS: PCP Family Medicine; Referring Provider Family Medicine; Visit Provider Family Medicine
DX: I10 Essential (primary) hypertension (principal); E06.3 Autoimmune thyroiditis; E78.5 Hyperlipidemia, unspecified
CPT/HCPCS: 36415; 80053; 80061; 81001; 84439; 84443; 85025

== ENCOUNTER → 2021-08-26 | Outpatient (CLI) | payer MEDICARE, OTHER, SELFPAY | END | disposition home or self-care (01) | PROVIDERS: PCP Family Medicine; Visit Provider Family Medicine | DX: B34.9 Viral infection, unspecified (principal) | CPT/HCPCS: 87635; U0005; U0003 ==

== ENCOUNTER → 2021-08-31 14:51 | Outpatient (CLI) | payer MEDICARE, OTHER, SELFPAY ==
--- NOTE | 2021-08-31 14:54 | RAD_ITS ---
STUDY: X-RAY CHEST REASON FOR EXAM: Female, 71 years old. CHEST PAIN COVID TECHNIQUE: XR Chest 2 Views COMPARISON: 01/11/2021 FINDINGS: There is no demonstrated pleural abnormality. There is bilateral infiltrate. Normal size heart. Normal mediastinum and omari. Normal visualized pulmonary arteries. There is atherosclerotic calcification of the aortic arch with tortuosity. There are diffuse degenerative changes of the visualized thoracic spine. There is degenerative osteoarthritis of the bilateral shoulders. There is no demonstrated abnormality of the visualized soft tissue structures of the upper abdomen. RAD/Chest PA and Lateral IMPRESSION: Bilateral pneumonia. Electronically Signed: Horace Olson MD at 17:04 EST , Service support ,
== END ==
PROVIDERS: PCP Family Medicine; Referring Provider Family Medicine; Visit Provider Family Medicine
DX: U07.1 COVID-19 (principal); J20.9 Acute bronchitis, unspecified
CPT/HCPCS: 71046

== ENCOUNTER → 2021-09-20 08:07 | Outpatient (CLI) | payer MEDICARE, OTHER, SELFPAY ==
[2021-09-20 10:11] LABS: Absolute Lymphocyte Count 2.58 X10^3/uL (0.83-4.51); Basophil# 0.04 X10^3/uL; Basophil% 0.6 % (0-1); Eosinophil# 0.17 X10^3/uL; Eosinophils% 2.7 % (0-5); Hematocrit 40.7 % (37-47); Hemoglobin 13.4 g/dL (12.0-15.0); Lymphocyte # 2.58 X10^3/ul (0.83-4.51); Lymphocyte % 40.6 % (19-41); Mean Corp Hgb Conc 32.9 g/dL (32-36); Mean Corpuscular Hgb 30.8 pg (27.0-32.0); Mean Corpuscular Volume 93.6 fL (81-99); Mean Platelet Vol. 11.6 fl (6.2-12.0); Monocyte# 0.56 X10^3/uL; Monocyte% 8.8 % (0-10); NRBC Flagged by Analyzer 0 % (0-5); Neutrophil % 47.1 % (47-70); Platelet Count 157 K/mm3 (150-450); RBC Distribution Width CV 13.2 % (11.6-14.6); RBC Distribution Width SD 45.3 fl (35.1-43.9); Red Blood Count 4.35 M/mm3 (4.2-5.4); White Blood Count 6.4 K/mm3 (4.4-11.0)
[2021-09-20 10:33] LABS: ALB/GLOB Ratio 0.9 RATIO (0.9-2.4); AST(SGOT) 26 U/L (15-37); Alanine Aminotransfer ALT/SGPT 33 U/L (13-56); Albumin, Serum 3.6 g/dL (3.2-5.0); Alkaline Phosphatase 72 U/L (45-117); Anion Gap 6 (5-15); BUN 21 mg/dL (7-18); BUN/Creat Ratio 26.8 RATIO (10-20); Calcium,Total 9.6 mg/dL (8.5-10.1); Chloride 107 mmol/L (98-107); Cholesterol 162 mg/dL (200); Creatinine, Serum 0.78 mg/dL (0.55-1.02); EST Glomerular Filtration Rate 77 mL/min (>60); Est Glom Filt Rate - Afr Amer 93 mL/min (>60); Globulin 4.1 g/dL (2.2-4.2); Glucose 104 mg/dL (74-106); High Density Lipoprotein 61 mg/dL; Magnesium 1.9 mg/dL (1.6-2.6); Potassium 3.7 mmol/L (3.5-5.1); Protein, Total 7.7 g/dL (6.4-8.2); Sodium Level 141 mmol/L (136-145); T4 Free Direct 0.87 ng/dL (0.76-1.46); Triglycerides 86 mg/dL; Very Low Density Lipoprotein 17 mg/dL (5-40)
== END ==
PROVIDERS: PCP Family Medicine; Referring Provider Family Medicine; Visit Provider Family Medicine
DX: E06.3 Autoimmune thyroiditis (principal); E78.5 Hyperlipidemia, unspecified; I10 Essential (primary) hypertension
CPT/HCPCS: 36415; 80053; 80061; 83735; 84439; 84443; 85025

== ENCOUNTER 2021-12-28 08:27 | Outpatient (CLI) | payer MEDICARE, OTHER, SELFPAY ==
--- NOTE | 2021-12-28 08:28 | US_ITS ---
STUDY: THYROID ULTRASOUND REASON FOR EXAM: Female, 71 years old. NODULE TECHNIQUE: Ultrasound evaluation of the thyroid was performed with real-time and static damon-scale imaging. COMPARISON: Dec 22 2020 11:37am FINDINGS: RIGHT LOBE: The right lobe of the thyroid gland measures 3.8x1.6 cm. There is a homogeneous echotexture. There are nodules. Cystic and solid nodule is 12 x 5.3 x 11 mm. It contains a central calcification. Echogenic solid nodule in the mid gland measuring 5.3 x 3.8x 4.1 mm. LEFT LOBE: The left lobe of the thyroid gland measures cm. There is a homogeneous echotexture. There are nodules. Mid Nodule is 6.3 x 5.9 x 6 mm. Second nodule is 9.3 x 5.7 x 7.5 mm. This is in the medial gland. The lesion is solid with regular margins and rosa nodular doppler flow. ISTHMUS: The isthmus measures 4 mm. US/Thyroid IMPRESSION: There is a 12mm RIGHT nodule - mid gland. This has developed a central calcification. This nodule is mixed cystic and solid, hypoechoic, [id number]-[id number], smoothly marginated and contains punctate echogenic foci. TI-RADS points: 6. TI-RADS category: TR4. This nodule is moderately suspicious. Recommend follow-up thyroid ultrasounds at 1, 2, 3 and 5 years. There is a 5.3 mm RIGHT nodule - mid gland. This has decreased in size. This nodule is solid or almost completely solid, hyperechoic or isoechoic, [id number], smoothly marginated and contains no echogenic foci. TI-RADS points: 3. TI-RADS category: TR3. This nodule is mildly suspicious but no FNA or follow-up is necessary given the small size of this nodule. The left nodules. This nodule is solid or almost completely solid, hyperechoic or isoechoic, [id number]-[id number]-[id number], smoothly marginated and contains no echogenic foci. TI-RADS points: 3. TI-RADS category: TR3. This nodule is mildly suspicious but no FNA or follow-up is necessary given the small size of this nodule. Electronically Signed: Horace Olson MD at 17:01 EST Reading Location ID and State: [facility] / [place] , Service support ,
== END 2021-12-28 23:59 | disposition home or self-care (01) ==
PROVIDERS: PCP Family Medicine; Referring Provider Family Medicine; Visit Provider Family Medicine
DX: E04.1 Nontoxic single thyroid nodule (principal)
CPT/HCPCS: 76536

== ENCOUNTER → 2022-06-16 | Outpatient (CLI) | payer MEDICARE, OTHER, SELFPAY ==
[2022-06-16 14:59] LABS: Absolute Lymphocyte Count 2.23 X10^3/uL (0.83-4.51); Basophil# 0.03 X10^3/uL; Basophil% 0.4 % (0-1); Eosinophils% 1.4 % (0-5); Hematocrit 40.3 % (37-47); Hemoglobin 13.4 g/dL (12.0-15.0); Lymphocyte # 2.23 X10^3/ul (0.83-4.51); Lymphocyte % 31.9 % (19-41); Mean Corp Hgb Conc 33.3 g/dL (32-36); Mean Corpuscular Hgb 31.5 pg (27.0-32.0); Mean Corpuscular Volume 94.8 fL (81-99); Mean Platelet Vol. 12.1 fl (6.2-12.0); Monocyte# 0.57 X10^3/uL; Monocyte% 8.2 % (0-10); NRBC Flagged by Analyzer 0 % (0-5); Neutrophil # 4.03 X10^3/uL (2.7-7.7); Neutrophil % 57.8 % (47-70); Platelet Count 167 K/mm3 (150-450); RBC Distribution Width CV 13.2 % (11.6-14.6); Red Blood Count 4.25 M/mm3 (4.2-5.4)
[2022-06-16 15:21] LABS: Vitamin D,25 Hydroxy 49.3 ng/mL
[2022-06-16 15:29] LABS: ALB/GLOB Ratio 0.9 RATIO (0.9-2.4); AST(SGOT) 20 U/L (15-37); Alanine Aminotransfer ALT/SGPT 31 U/L (13-56); Albumin, Serum 3.7 g/dL (3.2-5.0); Alkaline Phosphatase 75 U/L (45-117); Anion Gap 6 (5-15); BUN 14 mg/dL (7-18); BUN/Creat Ratio 18.7 RATIO (10-20); Calcium,Total 9.6 mg/dL (8.5-10.1); Chloride 104 mmol/L (98-107); Cholesterol 171 mg/dL (200); Creatinine, Serum 0.75 mg/dL (0.55-1.02); EST Glomerular Filtration Rate 81 mL/min (>60); Est Glom Filt Rate - Afr Amer 98 mL/min (>60); Globulin 3.9 g/dL (2.2-4.2); Glucose 98 mg/dL (74-106); High Density Lipoprotein 57 mg/dL; Potassium 3.5 mmol/L (3.5-5.1); Protein, Total 7.6 g/dL (6.4-8.2); Sodium Level 140 mmol/L (136-145); T4 Free Direct 0.93 ng/dL (0.76-1.46); Thyroid Stim Hormone (TSH) 4.53 uIU/mL (0.358-3.74); Triglycerides 142 mg/dL; Very Low Density Lipoprotein 28 mg/dL (5-40)
== END | disposition home or self-care (01) ==
LOC: MFPLAB 12:00
PROVIDERS: PCP Family Medicine; Referring Provider Family Medicine; Visit Provider Family Medicine
DX: I10 Essential (primary) hypertension (principal); E78.5 Hyperlipidemia, unspecified; E06.3 Autoimmune thyroiditis; M85.80 Other specified disorders of bone density and structure, unspecified site
CPT/HCPCS: 36415; 80053; 80061; 82306; 84439; 84443; 85025

== ENCOUNTER → 2022-09-09 | Outpatient (CLI) | payer MEDICARE, OTHER, SELFPAY ==
--- NOTE | 2022-09-09 07:28 | BI_ITS ---
MAMMOGRAPHY - BILATERAL SCREENING REASON FOR EXAM: Female, 72 years old. Routine annual screening examination. PERTINENT HISTORY: Non-contributory. TECHNIQUE: Digital bilateral breast bethany (3D mammographic acquisition) in the CC and MLO projections. 2-D mediolateral oblique (MLO) and craniocaudad (CC) views of both breasts were obtained. CAD: Full Field Digital Mammography with Computer Added Detection was performed. COMPARISON: Comparison is made with prior examination of 12/31/2020. FINDINGS: Breast Composition: The breasts are extremely dense, which lowers the sensitivity of mammography. There is a new 1.8 cm x 1.2 cm spiculated density in the deep upper lateral aspect of the right breast. Stable small benign-appearing bilateral axillary lymph nodes. No other significant abnormalities are identified. BI/SCRN MAMM (CAD)W/BETHANY BILAT IMPRESSION: 1.8 cm x 1.2 sinus but the density in the deep upper outer aspect of the right breast. The patient will be called for additional views including 90 degree lateral view of the right breast with compression spot views. Recall Side: Right Breast ASSESSMENT CATEGORY: BIRADS Category 0: Incomplete. Need additional imaging evaluation. A letter regarding these results will be sent to the patient by the facility within 30 days. Approximately 10% of breast cancers are not detected by mammography. A normal mammogram should not delay biopsy of a clinically suspicious abnormality. [id number] Electronically Signed: Eliecer Cespedes MD at 8:37 EST ,
== END | disposition home or self-care (01) ==
LOC: OPBI 07:27
PROVIDERS: PCP Family Medicine; Visit Provider Registered Nurse
DX: Z12.31 Encounter for screening mammogram for malignant neoplasm of breast (principal)
CPT/HCPCS: 77063; 77067

== ENCOUNTER → 2022-09-14 | Outpatient (CLI) | payer MEDICARE, OTHER, SELFPAY ==
--- NOTE | 2022-09-14 08:59 | BI_ITS ---
MAMMOGRAPHY - UNILATERAL DIAGNOSTIC: RIGHT BREAST REASON FOR EXAM: Female, 72 years old. Workup of density in right breast. Density seen only on MLO view. PERTINENT HISTORY: Non-contributory. TECHNIQUE: Digital examination. Exaggerated CC, MLO and coned down MLO views of the right breast were obtained on 3 images. CAD: CAD was not performed on this study. COMPARISON: September 09, 2022. FINDINGS: Breast Composition: The breasts are heterogeneously dense, which may obscure small masses. Coned-down compression views of the right breast do not show the density seen on the prior mammogram. There are no dominant masses or suspicious calcifications. Yearly follow-up mammogram recommended. BI/DIAG MAMM W/CAD, UNILAT IMPRESSION: Negative unilateral diagnostic mammogram. Yearly followup recommended. ASSESSMENT CATEGORY: BIRADS Category 2: Benign. A letter regarding these results will be sent to the patient by the facility within 30 days. FOLLOW-UP RECOMMENDATION: Yearly follow-up mammogram recommended. (A) Approximately 10% of breast cancers are not detected by mammography. A normal mammogram should not delay biopsy of a clinically suspicious abnormality. Electronically Signed: David Christianson, at 9:58 EST ,
== END | disposition home or self-care (01) ==
LOC: OPBI 08:57
PROVIDERS: PCP Family Medicine; Visit Provider Registered Nurse
DX: R92.8 Other abnormal and inconclusive findings on diagnostic imaging of breast (principal)
CPT/HCPCS: 77065

== ENCOUNTER → 2022-11-21 | Outpatient (CLI) | payer MEDICARE, OTHER, SELFPAY | END | disposition home or self-care (01) | PROVIDERS: PCP Family Medicine; Referring Provider Family Medicine; Visit Provider Family Medicine | DX: R31.9 Hematuria, unspecified (principal) | CPT/HCPCS: 87086; 87088 ==

== ENCOUNTER → 2022-12-05 | Outpatient (CLI) | payer MEDICARE, OTHER, SELFPAY | END | disposition home or self-care (01) | PROVIDERS: PCP Family Medicine; Visit Provider Family Medicine | DX: R31.9 Hematuria, unspecified (principal) | CPT/HCPCS: 87086 ==

== ENCOUNTER → 2022-12-08 | Outpatient (CLI) | payer MEDICARE, OTHER, SELFPAY ==
[2022-12-08 13:39] LABS: Bacteria 0 SEEN /hpf (None Seen); Mucous, Urine 0 SEEN /hpf (<or=2+)
[2022-12-08 17:44] LABS: Color, Urine Yellow (Yellow); Glucose, Dipstick Normal (Normal); Ketone-Dipstick Negative (Negative); Leukocyte Esterase-Dipstick 100 /ul (Negative); Nitrite-Dipstick Negative (Negative); Occult Blood-Urine Negative /ul (Negative); Protein-Dipstick Negative (Negative); Urine Bilirubin Dipstick Negative (Negative); Urine Clarity Clear (Clear); Urine Urobilinogen Normal (Normal); Urine pH 6.5 (5.0 - 8.0)
[2022-12-08 17:57] LABS: Red Blood Cells-Urine 0-5 SEEN /hpf (0-5); Squamous Epithelial Cells - UA 0-5 SEEN /hpf (5-10); White Blood Cells 0-5 SEEN /hpf (0-5)
== END | disposition home or self-care (01) ==
LOC: MTLAB 13:36
PROVIDERS: PCP Family Medicine; Referring Provider Family Medicine; Visit Provider Family Medicine
DX: R31.9 Hematuria, unspecified (principal)
CPT/HCPCS: 81001

== ENCOUNTER → 2022-12-14 | Outpatient (CLI) | payer MEDICARE, OTHER, SELFPAY ==
[2022-12-14 15:47] LABS: Anion Gap 6 (5-15); BUN 18 mg/dL (7-18); BUN/Creat Ratio 25.4 RATIO (10-20); Chloride 108 mmol/L (98-107); Creatinine, Serum 0.71 mg/dL (0.55-1.02); EST Glomerular Filtration Rate 86 mL/min (>60); Est Glom Filt Rate - Afr Amer 104 mL/min (>60); Glucose 96 mg/dL (74-106); Potassium 3.3 mmol/L (3.5-5.1); Sodium Level 143 mmol/L (136-145)
== END | disposition home or self-care (01) ==
LOC: MTLAB 13:38
PROVIDERS: PCP Family Medicine; Referring Provider Urology; Visit Provider Urology
DX: R31.9 Hematuria, unspecified (principal)
CPT/HCPCS: 36415; 80048

== ENCOUNTER → 2022-12-30 | Outpatient (CLI) | payer MEDICARE, OTHER, SELFPAY ==
--- NOTE | 2022-12-30 10:00 | CYSPIN_PTH ---
PATIENT: RENATE NEWTON LOC: SCOUT U#:[id number] AGE/SX: 72/F ROOM: RE12/30/[address]: Dr. Yoko Marie MD : 1950 BED: DIS: 12/30/2022 SPEC #: [id number] RECD: 01/02/23 07:47 STATUS: RANI REJason #: [id number] STACY: 12/30/22 10:[address]: Yoko Marie DEPT: CYTOLOGY RECD BY: Mirtha Anthony ENTERED: 01/02/23 07:47 SP TYPE: CYSPIN FL OTHR DR: Dr. Bob Billings MD Tissues: Urine Procedures: Pap Stain (control) Special Stain Group II Cytospin Fluid HEADER OPERATION: Not noted PRE-OP DIAGNOSIS: Gross hematuria TISSUE SUBMITTED: Urine for cytology DIAGNOSIS CYTOLOGY Urine for cytology (cytospin): Negative for high-grade urothelial carcinoma (CTGUC), Ashley System Category II. Acute inflammation. See comment. SJ:cheng 01/02/2023 COMMENT The Ashley System for urine cytology diagnostic categorization was used in the evaluation of this case. CYTOLOGY STUDY Slides are reviewed. CYTOLOGY GROSS Received is 35 ml of dark yellow cloudy fluid labeled with the patient's name and and designated per the requisition as urine. Submitted for cytology preparation. / cheng 12/30/2022 TC:2 CPT: 12482
[2022-12-30 15:45] LABS: Cytology, Body Fluid / CSF SEE PATHOLOGY REPORT
== END | disposition home or self-care (01) ==
LOC: LABSPEC 15:02
PROVIDERS: PCP Family Medicine; Visit Provider Urology
DX: R31.0 Gross hematuria (principal)
CPT/HCPCS: 88108; 88313

== ENCOUNTER → 2023-01-02 | Outpatient (CLI) | payer MEDICARE, OTHER, SELFPAY ==
--- NOTE | 2023-01-02 07:24 | CT_ITS ---
STUDY: CT ABDOMEN AND PELVIS WITH AND WITHOUT CONTRAST REASON FOR EXAM: Female, 72 years old. HEMATURIA RADIATION DOSAGE (If Supplied By Facility): CTDIvol = ( 18.49 ) mGy, DLP = ( 3196.28 ) mGycm TECHNIQUE: Transaxial images were obtained from the dome of the diaphragm to the symphysis pubis without oral contrast. [id number] 100ML was administered. Sagittal and coronal images were reconstructed. Individualized dose optimization techniques were used for this CT. COMPARISON: None. FINDINGS: The visualized lung bases are unremarkable. The visualized portions of the heart are within normal limits. Normal liver. There is a large 2.2 cm calcified gallstone without gallbladder wall thickening or biliary dilatation. No pericholecystic fluid noted. Normal spleen. Normal pancreas. Normal bilateral adrenal glands. No obstructive uropathy, or suspicious solid renal lesion, there are simple bilateral renal cysts. No specific follow-up needed. There is a small hiatal hernia. Normal small intestine. Routine stool noted throughout the colon scattered colonic diverticula, no CT evidence of acute diverticulitis. The appendix is visualized and appears normal. Appendix seen on coronal recon images 56-59. There is diffuse atherosclerotic calcification of the abdominal aorta, without a demonstrated aneurysm. Normal inferior vena cava. Normal retroperitoneum. Normal urinary bladder. The uterus is present, the endometrium cannot be accurately evaluated with CT. No suspicious cystic mass or free fluid. There is a small left-sided inguinal hernia containing adipose tissue. Mild degenerative bony changes noted. CT/CT Abd/Pelvis W/WO Contrast IMPRESSION: No obstructive uropathy or suspicious solid renal lesion, simple renal cysts are noted, no specific follow-up needed. Cholelithiasis, no CT evidence of acute cholecystitis Retained stool throughout the colon scattered colonic diverticula, no CT evidence of acute diverticulitis No free intraperitoneal fluid, air, or suspicious adenopathy, normal appendix visualized Mild degenerative bony changes Electronically Signed: Jerry Velarde MD at 8:08 EDT ,
[2023-01-02 08:08] LABS: Bacteria 0 SEEN /hpf (None Seen); Mucous, Urine 0 SEEN /hpf (<or=2+)
[2023-01-02 09:47] LABS: Absolute Lymphocyte Count 2.69 X10^3/uL (0.83-4.51); Absolute Neutrophil Count 3.2 X10^3/uL (2.0-7.7); Basophil# 0.03 X10^3/uL; Basophil% 0.5 % (0-1); Color, Urine Yellow (Yellow); Eosinophil# 0.11 X10^3/uL; Eosinophils% 1.7 % (0-5); Glucose, Dipstick Normal (Normal); Hemoglobin 13.6 g/dL (12.0-15.0); Ketone-Dipstick Negative (Negative); Leukocyte Esterase-Dipstick 25 /ul (Negative); Lymphocyte # 2.69 X10^3/ul (0.83-4.51); Lymphocyte % 41.1 % (19-41); Mean Corp Hgb Conc 31.6 g/dL (32-36); Mean Corpuscular Hgb 29.9 pg (27.0-32.0); Mean Corpuscular Volume 94.5 fL (81-99); Mean Platelet Vol. 11.5 fl (6.2-12.0); Monocyte# 0.53 X10^3/uL; Monocyte% 8.1 % (0-10); NRBC Flagged by Analyzer 0 % (0-5); Neutrophil # 3.18 X10^3/uL (2.7-7.7); Neutrophil % 48.6 % (47-70); Nitrite-Dipstick Negative (Negative); Occult Blood-Urine 10 /ul (Negative); Platelet Count 165 K/mm3 (150-450); Protein-Dipstick Negative (Negative); RBC Distribution Width CV 13.4 % (11.6-14.6); Red Blood Count 4.55 M/mm3 (4.2-5.4); Urine Bilirubin Dipstick Negative (Negative); Urine Clarity Sl. Cloudy (Clear); Urine Urobilinogen Normal (Normal); White Blood Count 6.5 K/mm3 (4.4-11.0)
[2023-01-02 10:01] LABS: Vitamin D,25 Hydroxy 54.4 ng/mL
[2023-01-02 10:05] LABS: Red Blood Cells-Urine 0-5 SEEN /hpf (0-5); Squamous Epithelial Cells - UA 0-5 SEEN /hpf (5-10); White Blood Cells 0-5 SEEN /hpf (0-5)
[2023-01-02 10:18] LABS: AST(SGOT) 25 U/L (15-37); Alanine Aminotransfer ALT/SGPT 38 U/L (13-56); Albumin, Serum 3.7 g/dL (3.2-5.0); Alkaline Phosphatase 66 U/L (45-117); Anion Gap 8 (5-15); BUN 21 mg/dL (7-18); BUN/Creat Ratio 26.4 RATIO (10-20); Calcium,Total 9.7 mg/dL (8.5-10.1); Chloride 102 mmol/L (98-107); Cholesterol 167 mg/dL (200); EST Glomerular Filtration Rate 75 mL/min (>60); Est Glom Filt Rate - Afr Amer 91 mL/min (>60); Globulin 3.7 g/dL (2.2-4.2); Glucose 103 mg/dL (74-106); High Density Lipoprotein 58 mg/dL; Potassium 3.3 mmol/L (3.5-5.1); Protein, Total 7.4 g/dL (6.4-8.2); Sodium Level 139 mmol/L (136-145); Thyroid Stim Hormone (TSH) 5.45 uIU/mL (0.358-3.74); Triglycerides 129 mg/dL; Very Low Density Lipoprotein 26 mg/dL (5-40)
== END | disposition home or self-care (01) ==
PROVIDERS: PCP Family Medicine; Referring Provider Urology; Visit Provider Urology
DX: R31.9 Hematuria, unspecified (principal); I10 Essential (primary) hypertension; E78.5 Hyperlipidemia, unspecified; E06.3 Autoimmune thyroiditis; M85.80 Other specified disorders of bone density and structure, unspecified site
CPT/HCPCS: 74178; 80053; 80061; 81001; 82306; 84439; 84443; 85025; Q9967

== ENCOUNTER → 2023-01-13 | Outpatient (CLI) | payer MEDICARE, OTHER, SELFPAY ==
[2023-01-13 10:18] LABS: Potassium 3.1 mmol/L (3.5-5.1)
--- NOTE | 2023-01-13 16:27 | US_ITS ---
STUDY: THYROID ULTRASOUND REASON FOR EXAM: Female, 72 years old. Thyroid nodule. TECHNIQUE: Ultrasound evaluation of the thyroid was performed with real-time and static damon-scale imaging. COMPARISON: December 28, 2021, December 22, 2020. December 23, 2019 FINDINGS: RIGHT LOBE: The right lobe of the thyroid gland measures 3.6 x 1.5 x 1.1 cm. There is a heterogeneous echotexture. In the mid thyroid there is a 1.2 x 0.5 x 0.9 cm isoechoic nodule with hypoechoic rim and central cystic change. Posteriorly in the mid thyroid there is a 0.5 x 0.5 x 0.4 cm hypoechoic lobulated nodule which is taller than it is wide. Minimal vascularity on Doppler imaging LEFT LOBE: The left lobe of the thyroid gland measures 4.3 x 1.5 x 1.6 cm. There is a heterogeneous echotexture. An seen is an isoechoic nodule posteriorly in the mid thyroid which appears unchanged from prior study. This measures 0.6 x 0.6 x 0.6 cm. Normal vascularity on Doppler imaging. ISTHMUS: The isthmus measures 0.4 cm. In the left isthmus there is a 1.0 x 0.7 x 0.6 cm isoechoic ill-defined nodule. The regional lymph nodes are normal. US/Thyroid IMPRESSION: Heterogenous thyroid. Stable thyroid nodules. All solid nodules remain suspicious due to their small size now FNA or follow-up is required. The long-term stability of these lesions also suggests benignity. Electronically Signed: Jimbo Castanon DO at 18:06 EDT ,
== END | disposition home or self-care (01) ==
LOC: US 16:25
PROVIDERS: PCP Family Medicine; Referring Provider Family Medicine; Visit Provider Family Medicine
DX: E04.1 Nontoxic single thyroid nodule (principal)
CPT/HCPCS: 36415; 76536; 84132

== ENCOUNTER → 2023-01-18 | Outpatient (CLI) | payer MEDICARE, OTHER, SELFPAY ==
--- NOTE | 2023-01-18 07:55 | EKG12_ITS ---
Test Reason : PREOP Blood Pressure : / mmHG Vent. Rate : 061 BPM Atrial Rate : 061 BPM P-R Int : 162 ms QRS Dur : 090 ms QT Int : 446 ms P-R-T Axes : 005 -30 014 degrees QTc Int : 448 ms Normal sinus rhythm Left axis deviation Abnormal ECG Confirmed by MARCY BUI, KENNY ([id number]), society editor MARCELL MAYNARD ([id number]) on 01/19/2023 9:19:46 AM Referred By: Floyd España Confirmed By:KENNY VIDAL MD
[2023-01-18 09:13] LABS: Hematocrit 40.6 % (37-47); Mean Corpuscular Hgb 30.1 pg (27.0-32.0); Mean Platelet Vol. 11.9 fl (6.2-12.0); Platelet Count 153 K/mm3 (150-450); RBC Distribution Width CV 13.2 % (11.6-14.6); RBC Distribution Width SD 45.9 fl (35.1-43.9); Red Blood Count 4.32 M/mm3 (4.2-5.4); White Blood Count 5.7 K/mm3 (4.4-11.0)
[2023-01-18 09:34] LABS: Anion Gap 6 (5-15); BUN 16 mg/dL (7-18); BUN/Creat Ratio 20.9 RATIO (10-20); Calcium,Total 9.8 mg/dL (8.5-10.1); Chloride 104 mmol/L (98-107); Creatinine, Serum 0.77 mg/dL (0.55-1.02); EST Glomerular Filtration Rate 79 mL/min (>60); Est Glom Filt Rate - Afr Amer 95 mL/min (>60); Glucose 111 mg/dL (74-106); Potassium 3.1 mmol/L (3.5-5.1); Sodium Level 141 mmol/L (136-145)
== END | disposition home or self-care (01) ==
LOC: PSN 08:16 → LAB 08:17
PROVIDERS: PCP Family Medicine; Referring Provider Urology; Visit Provider Urology
DX: Z01.812 Encounter for preprocedural laboratory examination (principal); Z01.810 Encounter for preprocedural cardiovascular examination
CPT/HCPCS: 36415; 80048; 85027; 93005

== ENCOUNTER → 2023-02-06 | Outpatient (CLI) | payer MEDICARE, OTHER, SELFPAY ==
--- NOTE | 2023-02-03 09:30 | BLB_PTH ---
PATIENT: RENATE NEWTON LOC: SCOUT U#:[id number] AGE/SX: 72/F ROOM: RE02/06/[address]: Dr. Floyd España MD : 1950 BED: DIS: 02/06/2023 SPEC #: [id number] RECD: 02/06/23 15:08 STATUS: RANI REJason #: [id number] STACY: 02/03/23 09:[address]: Floyd España DEPT: SURGICAL PATHOLOGY RECD BY: Mirtha Anthony ENTERED: 02/07/23 09:34 SP TYPE: TURB OTHR DR: Dr. Bob Billings MD [facility] Tissues: A - Urinary bladder, NOS B - Urinary bladder, NOS Procedures: Surgery Specimen Level V HEADER OPERATION: Transurethral resection bladder PRE-OP DIAGNOSIS: Neoplasm of bladder TISSUE SUBMITTED: A ? Bladder tumor deep, B ? Bladder tumor superficial MICROSCOPIC DIAGNOSIS A. Bladder tumor deep, transurethral resection: A piece of fibrous tissue, negative for malignancy. B. Bladder tumor superficial, transurethral resection: Noninvasive papillary urothelial carcinoma. See cancer summary in the comment section. SJ:rg 02/08/2023 COMMENT B. The specimen entirely consists of superficial tumor. Lamina propria or detrusor muscle is not present in the specimen. BLADDER CANCER (TUR) SUMMARY (including specimen A & B) Procedure: Transurethral resection of bladder tumor (TURBT) Tumor site: Not specified Histologic type: Papillary urothelial carcinoma, noninvasive Associated epithelial lesions: None identified Histologic grade: Low grade (1/3) Tumor configuration: Papillary Muscularis propria presence: No muscularis propria (detrusor muscle) identified. Lymphvascular invasion: Not identified Tumor extension: Noninvasive papillary carcinoma Additional pathologic findings: None The above summary is in compliance with [employer] [place] [employer] (CAP) Cancer Protocols Checklist and [place] Joint Committee on Cancer (AJCC), Staging Manual, 8th Ed. Case has been reviewed in consultation with Dr. Lorenzo who concurs with the above diagnosis. IDC:AM MICROSCOPIC DESCRIPTION Slides are reviewed. GROSS DESCRIPTION A - Received in fixative is one container labeled with the patient's name and designated bladder tumor deep. The specimen consists of one irregular fragment of light hickman soft tissue that measures 0.5 x 0.4 x 0.1 cm. The specimen is totally submitted in one cassette. B - Received in fixative is one container labeled with the patient's name and designated bladder tumor superficial. The specimen consists of multiple irregular fragments of light hickman soft tissue that in aggregate measure 1.0 x 0.8 x 0.1 cm. The specimen is totally submitted in one cassette. / SJ:rg 02/07/2023 TC:0 CPT: 12796 x2
== END | disposition home or self-care (01) ==
LOC: LABSPEC 16:26
PROVIDERS: PCP Family Medicine; Referring Provider Urology; Visit Provider Urology
DX: D09.0 Carcinoma in situ of bladder (principal)
CPT/HCPCS: 88307

== ENCOUNTER → 2023-04-03 | Outpatient (CLI) | payer MEDICARE, OTHER, SELFPAY ==
[2023-04-03 09:28] LABS: Bacteria 0 SEEN /hpf (None Seen); Mucous, Urine 0 SEEN /hpf (<or=2+); Squamous Epithelial Cells - UA 0 SEEN /hpf (5-10); White Blood Cells 0 SEEN /hpf (0-5)
[2023-04-03 11:07] LABS: Color, Urine Yellow (Yellow); Glucose, Dipstick Normal (Normal); Ketone-Dipstick Negative (Negative); Leukocyte Esterase-Dipstick Negative /ul (Negative); Nitrite-Dipstick Negative (Negative); Occult Blood-Urine 10 /ul (Negative); Protein-Dipstick Negative (Negative); Urine Bilirubin Dipstick Negative (Negative); Urine Clarity Sl. Cloudy (Clear); Urine Urobilinogen Normal (Normal)
[2023-04-03 11:25] LABS: Red Blood Cells-Urine 0-5 SEEN /hpf (0-5)
[2023-04-03 12:22] LABS: Absolute Lymphocyte Count 2.08 X10^3/uL (0.83-4.51); Absolute Neutrophil Count 3.3 X10^3/uL (2.0-7.7); Basophil# 0.04 X10^3/uL; Basophil% 0.7 % (0-1); Eosinophil# 0.09 X10^3/uL; Eosinophils% 1.5 % (0-5); Hematocrit 42.2 % (37-47); Hemoglobin 13.5 g/dL (12.0-15.0); Lymphocyte # 2.08 X10^3/ul (0.83-4.51); Lymphocyte % 34.5 % (19-41); Mean Corpuscular Hgb 30.3 pg (27.0-32.0); Mean Corpuscular Volume 94.8 fL (81-99); Mean Platelet Vol. 11.3 fl (6.2-12.0); Monocyte# 0.51 X10^3/uL; Monocyte% 8.5 % (0-10); NRBC Flagged by Analyzer 0 % (0-5); Neutrophil # 3.31 X10^3/uL (2.7-7.7); Neutrophil % 54.8 % (47-70); Platelet Count 157 K/mm3 (150-450); RBC Distribution Width SD 45.2 fl (35.1-43.9); Red Blood Count 4.45 M/mm3 (4.2-5.4)
[2023-04-03 12:55] LABS: ALB/GLOB Ratio 0.9 RATIO (0.9-2.4); AST(SGOT) 20 U/L (15-37); Alanine Aminotransfer ALT/SGPT 32 U/L (13-56); Albumin, Serum 3.6 g/dL (3.2-5.0); Alkaline Phosphatase 73 U/L (45-117); Anion Gap 6 (5-15); BUN 16 mg/dL (7-18); BUN/Creat Ratio 23.1 RATIO (10-20); Calcium,Total 9.9 mg/dL (8.5-10.1); Chloride 107 mmol/L (98-107); Cholesterol 175 mg/dL (200); Creatinine, Serum 0.69 mg/dL (0.55-1.02); EST Glomerular Filtration Rate 88 mL/min (>60); Est Glom Filt Rate - Afr Amer 107 mL/min (>60); Glucose 102 mg/dL (74-106); High Density Lipoprotein 63 mg/dL; Magnesium 2.1 mg/dL (1.6-2.6); Potassium 3.4 mmol/L (3.5-5.1); Protein, Total 7.6 g/dL (6.4-8.2); Sodium Level 143 mmol/L (136-145); T4 Free Direct 1.04 ng/dL (0.76-1.46); Triglycerides 130 mg/dL; Very Low Density Lipoprotein 26 mg/dL (5-40)
[2023-04-03 13:02] LABS: Hemoglobin A1c 5.8 % (3.8-5.6)
== END | disposition home or self-care (01) ==
PROVIDERS: PCP Family Medicine; Referring Provider Family Medicine; Visit Provider Family Medicine
DX: I10 Essential (primary) hypertension (principal); E87.6 Hypokalemia; E06.3 Autoimmune thyroiditis; R73.09 Other abnormal glucose
CPT/HCPCS: 36415; 80053; 80061; 81001; 83036; 83735; 84439; 84443; 85025

== ENCOUNTER → 2023-11-20 | Outpatient (CLI) | payer MEDICARE, OTHER, SELFPAY ==
--- NOTE | 2023-11-20 15:22 | RAD_ITS ---
EXAM: XR CHEST, 2 VIEWS CLINICAL INDICATION: post covid; coughing. TECHNIQUE: Frontal and lateral views of the chest. COMPARISON: 08/31/2021 FINDINGS: LUNGS AND PLEURAL SPACES: Unremarkable. No consolidation or edema. No pneumothorax. No effusion. HEART: Unremarkable. Cardiac silhouette not enlarged. MEDIASTINUM: Central airways and mediastinal contour are unremarkable. BONES/JOINTS: Unremarkable. No acute fracture. SOFT TISSUES: Unremarkable. RAD/Chest PA and Lateral IMPRESSION: No radiographic evidence of acute cardiopulmonary disease. Electronically Signed: Corby Sequeira MD at 23:57 EST ,
--- OUTSIDE RECORDS SUMMARY | 2023-11-20 15:37 | XMS RPT_ITS | CCD ---
Author Name Unknown Address [address] [place] [address] Organization [facility] Results Test Name Value Interpretation Reference Range Facil ity Progress note 01-04-2021 Note Date & Type Note Facility 01-04-2021 Note HNO ID: [id number] Author: Modesto Rey Service: ? Author Type: Physician Type: Progress Notes Filed: 01/04/2021 12:44 PM Note Text: HISTORY AND PHYSICAL Pedrito Alvarez 1950 REFERRING PHYSICIAN: MD Carlos CHIEF COMPLAINT: abnormal thyroid us HPI: The patient is a 70 year old female with a complaint of Uninodular goiter. I seen Von in the past back in December 2019 I worked her up performed a fine-needle aspiration on her which was benign. She presents back today with a repeat ultrasound of her thyroid gland. Her ultrasound was completed at [facility] on 12/22/2020. It did not show a significant increase in nodularity of the thyroid gland. She is not noticing any difficulty swallowing she is not having any neck pain.. The patient is being seen by me today at the request of Dr. Billings for my opinion and advice regarding Uninodular goiter (primary encounter diagnosis). PAST MEDICAL HISTORY Diagnosis Date - Benign neoplasm of colon - Unspecified essential hypertension PAST SURGICAL HISTORY Procedure Laterality Date - COLONOSCOP W/ OR W/O [facility] SPEC 07/26/12 Colonoscopy - PAST SURGICAL HISTORY OF 05/20/70 resection of the bowel Current Outpatient Medications Medication Sig - lisinopril-hydrochlorothiazide 20-25 mg per tablet Take 1 tablet by mouth once daily. - Coenzyme Z85-Otyqzam E (COQ10 SG 100) 100-100 mg-unit cap Take 100 mg by mouth once daily. - aspirin, enteric coated (ECOTRIN LOW STRENGTH) 81 mg EC tablet Take 1 tablet by mouth once daily. - COMPOUNDED PRESCRIPTION calcium with Vit D 3 takes 1600 mg daily - [place]-3 Fatty Acids-Vitamin E (FISH OIL) 1,000 mg cap Take 1 capsule by mouth once daily. - peg-electrolyte soln (TRILYTE WITH FLAVOR PACKETS) 420 g suspension Take 4,000 mL by mouth as directed. Follow printed office instructions. (Patient not taking: Reported on 01/01/2021 ) No current facility-administered medications for this visit. ALLERGIES: Patient has no known allergies. PERSONAL HISTORY: Social History Tobacco Use - Smoking status: Never Smoker Substance Use Topics - Alcohol use: No - Drug use: Not on file FAMILY HISTORY: FAMILY HISTORY Problem Relation Age of Onset - Stroke Mother - Heart Father REVIEW OF SYMPTOMS: The review of systems data was entered by the nurse and reviewed by ut Nursing Notes: Natasha Ortiz RN 01/01/2021 11:00 AM Signed REVIEW OF SYSTEMS: General: The patient denies fatigue, denies weight loss, denies weight gain, denies feeling hot, and denies feelings of cold. Eyes: The patient denies glaucoma, denies eye injury/surgery, wears glasses or contacts. Ear/Nose/Throat: The patient denies allergies, denies hayfever, denies ear infections, and denies bloody noses. Cardiovascular: The patient denies chest pain, denies heart disease, notes high blood pressure,denies cardiac stent, denies prior heart attack, denies irregular heart beat, notes high cholesterol, denies poor circulation, denies heart failure, other cardiac issues, denies claudication, denies cold feet, denies peripheral arterial stent. Respiratory: The patient denies tuberculosis, denies pneumonia, denies frequent cough, denies pulmonary embolism, denies shortness of breath, and denies coughing up blood. Gastrointestinal: The patient denies difficulty swallowing, denies acid reflux, denies ulcers, denies vomiting, denies jaundice/hepatitis, denies gallbladder problems, denies black or tarry stools, denies hemorrhoids, denies bleeding from rectum, denies diverticulitis, denies constipation, denies diarrhea, denies loss of stool control, and denies hernias. Kidney/Bladder: The patient denies kidney stones, denies urine infections, and denies bloody urine. Skin: The patient denies a history of skin cancer, denies bleeding/changing moles, and denies a history of skin rash. Neurologic: The patient denies a history of epilepsy/convulsions, denies headaches, denies head/spinal injuries, and denies stroke/TIA. Psychiatric: The patient denies psychiatric medications, denies depression, and denies voices, denies substance abuse. Endocrine: The patient notes thyroid disorders, denies diabetes, and denies hormonal problems. Hematologic: The patient denies a history of bruising, denies bleeding, and denies anemia, denies blood clots. Infections: The patient denies a history of measles and mumps, denies rheumatic fever, and denies sexually transmitted diseases. Musculoskeletal: The patient denies back pain/injury, denies back problems, denies sciatica, denies knee/foot trouble, denies arthritis, or denies gout. When was patient's last Mammogram screening? 12/31/2020 Last Colonoscopy: Scheduled for 01/19/2021 Natasha Ortiz RN PHYSICAL EXAMINATION: General: The patient is 70 year old female, well nourished, well hydrated in no acute distress. The patient is oriented to time, place, and person. VITALS: Blood (more content not included)... [facility] Summary Purpose Family History No Family History Records Found Advance Directives No Advanced Directives Records Found Additional Source Comments INFORMATION SOURCE (unrecogn ized section and content) FOR RECORDS PERTAINING TO PATIENTS WHO ARE OR HAVE BEEN ENROLLED IN A CHEMICAL DEPENDENCY/SUBSTANCEABUSE PROGRAM, SOME INFORMATION MAY BE OMITTED. This clinical summary was aggregated from multiple sources. Caution should be exercised in using it in the provision of clinical care. This summary normalizes information from multiple sources, and as a consequence, information in this document may materially change the coding, format and clinical context of patient data. In addition, data may be omitted in some cases. CLINICAL DECISIONS SHOULD BE BASED ON THE PRIMARY CLINICAL RECORDS. [employer]- [employer] [facility]. provides no warranty or guarantee of the accuracy or completeness of information in this document.
== END | disposition home or self-care (01) ==
LOC: MTRAD 15:20
PROVIDERS: PCP Family Medicine; Referring Provider Nurse Practitioner Family; Visit Provider Nurse Practitioner Family
DX: R05.9 Cough, unspecified (principal)
CPT/HCPCS: 71046

== ENCOUNTER → 2023-12-07 | Outpatient (CLI) | payer MEDICARE, OTHER, SELFPAY ==
[2023-12-07 09:56] LABS: Bacteria 0 SEEN /hpf (None Seen); Mucous, Urine 0 SEEN /hpf (<or=2+); Red Blood Cells-Urine 0 SEEN /hpf (0-5); Squamous Epithelial Cells - UA 0 SEEN /hpf (5-10); White Blood Cells 0 SEEN /hpf (0-5)
[2023-12-07 12:07] LABS: Absolute Lymphocyte Count 2.18 X10^3/uL (0.83-4.51); Absolute Neutrophil Count 7.5 X10^3/uL (2.0-7.7); Basophil# 0.02 X10^3/uL; Basophil% 0.2 % (0-1); Hematocrit 40.2 % (37-47); Hemoglobin 12.8 g/dL (12.0-15.0); Lymphocyte # 2.18 X10^3/ul (0.83-4.51); Mean Corp Hgb Conc 31.8 g/dL (32-36); Mean Corpuscular Hgb 30.6 pg (27.0-32.0); Mean Corpuscular Volume 96.2 fL (81-99); Mean Platelet Vol. 11.8 fl (6.2-12.0); Monocyte# 0.66 X10^3/uL; Monocyte% 6.4 % (0-10); NRBC Flagged by Analyzer 0 % (0-5); Neutrophil # 7.46 X10^3/uL (2.7-7.7); Neutrophil % 71.9 % (47-70); Platelet Count 189 K/mm3 (150-450); RBC Distribution Width CV 13.7 % (11.6-14.6); RBC Distribution Width SD 47.8 fl (35.1-43.9); Red Blood Count 4.18 M/mm3 (4.2-5.4); White Blood Count 10.4 K/mm3 (4.4-11.0)
[2023-12-07 12:27] LABS: Color, Urine Yellow (Yellow); Glucose, Dipstick Normal (Normal); Ketone-Dipstick Negative (Negative); Leukocyte Esterase-Dipstick Negative /ul (Negative); Nitrite-Dipstick Negative (Negative); Occult Blood-Urine 10 /ul (Negative); Protein-Dipstick Negative (Negative); Specific Gravity, Urine 1.015 (1.002-1.030); Urine Bilirubin Dipstick Negative (Negative); Urine Clarity Clear (Clear); Urine Urobilinogen Normal (Normal); Urine pH 6.5 (5.0 - 8.0)
[2023-12-07 13:03] LABS: AST(SGOT) 22 U/L (15-37); Alanine Aminotransfer ALT/SGPT 31 U/L (13-56); Albumin, Serum 3.8 g/dL (3.2-5.0); Alkaline Phosphatase 76 U/L (45-117); Anion Gap 5 (5-15); BUN 20 mg/dL (7-18); Calcium,Total 10.4 mg/dL (8.5-10.1); Chloride 109 mmol/L (98-107); Cholesterol 158 mg/dL (200); EST Glomerular Filtration Rate 75 mL/min (>60); Est Glom Filt Rate - Afr Amer 90 mL/min (>60); Glucose 104 mg/dL (74-106); High Density Lipoprotein 64 mg/dL; Potassium 3.4 mmol/L (3.5-5.1); Protein, Total 7.8 g/dL (6.4-8.2); Sodium Level 143 mmol/L (136-145); T4 Free Direct 1.19 ng/dL (0.76-1.46); Thyroid Stim Hormone (TSH) 0.47 uIU/mL (0.358-3.74); Triglycerides 92 mg/dL; Very Low Density Lipoprotein 18 mg/dL (5-40)
[2023-12-07 13:31] LABS: Vitamin D,25 Hydroxy 54.6 ng/mL
[2023-12-07 14:12] LABS: Hemoglobin A1c 6.1 % (3.8-5.6)
== END | disposition home or self-care (01) ==
LOC: MTLAB 09:51
PROVIDERS: PCP Family Medicine; Referring Provider Family Medicine; Visit Provider Family Medicine
DX: E06.3 Autoimmune thyroiditis (principal); I10 Essential (primary) hypertension; M85.80 Other specified disorders of bone density and structure, unspecified site; R73.02 Impaired glucose tolerance (oral)
CPT/HCPCS: 80053; 80061; 81001; 82306; 83036; 84439; 84443; 85025

== ENCOUNTER → 2024-03-26 | Outpatient (CLI) | payer MEDICARE, OTHER, SELFPAY ==
[2024-03-26 09:25] LABS: Bacteria 0 SEEN /hpf (None Seen); Mucous, Urine 0 SEEN /hpf (<or=2+); White Blood Cells 0 SEEN /hpf (0-5)
[2024-03-26 12:19] LABS: Absolute Lymphocyte Count 2.12 X10^3/uL (0.83-4.51); Absolute Neutrophil Count 2.8 X10^3/uL (2.0-7.7); Basophil# 0.04 X10^3/uL; Basophil% 0.7 % (0-1); Eosinophil# 0.09 X10^3/uL; Eosinophils% 1.6 % (0-5); Hematocrit 42.1 % (37-47); Hemoglobin 13.5 g/dL (12.0-15.0); Lymphocyte # 2.12 X10^3/ul (0.83-4.51); Lymphocyte % 38.5 % (19-41); Mean Corp Hgb Conc 32.1 g/dL (32-36); Mean Corpuscular Hgb 29.9 pg (27.0-32.0); Mean Corpuscular Volume 93.1 fL (81-99); Mean Platelet Vol. 12.2 fl (6.2-12.0); Monocyte# 0.48 X10^3/uL; Monocyte% 8.7 % (0-10); NRBC Flagged by Analyzer 0 % (0-5); Neutrophil # 2.76 X10^3/uL (2.7-7.7); Neutrophil % 50.3 % (47-70); Platelet Count 160 K/mm3 (150-450); RBC Distribution Width CV 12.9 % (11.6-14.6); RBC Distribution Width SD 44.3 fl (35.1-43.9); Red Blood Count 4.52 M/mm3 (4.2-5.4); White Blood Count 5.5 K/mm3 (4.4-11.0)
[2024-03-26 12:25] LABS: Color, Urine Yellow (Yellow); Glucose, Dipstick Normal (Normal); Ketone-Dipstick Negative (Negative); Leukocyte Esterase-Dipstick Negative /ul (Negative); Nitrite-Dipstick Negative (Negative); Occult Blood-Urine 10 /ul (Negative); Protein-Dipstick Negative (Negative); Urine Bilirubin Dipstick Negative (Negative); Urine Clarity Sl. Cloudy (Clear); Urine Urobilinogen Normal (Normal); Urine pH 6.5 (5.0 - 8.0)
[2024-03-26 12:34] LABS: Vitamin D,25 Hydroxy 43.6 ng/mL
[2024-03-26 12:35] LABS: Red Blood Cells-Urine 0-5 SEEN /hpf (0-5); Squamous Epithelial Cells - UA 0-5 SEEN /hpf (5-10)
[2024-03-26 12:37] LABS: Hemoglobin A1c 5.7 % (3.8-5.6)
[2024-03-26 12:41] LABS: AST(SGOT) 22 U/L (15-37); Alanine Aminotransfer ALT/SGPT 30 U/L (13-56); Albumin, Serum 3.7 g/dL (3.2-5.0); Alkaline Phosphatase 66 U/L (45-117); Anion Gap 6 (5-15); BUN 19 mg/dL (7-18); Calcium,Total 9.9 mg/dL (8.5-10.1); Chloride 108 mmol/L (98-107); Cholesterol 162 mg/dL (200); Creatinine, Serum 0.73 mg/dL (0.55-1.02); EST Glomerular Filtration Rate 83 mL/min (>60); Est Glom Filt Rate - Afr Amer 100 mL/min (>60); Globulin 3.7 g/dL (2.2-4.2); Glucose 106 mg/dL (74-106); High Density Lipoprotein 62 mg/dL; Potassium 3.5 mmol/L (3.5-5.1); Protein, Total 7.4 g/dL (6.4-8.2); Sodium Level 141 mmol/L (136-145); T4 Free Direct 1.11 ng/dL (0.76-1.46); Triglycerides 91 mg/dL; Very Low Density Lipoprotein 18 mg/dL (5-40)
== END | disposition home or self-care (01) ==
LOC: MFPLAB 09:22
PROVIDERS: PCP Family Medicine; Visit Provider Family Medicine
DX: E06.3 Autoimmune thyroiditis (principal); I10 Essential (primary) hypertension; R73.02 Impaired glucose tolerance (oral); M85.80 Other specified disorders of bone density and structure, unspecified site; R06.3 Periodic breathing
CPT/HCPCS: 36415; 80053; 80061; 81001; 82306; 83036; 83735; 84439; 84443; 85025

== ENCOUNTER → 2024-08-20 | Outpatient (CLI) | payer MEDICARE, OTHER, SELFPAY ==
[2024-08-20 15:17] LABS: Absolute Lymphocyte Count 2.05 X10^3/uL (0.83-4.51); Absolute Neutrophil Count 3.8 X10^3/uL (2.0-7.7); Basophil# 0.03 X10^3/uL; Basophil% 0.5 % (0-1); Eosinophil# 0.08 X10^3/uL; Eosinophils% 1.2 % (0-5); Hematocrit 39.4 % (37-47); Hemoglobin 12.9 g/dL (12.0-15.0); Lymphocyte # 2.05 X10^3/ul (0.83-4.51); Lymphocyte % 31.3 % (19-41); Mean Corp Hgb Conc 32.7 g/dL (32-36); Mean Corpuscular Hgb 30.6 pg (27.0-32.0); Mean Corpuscular Volume 93.6 fL (81-99); Mean Platelet Vol. 12.4 fl (6.2-12.0); Monocyte# 0.59 X10^3/uL; NRBC Flagged by Analyzer 0 % (0-5); Neutrophil # 3.77 X10^3/uL (2.7-7.7); Neutrophil % 57.7 % (47-70); Platelet Count 152 K/mm3 (150-450); RBC Distribution Width CV 13.4 % (11.6-14.6); Red Blood Count 4.21 M/mm3 (4.2-5.4); White Blood Count 6.5 K/mm3 (4.4-11.0)
[2024-08-20 15:48] LABS: Hemoglobin A1c 5.8 % (3.8-5.6)
[2024-08-20 15:50] LABS: AST(SGOT) 21 U/L (15-37); Alanine Aminotransfer ALT/SGPT 30 U/L (13-56); Albumin, Serum 3.6 g/dL (3.2-5.0); Alkaline Phosphatase 69 U/L (45-117); Anion Gap 4 (5-15); BUN 16 mg/dL (7-18); BUN/Creat Ratio 20.9 RATIO (10-20); Chloride 107 mmol/L (98-107); Cholesterol 157 mg/dL (200); Creatinine, Serum 0.76 mg/dL (0.55-1.02); EST Glomerular Filtration Rate 78 mL/min (>60); Est Glom Filt Rate - Afr Amer 95 mL/min (>60); Globulin 3.6 g/dL (2.2-4.2); Glucose 100 mg/dL (74-106); High Density Lipoprotein 70 mg/dL; Potassium 3.5 mmol/L (3.5-5.1); Protein, Total 7.2 g/dL (6.4-8.2); Sodium Level 141 mmol/L (136-145); Triglycerides 88 mg/dL; Very Low Density Lipoprotein 18 mg/dL (5-40)
== END | disposition home or self-care (01) ==
LOC: MTLAB 11:51
PROVIDERS: PCP Family Medicine; Referring Provider Family Medicine; Visit Provider Family Medicine
DX: E78.5 Hyperlipidemia, unspecified (principal); E06.3 Autoimmune thyroiditis; I10 Essential (primary) hypertension; R73.02 Impaired glucose tolerance (oral); M85.80 Other specified disorders of bone density and structure, unspecified site
CPT/HCPCS: 36415; 80053; 80061; 82306; 83036; 84439; 84443; 85025

== ENCOUNTER → 2024-10-03 | Outpatient (CLI) | payer MEDICARE, OTHER, SELFPAY ==
--- NOTE | 2024-10-03 14:17 | BI_ITS ---
MAMMOGRAPHY - BILATERAL SCREENING REASON FOR EXAM: Female, 74 years old. Routine annual screening examination. PERTINENT HISTORY: Non-contributory. TECHNIQUE: Digital bilateral breast bethany (3D mammographic acquisition) in the CC and MLO projections. 2-D mediolateral oblique (MLO) and craniocaudad (CC) views of both breasts were obtained. CAD: Full Field Digital Mammography with Computer Added Detection was performed. COMPARISON: Comparison is made with prior study September 09, 2022 and September 14, 2022. FINDINGS: Breast Composition: The breasts are extremely dense, which lowers the sensitivity of mammography. There are no dominant masses or suspicious calcifications. No other significant abnormalities are identified. There has been no significant change since the prior study. BI/SCRN MAMM (CAD)W/BETHANY BILAT IMPRESSION: Stable bilateral screening mammogram. Yearly follow-up mammogram recommended. (A) ASSESSMENT CATEGORY: BIRADS Category 1: Negative. A letter regarding these results will be sent to the patient by the facility within 30 days. Approximately 10% of breast cancers are not detected by mammography. A normal mammogram should not delay biopsy of a clinically suspicious abnormality. [id number] Electronically Signed: Eliecer Cespedes MD at 15:22 EST ,
--- NOTE | 2024-10-03 14:17 | BD_ITS ---
STUDY: DUAL ENERGY X-RAY ABSORPTIOMETRY / DXA REASON FOR EXAM: Female, 74 years old. 733.90OsteopeniaBONE DENSITY REASON FOR EXAM TECHNIQUE: Bone Mineral Density (BMD) measurements of lumbar spine and bilateral hips were obtained. COMPARISON: Comparison is made with prior study December 31, 2020. FINDINGS: Lumbar Spine (L1-L4): g/cm2 (0.787) / T-score (-2.1) / Z-score (0.2) Findings are suggestive of osteopenia with a high fracture risk. Left Femur Total: g/cm2 (0.700) / T-score (-2.0) / Z-score (-0.2) Left Femoral Neck: g/cm2 (0.645) / T-score (-1.8) / Z-score (0.2) Right Femur Total: g/cm2 (0.771) / T-score (-1.4) / Z-score (0.3) Right Femoral Neck: g/cm2 (0.570) / T-score (-2.5) / Z-score (-0.5) The T-Scores on the most recent prior examination were: Lumbar Spine (L1-L4): There has been worsening of bone density since the previous examination. Left Femur Total: which represents an improvement of 0.4%. Right Femur Total: which represents an improvement of 1.6%. BD/Dexa Bone Density Study IMPRESSION: The patient is considered osteoporotic as outlined below according to World Alan Organization (WHO) criteria with a high fracture risk. There has been worsening of bone density since the previous examination. Reference Information: The T-score is the number of standard deviations above or below the standard which is normal for young adults at their peak bone mineral density. The World Health Organization (WHO) interprets the T-scores as follows: Above -1 Normal bone density Between -1 and -2.5 Osteopenia Equal to / or below -2.5 Osteoporosis As a practical clinical guideline, osteopenia may be graded as follows: Mild -1 through -1.5 Moderate -1.6 through -2.0 Severe -2.1 through -2.4 The Z-score is the number of standard deviations above or below age-matched controls. A Z-score of less than -1.5 would be considered abnormal. References: 1. NIH Osteoporosis and Related Bone Diseases www osteo.org 2. International Society for Clinical Densitometry www iscd.org 3. National Osteoporosis Foundation www nof.org Electronically Signed: Eliecer Cespedes MD at 10:35 EST ,
== END | disposition home or self-care (01) ==
LOC: OPBD 14:15
PROVIDERS: PCP Family Medicine; Referring Provider Family Medicine; Visit Provider Family Medicine
DX: Z12.31 Encounter for screening mammogram for malignant neoplasm of breast (principal); M81.0 Age-related osteoporosis without current pathological fracture
CPT/HCPCS: 77063; 77067; 77080

== ENCOUNTER → 2024-10-25 | Outpatient (CLI) | payer MEDICARE, OTHER, SELFPAY ==
[2024-10-25 15:52] LABS: ALB/GLOB Ratio 0.9 RATIO (0.9-2.4); AST(SGOT) 26 U/L (15-37); Alanine Aminotransfer ALT/SGPT 37 U/L (13-56); Albumin, Serum 3.5 g/dL (3.2-5.0); Alkaline Phosphatase 72 U/L (45-117); Anion Gap 5 (5-15); BUN 17 mg/dL (7-18); BUN/Creat Ratio 24.7 RATIO (10-20); Calcium,Total 9.8 mg/dL (8.5-10.1); Chloride 108 mmol/L (98-107); Creatinine, Serum 0.69 mg/dL (0.55-1.02); EST Glomerular Filtration Rate 89 mL/min (>60); Est Glom Filt Rate - Afr Amer 107 mL/min (>60); Globulin 3.7 g/dL (2.2-4.2); Glucose 100 mg/dL (74-106); Potassium 3.4 mmol/L (3.5-5.1); Protein, Total 7.2 g/dL (6.4-8.2); Sodium Level 141 mmol/L (136-145)
[2024-10-25 15:58] LABS: Vitamin D,25 Hydroxy 42.1 ng/mL
== END | disposition home or self-care (01) ==
LOC: MFPLAB 11:35
PROVIDERS: PCP Family Medicine; Referring Provider Family Medicine; Visit Provider Family Medicine
DX: M81.0 Age-related osteoporosis without current pathological fracture (principal)
CPT/HCPCS: 36415; 80053; 82306

== ENCOUNTER → 2024-12-25 | Outpatient (CLI) | payer MEDICARE, OTHER, SELFPAY ==
[2024-12-25 12:31] LABS: Absolute Lymphocyte Count 2.19 X10^3/uL (0.83-4.51); Absolute Neutrophil Count 3.9 X10^3/uL (2.0-7.7); Basophil# 0.04 X10^3/uL; Basophil% 0.6 % (0-1); Eosinophil# 0.11 X10^3/uL; Eosinophils% 1.6 % (0-5); Hematocrit 41.3 % (37-47); Hemoglobin 13.6 g/dL (12.0-15.0); Lymphocyte # 2.19 X10^3/ul (0.83-4.51); Lymphocyte % 32.7 % (19-41); Mean Corp Hgb Conc 32.9 g/dL (32-36); Mean Corpuscular Hgb 30.3 pg (27.0-32.0); Mean Platelet Vol. 11.7 fl (6.2-12.0); Monocyte# 0.49 X10^3/uL; Monocyte% 7.3 % (0-10); NRBC Flagged by Analyzer 0 % (0-5); Neutrophil # 3.86 X10^3/uL (2.7-7.7); Neutrophil % 57.7 % (47-70); Platelet Count 178 K/mm3 (150-450); RBC Distribution Width SD 47.5 fl (35.1-43.9); Red Blood Count 4.49 M/mm3 (4.2-5.4); White Blood Count 6.7 K/mm3 (4.4-11.0)
[2024-12-25 13:06] LABS: Hemoglobin A1c 5.9 % (<=5.6)
[2024-12-25 13:10] LABS: ALB/GLOB Ratio 1.3 RATIO (0.9-2.4); AST(SGOT) 27 U/L (<=31); Alanine Aminotransfer ALT/SGPT 24 U/L (<=34); Albumin, Serum 4.2 g/dL (3.4-4.8); Alkaline Phosphatase 76 U/L (35-104); Anion Gap 12 (5-15); BUN 15 mg/dL (4-19); BUN/Creat Ratio 16.6 RATIO (10-20); Calcium,Total 10.2 mg/dL (7.6-11.0); Carbon Dioxide 24.6 mmol/L (21.0-32.0); Chloride 104 mmol/L (98-108); Cholesterol 269 mg/dL (<=200); EST Glomerular Filtration Rate 67 (>60); Globulin 3.2 g/dL (2.2-4.2); Glucose 103 mg/dL (70-99); High Density Lipoprotein 66 mg/dL; Low Density Lipoprotein Calc. 167 mg/dL; Potassium 3.7 mmol/L (3.3-5.1); Protein, Total 7.4 g/dL (5.9-8.4); Sodium Level 141 mmol/L (133-145); Total Bilirubin 0.42 mg/dL (0.00-1.30); Triglycerides 181 mg/dL; Very Low Density Lipoprotein 36 mg/dL (5-40); cholesterol:hdl ratio screen 4.08
== END | disposition home or self-care (01) ==
LOC: MFPLAB 11:08
PROVIDERS: PCP Family Medicine; Referring Provider Family Medicine; Visit Provider Family Medicine
DX: E06.3 Autoimmune thyroiditis (principal); R73.02 Impaired glucose tolerance (oral); E78.5 Hyperlipidemia, unspecified
CPT/HCPCS: 36415; 80053; 80061; 83036; 84439; 84443; 85025

== ENCOUNTER → 2025-02-06 | Outpatient (CLI) | payer MEDICARE, OTHER, SELFPAY ==
--- NOTE | 2025-02-06 06:58 | ECHOD_ITS ---
Reason For Study Reason For Study: CAD/ASHD Procedure This was a 2D Doppler, Color Flow transthoracic echocardiogram. Exam performed in department. Left Ventricle Normal LV size. The left ventricular ejection fraction is 60 %. No regional wall motion abnormalities noted. Right Ventricle Normal RV size. Normal systolic function. Atria The left atrium is mildly enlarged. Normal right atrium. Mitral Valve Bileaflet diffuse mitral valve thickening. Mild (1+) eccentric mitral valve insufficiency. Tricuspid Valve Normal tricuspid valve. Mild tricuspid valve insufficiency. Pulmonary artery systolic pressure is 25 mmHg. Aortic Valve Trisinus/trileaflet aortic valve. Pulmonic Valve Normal pulmonic valve. Great Vessels Normal aortic root. The pulmonary artery is normal size. Inferior vena cava collapse with respiration. Pericardium/Pleural No pericardial effusion. MMode/2D Measurements & Calculations LVIDd: 4.9 cm IVSd: 1.1 cm Ao root diam: 3.5 cm LVIDs: 3.2 cm LVPWd: 1.0 cm RVDd: 4.2 cm FS: 33.4 % LAV(MOD-bp): 77.7 ml LVAd ap4: 30.0 cm2 SV(MOD-sp4): 56.3 ml LAV(MOD-bp) Indexed: 40.9 ml/m2 LVLd ap4: 7.7 cm SI(MOD-sp4): 29.7 ml/m2 LAV(MOD-sp2): 67.9 ml EDV(MOD-sp4): 97.5 ml LAV(MOD-sp4): 75.0 ml EDV(sp4-el): 98.9 ml LVAs ap4: 17.3 cm2 LVLs ap4: 6.4 cm ESV(MOD-sp4): 41.1 ml ESV(sp4-el): 39.8 ml EF(MOD-sp4): 57.8 % EF(sp4-el): 59.8 % SV(sp4-el): 59.1 ml LA A4 area: 24.0 cm2 LA dimension(2D): 4.5 cm RA A4 area: 19.1 cm2 TAPSE: 1.6 cm Time Measurements MV dec time: 0.19 sec Doppler Measurements & Calculations MV E max german: 79.8 cm/sec Lat Peak E' German: 12.4 cm/sec Med Peak E' German: 8.1 cm/sec MV A max german: 68.8 cm/sec E/E' lat: 6.5 E/E' med: 9.9 MV E/A: 1.2 MV V2 max: 97.1 cm/sec MV P1/2t max german: 98.1 cm/sec Ao V2 max: 137.8 cm/sec MV max P.8 mmHg MV P1/2t: 73.6 msec Ao max P.6 mmHg MV V2 mean: 52.5 cm/sec Ao V2 mean: 101.3 cm/sec MV mean P.3 mmHg MV dec slope: 390.5 cm/sec2 Ao mean P.6 mmHg MV V2 VTI: 35.3 cm MVA(P1/2t): 3.0 cm2 Ao V2 VTI: 39.2 cm AV (velocity ratio): 0.69 LV V1 max: 96.3 cm/sec MR max german: 518.3 cm/sec PA V2 max: 90.3 cm/sec LV V1 max P.7 mmHg MR max P.5 mmHg LV V1 mean P.3 mmHg LV V1 mean: 73.2 cm/sec LV V1 VTI: 27.2 cm TR max german: 237.5 cm/sec TR max P.6 mmHg ECHO/Echo Complete Interpretation Summary Normal LV size. The left ventricular ejection fraction is 60 %. Bileaflet diffuse mitral valve thickening. Mild (1+) eccentric mitral valve insufficiency. The left atrium is mildly enlarged. Mild tricuspid valve insufficiency. Ordering Physician: Dagoberto Hernandez Referring Physician: SYLWIA ZAMUDIO Performed By: Arnulfo Hoyos RCS
--- NOTE | 2025-02-06 14:05 | STRESSREP ---
Stress Test Report Exercise myocardial perfusion stress test. 74-year-old lady with a history of chest pain Stress protocol: Resting EKG demonstrates sinus bradycardia with a rate of 56 bpm resting blood pressure is 140/80 mmHg. The patient exercised according to the regular [place] protocol for a total duration of 6 minutes attaining a maximum heart rate of 148 bpm which was 101% of maximum predicted heart rate; the maximum workload was 7 metabolic equivalents. At rest there were no ST or T wave changes noted to suggest ischemia and at peak exercise upsloping ST changes only were noted which did not meet the criteria for ischemia. No clinical angina was noted the test was terminated due to the target heart rate being achieved/fatigue. The peak blood pressure was 162/80 mmHg. Rate-pressure product was 22,000. Myocardial perfusion protocol. 12.9 mCi of technetium 99m sestamibi was injected at rest. The patient exercised according to regular [place] protocol for total duration of 6 minutes and at peak exercise 36.7 mCi of technetium 99m sestamibi was injected stress images were obtained stress and rest images were reconstructed in comparing the short axis vertical long and horizontal long axis. Gated images were also obtained. Perfusion SPECT analysis: Review of the stress images demonstrate normal uptake of tracer noted in all areas of the myocardium. The resting images similarly demonstrate normal uptake of tracer noted in all areas of the myocardium. No areas of reversibility are noted to suggest ischemia no previous infarct was noted. Gated SPECT analysis: The gated ejection fraction is 62%. Conclusion: Normal exercise myocardial perfusion stress test at a moderate workload Preserved ejection fraction.
== END | disposition home or self-care (01) ==
LOC: CVS 06:56
PROVIDERS: PCP Family Medicine; Referring Provider Internal Medicine Cardiovascular Disease; Visit Provider Internal Medicine Cardiovascular Disease
DX: I25.10 Atherosclerotic heart disease of native coronary artery without angina pectoris (principal); I10 Essential (primary) hypertension
CPT/HCPCS: 78452; 93017; 93306; A9500; A4216

== ENCOUNTER → 2025-04-22 | Outpatient (CLI) | payer MEDICARE, OTHER, SELFPAY ==
[2025-04-22 08:31] LABS: Mucous, Urine 0 SEEN /hpf (<or=2+); Red Blood Cells-Urine 0 SEEN /hpf (0-5)
[2025-04-22 10:54] LABS: Color, Urine Yellow (Yellow); Glucose, Dipstick Normal (Normal); Ketone-Dipstick Negative (Negative); Leukocyte Esterase-Dipstick 100 /ul (Negative); Nitrite-Dipstick Negative (Negative); Occult Blood-Urine 10 /ul (Negative); Protein-Dipstick Negative (Negative); Specific Gravity, Urine 1.020 (1.002-1.030); Urine Bilirubin Dipstick Negative (Negative)
[2025-04-22 11:14] LABS: Hematocrit 42.0 % (37-47); Hemoglobin 13.7 g/dL (12.0-15.0); Immature Granulocytes Count 0.030 X10^3/uL (0.0-0.0); Mean Corp Hgb Conc 32.6 g/dL (32-36); Mean Corpuscular Volume 94.4 fL (81-99); Mean Platelet Vol. 12.3 fl (6.2-12.0); NRBC Flagged by Analyzer 0 % (0-5); Platelet Count 137 K/mm3 (150-450); RBC Distribution Width CV 13.6 % (11.6-14.6); RBC Distribution Width SD 46.9 fl (35.1-43.9); Red Blood Count 4.45 M/mm3 (4.2-5.4); White Blood Count 7.0 K/mm3 (4.4-11.0)
[2025-04-22 12:09] LABS: AST(SGOT) 25 U/L (<=31); Alanine Aminotransfer ALT/SGPT 28 U/L (<=34); Albumin, Serum 4.3 g/dL (3.4-4.8); Alkaline Phosphatase 72 U/L (35-104); Anion Gap 12 (5-15); BUN 21 mg/dL (4-19); BUN/Creat Ratio 34.1 RATIO (10-20); Calcium,Total 10.2 mg/dL (7.6-11.0); Carbon Dioxide 25.0 mmol/L (21.0-32.0); Chloride 105 mmol/L (98-108); Cholesterol 181 mg/dL (<=200); Globulin 3.1 g/dL (2.2-4.2); Glucose 103 mg/dL (70-99); Low Density Lipoprotein Calc. 98 mg/dL; Potassium 3.6 mmol/L (3.3-5.1); Triglycerides 97 mg/dL; Very Low Density Lipoprotein 19 mg/dL (5-40); Vitamin D,25 Hydroxy 42.2 ng/mL (30-100); cholesterol:hdl ratio screen 2.83
[2025-04-22 12:28] LABS: Squamous Epithelial Cells - UA 0-5 SEEN /hpf (5-10)
== END | disposition home or self-care (01) ==
LOC: MFPLAB 08:29
PROVIDERS: PCP Family Medicine; Referring Provider Family Medicine; Visit Provider Family Medicine
DX: E06.3 Autoimmune thyroiditis (principal); I10 Essential (primary) hypertension; M81.0 Age-related osteoporosis without current pathological fracture; R73.02 Impaired glucose tolerance (oral)
CPT/HCPCS: 36415; 80053; 80061; 81001; 82306; 83036; 84439; 84443; 85025

== ENCOUNTER → 2025-05-01 | Outpatient (CLI) | payer MEDICARE, OTHER, SELFPAY ==
--- NOTE | 2025-05-01 11:49 | US_ITS ---
PROCEDURE: THYROID 05/01/2025 REASON FOR EXAM: NODULE, COMPARE TO 2022 TECHNIQUE: THYROID COMPARISON: 01/13/2023 FINDINGS: Right thyroid lobe size: 3.6 x 1.2 x 1 cm Left thyroid lobe size: 4 x 1.3 x 1.6 cm Isthmus: 0.3 cm Background parenchymal echotexture is heterogeneous. Nodules: Right mid pole hypoechoic nodule measuring 1.2 x 1 x 0.4 cm. Increased vascularity is noted. Right thyroid midpole hyperechoic nodule measuring 0.4 x 0.4 x 0.5 cm with increased vascularity. Left medial thyroid hyperechoic nodule measuring 0.9 x 0.8 x 0.6 cm is noted. Left mid thyroid pole hyperechoic nodule measuring 0.7 x 0.6 x 0.7 cm is noted. Right lateral neck lymph nodes are seen, largest measures 1.8 x 1.1 x 0.7 cm US/Thyroid IMPRESSION: Right thyroid lobe TR 3 and TR 4 nodules. Left thyroid lobe TR 3 nodules. Right neck lymph nodes Heterogenous thyroid gland, this could be seen in thyroiditis. Almost stable nodules since the prior study. No FNA needed. Follow-up is advi sed RECOMMENDATION: Based on most suspicious nodule. Nodule size = largest diameter Only evaluate nodule if =>5 mm. Growth > 20% in 2 dimensions = worsening. Follow up to 4 nodules. Recommend biopsy for no more than 2 nodules. Reading [facility] [id number]
== END | disposition home or self-care (01) ==
LOC: US 11:49
PROVIDERS: PCP Family Medicine; Referring Provider Family Medicine; Visit Provider Family Medicine
DX: E04.1 Nontoxic single thyroid nodule (principal)
CPT/HCPCS: 76536

== ENCOUNTER → 2025-08-12 | Outpatient (CLI) | payer MEDICARE, OTHER, SELFPAY ==
[2025-08-12 15:31] LABS: Hematocrit 41.3 % (37-47); Hemoglobin 13.6 g/dL (12.0-15.0); Immature Granulocytes Count 0.030 X10^3/uL (0.0-0.0); Mean Corp Hgb Conc 32.9 g/dL (32-36); Mean Corpuscular Volume 93.2 fL (81-99); Mean Platelet Vol. 11.4 fl (6.2-12.0); NRBC Flagged by Analyzer 0 % (0-5); Platelet Count 180 K/mm3 (150-450); RBC Distribution Width CV 13.3 % (11.6-14.6); RBC Distribution Width SD 45.6 fl (35.1-43.9); Red Blood Count 4.43 M/mm3 (4.2-5.4); White Blood Count 7.6 K/mm3 (4.4-11.0)
[2025-08-12 15:43] LABS: Anion Gap 10 (5-15); BUN 17 mg/dL (4-19); BUN/Creat Ratio 25.9 RATIO (10-20); Calcium,Total 10.6 mg/dL (7.6-11.0); Carbon Dioxide 28.5 mmol/L (21.0-32.0); Chloride 104 mmol/L (98-108); Glucose 87 mg/dL (70-99); Potassium 3.4 mmol/L (3.3-5.1)
[2025-08-12 15:47] LABS: CRP < 3.00 mg/L (0.0-3.0)
== END | disposition home or self-care (01) ==
PROVIDERS: PCP Family Medicine; Referring Provider Podiatrist Foot & Ankle Surgery; Visit Provider Podiatrist Foot & Ankle Surgery
DX: E11.42 Type 2 diabetes mellitus with diabetic polyneuropathy (principal)
CPT/HCPCS: 36415; 80048; 83036; 85025; 85652; 86140; 86431

== ENCOUNTER → 2025-09-08 | Outpatient (CLI) | payer MEDICARE, OTHER, SELFPAY ==
--- NOTE | 2025-09-08 10:00 | VDLE_ITS ---
Reason For Study Reason For Study: Bilateral Foot Pain, PVD RIGHT LEFT GSV is normal. GSV is normal. CFV is compressible, spontaneous, phasic, competent CFV is compressible, spontaneous, phasic, competent, and demonstrates normal augmentation. and demonstrates normal augmentation. FV is compressible, spontaneous, phasic, competent FV is compressible, spontaneous, phasic, competent and demonstrates normal augmentation. and demonstrates normal augmentation. POP V is compressible, spontaneous, phasic, competent POP V is compressible, spontaneous, phasic, competent and demonstrates normal augmentation. and demonstrates normal augmentation. T/P Trunk is compressible. T/P Trunk is compressible. PTV is compressible. PTV is compressible. RT PerV is compressible. LT PerV is compressible. Procedure This is a venous duplex using B-mode, color flow and spectral Doppler. Exam performed in department. A preliminary report was called and/or faxed to Dr. Warren. VL/Venous Duplex US - Jose Extrem Interpretation Summary Deep veins of the lower extremities are bilaterally patent and compressible seg mentally. There is no evidence of deep vein thrombosis on either side. Valvular competence appears intact within the p roximal deep venous systems bilaterally. The great saphenous veins appear bilaterally patent and compressible segmentall y. Ordering Physician: Clayton Warren Referring Physician: Bob Billings Performed By: Juliet Paredes, GIDEON, RVT
--- NOTE | 2025-09-08 10:00 | ART_ITS ---
Reason For Study Reason For Study: Bilateral Foot Pain, PVD Procedure A bilateral lower extremity continuous wave Doppler with analog waveform analysis,segmental pressures,and ankle brachial indexes without exercise. Left Segmental Pressures Left brachial= 137mmHg. Left posterior tibial artery = 169mmHg. Left dorsalis pedis artery = 155mmHg. Left digit = 124 mmHg. Right Segmental Pressures Right brachial= 136mmHg. Right posterior tibial artery = 163mmHg. Right dorsalis pedis artery = 154mmHg. Right digit = 128 mmHg. Indices The right ankle brachial index by the posterior tibial artery is 1.19. The right ankle brachial index by the dorsalis pedis is 1.12. The right digital-brachial index is 0.93. The left ankle brachial index by the posterior tibial artery is 1.23. The left ankle brachial index by the dorsalis pedis is 1.13. The left digital-brachial index is 0.91. VL/Lower Ext Art Exam w/o Exercis Interpretation Summary Triphasic Doppler waveforms are noted at ankle level bilaterally. Pulse-volume recordings appear satisfactory at all levels bilaterally. Resting ankle-brachial indices are normal bilaterally. Digi zuly-brachial indices are normal bilaterally. There is no evidence of significant arterial occlusive disease in the lower ext remities bilaterally. Ordering Physician: Clayton Warren Referring Physician: Bob Billings Performed By: Juliet Paredes RDCS/RVT
== END | disposition home or self-care (01) ==
PROVIDERS: PCP Family Medicine; Referring Provider Podiatrist Foot & Ankle Surgery; Visit Provider Podiatrist Foot & Ankle Surgery
DX: M79.671 Pain in right foot (principal); M79.672 Pain in left foot; I73.89 Other specified peripheral vascular diseases
CPT/HCPCS: 93923; 93970